=== PATIENT | female | born 1945 | race Caucasian/White ===

== ENCOUNTER 2017-11-13 08:23 | Outpatient (RCR) | payer OTHER, SELFPAY ==
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
--- NOTE | 2017-11-25 11:21 | NT_ITS ---
NON TREATMENT NOTE: 11/25/17 Today's appointment was made in an effort for patient to be followed up from her initial evaluation. There have been two attempts to contact this patient for follow up with a message left on both attempts.
== END 2017-12-06 23:59 | disposition home or self-care (01) ==
LOC: PT 08:23
PROVIDERS: PCP Nurse Practitioner Family; Referring Provider Otolaryngology Otolaryngology/Facial Plastic Surgery; Visit Provider Otolaryngology Otolaryngology/Facial Plastic Surgery
DX: R42 Dizziness and giddiness (principal)
CPT/HCPCS: 97112; 97161

== ENCOUNTER 2018-08-27 08:36 | Outpatient (REF) | payer OTHER, SELFPAY ==
[2018-08-27 12:11] LABS: Abs Immature Grans 0.01 k/cumm (0.0-0.09); Absolute Basophil Count 0.02 k/cumm (0.0-0.2); Absolute Eosinophil Count 0.31 k/cumm (0.0-0.7); Absolute Lymphocyte Count 1.57 k/cumm (1.2-3.4); Absolute Monocyte Count 0.74 k/cumm (0.11-0.7); Basophils % 0.3; HCT 45.3 % (36.0-46.0); HGB 14.9 g/dL (12.0-15.5); Immature Grans % 0.2; Lymphocytes % 25.5; Mean Corp. HGB Concentration 32.9 g/dL (32.0-36.0); Mean Corpuscular Hemoglobin 29.1 pg (27.0-33.0); Mean Corpuscular Volume 88.5 fL (80-95); Mean Platelet Volume 10.2 fL (8.0-11.0); Platelet Count 338 x1000/uL (130-400); RBC 5.12 m/cumm (4.00-5.20); RBC Distribution Width 12.8 % (11.7-14.6); White Blood Cell Count 6.15 k/cumm (4.4-10.8)
[2018-08-27 12:39] LABS: Bilirubin Negative (Negative); Blood Negative (Negative); Clarity Clear; Glucose Negative (Negative); Ketones Negative (Negative); Leukocyte Esterase Small (Negative); Nitrite Negative (Negative); Specific Gravity 1.015 (1.005-1.025); Urobilinogen 0.2 EU/dL (Up TO 0.2); pH 7.5 (5-8)
[2018-08-27 12:52] LABS: ALT 34 U/L (12-78); AST 16 U/L (15-37); Albumin 3.8 g/dL (3.4-5.0); Alkaline Phosphatase 89 U/L (46-116); Anion Gap 11.7 mmol/L (3-11); BUN 15 mg/dL (7-18); Bilirubin, Total 0.4 mg/dL (0.2-1.0); CO2 26.3 mmol/L (21.0-32.0); CREATININE 0.69 mg/dL (0.55-1.02); Calcium 10.2 mg/dL (8.5-10.1); Chloride 103 mmol/L (98-107); Cholesterol 162 mg/dL (50-200); Glucose 139 mg/dL (70-100); HDL Cholesterol 56 mg/dL (40-60); LDL CHOLESTEROL 89 mg/dL (<100); Potassium 4.6 mmol/L (3.5-5.1); Sodium 141 mmol/L (136-145); Total Protein 6.7 g/dL (6.4-8.2); Triglyceride 122 mg/dL (30-150)
[2018-08-27 12:53] LABS: COMMENT (LAB VIEW ONLY) 49.77 mg/dL; Microalb ug/mg Crea 12.5 ug/mg Cr
[2018-08-27 13:32] LABS: Epithelial Cells Rare HPF (Negative); RBC 0-2 (0-2); WBC 0-2 HPF (0-5)
[2018-08-27 13:33] LABS: Bacteria Few HPF (Negative); C & S Indicated? Yes; Casts Negative LPF (Negative); Crystals Few Amorphous HPF (Negative); Mucus Negative (Negative)
== END 2018-08-27 08:56 ==
LOC: NCHCN 08:36
PROVIDERS: PCP Nurse Practitioner Family; Visit Provider Nurse Practitioner Family
DX: R06.01 Orthopnea (principal); R53.83 Other fatigue; E11.9 Type 2 diabetes mellitus without complications
CPT/HCPCS: 80053; 80061; 83721; 81003; 81015; 82043; 82570; 85025; 87086

== ENCOUNTER 2018-09-08 00:05 | Outpatient (CLI) | payer OTHER, SELFPAY ==
--- NOTE | 2018-09-08 08:30 | ETT_ITS ---
*[facility]* *[facility]* [address] [place] [address] Stress Electrocardiography Rocky protocol Date of study: 09/08/2018 *PATIENT PRESENTATION* Height: 164.5cm (64.8in) Blood Pressure: Weight: 78.6kg (173lb) BSA: 1.92m^2 Referring physician: Naeem Ayoub Ordering physician: Naeem Ayoub Impressions: Normal study after maximal exercise. Summary: 1. Stress ECG conclusions: The stress ECG is negative. Juarez treadmill score: 8. This score predicts a low risk of cardiac events. 2. Stress: The target heart rate was achieved. The heart rate response to stress is normal. There is a normal resting blood pressure with an appropriate response to stress. The patient experienced no chest pain during stress. Exercise capacity is normal for age. Indication: R06.02. History: REASON FOR TESTING: FOR THE PAST 6 MONTHS PATIENT REPORTS A FEELING OF NECK FULLNESS, LIKE MY NECK IS FILLING UP WHEN LYING FLAT WITHOUT A PILLOW OR HAVING HER HEAD ON ONE PILLOW; SHE NEEDS TO EITHER SIT UP OR ADD MORE PILLOWS BEHIND HER HEAD TO FEEL COMFORTABLE AND NOT HAVE THE FILLING UP FEELING. SHE ALSO REPORTS BEING MORE FATIGUED THAN SHE FEELS SHE SHOULD BE. SHE REPORTS OCCASIONAL DIZZYNESS WHICH HAS BEEN A CHRONIC ISSUE FOR HER OVER THE LAST THREE YEARS FOR WHICH SHE HAS BEEN TO PHYSICAL THERAPY. SHE REPORTS FEELING DIZZY THIS MORNING UPON ARRIVAL FOR TESTING TODAY.SHE DENIES CHEST PAIN/PRESSURE TODAY. NO SIGNIFICANT CARDIAC RELATED PAST MEDICAL HISTORY. SMOKING STATUS: NEVER. EXERCISE ROUTINE: DAILY ADL'S. IN THE SUMMER SHE WALKS 1 MILE A FEW TIMES A WEEK. Risk factors: Family history of coronary artery disease. Hypertension. Diabetes mellitus. Cholesterol: 162mg/dl. HDL: 56mg/dl. LDL: 89mg/dl. Triglycerides: 122mg/dl. ALLERGIES: NO KNOWN MEDICATION ALLERGIES. MEDICATIONS: VITAMIN A 60135 UNITS DAILY, OMEPRAZOLE 40 MG PRN, METFORMIN 750 MG BID, LISINOPRIL 10 MG DAILY, VITAMIN B-12 5000 MCG DAILY, VITAMIN D 1000 DAILY, ASPIRIN 81 MG DAILY, ASCORBATE CALCIUM 500 MG DAILY, LORATADINE 10 MG DAILY. Protocol: Rocky protocol. Baseline ECG: SINUS RHYTHM. HR 68 BPM. Stress protocol: + +---+ + !Stage !HR !BP (mmHg) ! + +---+ + !Baseline supine !68 !134/82 (99) ! + +---+ + !Baseline standing !74 !140/82 (101)! + +---+ + !Stage I; 1.7mph, 10degrees; 3 min !108!142/80 (101)! + +---+ + !Stage II; 2.5mph, 12degrees; 3 min!133!150/78 (102)! + +---+ + !Peak stress !152! ! + +---+ + !Recovery; 1 min !140!190/60 (103)! + +---+ + !Recovery; 3 min !97 !188/62 (104)! + +---+ + !Recovery; 6 min !90 !150/80 (103)! + +---+ + !Recovery; 9 min !89 !140/80 (100)! + +---+ + !Recovery; 12 min !86 !134/80 (98) ! + +---+ + * Stress results: STRESS TEST ENDED IN 7 MINUTES 26 SECONDS DUE TO FATIQUE AND SOB. NORMAL HEART RATE AND BLOOD PRESSURE. MAX HEART RATE: 152. 102 % OF TARGET HEART RATE ACHIEVED. MET'S: 9.27. NO ECTOPY. NO ANGINA. NO SIGNIFICANT ST SEGMENT CHANGES. ABOVE AVERAGE FUNCTIONAL CAPACITY. Maximal heart rate during stress was 152bpm (102% of maximal predicted heart rate). The maximal predicted heart rate was 149bpm. The target heart rate was achieved. The heart rate response to stress is normal. There is a normal resting blood pressure with an appropriate response to stress. The rate-pressure product for the peak heart rate and blood pressure was 39527ft Hg/min. The patient experienced no chest pain during stress. Exercise capacity is normal for age. Stress ECG: The stress ECG is negative. Juarez treadmill score: 8. This score predicts a low risk of cardiac events. Study data: Ahmet Wayne MD supervised and was readily available during the procedure. This study was interpreted by [facility]. Study status: Routine. Consent: The risks, benefits, and alternatives to the procedure were explained to the patient and informed consent was obtained. Procedure: Initial setup. A baseline ECG was recorded. Surface ECG leads and manual cuff blood pressure measurements were monitored. Heart sounds: Normal. Lung sounds: Normal. Treadmill exercise testing was performed using the Rocky protocol. Study completion: The patient tolerated the procedure well and was discharged from the lab. Discharge: The patient left the laboratory in stable condition. Birthdate: Patient birthdate: 1945. Sex: Gender: female. Study date: Study date: 09/08/2018. Study time: 00:01 AM. Electronically signed by Ahmet Wayne MD 09/08/2018 11:07
== END 2018-09-08 00:25 ==
PROVIDERS: PCP Nurse Practitioner Family; Visit Provider Nurse Practitioner Family
DX: R06.02 Shortness of breath (principal); R42 Dizziness and giddiness; I10 Essential (primary) hypertension; E11.9 Type 2 diabetes mellitus without complications; Z82.49 Family history of ischemic heart disease and other diseases of the circulatory system; R53.83 Other fatigue
CPT/HCPCS: 93017

== ENCOUNTER 2018-10-01 00:43 | Outpatient (CLI) | payer OTHER, SELFPAY ==
--- NOTE | 2018-10-01 12:45 | MERGE_ITS ---
*[facility]* *[facility]* [address] [place] [address] Date of study: 10/01/2018 Transthoracic Echocardiography M-mode, complete 2D, complete spectral Doppler, and color Doppler *STUDY CONCLUSIONS* Summary: 1. Left ventricle: The cavity size was normal. Wall thickness was increased in a pattern of mild LVH. Systolic function was normal. The estimated ejection fraction was 60-65%. Wall motion was normal; there were no regional wall motion abnormalities. Diastolic parameters were normal for age. 2. Right ventricle: The cavity size was normal. Wall thickness was normal. Systolic function was normal. *PATIENT PRESENTATION* Height: 165.1cm ((65in) ) S/D Pressure: 129 / 68 Weight: 78.5kg ((172.6lb) ) BSA: 1.92m^2 Test start time: 12:50 PM. Test stop time: 01:50 PM. PERFORMING Unknown PERFORMING [facility] LEGAL RESEARCHER RT Colton (R)(CT), [facility] CONSULTING Glo Roberts Logan D REFERRING Naeem Ayoub *PROCEDURE DATA* Procedure information: The patient was identified by two identifiers. This study was interpreted by [facility]. Pertinent images and digital data are archived for permanent storage and are available for subsequent review. No prior study was available for comparison. Study status: Routine. Transthoracic echocardiography. M-mode, complete 2D, complete spectral Doppler, and color Doppler. A Transthoracic Echocardiogram was performed. Scanning was performed from the parasternal, apical, subcostal, and suprasternal notch acoustic windows. Images were obtained using an [id number] cardiac ultrasound machine. Image quality was adequate. Study completion: The patient tolerated the procedure well. There were no complications. History: PMH: Easy fatigability, orthopnea r06.01, r53.83. *CARDIAC ANATOMY* Left ventricle: The cavity size was normal. Wall thickness was increased in a pattern of mild LVH. Systolic function was normal. The estimated ejection fraction was 60-65%. Wall motion was normal; there were no regional wall motion abnormalities. Diastolic parameters were normal for age. Aortic valve: Trileaflet; normal thickness leaflets. Mobility was not restricted. Doppler: Transvalvular velocity was within the normal range. There was no stenosis. There was no significant regurgitation. VTI ratio of LVOT to aortic valve: 0.66. Valve area (VTI): 1.9cm^2. Indexed valve area (VTI): 1cm^2/m^2. Peak velocity ratio of LVOT to aortic valve: 0.63. Valve area (Vmax): 1.8cm^2. Indexed valve area (Vmax): 0.9cm^2/m^2. Mean velocity ratio of LVOT to aortic valve: 0.64. Valve area (Vmean): 1.9cm^2. Indexed valve area (Vmean): 1cm^2/m^2. Mean gradient (S): 4.6mm Hg. Peak gradient (S): 7.8mm Hg. Aorta: Aortic root: The aortic root was normal in size. Ascending aorta: The ascending aorta was normal in size. Mitral valve: Structurally normal valve. Mobility was not restricted. Doppler: Transvalvular velocity was within the normal range. There was no evidence for stenosis. There was no significant regurgitation. Valve area by pressure half-time: 3.1cm^2. Indexed valve area by pressure half-time: 1.6cm^2/m^2. Left atrium: The atrium was normal in size. Right ventricle: The cavity size was normal. Wall thickness was normal. Systolic function was normal. Pulmonic valve: Structurally normal valve. Doppler: Transvalvular velocity was within the normal range. There was no evidence for stenosis. There was no significant regurgitation. Peak gradient (S): 3.2mm Hg. Tricuspid valve: Structurally normal valve. Doppler: Transvalvular velocity was within the normal range. There was no evidence for stenosis. There was trivial regurgitation. Pulmonary artery: Pulmonary systolic pressure was within the normal range, in the range of 25mm Hg to 30mm Hg. Right atrium: The atrium was normal in size. Pericardium: There was no pericardial effusion. Systemic veins: Inferior vena cava: The vessel was normal in size. Superior vena cava: Well visualized. The vessel was patent and normal in size. The respirophasic diameter changes were in the normal range (greater than or equal to 50%). Baseline ECG: Normal sinus rhythm. Measurements Left ventricle Value Reference LV ID, ED, PLAX 4.3 cm 3.5 - 6.0 LV ID, ES, PLAX 2.6 cm 2.1 - 4.0 LV PW thickness, ED, PLAX 1.1 cm LV end-diastolic volume, 1-p A2C 55 ml LV ejection fraction, 1-p A2C 68 % LV end-diastolic volume, 1-p A4C 70 ml LV ejection fraction, 1-p A4C 67 % LV e', lateral 0.076 m/sec LV E/e', lateral 9 LV e', medial 0.058 m/sec LV E/e', medial 11 LV e', average 0.067 m/sec LV E/e', average 10 Ventricular septum Value Reference IVS thickness, ED, PLAX 1.1 cm LVOT Value Reference LVOT ID, A-P 1.9 cm LVOT area 2.9 cm^2 LVOT peak velocity, S 0.88 m/sec LVOT mean velocity, S 0.66 m/sec LVOT VTI, S 18.5 cm LVOT peak gradient, S 3.1 mm Hg LVOT mean gradient, S 1.9 mm Hg Stroke volume (SV), LVOT DP 53 ml Stroke index (SV/bsa), LVOT DP 28 ml/m^2 Aortic valve Value Reference Aortic valve peak velocity, S 1.4 m/sec Aortic valve mean velocity, S 1.02 m/sec Aortic valve VTI, S 28.0 cm Aortic mean gradient, S 4.6 mm Hg Aortic peak gradient, S 7.8 mm Hg VTI ratio, LVOT/AV 0.66 Aortic valve area, VTI 1.9 cm^2 Velocity ratio, peak, LVOT/AV 0.63 Aortic valve area, peak velocity 1.8 cm^2 Velocity ratio, mean, LVOT/AV 0.64 Aortic valve area, mean velocity 1.9 cm^2 Aortic valve area/bsa, mean velocity 1 cm^2/m^2 Aorta Value Reference Aortic root ID, ED 2.8 cm Ascending aorta ID, A-P, S 3.4 cm Left atrium Value Reference LA ID, A-P, ES 3.1 cm LA ID/bsa, A-P 1.6 cm/m^2 <=2.2 LA area, ES, A4C 11.7 cm^2 8.8 - 23.4 LA area, ES, A2C 17 cm^2 LA volume/bsa, ES, 1-p A4C 16 ml/m^2 LA volume, ES, 2-p 38 ml LA volume/bsa, ES, 2-p 20 ml/m^2 LA/aortic root ratio 1.1 Mitral valve Value Reference Mitral E-wave peak velocity 0.67 m/sec Mitral A-wave peak velocity 0.94 m/sec Mitral deceleration time (H) 245 ms 150 - 230 Mitral pressure half-time 71 ms Mitral E/A ratio, peak 0.71 Mitral valve area, PHT, DP 3.1 cm^2 Tricuspid valve Value Reference Tricuspid regurg peak velocity 2.5 m/sec Tricuspid peak RV-RA gradient 24.9 mm Hg Right atrium Value Reference RA area, ES, A4C 11.3 cm^2 8.3 - 19.5 Pulmonic valve Value Reference Pulmonic peak gradient, S 3.2 mm Hg Legend: (L) and (H) anderson values outside specified reference range. I have personally reviewed the images and have reviewed and edited the reported findings. Electronically signed by Romain Infante 10/01/2018 14:11
--- NOTE | 2018-10-01 15:30 | DI.MAMMO_ITS ---
SYMPTOMS/DIAGNOSIS: SCREENING, Z12.39 MAMMOGRAM: Mammograms were interpreted according to the usual protocol including computer analysis with CAD system, tomosynthesis and C view imaging. The breasts are of moderate density with fairly symmetrical distribution of fibroglandular tissue. No dominant mass or clumped microcalcification is identified in either breast. Current examination is compared with previous examinations including June 2017 and there has been no gross interval change in appearance in comparison with the previous studies. CONCLUSION: No specific evidence of malignancy at this time. Routine screening examinations are suggested at yearly intervals in this age group according to the ACS/ACR guidelines. Category 1, breast density category B. MQSA ASSESSMENT OF FINDINGS: Negative. Category 1. Patient will receive a letter notifying them of these results. BI-RADS category B. There are scattered areas of fibroglandular density.
== END 2018-10-01 01:03 ==
PROVIDERS: PCP Nurse Practitioner Family; Referring Provider Nurse Practitioner Family; Visit Provider Nurse Practitioner Family
DX: R53.83 Other fatigue (principal); R06.02 Shortness of breath; R06.01 Orthopnea; I10 Essential (primary) hypertension; Z12.31 Encounter for screening mammogram for malignant neoplasm of breast
CPT/HCPCS: 77063; 77067; 93306

== ENCOUNTER 2018-10-31 01:11 | Outpatient (CLI) | payer OTHER, SELFPAY ==
--- NOTE | 2018-10-31 12:20 | DI.US_ITS ---
SYMPTOMS/DIAGNOSIS: CHECK BLADDER EMPTYING, ? HYDRO, MIXED INCONTINENCE, HX DISEASE OF URINARY SYSTEM, N39.46, Z87.448, R10.2 PELVIC PAIN RENAL ULTRASOUND: Comparison is made with [id number]. The right kidney measures 11.8 cm in length. The left kidney measures 9.1 cm in length. This has not changed from the previous exam. There is no evidence of hydronephrosis, renal mass or calculi. The bladder was not well distended on the prevoid images, with a bladder of 23 cc's. There is a postvoid residual of 1.4 cc's. Both ureteral jets were visualized. IMPRESSION: No evidence of hydronephrosis. There is no significant postvoid residual.
== END 2018-10-31 01:31 ==
PROVIDERS: PCP Nurse Practitioner Family; Visit Provider Urology
DX: N39.46 Mixed incontinence (principal); R10.2 Pelvic and perineal pain; Z87.448 Personal history of other diseases of urinary system; R39.198 Other difficulties with micturition
CPT/HCPCS: 76770

== ENCOUNTER 2018-11-18 14:48 | Outpatient (REF) | payer OTHER, SELFPAY | END 2018-11-18 15:08 | LOC: NCHCN 14:48 | PROVIDERS: PCP Nurse Practitioner Family; Visit Provider Nurse Practitioner Family | DX: R30.0 Dysuria (principal); R31.9 Hematuria, unspecified | CPT/HCPCS: 87077; 87086; 87186 ==

== ENCOUNTER 2020-01-22 15:02 | Outpatient (REF) | payer OTHER, SELFPAY ==
[2020-01-22 19:21] LABS: HCT 47.1 % (36.0-46.0); HGB 14.8 g/dL (11.2-15.7); MCHC 31.4 % (32.0-36.0); MCV 92.4 fL (80-95); MPV 10.3 fL (8.0-11.0); Platelet Count 366 10^3/uL (130-400); RDW 12.2 % (11.7-14.6); WBC 6.81 10^3/uL (4.4-10.8)
[2020-01-22 19:52] LABS: Albumin 4.2 g/dL (3.4-5.0); Alkaline Phosphatase 95 U/L (46-116); BUN 18 mg/dL (7-18); Bilirubin, Total 0.3 mg/dL (0.2-1.0); CREATININE 0.88 mg/dL (0.55-1.02)
[2020-01-22 19:58] LABS: Hemoglobin A1C 7.3 % (<5.7)
[2020-01-22 20:14] LABS: ALT 46 U/L (14-59); AST 20 U/L (15-37); Anion Gap 8.8 mmol/L (3-11); CO2 27.2 mmol/L (21.0-32.0); Calculated LDL 93 mg/dL (<100); Chloride 105 mmol/L (98-107); Cholesterol 183 mg/dL (<200); Glucose 141 mg/dL (74-106); HDL Cholesterol 47 mg/dL (40-60); Sodium 141 mmol/L (136-145); Total Protein 7.3 g/dL (6.4-8.2); Triglyceride 219 mg/dL (<150)
[2020-01-22 20:32] LABS: Calcium 11.7 mg/dL (8.5-10.1)
[2020-01-22 20:33] LABS: Potassium 6.6 mmol/L (3.5-5.1)
== END 2020-01-22 15:22 ==
LOC: NCHCN 15:02
PROVIDERS: PCP Nurse Practitioner Family; Visit Provider Nurse Practitioner Family
DX: I10 Essential (primary) hypertension (principal); E11.9 Type 2 diabetes mellitus without complications
CPT/HCPCS: 80053; 80061; 85027; 83036

== ENCOUNTER 2020-02-02 19:44 | Outpatient (REF) | payer OTHER, SELFPAY ==
[2020-02-02 19:16] LABS: Anion Gap 7.5 mmol/L (3-11); BUN 17 mg/dL (7-18); CO2 26.5 mmol/L (21.0-32.0); CREATININE 0.75 mg/dL (0.55-1.02); Calcium 10.9 mg/dL (8.5-10.1); Chloride 103 mmol/L (98-107); Glucose 195 mg/dL (74-106); Potassium 4.6 mmol/L (3.5-5.1); Sodium 137 mmol/L (136-145)
== END 2020-02-02 20:04 ==
LOC: NCHCN 19:44
PROVIDERS: PCP Nurse Practitioner Family; Visit Provider Nurse Practitioner Family
DX: I10 Essential (primary) hypertension (principal)
CPT/HCPCS: 80048

== ENCOUNTER 2020-03-04 15:46 | Outpatient (REF) | payer OTHER, SELFPAY ==
[2020-03-06 13:25] LABS: Patient Race White; SARS-CoV-2 RNA Undetected (Undetected); SARS-CoV-2 Specimen Source Nasal
== END 2020-03-04 16:06 ==
LOC: NCHCN 15:46
PROVIDERS: PCP Nurse Practitioner Family; Visit Provider Nurse Practitioner Family
DX: Z11.59 Encounter for screening for other viral diseases (principal)
CPT/HCPCS: U0003

== ENCOUNTER 2020-04-21 14:22 | Outpatient (REF) | payer OTHER, SELFPAY ==
[2020-04-21 19:00] LABS: BUN 18 mg/dL (7-18); CREATININE 0.83 mg/dL (0.55-1.02); Calcium 10.5 mg/dL (8.5-10.1); Chloride 105 mmol/L (98-107); Glucose 120 mg/dL (74-106); Potassium 4.7 mmol/L (3.5-5.1); Sodium 140 mmol/L (136-145)
[2020-04-25 10:56] LABS: Parathyroid Hormone,Intact 57 pg/mL (19-88)
== END 2020-04-21 14:42 ==
LOC: NCHCN 14:22
PROVIDERS: PCP Nurse Practitioner Family; Visit Provider Nurse Practitioner Family
DX: E87.5 Hyperkalemia (principal); R53.83 Other fatigue; E11.9 Type 2 diabetes mellitus without complications; I10 Essential (primary) hypertension
CPT/HCPCS: 80048; 83970

== ENCOUNTER 2020-10-05 14:30 | Emergency (ER) | payer OTHER, SELFPAY ==
[2020-10-05] VITALS (17 sets, daily range): BP systolic 121–166; BP diastolic 70–86; PULSE 82–94; RESP 13–23; TEMP 36.8; O2SAT 91–97
--- NOTE | 2020-10-05 14:30 | RT.EKG_ITS ---
APPROVED REPORT Exam: Resting ECG Reason for Exam: chest pain Patient Location: E HR:92 bpm ECG Measurements Heart Rate 92 AXIS AL 175 P 38 QRSd 73 QRS -47 QT 357 T 37 QTc 442 Conclusion Sinus rhythm...normal P axis, V-rate 60- 99 Inferior infarct, old...Q >35mS, II III aVF PHysician: No STEMI
--- NOTE | 2020-10-05 14:30 | DI.RAD_ITS ---
Exam(s) XR CHEST 2V PA LATERAL EXAM: XR CHEST 2V PA LATERAL CLINICAL HISTORY: Chest pain. TECHNIQUE: 2D digital imaging was performed. COMPARISON: CR CHEST 2 VIEWS PA,LAT from 02/12/2014 FINDINGS: Heart size is normal. The mediastinum is not widened. Lungs are clear. No infiltrates nor pleural effusions. IMPRESSION: No acute pulmonary findings. No significant change from 02/12/2014 DATA REPOSITORY: RADIATION DOSE DELIVERED:
[2020-10-05 14:55] LABS: Abs Immature Grans 0.04 10^3/uL (0.0-0.06); Absolute Basophil Count 0.03 10^3/uL (0.0-0.2); Absolute Eosinophil Count 0.32 10^3/uL (0.0-0.7); Absolute Lymphocyte Count 1.82 10^3/uL (1.2-3.4); Absolute Monocyte Count 0.79 10^3/uL (0.1-0.8); Absolute Neutrophil Count 4.25 10^3/uL (1.2-6.7); Basophils % 0.4; Eosinophils % 4.4; HCT 47.8 % (36.0-46.0); HGB 15.5 g/dL (11.2-15.7); Immature Grans % 0.6; Lymphocytes % 25.1; MCH 29.6 pg (27.0-33.0); MCHC 32.4 % (32.0-36.0); MCV 91.2 fL (80-95); MPV 9.4 fL (8.0-11.0); Monocytes % 10.9; Neutrophils % 58.6; Nucleated RBC 0 %; Platelet Count 302 10^3/uL (130-400); RBC 5.24 10^6/uL (3.93-5.22); RDW 12.5 % (11.7-14.6); RDW-SD 41.7 fL; WBC 7.25 10^3/uL (4.4-10.8)
--- NOTE | 2020-10-05 15:02 | ED.GENADUL_ITS ---
Discharge Plan Disposition Patient Disposition: HOME Condition: Stable Discharge Details Clinical Impression: Chest pain Primary Care Provider: Naeem Ayoub ED Provider: Donna Whitman Home Meds and New Rx's Prescriptions: Continued niacin 500 mg tablet 500 mg PO TID RF: 0 aspirin 81 MG tablet,chewable 81 mg PO DAILY RF: 0 Loratadine 10 MG TAB.RAPDIS 10 mg PO DAILY PRNRF: 0 metformin 500 MG tablet 750 mg PO BID RF: 0 lisinopril 10 MG tablet 10 mg PO DAILY RF: 0 vitamin A 10,000 UNIT capsule 10,000 unit PO DAILY RF: 0 ascorbate calcium (vitamin C) 500 MG tablet 500 mg PO DAILY RF: 0 cholecalciferol (vitamin D3) 1,000 UNITS tablet 1,000 unit PO DAILY RF: 0 cyanocobalamin (vitamin B-12) 5,000 MCG tablet,disintegrating 5,000 mcg PO DAILY RF: 0 Discharge Instructions Instructions: Chest Pain (ED) Additional Instructions: Please continue to take your previously prescribed medications as directed. Follow up with primary care provider in 3-5 days. Return to ED sooner if any worsening or concerns. Increase oral fluids. An outpatient stress test was ordered. They will call you to set that up. Please return to the ED for any worsening symptoms, worsening chest pain, worsening dizziness or any concerns. At this time you have opted to not stay for the second troponin. Please be advised that I cannot rule out a cardiac event without trending this lab. Referrals: Naeem Ayoub, GAUGE AND INSTRUMENT INSPECTOR [Primary Care Provider] - Discharge Data Discharge Date/Time-TO BE ENTERED AT DEPARTURE: 10/05/20 16:15 Medical Decision Making 75-year-old female with a past medical history of hypertension, kaq-thkcscu-aunbkcjeh diabetes, Lyme disease, asthma presents to the ER with chief complaint of chest pressure which began underneath her bilateral arms rating up into the bilateral neck and in between her shoulder blades. Associated with dizziness and increased fatigue. Patient reports increased activity over the last week and overdoing it she reports increasing her lisinopril dosages by half a tablet since Saturday due to blood pressure reading of 158/73. Upon initial exam she is complaining of 1 or 2 out of 10 chest pressure. Denies any nausea vomiting diarrhea however she does state that her bowels have been off. EKG was reviewed by Dr. Benjie Nguyen DO ER attending, please see his official report no old EKG available for review. Heart score is 4 Initial labs include CBC, CMP, serial troponin, chest x-ray. CBC is largely within normal limits, no leukocytosis CMP shows anion gap of 12.7, BUN 21 creatinine 0.9 GFR greater than 60 glucose is 169. Initial troponin within normal limits less than 0.05 Patient is willing to wait the second troponin in 3 hours. Current 324 mg aspirin ordered. Chest x-ray is pending at this time. Exam(s) XR CHEST 2V PA LATERAL EXAM: XR CHEST 2V PA LATERAL CLINICAL HISTORY: Chest pain. TECHNIQUE: 2D digital imaging was performed. COMPARISON: CR CHEST 2 VIEWS PA,LAT from 02/12/2014 FINDINGS: Heart size is normal. The mediastinum is not widened. Lungs are clear. No infiltrates nor pleural effusions. IMPRESSION: No acute pulmonary findings. No significant change from 02/12/2014 Informed by staff development coordinator that patient is declining to wait for the second troponin at this time. I did discuss the risks and benefits of this. She verbalizes understanding has a capacity to make her own decisions. She would not like to wait for the second troponin. I will order an outpatient stress test for the patient with strict return instructions and instructions to follow up with PCP in the next 3 to 5 days. HPI General Mode of arrival: wheelchair . Date/Time Provider Initiated Documentation: 10/05/20 14:35 . Limitations to Documentation: no limitations . Information obtained by: patient and RN notes reviewed . HPI Narrative: 75-year-old female with a past medical history of hypertension, ecd-atzaedn-kvjjkaawn diabetes, Lyme disease, asthma presents to the ER with chief complaint of chest pressure which began underneath her bilateral arms rating up into the bilateral neck and in between her shoulder blades. Associated with dizziness and increased fatigue. Patient reports increased activity over the last week and overdoing it she reports increasing her lisinopril dosages by half a tablet since Saturday due to blood pressure reading of 158/73. Upon initial exam she is complaining of 1 or 2 out of 10 chest pressure. Denies any nausea vomiting diarrhea however she does state that her bowels have been off. Related Data Home Medications Medication Instructions Recorded Confirmed lisinopril 10 mg PO DAILY 07/27/12 10/05/20 metformin 750 mg PO BID 07/27/12 10/05/20 Loratadine 10 mg PO DAILY PRN tab-cap 06/11/17 10/05/20 aspirin 81 mg PO DAILY tab-cap 06/11/17 10/05/20 ascorbate calcium (vitamin C) 500 mg PO DAILY 07/25/17 10/05/20 cholecalciferol (vitamin D3) 1,000 unit PO DAILY 07/25/17 10/05/20 cyanocobalamin (vitamin B-12) 5,000 mcg PO DAILY 07/25/17 10/05/20 vitamin A 10,000 unit PO DAILY 07/25/17 10/05/20 niacin 500 mg tablet 500 mg PO TID tab 10/31/18 10/05/20 Allergies Allergy/AdvReac Type Severity Reaction Status Date / Time No Known Allergies Allergy Unverified 10/05/20 14:41 General Stated Complaint: Chest Pain DEMETRICE: 2 Review of Systems Narrative: Constitutional: Negative for weight loss, alert and oriented, well groomed, normal body habitus, appears comfortable. Increased fatigue HEENT: Denies trauma, headaches, blurry vision, nasal discharge, sore throat, trouble swallowing. Chest: Denies palpitations, irregular rhythm, reports midsternal chest pressure which radiates around to bilateral arms and bilateral neck. Respiratory: Denies Shortness of breath, cough, hemoptysis. GI: Denies abdominal pain, nausea, vomiting, diarrhea, constipation. : Denies dysuria, hematuria, flank pain, rectal bleeding. Neuro: Denies , blurry vision, weakness, syncope, headache or facial numbness. Positive dizziness. Hematologic: Denies easy bruising, intolerance to heat or cold, hair loss. [facility] Medical History Acute Lyme disease Anxiety Asthma Cataract Chronic back pain Depression Dysuria Fibrocystic breast H/O menorrhagia Hematuria History of pyelonephritis HTN (hypertension) Hyperlipidemia Incomplete bladder emptying Irritable colon Low pressure urethral dysfunction Mild scoliosis Neck pain Onychomycosis Osteopenia Pelvic pain in female Schatzki's ring Type 2 diabetes mellitus Urinary incontinence in female Vaginal pain Surgical History [place] [facility] [place] Social History Smoking/Tobacco Use Status: Never Smoking risk assessment performed?: Yes Alcohol Intake: never Drug use: Never Do you feel safe at home: Yes Do you feel safe in your relationship?: Yes Exam Narrative Exam Narrative: Constitutional: Alert and oriented x3. Appears stated age. Normal body habitus. Head: Normocephalic, no trauma. Eyes: Pupils PERRLA, Red reflex noted, EOM's intact. Eyelids symmetrical without lesions, discharge, or swelling. ENT: Bilateral TM's WNL, External ear normal to inspection, no mastoid TTP, swelling, or erythema, Nasal turbinates WNL, no nasal discharge. Normal dentition, Posterior pharynx WNL, no exudate. Chest: RRR, Normal S1, S2, distal pulses intact. Resp: Lungs clear to auscultation bilaterally, no wheezes, rales, or rhonchi. Abdomen: Soft, nontender all 4 quadrants. Nondistended. Musculoskeletal: Normal gait, 5/5 strength to all four extremities. Skin: No suspicious rashes or lesions. Capillary refill less than 2 sec. Neurologic: Cranial nerves II-XII intact. Alert and oriented x 3. DTR's intact. Hematologic/Lymphatic: No ecchymosis, no lymphadenopathy. Course Vital Signs Vital signs: Vital Signs Temperature 36.8 C 10/05/20 14:37 Pulse 94 H 10/05/20 14:37 Respiratory Rate 19 10/05/20 14:37 Blood Pressure 166/86 H 10/05/20 14:37 Pulse Oximetry 95 10/05/20 14:37 Temperature 36.8 C 10/05/20 14:37 Temperature Source Temporal Artery Scan 10/05/20 14:37 Pulse 94 H 10/05/20 14:37 Pulse 89 10/05/20 15:00 Respiratory Rate 14 10/05/20 15:00 Respiratory Effort Non-Labored 10/05/20 14:40 Blood Pressure 166/86 H 10/05/20 14:37 Blood Pressure Position Supine 10/05/20 14:37 Pulse Oximetry 97 10/05/20 14:50 Oxygen Delivery Method Room Air 10/05/20 14:37 Oxygen Flow Rate 0 10/05/20 14:37 Pain Level 5 10/05/20 14:37 Lab/Test Results Lab/Test Results: Laboratory Tests Range/Units 10/05/20 14:50 WBC (4.4-10.8) 10^3/uL 7.25 RBC (3.93-5.22) 10^6/uL 5.24 H Hgb (11.2-15.7) g/dL 15.5 Hct (36.0-46.0) % 47.8 H MCV (80-95) fL 91.2 MCH (27.0-33.0) pg 29.6 MCHC (32.0-36.0) % 32.4 RDW (11.7-14.6) % 12.5 Plt Count (130-400) 10^3/uL 302 MPV (8.0-11.0) fL 9.4 Immature Gran % 0.6 Neutrophils % 58.6 Lymphocytes % 25.1 Monocytes % 10.9 Eosinophils % 4.4 Basophils % 0.4 Nucleated RBC % % 0 Absolute Neutrophils (1.2-6.7) 10^3/uL 4.25 Absolute Lymphocytes (1.2-3.4) 10^3/uL 1.82 Absolute Monocytes (0.1-0.8) 10^3/uL 0.79 Absolute Eosinophils (0.0-0.7) 10^3/uL 0.32 Absolute Basophils (0.0-0.2) 10^3/uL 0.03
[2020-10-05 15:10] LABS: ALT 35 U/L (14-59); AST 26 U/L (15-37); Alkaline Phosphatase 109 U/L (46-116); Anion Gap 12.7 mmol/L (3-11); BUN 22 mg/dL (7-18); Bilirubin, Total 0.3 mg/dL (0.2-1.0); CO2 22.3 mmol/L (21.0-32.0); CREATININE 0.9 mg/dL (0.55-1.02); Calcium 10.4 mg/dL (8.5-10.1); Chloride 102 mmol/L (98-107); Glucose 169 mg/dL (74-106); Potassium 4.5 mmol/L (3.5-5.1); Sodium 137 mmol/L (136-145); Total Protein 7.7 g/dL (6.4-8.2); Troponin I < 0.05 ng/mL (<0.06)
--- NOTE | 2020-10-05 16:03 | NUR.NOTE ---
Nursing Note: Order for regular exercise stress test for chest pain faxed to [facility]. Instructions for the test given to patient. Bruna Medeiros
[2020-10-05] MEDS: Aspirin 81 MG CHEW 324 MG CH (16:16)
== END 2020-10-05 16:15 | disposition home or self-care (01) ==
PROVIDERS: Emergency Provider Registered Nurse Emergency; PCP Nurse Practitioner Family
DX: R07.9 Chest pain, unspecified (principal)
CPT/HCPCS: 80053; 93005; 99284; 71046; 83735; 84484; 85025; 93010; 99283

== ENCOUNTER 2020-10-11 02:35 | Outpatient (CLI) | payer OTHER, SELFPAY ==
--- NOTE | 2020-10-11 15:00 | ETT_ITS ---
APPROVED REPORT Exam: Exercise Treadmill Patient Location: Out-Patient Room/Bed: Stress Nurse: Gauri Barone RN Ordering Provider:KRISTA CUNNINGHAM, Contact Number: [phone] BMI: 30.55 Baseline Rhythm: Sinus Rhythm Indications: Chest pain Medical History Medical History: Hypertension, diabetes, hyperlipidemia, asthma, lyme disease, anxiety Cardiac Medications: Aspirin, lisinopril, metformin Allergies: NKA Cardiac Risk Factors: Hypertension, diabetes, hyperlipidemia, asthma Previous Cardiac Procedures: None Pretest Chest Pain Characteristics: Midsternal chest pressure 3/10 Exercise History: Sedentary Physical Disabilities: None Lung Sounds: Clear to auscultation Heart Sounds: Regular Stress Test Details Test: Exercise stress testing was performed using a Rocky protocol. Rest Stress HR Resting HR Supine: 76 bpm Max Heart Rate (APMHR): 147 bpm Resting HR Standin bpm Target HR (85% APMHR): 124 bpm Max HR Achieved: 140 bpm % of APMHR: 95 Recovery HR: 87 bpm HR response to stress: Normal HR response to stress BP Resting BP Supine: 128/74 mmHg Resting BP Standin/80 mmHg Max BP: 162/68 mmHg Recovery BP: 128/70 mmHg BP response to stress: Normal blood pressure response to stress. ECG Resting ECG: Sinus Rhythm Ectopy: None Stress ECG: Sinus Tachycardia ST Change: No significant ST segment changes noted Arrhythmia: None Recovery ECG: Sinus Rhythm Recovery ST Change: No significant ST segment changes noted Recovery Arrhythmia: Rare PACs, rare PVC Clinical Reason for Termination: Fatigue Stress Symptoms: Dyspnea, Chest pressure, Dizziness Exercise duration: 5 min31 sec Highest Stage Reached: Stage 2: 2.5 mph at 12% grade. Exercise capacity: 7.05 METs Juarez Treadmill Score: 1 Rate Pressure Product: [id number] Stress ECG Conclusion 1. The patient exercised for 5 minutes and 30 seconds (7 METS). Exercise was stopped due to fatigue. 2. The patient no symptoms suggestive of ischemia. 3. The patient's blood pressure and heart rate augmented appropriately. 4. There were no ECG changes suggestive of ischemia. Juarez Treadmill Score is 1 which is Moderate risk. Stress Test Summary STAGE Time (mins) Speed (mph) Grade (%) HR BP SYMPTOMS METS Supine 76 128/74 Standing 82 138/80 SpO2 96% 1 3 1.7 10 111 138/72 SpO2 95%, mild SOB 4.6 2 6 2.5 12 138 SpO2 96%, moderate SOB, chest pressure 4/10, dizziness, 7 1 min recovery 122 162/68 SpO2 98% 3 min recovery 89 144/72 chest pressure 3,10 6 min recovery 87 128/70 mild SOB, mild dizziness Pt felt dizziness upon cessation of exercise. Chest pressure returned to baseline 3/10 by minute 4 of recovery. SOB and dizziness improved during recovery. Pt attributed dizziness to lack of food and pl anned to eat immediately after stress test.
== END 2020-10-11 02:55 ==
PROVIDERS: PCP Nurse Practitioner Family; Visit Provider Registered Nurse Emergency
DX: R07.9 Chest pain, unspecified (principal); I10 Essential (primary) hypertension; E11.9 Type 2 diabetes mellitus without complications; E78.5 Hyperlipidemia, unspecified; J45.909 Unspecified asthma, uncomplicated
CPT/HCPCS: 93016; 93018; 93017

== ENCOUNTER 2020-12-07 01:57 | Outpatient (CLI) | payer OTHER, SELFPAY ==
--- NOTE | 2020-12-07 | DI.MAMMO_ITS ---
Exam(s) MAMMO SCREENING EXAM: MAMMO SCREENING CLINICAL HISTORY: SCREENING, [facility].00 TECHNIQUE: Bilateral full field digital CC and MLO mammographic images were obtained with 3D tomosyn thesis and utilizing computer aided detection (CAD). COMPARISON: Available for comparison. FINDINGS: Masses/Architectural Distortion: No suspicious masses or areas of architectural distortion. Microcalcifications: No suspicious pleomorphic-type are seen. Skin Thickening/Nipple Retraction: None. IMPRESSION: 1. No significant interval change with no specific features of malignancy noted. 2. Unless there is more urgent need, screening mammography is recommended, as per [employer] guidelines. BI-RADS Category 1 - Negative Breast Density - Category B - Scattered areas of fibroglandular density Breast density category C or D implies that the patient has dense breast tissue. Dense breast tissue is very common and is not abnormal but dense breast tissue can make it harder to find cancer on a ma mmogram. Also, dense breast tissue may increase their breast cancer risk. This information about the result of the mammogram report was provided to the patient to raise their awareness. Use this report when you speak with the patient about their risks for breast cancer, which includes their family hist ory. At that time, you may recommend for more screening tests (Ultrasound or MRI) as they might be us eful based on their risk. A negative radiographic report should not delay biopsy if a dominant or clinically suspicious mass is present. Up to ten percent of cancers are not identified on mammography. A negative report may reinforce clinical impression. Adenosis and dense breasts may obscure an underlying neoplasm. False positive reports average 6 to 10%. Patient will receive a letter notifying them of these results.
== END 2020-12-07 02:17 ==
PROVIDERS: PCP Family Medicine; Visit Provider Family Medicine
DX: Z00.00 Encounter for general adult medical examination without abnormal findings (principal); Z12.31 Encounter for screening mammogram for malignant neoplasm of breast
CPT/HCPCS: 77063; 77067

== ENCOUNTER → 2020-12-29 14:23 | Outpatient (BNVA) | payer MEDICARE, SELFPAY | PROVIDERS: PCP Family Medicine; Referring Provider Nurse Practitioner Family; Visit Provider Physical Therapy Assistant | DX: R13.10 Dysphagia, unspecified (principal); Z12.11 Encounter for screening for malignant neoplasm of colon; E11.9 Type 2 diabetes mellitus without complications; I10 Essential (primary) hypertension; Z86.010 Personal history of colon polyps | CPT/HCPCS: 99214 ==

== ENCOUNTER 2021-01-31 03:28 | Outpatient (CLI) | payer MEDICARE, SELFPAY ==
[2021-01-31 11:13] LABS: Source Nasal/Nares
[2021-01-31 13:46] LABS: COVID-19 PCR Negative (Negative)
== END 2021-01-31 03:29 | disposition home or self-care (01) ==
LOC: LBO 03:29
PROVIDERS: PCP Family Medicine; Visit Provider Surgery
DX: Z20.822 Contact with and (suspected) exposure to COVID-19 (principal)
CPT/HCPCS: 87635

== ENCOUNTER 2021-02-01 08:12 | Day surgery (SDC) | payer MEDICARE, SELFPAY ==
--- NOTE | 2021-02-01 06:19 | W.ANESPRE ---
General Info Date of Service Date Performed: 02/01/21 Height: 5 ft 4 in Weight: 78.585 kg Body Mass Index (BMI): 29.7 Surgical Procedure: Operation Date: 02/01/21 09:20 Proposed Procedures Side Surgeon p Colonoscopy/Gastroscopy Diamond Bourgeois MD Meds Allergies and Home Medications Allergies Allergy/AdvReac Type Severity Reaction Status Date / Time No Known Allergies Allergy Unverified 02/01/21 08:27 Home Medication Medication Instructions Recorded lisinopril 10 mg PO DAILY 07/27/12 metformin 750 mg PO BID 07/27/12 Loratadine 10 mg PO DAILY PRN tab-cap 06/11/17 aspirin 81 mg PO DAILY tab-cap 06/11/17 cholecalciferol (vitamin D3) 1,000 unit PO DAILY 07/25/17 cyanocobalamin (vitamin B-12) 5,000 mcg PO DAILY 07/25/17 niacin 500 mg tablet 500 mg PO TID tab 10/31/18 famotidine 40 mg tablet 40 mg PO BID 11/23/20 5-hydroxytryptophan (5-HTP) 100 mg 100 mg PO BID 12/29/20 capsule Current Visit Medications: Current Medications Generic Name Dose Route Start Last Admin Trade Name Freq PRN Reason Stop Dose Admin Ringer's Solution 1,000 mls @ 80 mls/hr 02/01/21 06:00 IV 03/02/21 23:59 INFUSION DOUG IV Miscellaneous Supplies 1 each 02/01/21 06:00 Iv Access IV 03/02/21 23:59 DIRECTED DOUG Sodium Chloride 0 ml 02/01/21 06:00 Normal Saline Flush 10 Ml Syr IV 03/02/21 23:59 PRN PRN Sodium Chloride 0 ml 02/01/21 06:00 Normal Saline 10 Ml Vial IJ 03/02/21 23:59 DIRECTED PRN Sterile Water 0 ml 02/01/21 06:00 Water,Injection,Sterile 10 Ml Vial IJ 03/02/21 23:59 DIRECTED PRN PFSH Active Problems Active Problems: Problem Status Onset Code Chest pain R07.9 Dysphagia R13.10 Screening for colon cancer Z12.11 Sessile colonic polyp K63.5 Pelvic pain in female R10.2 Urinary incontinence in female R32 Medical History Medical History Acute Lyme disease Anxiety Asthma Cataract Chest discomfort per pt. full work up and negative Chronic back pain Depression Dysuria Easy fatigability Fibrocystic breast H/O menorrhagia Hearing loss, bilateral Hematuria History of pyelonephritis HTN (hypertension) Hypercalcemia Hyperlipidemia Incomplete bladder emptying Irritable colon Low pressure urethral dysfunction Mild scoliosis Neck pain Onychomycosis Osteopenia Pelvic floor instability Pelvic pain in female Polycythemia Schatzki's ring Sessile colonic polyp Type 2 diabetes mellitus Urinary incontinence in female Vaginal pain Surgical History Surgical History (Updated 02/01/21 @ 08:41 by Sonal Burgos RN) Appendectomy Cholecystectomy Colonoscopy - [facility] (07/29/17) History of esophagogastroduodenoscopy (EGD) History of hysterectomy History of tonsillectomy Tobacco Smoking/Tobacco Use Status: Never Alcohol Alcohol Intake: never Substance Use Substance use: Never Substance use type: does not use Vital Signs and Lab Results Vital Signs Most Recent Vital Signs in EMR: Temp Pulse Resp BP Pulse Ox 36.0 C L 78 16 135/90 97 02/01/21 08:39 02/01/21 08:39 02/01/21 08:39 02/01/21 08:39 02/01/21 08:39 Lab Results Blood Type / Crossmatch: No Data to Display Complete Blood Count: No Data to Display Complete Metabolic Panel: No Data to Display Liver Function Panel: No Data to Display Coagulation Panel: No Data to Display Cardiac Panel: No Data to Display Arterial Blood Gas: No Data to Display Venous Blood Gas: No Data to Display Pancreas Panel: No Data to Display Thyroid Panel: No Data to Display Infectious Disease: Coronavirus (COVID-19)(PCR) Negative (Negative) 01/31/21 08:26 01/31/21 Coronavirus 2019 Source Nasal/Nares 01/31/21 08:26 01/31/21 Blood Cultures: No Data to Display Toxicology Panel: No Data to Display Imaging and Studies Imaging and Studies EKG Summary: 2019: SR, Qs II, III, aVF. Stress Test Summary: 10/2020: 7 Mets, no symptoms suggestive of ischemia, no EKG changes suggestive of ischemia. Echocardiogram Summary: 09/2018: LVEF 60-65%, mild LVH, no WMA, normal RV Fxn. Anesthesia Assessment and Plan Anesthesia History Personal History: PONV Family History: No Family History of Anesthesia Complications Exercise Tolerance Exercise Tolerance: Metabolic Equivalents>4 Cardiac & Pulmonary Exam Cardiac Exam: Normal S1/S2 Heart Sounds Pulmonary Exam: Clear Bilateral Breath Sounds Airway Exam Known Difficult Airway: No Mallampati Class: 2 Mouth Opening: Normal (> 3cm) Thyromental Distance: Greater than 3 cm Neck Range of Motion: Full ROM Neck Circumference: Normal Teeth Condition: Normal Dentition ASA Classification ASA Score: ASA 2 Emergency Case?: No NPO Status NPO Status: NPO Clears >2 hours, Solids >8 hours Anesthesia Plan Resuscitation Status: Full Code Anesthesia Technique: General Anesthesia Airway Planned: Natural Airway Monitors Used: Standard Monitors Preoperative Comments:: 75 yo female with dysphagia, and history of polyps, here for EGD/colo. 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
--- NOTE | 2021-02-01 06:42 | ENDO_ITS ---
Date of service: 02/01/21 Time of Service: 09:49 Endoscopy Report DATE OF PROCEDURE: 02/01/21 PRE-OP DIAGNOSIS: Dysphagia and hx of colon polyps POST-OP DIAGNOSIS: other (gastritis with ulcer, normal colon) PROCEDURE: 1. EGD with biopsies 2. Colonoscopy SURGEON: Diamond Bourgeois ANESTHESIA TYPE: General:No Airway (Sabas Low, VINCENT) ESTIMATED BLOOD LOSS: 3 PATHOLOGY: other (Antrum ulcer bx, antrum bx, GE junction bx) COMPLICATIONS: None DISPOSITION: same day INDICATIONS: The patient is here for Colonoscopy pre-op. Her last screening was in 2018 and was remarkable for sessile serrated polyps. She has no family histo ry of colon cancer. She has not had any bowel habit changes. -Discussed colonoscopy bowel prep as well as the procedure. Discussed possible complications of the procedure to include bleeding, pain, perforation, missed small lesion/polyp, sore throat, aspiration and adverse reaction to the medications. Questions were answered to patient?s satisfaction. No guarantees were implied or given. Patient also with dysphagia. Has had dilatations in the past. Risks, benefits and complications reviewed. PREP: Miralax/Dulcolax PROCEDURE START TIME: 09:08 PROCEDURE END TIME: 09:40 COLONOSCOPY RETRACTION TIME: 13 minutes FINDINGS: EGD- inflammation of the antrum with a healing Ulcer GE junction looked normal and was open Colon- normal PROCEDURE DESCRIPTION: After informed consent was obtained the patient was take to the procedure room and placed in a supine position. Monitors were applied and a time out was done. The patients name, date of , procedure type, allergies to medications and metal in their body was reviewed. A bite block was placed and the patient was sedated. Once sedated and comfortable the gastroscope was advanced through the oropharynx which was grossly normal into the esophagus. The proximal and mid- esophagus were normal. In the distal esophagus there was mild inflammation noted. The scope was advanced into the stomach and through the pylorus into the 3rd portion of the duodenum. The duodenum was noted to be normal. The scope was retracted back into the stomach. There was moderate inflammation noted in the antrum and body. Biopsies were done to rule out H. pylori. There was one ulcer which was biopsied. The scope was retro-flexed. The cardia and fundus were noted to be normal. There was no hiatal hernia noted. The scope was retracted back into the esophagus and biopsies were done of the GE junction to rule out Meyers's. The Z line was regular. The GE junction was at 35 cm. While the patient was still sedated they were placed in a left decubitous position. A rectal exam was done. External exam was normal. Internal exam revealed a decreased sphincter tone and no palpable masses. The scope was then introduced and retro-flexed. Grade 1 internal hemorrhoids were identified. No masses or polyps were identified on retroflexion. The scope was then advanced to the cecum without difficulty. The ileocecal valve and appendiceal orifice were identified. The prep was adequate. The scope was then slowly retracted over 13 minutes back into the rectum. There were no Polyps. There was no diverticulosis noted. The scope was removed and the patient was woken up and taken back to Same day surgery in stable condition. The patient tolerated the procedure well and there were no immediate complications. Follow up: 5 years for next colonoscopy. Will add Carafate for 2 weeks to help with inflammation.
--- NOTE | 2021-02-01 06:42 | HPE_ITS ---
Date of service: 02/01/21 Time of Service: 08:32 Assessment and Plan Assessment and plan (1) Dysphagia: Status: Acute Assessment and plan: -Discussed Upper endoscopy procedure and the need to be NPO after midnight the night prior. Discussed possible complications of the procedure to include bleeding, pain, perforation, missed small lesion/polyp/ulcers, sore throat, aspiration and adverse reaction to the medications or sedation. Questions were answered to patient?s satisfaction. No guarantees were implied or given. (2) Screening for colon cancer: Status: Acute Assessment and plan: The patient is here for Colonoscopy pre-op. Her last screening was in 2018 and was remarkable for sessile serrated polyps. She has no family history of colon cancer. She has not had any bowel habit changes. -Discussed colonoscopy bowel prep as well as the procedure. Discussed possible complications of the procedure to include bleeding, pain, perforation, missed small lesion/polyp, sore throat, aspiration and adverse reaction to the medications. Questions were answered to patient?s satisfaction. No guarantees were implied or given. History of Present Illness Narrative: 75 y/o female with history of Type 2 DM, HTN and GERD presents for colonoscopy screening pre-op. Her last screening was in 2018, which was remarkable for sessile serrated polyps. She denies a family history of colon cancer. She reports bowel movements have been more loose, when she was previously constipated. She states she has also had episodes or fecal incontinence of liquid stool, when passing flatus. Denies bloody or black tarry stools, abdominal pain, diarrhea or constipation. She denies constitutional symptoms. Denies use of marijuana or any other recreational or illegal drugs. Also of note she reports 20+ years ago, she under went esophageal dilation for shatzi ring. She states she has had progressive dysphagia, when every few weeks- months food gets stuck at the base of her throat. She denies any nausea or vomiting. She denies noting any specific foods or difficulty with solids vs. liquids. Occurs intermittently. No changes in her health since she was seen in the office Review of Systems Cardiovascular Cardiovascular: Denies chest pain, Denies chest pain at rest, Denies irregular heart rhythm, Denies dyspnea and Denies dyspnea on exertion Respiratory Respiratory: Denies cough, Denies dyspnea and Denies dyspnea on exertion Gastrointestinal Gastrointestinal: Reports as per HPI Genitourinary Genitourinary: Denies dysuria, Denies urinary incontinence and Denies urinary urgency Endocrine Endocrine: Reports system reviewed and no additional complaints, except as documented Hematologic/Lymphatic Hematologic/Lymphatic: Denies easy bruising and Denies lymphadenopathy [facility] Medical History Acute Lyme disease Anxiety Asthma Cataract Chest discomfort per pt. full work up and negative Chronic back pain Depression Dysuria Easy fatigability Fibrocystic breast H/O menorrhagia Hearing loss, bilateral Hematuria History of pyelonephritis HTN (hypertension) Hypercalcemia Hyperlipidemia Incomplete bladder emptying Irritable colon Low pressure urethral dysfunction Mild scoliosis Neck pain Onychomycosis Osteopenia Pelvic floor instability Pelvic pain in female Polycythemia Schatzki's ring Sessile colonic polyp Type 2 diabetes mellitus Urinary incontinence in female Vaginal pain Surgical History Appendectomy Cholecystectomy Colonoscopy - [facility] (07/29/17) Social History Smoking/Tobacco Use Status: Never Smoking risk assessment performed?: Yes Alcohol Intake: never Drug use: Never Substance use type: does not use Do you feel safe at home: Yes Do you feel safe in your relationship?: Yes Meds Allergies and Home Medications Allergies Allergy/AdvReac Type Severity Reaction Status Date / Time No Known Allergies Allergy Unverified 02/01/21 08:27 Home Medications Medication Instructions Recorded Confirmed Type lisinopril 10 mg PO DAILY 07/27/12 01/31/21 History metformin 750 mg PO BID 07/27/12 01/31/21 History Loratadine 10 mg PO DAILY PRN tab-cap 06/11/17 01/31/21 History aspirin 81 mg PO DAILY tab-cap 06/11/17 01/31/21 History cholecalciferol (vitamin D3) 1,000 unit PO DAILY 07/25/17 01/31/21 History cyanocobalamin (vitamin B-12) 5,000 mcg PO DAILY 07/25/17 01/31/21 History niacin 500 mg tablet 500 mg PO TID tab 10/31/18 01/31/21 History famotidine 40 mg tablet 40 mg PO BID 11/23/20 01/31/21 History 5-hydroxytryptophan (5-HTP) 100 mg 100 mg PO BID 12/29/20 01/31/21 History capsule Exam Const General: healthy appearing and comfortable Resp Effort & Inspection: normal respiratory effort Auscultation: clear to auscultation bilaterally Cardio Rate: regular rate Rhythm: regular rhythm Heart Sounds: no click, no gallops and no murmurs
[2021-02-01 08:39] VITALS: BP 135/90; PULSE 78; RESP 16; TEMP 36; O2SAT 97
[2021-02-01] MEDS: Lactated Ringers 1,000 ML 80 ML IV (08:43)
[2021-02-01 08:44] VITALS: BMI 29.7
--- NOTE | 2021-02-01 09:07 | STOM_PTH ---
PATIENT: Britney Mcdonald LOC: [facility] U#:[id number] AGE/SX: 75/F ROOM: RE02/01/[address]: Diamond Bourgeois MD : 1945 BED: DIS: 02/01/2021 SPEC #: [id number] RECD: 02/01/21 12:15 STATUS: JIMBO RE #: [id number] SHEILA: 02/01/21 09:[address]: Diamond Bourgeois DEPT: Surgical Specimen RECD BY: Grace Santos ENTERED: 02/01/21 12:17 SP TYPE: STOMACH OTHR DR: Steve Vann Tissues: 1 - STOMACH BIOPSY 2 - STOMACH BIOPSY 3 - ESOPHAGUS BIOPSY Procedures: GROSS AND MICRO LEVEL 4 Comments: [id number]
--- NOTE | 2021-02-01 09:54 | W.PM.DSUDISC ---
Discharge Plan Disposition Patient Disposition: HOME Condition: Good Discharge Details Reason For Visit: EGD and [place] Attending Provider: Diamond Bourgeois Primary Care Provider: Steve Vann Home Meds and New Rx's Prescriptions: New omeprazole 40 mg capsule,delayed release(DR/EC) 40 mg PO BID Qty: 60 RF: 0 sucralfate [Carafate] 1 gram tablet 1 g PO TID Qty: 42 RF: 0 Continued niacin 500 mg tablet 500 mg PO TID RF: 0 5-hydroxytryptophan (5-HTP) [5-HTP] 100 mg capsule 100 mg PO BID RF: 0 aspirin 81 MG tablet,chewable 81 mg PO DAILY RF: 0 Loratadine 10 MG TAB.RAPDIS 10 mg PO DAILY PRNRF: 0 metformin 500 MG tablet 750 mg PO BID RF: 0 lisinopril 10 MG tablet 10 mg PO DAILY RF: 0 cholecalciferol (vitamin D3) 1,000 UNITS tablet 1,000 unit PO DAILY RF: 0 cyanocobalamin (vitamin B-12) 5,000 MCG tablet,disintegrating 5,000 mcg PO DAILY RF: 0 Discontinued famotidine [Pepcid] 40 mg tablet 40 mg PO BID RF: 0 Discharge Instructions Instructions: Diet for Stomach Ulcers and Gastritis (ED), Gastritis (DC) Additional Instructions: Findings: inflammation of the stomach small ulcer Normal colon You will receive a letter in the mail in 7 to 10 days Please call if you develop: fevers >101.5 Nausea or Vomiting Abdominal pain that is not transient Rectal bleeding that is more then a tbsp A hard abdomen and inability to pass gas DAY SURGERY UNIT POST ENDOSCOPY INSTRUCTIONS Instructions for everyone who is given Anesthesia: For your safety, please do the following for the next 24 Hours: a. Do not drive or operate dangerous equipment b. Do not drink alcohol beverages or use any recreational drugs for the first 24 hours or while taking pain medications. The medications in your body may have a reaction that can be dangerous. c. Do not make any important decisions or sign any important papers 1. Generally there are no restrictions on your activity after a day or so has gone by, but you may feel a bit fatigued for a few days. 2. After you arrive home you may have a light meal and return to a normal diet as you can tolerate it without feeling sick to your stomach. 3. After surgery, you may feel pain or discomfort. This should be only transient, but if it persists please contact your doctor. 4. If there are any questions regarding the findings of your procedure, please feel free to contact your doctor. 6. If you are unable to contact your doctor with a problem, contact the hospital at [phone]. 7. Continue all your regular medications unless directed otherwise. I understand the above instructions and have no questions. Signature of Patient or Responsible Adult Escort Date/Time Name of Responsible Adult Escort Signature of Nurse Date/Time Activity:: Activity as Tolerated Diet:: low acid diet Discharge Orders Discharge Orders: Discharge Order (Routine); Ordered 02/01/21 Ordered By: Diamond Bourgeois DS: Diagnosis Discharge Diagnosis (1) Dysphagia: Status: Acute (2) Screening for colon cancer: Status: Acute
[2021-02-01 09:57] VITALS: BP 117/76; PULSE 66; RESP 16; TEMP 36; O2SAT 98
--- NOTE | 2021-02-01 10:21 | W.ANESPOSTOP ---
Postoperative Evaluation Date, Time and Location Date Performed: 02/01/21 Time Performed: 10:20 Patient Location: Day Surgery Unit Vital Signs Most Recent Imported Vital Signs: Most Recent Vital Signs Temp Pulse Resp BP Pulse Ox 36 C L 66 16 117/76 98 02/01/21 09:57 02/01/21 09:57 02/01/21 09:57 02/01/21 09:57 02/01/21 09:57 Pain Score Most Recent Pain Score: Most Recent Pain Score Pain Level 0 02/01/21 09:57 Assessment Mental Status: Awake (Alert & Oriented to Patient Baseline) Airway and Respiratory Function: Patent airway with normal (patient baseline) respiratory exam Cardiovascular Function: Hemodynamically Stable Hydration Status: Adequately Hydrated Nausea & Vomiting: No Nausea or Vomiting Pain: Pt. Denies Any Pain Peripheral Nerve Block: Patient did not receive a nerve block
[2021-02-01 10:29] VITALS: BP 128/77; PULSE 63; RESP 16; TEMP 35.4; O2SAT 100
[2021-02-01 11:32] VITALS: BP 143/81; PULSE 66; RESP 16; TEMP 35.6; O2SAT 98
== END 2021-02-01 11:35 | disposition home or self-care (01) ==
PROVIDERS: PCP Family Medicine; Visit Provider Surgery
PROC: (CPT 43239; principal; 2021-02-01 09:15)
DX: K25.9 Gastric ulcer, unspecified as acute or chronic, without hemorrhage or perforation (principal); Z12.11 Encounter for screening for malignant neoplasm of colon; Z86.010 Personal history of colon polyps; K22.2 Esophageal obstruction; K29.60 Other gastritis without bleeding; R13.10 Dysphagia, unspecified; K31.89 Other diseases of stomach and duodenum
CPT/HCPCS: 43239; G0105; 88305; J2001

== ENCOUNTER 2021-06-23 00:33 | Outpatient (CLI) | payer MEDICARE, SELFPAY ==
--- NOTE | 2021-06-23 | DI.RAD_ITS ---
Exam(s) XR CHEST 2V PA LATERAL EXAM: XR CHEST 2V PA LATERAL CLINICAL HISTORY: RT SIDED RIB PAIN,F/U RIB FRACTURES,H/O FALL,COMPARE TO [facility] [place] TECHNIQUE: 2D digital imaging was performed. COMPARISON: CR XR CHEST 2V PA LATERAL from 10/05/2020 FINDINGS: The heart is not enlarged. The lungs are clear and well expanded. No pleural effusion seen. Mediastin al contours appear intact. IMPRESSION: Normal chest. RADIATION DOSE DELIVERED: Total DLP
== END 2021-06-23 00:53 ==
PROVIDERS: PCP Family Medicine; Visit Provider Family Medicine
DX: R07.81 Pleurodynia (principal)
CPT/HCPCS: 71046

== ENCOUNTER 2021-12-05 17:11 | Outpatient (REF) | payer MEDICARE, SELFPAY ==
[2021-12-05 19:09] LABS: HCT 43.2 % (36.0-46.0); HGB 14.1 g/dL (11.2-15.7); MCH 29.4 pg (27.0-33.0); MCHC 32.6 % (32.0-36.0); MCV 90 fL (80-95); MPV 10.3 fL (8.0-11.0); Platelet Count 318 10^3/uL (130-400); RBC 4.79 10^6/uL (3.93-5.22); RDW 12.3 % (11.7-14.6); RDW-SD 40.6 fL; WBC 7.82 10^3/uL (4.4-10.8)
[2021-12-05 20:00] LABS: Albumin 4.4 g/dL (3.4-5.0); Anion Gap 9.3 mmol/L (3-11); BUN 16 mg/dL (7-18); CO2 27.7 mmol/L (21.0-32.0); CREATININE 0.7 mg/dL (0.55-1.02); Calcium 10.4 mg/dL (8.5-10.1); Chloride 103 mmol/L (98-107); Glucose 154 mg/dL (74-106); Magnesium 1.9 mg/dL (1.8-2.4); Potassium 4.7 mmol/L (3.5-5.1); Sodium 140 mmol/L (136-145); TSH (W/Ref FT4) 0.93 uIU/mL (0.36-3.74); Vitamin B12 1678 pg/mL (193-986)
[2021-12-07 09:41] LABS: Hepatitis C Ab w Rflx HCV PCR Negative (Negative)
[2021-12-07 09:46] LABS: Parathyroid Hormone,Intact 57 pg/mL (19-88)
== END 2021-12-05 17:12 | disposition home or self-care (01) ==
LOC: NCHCN 17:11
PROVIDERS: PCP Family Medicine; Visit Provider Family Medicine
DX: E83.52 Hypercalcemia (principal); R41.3 Other amnesia; D75.1 Secondary polycythemia; Z11.59 Encounter for screening for other viral diseases
CPT/HCPCS: 80048; 82306; 85027; 86803; 82040; 82607; 83735; 83970; 84443

== ENCOUNTER 2022-10-02 19:33 | Outpatient (REF) | payer MEDICARE, SELFPAY ==
[2022-10-02 20:32] LABS: Albumin 4.1 g/dL (3.4-5.0); Anion Gap 10.7 mmol/L (3-11); BUN 18 mg/dL (7-18); CO2 26.3 mmol/L (21.0-32.0); CREATININE 0.8 mg/dL (0.55-1.02); Calcium 10.9 mg/dL (8.5-10.1); Chloride 102 mmol/L (98-107); Estimated GFR 76.79 (mL/min/1.73m2); Glucose 147 mg/dL (74-106); Potassium 4.3 mmol/L (3.5-5.1); Sodium 139 mmol/L (136-145)
[2022-10-03 18:49] LABS: Parathyroid Hormone,Intact 48 pg/mL (19-88)
== END 2022-10-02 19:34 | disposition home or self-care (01) ==
LOC: NCHCN 19:33
PROVIDERS: PCP Family Medicine; Visit Provider Family Medicine
DX: E83.52 Hypercalcemia (principal); I10 Essential (primary) hypertension; E11.9 Type 2 diabetes mellitus without complications
CPT/HCPCS: 80048; 82040; 83970

== ENCOUNTER → 2023-01-21 04:10 | Outpatient (CLI) | payer MEDICARE, SELFPAY ==
--- NOTE | 2023-01-21 | DI.MAMMO_ITS ---
Exam(s) MAMMO SCREENING EXAM: MAMMO SCREENING CLINICAL HISTORY: SCREENING, Z12.39 TECHNIQUE: Bilateral full field digital CC and MLO mammographic images were obtained with 3D tomosyn thesis and utilizing computer aided detection (CAD). COMPARISON: Available for comparison. FINDINGS: Masses/Architectural Distortion: There is a new 6 mm nodule in the posterior left breast. Microcalcifications: No suspicious pleomorphic-type are seen. Skin Thickening/Nipple Retraction: None. IMPRESSION: 1. New 6 mm posterior left breast nodule. 2. This should be further evaluated with spot compression views. Left breast ultrasound is also jori mmended. BI-RADS Category 0 - Assessment Incomplete: Need additional imaging evaluation Breast Density - Category A - Almost entirely fatty Breast density category C or D implies that the patient has dense breast tissue. Dense breast tissue is very common and is not abnormal but dense breast tissue can make it harder to find cancer on a ma mmogram. Also, dense breast tissue may increase their breast cancer risk. This information about the result of the mammogram report was provided to the patient to raise their awareness. Use this report when you speak with the patient about their risks for breast cancer, which includes their family hist ory. At that time, you may recommend for more screening tests (Ultrasound or MRI) as they might be us eful based on their risk. A negative radiographic report should not delay biopsy if a dominant or clinically suspicious mass is present. Up to ten percent of cancers are not identified on mammography. A negative report may reinforce clinical impression. Adenosis and dense breasts may obscure an underlying neoplasm. False positive reports average 6 to 10%. Patient will receive a letter notifying them of these results.
== END ==
PROVIDERS: PCP Family Medicine; Visit Provider Family Medicine
DX: Z12.31 Encounter for screening mammogram for malignant neoplasm of breast (principal)
CPT/HCPCS: 77063; 77067

== ENCOUNTER 2023-01-24 13:24 | Outpatient (CLI) | payer MEDICARE, SELFPAY ==
--- NOTE | 2023-01-24 | DI.US_ITS ---
Exam(s) MG MAMMO SCREEN CALL BACK UNI US BREAST LT COMPLETE EXAM: MG MAMMO SCREEN CALL BACK UNI and U/S breast LT complete CLINICAL HISTORY: F/U MAMMO, R92.8,NEW LT BREAST NODULE. TECHNIQUE: Craniocaudal and mediolateral oblique Full Field Digital Mammography views of the left br east with Computer Aided Diagnosis followed by Tomosynthesis and left breast ultrasound. COMPARISON: Comparison is made with prior examinations. FINDINGS: Mammography/Tomosynthesis: Masses/Architectural Distortion: There is a persistent lobulated 6 mm nodule in the posterior upper l eft breast. No associated microcalcifications or areas of architectural distortion are seen. Microcalcifictions: No suspicious pleomorphic-type are seen. Skin Thickening/Nipple Retraction: None. Complete left breast US: Echotexture: Normal appearance of the glandular tissue. Shadowing: No suspicious foci. Cyst: None. Solid lesions: None seen. Ductal dilation: None. IMPRESSION: 1. Persistent new 6 mm nodule in the upper left breast. No corresponding lesion is seen on the ultra sound. 2. Further evaluation is warranted. A breast MRI is recommended for further evaluation. 3. The findings were discussed with the patient on the date of the examination. BI-RADS Category 0 - Assessment Incomplete: Need additional imaging evaluation Breast Density - Category A - Almost entirely fatty Breast density Category C or D implies that the patient has dense breast tissue. Dense breast tissue can make it harder to find cancer on a mammogram. Dense breast tissue is also associated with an incr eased risk of breast cancer. This information about the result of the mammogram report was provided to the patient to raise their awareness. Use this report when you speak with the patient about their risks for breast cancer, which includes their family history. At that time, you may recommend additional screening tests (Ultrasoun d or MRI) as these tests may add significant information. A negative radiographic report should not delay biopsy if a dominant or clinically suspicious mass is present. Up to ten percent of cancers are not identified on mammography. A negative report may reinforce clinical impression. Adenosis and dense breasts may obscure an underlying neoplasm. False positive reports average 6 to 10%. Patient will receive a letter notifying them of these results.
== END 2023-01-24 13:44 ==
LOC: DI 13:25
PROVIDERS: PCP Family Medicine; Visit Provider Family Medicine
DX: Z12.31 Encounter for screening mammogram for malignant neoplasm of breast (principal); N63.21 Unspecified lump in the left breast, upper outer quadrant
CPT/HCPCS: 76642; 77063; 77067

== ENCOUNTER 2023-05-02 16:21 | Outpatient (REF) | payer MEDICARE, SELFPAY ==
--- OUTSIDE RECORDS SUMMARY | 2023-05-02 16:23 | XMS_ITS | Continuity of Care Document ---
Author Name Unknown Organization [facility] Address [address] [place] [address] Care Team Providers Care Silverer Name Role Phone Physician, Non-Staff [facility] Primary Care Physic silvia Unavailable Encounter [facility] Date(s): 05/27/21 - 05/27/21 [facility] [address] [place] [id number] Encounter Diagnosis Cervical sprain(Discharge Diagnosis) - 05/27/21 Contusion of thoracic spine(Discharge Diagnosis) - 05/27/21 Subdural hematoma(Discharge Diagnosis) - 05/27/21 Hyperglycemia(Discharge Diagnosis) - 05/27/21 Discharge Disposition: Another Hospital Attending Physician: Erlin Espino PA-C Admitting Physician: Erlin Espino PA-C Allergies, Adverse Reactions, Alerts No Known Allergies Assessment and Plan Extracted from: Title:Fall- Sub-Dural hemorrhage *ED Author:Erlin Miller PA-C Date:05/27/21 History of Present Illness Mrs. Fitzgerald arrives by ambulance after falling off a porch just prior to arrival. The porch is approximately 3 feet high, she slipped and fell backwards striking her head and back on the ground. She apparently was unconscious for a few minutes and then confused afterwards. She is complaining of pain to the back of the head, she complains upper back pain. When asked about neck pain she states she is not sure, she notes that she is in the cervical collar. She denies any numbness or tingling in the extremities. She denies chest pain or difficulty breathing, she denies abdominal pain or vomiting. She denies hip pain. She arrives by ambulance with cervical collar in place. She is on aspirin but no other blood thinners. Review of Systems Constitutional symptoms: No recent illness. She is vaccinated for COVID., no fever, no chills. Skin symptoms: No stevenson, no petechiae. Eye symptoms: Vision unchanged, No pain, ENMT symptoms: No ear pain, no sore throat. Respiratory symptoms: No shortness of breath, no cough. Cardiovascular symptoms: No chest pain, no syncope. Gastrointestinal symptoms: No abdominal pain, no vomiting, no diarrhea. Genitourinary symptoms: No hematuria, Musculoskeletal symptoms: Back pain. Neurologic symptoms: Headache, altered level of consciousness, No tingling, Psychiatric symptoms: No depression, Endocrine symptoms: Hyperglycemia (History of type 2 diabetes), No polydipsia, Hematologic/Lymphatic symptoms: No petechiae, no swollen nodes. Health Status Allergies: Allergic Reactions (Selected) No Known Allergies. Medications: (Selected) Documented Medications Documented lisinopril: 10 mg, Oral, Daily, 0 Refill(s) metFORMIN: Oral, 0 Refill(s). Past Medical/ Family/ Social History Medical history: No active or resolved past medical history items have been selected or recorded., Type 2 diabetes for which she takes oral medication. She is on aspirin but does not know why.. Surgical history: No active procedure history items have been selected or recorded., She has had a tonsillectomy, cholecystectomy, appendectomy, and partial hysterectomy.. Family history: No family history items have been selected or recorded., Mom lived to 96, father lived to 93 neither were diabetic.. Social history: Social & Psychosocial History Social History Tobacco Never (less than 100 in lifetime) Tobacco Use:. Electronic Cigarette/Vaping Electronic Cigarette Use: Never. Psychosocial History No active psychosocial history has been recorded, She is a non-smoker, she drinks alcohol rarely. She is and lives at home with her .. Problem list: Active Problems (2) Diabetes HTN (hypertension) . Physical Examination Vital Signs Vital Signs 05/27/2021 18:15 EST Temperature Temporal 35.9 DegC LOW Peripheral Pulse Rate 100 bpm Respiratory Rate 18 br/min Systolic Blood Pressure 164 mmHg HI Diastolic Blood Pressure 72 mmHg SpO2 96 % . Measurements 05/27/2021 18:38 EST Weight Dosing 81.200 kg 05/27/2021 18:38 EST Height/Length Dosing 163.000 cm 05/27/2021 18:15 EST Height 163.000 cm Weight 81.200 kg . Basic Oxygen Information 05/27/2021 18:15 EST Oxygen Therapy Room air . General: Alert, no acute distress, She is pleasant and appropriate, she has memory lapse of the incident but is oriented to person and place. She responds quickly and her speech is clear.. Skin: Warm, dry, Her color is good she is not pale or sweating.. Head: She has some tenderness and a little bit of swelling to the occiput of her scalp. No open wound, no apparent depression. No facial or nasal pain with palpation, jaw moves freely. No dental pain.. Neck: After the CAT scan was cleared, I did remove the collar, she does have some pain with palpation along both sides of the posterior neck. She has pain with rotation but has good range of motion with rotation, she has decreased range of motion with flexion. There is no shooting pain or tingling with these maneuvers.. Eye: Extraocular movements are intact. Ears, nose, mouth and throat: Tympanic membranes clear. Cardiovascular: Regular rate and rhythm, No murmur. Respiratory: Lungs are clear to auscultation, respirations are non-labored. Chest wall: No tenderness (No anterior wall tenderness or crepitus). Back: She has pain with palpation of the mid and lower thoracic spine. No scapular tenderness. No lumbosacral tenderness with palpation.. Musculoskeletal: Extremities are atraumatic, I do not find any pain or tendon deficit. She has strong peripheral pulses. No hip tenderness and her pelvis is stable. She has normal sensation in each of the limbs.. Gastrointestinal: Soft, Nontender, Nontender abdomen with deep palpation. No pain or guarding.. Neurological: Alert and oriented to person, place, time, and situation (She is alert and oriented, she does not remember the fall but is appropriate otherwise.), CN II-XII intact, normal sensory observed, normal motor observed, normal speech observed, Deep tendon reflexes are +3 both knees. No clonus.. Lymphatics: No lymphadenopathy. Medical Decision Making Results review: White blood cell count is 13.09, hemoglobin 14.6, hematocrit of 45.2, platelets 332. Glucose 197, BUN of 15, creatinine of 0.5, sodium 134, potassium 4.0, CO2 of 25, calcium 10.8, LFTs and bilirubin are normal. PT is 10.4, INR is 1.0.. Radiology results: CT (ST) Computed Tomography: ?? CT Head or Brain w/o Contrast ?? 05/27/21 19:15:00 PROCEDURE INFORMATION: Exam: CT Head Without Contrast Exam date and time: 05/27/2021 6:40 PM Age: 75 years old Clinical indication: Other: Fall with head and neck trauma, back pain, memory loss TECHNIQUE: Imaging protocol: Computed tomography of the head without contrast. Radiation optimization: All CT scans at this facility use at least one of these dose optimization techniques: automated exposure control; mA and/or kV adjustment per patient size (includes targeted exams where dose is matched to clinical indication); or iterative reconstruction. COMPARISON: No relevant prior studies available. FINDINGS: Brain: Acute subdural hemorrhage along the interhemispheric fissure measuring up to 9 mm in thickness. No midline shift. No evidence mass or acute infarct. Cerebral ventricles: No ventriculomegaly. Paranasal sinuses: Visualized sinuses are unremarkable. No fluid levels. Mastoid air cells: Visualized mastoid air cells are well aerated. Bones/joints: Unremarkable. No acute fracture. Soft tissues: Unremarkable. IMPRESSION: Acute subdural hemorrhage along the interhemispheric fissure measuring up to 9 mm in thickness. ?? Signed By: Rahel Quiroz MD ?? 05/27/21 19:23:00 Addendum created by Rahel Quiroz MD on 05/27/2021 7:23:31 PM EST: Findings discussed with Erlin Espino 05/27/2021 7:23 PM EST. Initial report created on 05/27/2021 7:15:07 PM EST: PROCEDURE INFORMATION: Exam: CT Head Without Contrast Exam date and time: 05/27/2021 6:40 PM Age: 75 years old Clinical indication: Other: Fall with head and neck trauma, back pain, memory loss TECHNIQUE: Imaging protocol: Computed tomography of the head without contrast. Radiation optimization: All CT scans at this facility use at least one of these dose optimization techniques: automated exposure control; mA and/or kV adjustment per patient size (includes targeted exams where dose is matched to clinical indication); or iterative reconstruction. COMPARISON: No relevant prior studies available. FINDINGS: Brain: Acute subdural hemorrhage along the interhemispheric fissure measuring up to 9 mm in thickness. No midline shift. No evidence mass or acute infarct. Cerebral ventricles: No ventriculomegaly. Paranasal sinuses: Visualized sinuses are unremarkable. No fluid levels. Mastoid air cells: Visualized mastoid air cells are well aerated. Bones/joints: Unremarkable. No acute fracture. Soft tissues: Unremarkable. IMPRESSION: Acute subdural hemorrhage along the interhemispheric fissure measuring up to 9 mm in thickness. ?? Signed By: Rahel Quiroz MD ?? CT Spine Cervical w/o Contrast ?? 05/27/21 19:16:00 PROCEDURE INFORMATION: Exam: CT Cervical Spine Without Contrast Exam date and time: 05/27/2021 6:41 PM Age: 75 years old Clinical indication: Other: Fall, pain trauma TECHNIQUE: Imaging protocol: Computed tomography images of the cervical spine without contrast. Radiation optimization: All CT scans at this facility use at least one of these dose optimization techniques: automated exposure control; mA and/or kV adjustment per patient size (includes targeted exams where dose is matched to clinical indication); or iterative reconstruction. COMPARISON: No relevant prior studies available. FINDINGS: Bones/joints: No acute fracture. Normal alignment. Discs/Spinal canal/Neural foramina: There is moderate to severe multilevel central spinal stenosis, secondary to disc buldge/osteophytic spurring. Lungs: Lung apices are normal. Soft tissues: Unremarkable. IMPRESSION: No acute abnormality. Additional findings as described. ?? Signed By: Rahel Quiroz MD ?? CT Spine Thoracic w/o Contrast ?? 05/27/21 19:44:00 PROCEDURE INFORMATION: Exam: CT Thoracic Spine Without Contrast Exam date and time: 05/27/2021 6:41 PM Age: 75 years old Clinical indication: Other: Fall pain, trauma TECHNIQUE: Imaging protocol: Computed tomography images of the thoracic spine without contrast. Radiation optimization: All CT scans at this facility use at least one of these dose optimization techniques: automated exposure control; mA and/or kV adjustment per patient size (includes targeted exams where dose is matched to clinical indication); or iterative reconstruction. COMPARISON: CT Spine Cervical w/o Contrast 05/27/2021 6:53 PM FINDINGS: Vertebrae: Idiopathic S-shaped scoliosis. Discs/Spinal canal/Neural foramina: No significant disc protrusion. No severe spinal canal stenosis. No significant neural foraminal narrowing. Soft tissues: Unremarkable. Vasculature: Calcification of the abdominal aorta and/or iliac arteries consistent with atherosclerotic vessel disease. Gallbladder and bile ducts: Surgical clips in the gallbladder fossa consistent with cholecystectomy. Kidneys and ureters: Significant partial atrophy of the left kidney. Stomach and bowel: Duodenal diverticulum. IMPRESSION: No acute spine findings. ?? Signed By: Ahmet Duarte MD . Reexamination/ Reevaluation Time: 05/27/2021 21:01:00 . Vital signs Basic Oxygen Information 05/27/2021 18:15 EST Oxygen Therapy Room air Course: I have been back into recheck Mrs. Chinchilla several times, she is becoming more and more clear mentally. There is no acute focal deficits on neuro exam. She does have a headache, she has not had vomiting. She converses normally. At 1925 I received a phone call from [employer] informing me about the subdural hematoma. At 1938 I put in a call for [facility] to speak to the trauma surgeon for transfer. They call me back about 45 minutes later, I spoke with Dr. Mandujano who will accept in transfer. She was in agreement with the treatment thus far. They will accept her to the emergency department. It is 21:03 at this time we are awaiting EMS transport.. Time: 05/27/2021 21:18:00 . Course: Britney is doing well, she complains of a headache and would like something for pain for the ride up to [facility]. We discussed the options and settled on a very small dose of morphine. She is not nauseated at this time and she denies any other new pain, no problems breathing and no abdominal pain.. Impression and Plan Diagnosis Hyperglycemia ([id number] R73.9, Discharge, Medical) Plan Orders: Launch Orders Admit/Transfer/Discharge: Transfer Patient to Other Facility (Order): 05/27/2021 21:04 EST Charges: ED Professional Fees Care Set [facility] (Order) [id number] Level 5: Comprehensive Hx/exam: High Charge (Order): 05/27/2021 21:04 EST, 1. Functional Status 05/27/21 History of Fall in Last 3 Months Glenny gonsalves COVID-19 Screening None Medications lisinopril 10 mg, Oral, Daily, 0 Refill(s) Start Date: 05/27/21 Status: Ordered metFORMIN Oral, 0 Refill(s) Start Date: 05/27/21 Status: Ordered Mental Status 05/27/21 Level of Consciousness Alert Problem List Condition Effective Dates Status Health Status Inform ant Diabetes(Confirmed) Active HTN (hypertension)(Confirmed) Active Results Radiology Reports * Exam Date Time Procedure Performing Provider Status 05/27/21 7:[address] Spine Thoracic w/o Contrast Saurav Toth; Arun (Verified) Notes: (CT Spine Thoracic w/o Contrast) Reason For Exam: fall / pain / trauma / memory loss Image Report PROCEDURE INFORMATION: Exam: CT Thoracic Spine Without Contrast Exam date and time: 05/27/2021 6:41 PM Age: 75 years old Clinical indication: Other: Fall pain, trauma TECHNIQUE: Imaging protocol: Computed tomography images of the thoracic spine without contrast. Radiation optimization: All CT scans at this facility use at least one of these dose optimization techniques: automated exposure control; mA and/or kV adjustment per patient size (includes targeted exams where dose is matched to clinical indication); or iterative reconstruction. COMPARISON: CT Spine Cervical w/o Contrast 05/27/2021 6:53 PM FINDINGS: Vertebrae: Idiopathic S-shaped scoliosis. Discs/Spinal canal/Neural foramina: No significant disc protrusion. No severe spinal canal stenosis. No significant neural foraminal narrowing. Soft tissues: Unremarkable. Vasculature: Calcification of the abdominal aorta and/or iliac arteries consistent with atherosclerotic vessel disease. Gallbladder and bile ducts: Surgical clips in the gallbladder fossa consistent with cholecystectomy. Kidneys and ureters: Significant partial atrophy of the left kidney. Stomach and bowel: Duodenal diverticulum. IMPRESSION: No acute spine findings. Final Dictated: 05/27/2021 7:44 pm Ahmet Duarte MD Signed (Electronic Signature): 05/27/2021 7:44 pm Signed by: Amhet Duarte MD * Exam Date Time Procedure Performing Provider Status 05/27/21 7:[address] Head or Brain w/o Contrast Erika Toth; Modified Notes: (CT Head or Brain w/o Contrast) Reason For Exam: fall / pain / trauma / memory loss Report PROCEDURE INFORMATION: Exam: CT Head Without Contrast Exam date and time: 05/27/2021 6:40 PM Age: 75 years old Clinical indication: Other: Fall with head and neck trauma, back pain, memory loss TECHNIQUE: Imaging protocol: Computed tomography of the head without contrast. Radiation optimization: All CT scans at this facility use at least one of these dose optimization techniques: automated exposure control; mA and/or kV adjustment per patient size (includes targeted exams where dose is matched to clinical indication); or iterative reconstruction. COMPARISON: No relevant prior studies available. FINDINGS: Brain: Acute subdural hemorrhage along the interhemispheric fissure measuring up to 9 mm in thickness. No midline shift. No evidence mass or acute infarct. Cerebral ventricles: No ventriculomegaly. Paranasal sinuses: Visualized sinuses are unremarkable. No fluid levels. Mastoid air cells: Visualized mastoid air cells are well aerated. Bones/joints: Unremarkable. No acute fracture. Soft tissues: Unremarkable. IMPRESSION: Acute subdural hemorrhage along the interhemispheric fissure measuring up to 9 mm in thickness. Final Dictated: 05/27/2021 7:15 pm Rahel Quiroz MD Signed (Electronic Signature): 05/27/2021 7:15 pm Signed by: Rahel Quiroz MD Image Addendum Addendum created by Rahel Quiroz MD on 05/27/2021 7:23:31 PM EST: Findings discussed with Erlin Espino 05/27/2021 7:23 PM EST. Initial report created on 05/27/2021 7:15:07 PM EST: PROCEDURE INFORMATION: Exam: CT Head Without Contrast Exam date and time: 05/27/2021 6:40 PM Age: 75 years old Clinical indication: Other: Fall with head and neck trauma, back pain, memory loss TECHNIQUE: Imaging protocol: Computed tomography of the head without contrast. Radiation optimization: All CT scans at this facility use at least one of these dose optimization techniques: automated exposure control; mA and/or kV adjustment per patient size (includes targeted exams where dose is matched to clinical indication); or iterative reconstruction. COMPARISON: No relevant prior studies available. FINDINGS: Brain: Acute subdural hemorrhage along the interhemispheric fissure measuring up to 9 mm in thickness. No midline shift. No evidence mass or acute infarct. Cerebral ventricles: No ventriculomegaly. Paranasal sinuses: Visualized sinuses are unremarkable. No fluid levels. Mastoid air cells: Visualized mastoid air cells are well aerated. Bones/joints: Unremarkable. No acute fracture. Soft tissues: Unremarkable. IMPRESSION: Acute subdural hemorrhage along the interhemispheric fissure measuring up to 9 mm in thickness. * Exam Date Time Procedure Performing Provider Status 05/27/21 7:[address] Spine Cervical w/o Contrast Saurav Toth; Arun (Verified) Notes: (CT Spine Cervical w/o Contrast) Reason For Exam: fall / pain / trauma / memory loss Image Report PROCEDURE INFORMATION: Exam: CT Cervical Spine Without Contrast Exam date and time: 05/27/2021 6:41 PM Age: 75 years old Clinical indication: Other: Fall, pain trauma TECHNIQUE: Imaging protocol: Computed tomography images of the cervical spine without contrast. Radiation optimization: All CT scans at this facility use at least one of these dose optimization techniques: automated exposure control; mA and/or kV adjustment per patient size (includes targeted exams where dose is matched to clinical indication); or iterative reconstruction. COMPARISON: No relevant prior studies available. FINDINGS: Bones/joints: No acute fracture. Normal alignment. Discs/Spinal canal/Neural foramina: There is moderate to severe multilevel central spinal stenosis, secondary to disc buldge/osteophytic spurring. Lungs: Lung apices are normal. Soft tissues: Unremarkable. IMPRESSION: No acute abnormality. Additional findings as described. Final Dictated: 05/27/2021 7:16 pm Rahel Quiroz MD Signed (Electronic Signature): 05/27/2021 7:16 pm Signed by: Rahel Quiroz MD Vital Signs Most recent to oldest [Reference Range]: 1 2 3 Temperature Temporal [36.3-37.8 DegC] 36.3 DegC (05/27/21 8:53 PM) 35.9 DegC *LOW* (05/27/21 6:15 PM) Temperature Temporal (DegF) 97.34 DegF (05/27/21 8:53 PM) Peripheral Pulse Rate [60-100 bpm] 99 bpm (05/27/21 8:53 PM) 98 bpm (05/27/21 8:30 PM) 102 bpm *HI* (05/27/21 8:00 PM) Heart Rate Monitored [60-100 bpm] 95 bpm (05/27/21 9:20 PM) Respiratory Rate [14-20 br/min] 18 br/min (05/27/21 9:20 PM) 18 br/min (05/27/21 8:53 PM) 16 br/min (05/27/21 8:30 PM) Blood Pressure [90-140/60-90 mmHg] 128/81mmHg (05/27/21 9:20 PM) 149/72mmHg *HI* (05/27/21 8:53 PM) 162/88mmHg *HI* (05/27/21 8:30 PM) BP Site Left arm (05/27/21 8:53 PM) Left arm (05/27/21 8:30 PM) Left arm (05/27/21 8:00 PM) Patient Position BP Supine (05/27/21 8:53 PM) Supine (05/27/21 8:30 PM) Supine (05/27/21 8:00 PM) SpO2 [92-100 %] 96 % (05/27/21 9:20 PM) 96 % (05/27/21 8:53 PM) 95 % (05/27/21 8:30 PM) Height 163.000 cm (05/27/21 6:15 PM) Height/Length Dosing 163.000 cm (05/27/21 6:38 PM) Weight 81.200 kg (05/27/21 6:15 PM) Weight Dosing 81.200 kg (05/27/21 6:38 PM) Social History Social History Type Response Smoking Status Never (less than 100 in lifetime) entered on: 05/27/21 Sex
[2023-05-02 20:09] LABS: Hemoglobin A1C 7.9 % (<5.7)
[2023-05-02 20:13] LABS: ALT 56 U/L (14-59); AST 22 U/L (15-37); Albumin 4.1 g/dL (3.4-5.0); Alkaline Phosphatase 117 U/L (46-116); Anion Gap 8.7 mmol/L (3-11); BUN 22 mg/dL (7-18); Bilirubin, Total 0.2 mg/dL (0.2-1.0); CO2 29.3 mmol/L (21.0-32.0); CREATININE 0.9 mg/dL (0.55-1.02); Calcium 10.7 mg/dL (8.5-10.1); Calculated LDL 107 mg/dL (<100); Chloride 101 mmol/L (98-107); Cholesterol 188 mg/dL (<200); Estimated GFR 66.67 (mL/min/1.73m2); Glucose 213 mg/dL (74-106); HDL Cholesterol 49 mg/dL (40-60); Potassium 4.6 mmol/L (3.5-5.1); Sodium 139 mmol/L (136-145); Total Protein 7.6 g/dL (6.4-8.2); Triglyceride 164 mg/dL (<150)
[2023-05-02 21:00] LABS: Vitamin D 25 Total 47.6 ng/mL (30-100)
== END 2023-05-02 16:22 | disposition home or self-care (01) ==
LOC: NCHCN 16:21
PROVIDERS: PCP Family Medicine; Visit Provider Family Medicine
DX: E11.9 Type 2 diabetes mellitus without complications (principal); E83.52 Hypercalcemia
CPT/HCPCS: 80053; 80061; 82306; 83036

== ENCOUNTER 2023-11-29 17:57 | Outpatient (REF) | payer MEDICARE, SELFPAY ==
--- OUTSIDE RECORDS SUMMARY | 2023-11-29 17:59 | XMS_ITS | Encounter Summary ---
Author Organization [facility] [place] [address] Care Team Providers Care Geophysical Prospecting Surveyor Name Role Phone Naeem Ayoub DNP Primary Care Provider [phone] Reason for Visit * Auth/Cert Specialty Diagnoses / Procedures Referred By Alec fowler Referred To Contact Diagnoses Age-related nuclear cataract, bilateral Cataract Procedures PRO EXTRACAPSULAR CATARACT RMVL INSERTION IO LENS PROSTH W/O ECP CATARACT EXTRACTION, EXTRACAPSULAR, W/ LENS INSERTION (WRVU 8.52) Referral ID Status Reason Start Date Expiration Date Visits Re quested Visits Authorized [id number] 1 1 Encounter Details Date Type Department Care Team (Latest Contact Info) Description 05/23/2020 11:30 AM EST - 05/23/2020 1:22 PM EST Hospital Encounter [place] [address] Fantasma Preston MD [facility] [place] [address] Age-related nuclear cataract of both eyes; Age-related nuclear cataract of both eyes Discharge Disposition: Home Social History Tobacco Use Types Packs/Day Years Used Date Smoking Tobacco: Never Smokeless Tobacco: Never Alcohol Use Standard Drinks/Week Comments Not Currently 0 (1 standard drink = 0.6 oz pur e alcohol) Sex and Gender Information Value Date Recorded Sex Assigned at Not on file Gender Identity Not on file Sexual Orientation Not on file documented as of this encounter Last Filed Vital Signs Vital Sign Reading Time Taken Comments Blood Pressure 124/68 05/23/2020 1:09 PM EST Pulse 69 05/23/2020 1:09 PM EST Temperature 36 ??C (96.8 ??F) 05/23/2020 1:09 PM EST Respiratory Rate 12 05/23/2020 1:09 PM EST Oxygen Saturation 98% 05/23/2020 1:09 PM EST Inhaled Oxygen Concentration - - Weight 77.1 kg (170 lb) 05/23/2020 11:44 AM EST Height 162.6 cm (5' 4) 05/23/2020 11:44 AM EST Body Mass Index 29.18 05/23/2020 11:44 AM EST documented in this encounter Discharge Instructions * Discharge Instructions* Rosario Leon, RN - 05/23/2020 11:43 AM EST Instructions for the first day following CATARACT surgery Fantasma Preston M.D. Section of ophthalmology [facility] [phone] - Wear either the eye shield or glasses of any kind for the first 24 hours after surgery. -Do not rub your eye. -No swimming or hot tubs for 1 month after surgery. - The surgery center nurses should confirm time of your follow up appointment for tomorrow with . This appointment will be at the [facility] in the main building at [facility]. - Mild discomfort is normal, but if you have any severe eye pain or bleeding call [phone] and ask to speak to the eye doctor radiation control technician. - Call you Primary Care Doctor or the Emergency Room for any non eye related medical issues. - Your eye will be red tomorrow - this is normal. - Your glasses prescription has changed and you old glasses may not work anymore. You will get a new glasses prescription in about 4-6 weeks - Start your post-op drops in 2 hours. Your post-op drops to take while awake are prednisolone acetate 1% (pink), Moxifloxacin (rebollar) and Ketorolac (ibrahim) each four times daily. Use at breakfast, lunch, dinner and bedtime. - Be sure to wait 5 minutes between each drop so that they don't dilute each other. - The prednisolone acetate drops (pink) need to be shaken. - Some of the drops, especially the Ketorolac (ibrahim), may sting. It can be helpful to refrigerate them to make them more comfortable. - If you are on glaucoma drops, it is very important that you keep taking these as usual. -Use all of the drops until the bottles run out, then stop. You do not need to refill any of the drops from surgery - Bring your Eye Kit and drops to all postoperative visits. Moderate Sedation You may have received medication before and/or during your procedure, which affects your judgement and reaction time. Do not drive, operate machinery, drink alcoholic beverages, or make any legal decisions for 24 hours. Be careful on stairs, as you may be unsteady on your feet. You may eat a regular diet as tolerated. Do not smoke if you are alone. IV site -- slight redness, or tenderness is normal, you can use a warm compress. If tenderness and redness increases or foul drainage occurs, please contact your M. D. Questions or problems after 5pm or on a weekend: Call the [facility] capsule filling machine operator and ask for the physician radiation control technician covering for your doctor. documented in this encounter Medications at Time of Discharge Medication Sig Dispensed Refills Start Date End Date Ascorbate Calcium 500 mg Tablet Take by mouth. 07/25/2017 aspirin 81 mg Tablet, Chewable Take by mouth. 06/11/2017 cholecalciferol, Vitamin D3, (Vitamin D3) 1,000 unit Tablet Take 1,000 Units by mouth. 07/25/2017 cyanocobalamin, vitamin B-12, 5,000 mcg Tablet, Rapid Dissolve Take by mouth. 07/25/2017 niacin 500 mg Tablet Take by mouth. 10/31/2018 vitamin A (Aquasol) 10,000 unit Capsule Take 10,000 Units by mouth. 07/25/2017 RX ADULT COMPOUNDED MEDICATION compounded medication 1. CoQnol 1 cap 2xday lisinopril (PRINIVIL;ZESTRIL) 5 mg tablet Take 5 mg by mouth daily. documented as of this encounter Progress Notes * Rosario Leon RN - 05/23/2020 12:15 PM EST Date/Procedure: Meds Given Comments 05/23/2020 Right Cataract Fentanyl 25 mcg IV; Versed 0.5 mg IV Pt tolerated procedure very well. Pt instructed to squeeze RN's hand if having pain, need to cough, etc. Pt instructed not to talk during procedure. Pain assessment unable to verbalize (non-verbal) but will indicate pain with hand squeeze, ask surgeon to pause and verbally assess pt. Discharge instructions and medications reviewed with patient and , Diego. All questions answered and written copy sent home with patient. PIV removed. Eye to go kit sent home with patient as well as eye drops x3. Patient ambulated to car for discharge accompanied by [facility] staff member. * Omayra Duong RN - 05/16/2020 11:07 AM EST .[facility] documented in this encounter H&P Notes * Fantasma Preston MD - 05/23/2020 12:41 PM EST Images from the original note were not included. Patient Name: Britney Mcdonald Patient Age: 74 y.o. Birthdate: 1945 Admit date: 05/23/2020 Attending Physician: Fantasma Preston MD Britney Mcdonald was examined in the preoperative area. She reports no new symptoms or other change in her health since her preoperative history and physical exam was performed less than 30 days ago. Her exam reveals no significant changes. She is breathing comfortably, without cyanosis or use of a ccessory muscles. Vital signs are within acceptable parameters. The eyes are quiet without discharge or other signs of active infection. Malampatti: 2 ASA: 2 The sedation plan was reviewed with Britney Mcdonald and she expressed understanding and agreement. REFERENCES: ASA Score: I. Patient is a completely healthy fit patient. II. Patient has mild systemic disease. III. Patient has severe systemic disease that is not incapacitating. IV. Patient has incapacitating disease that is a constant threat to life. V. A moribund patient who is not expected to live 24 hour with or without surgery. documented in this encounter Miscellaneous Notes * Op Note - Fantasma Preston MD - 05/23/2020 12:57 PM EST [facility] [place] Patient Name: Britney Mcdonald : [id number] MR#: [id number] Case Date: 05/23/2020 Surgeon: Surgeon(s) and Role: * Fantasma Preston MD - Primary Preoperative diagnosis: Cataract Postoperative diagnosis: Cataract Procedure(s) (LRB): CATARACT EXTRACTION, EXTRACAPSULAR, W/ LENS INSERTION (WRVU 8.52) (Right) Anesthesia: Anesthesia type not filed in the log. Estimated Blood Loss: * No values recorded between 05/23/2020 12:57 PM and 05/23/2020 1:08 PM * Specimens removed during surgery: None Drains: * No LDAs found * Surgical Closure: Primary Closure - skin incision is completely closed without any wires, rissa, drains or other devices Disposition: regional anesthesia administered without incident Condition: doing well without problems (Please see the Surgical Encounter Summary for any Implant and Specimen details pertinent to this patient.) HPI/Surgical Indications: Ms Mcdonald presents to clinic with decreased visual acuity in the right eye. This is secondary to nuclear sclerotic cataract and is causing significant glare. After discussing the risks and benefits of surgery, she requested we proceed with cataract extraction to improve her vision. Procedure Description: After informed consent was obtained the patient was taken back to the OR where she was placed under mild IV sedation. ??she was prepped and drapped in a sterile fashion and an eyelid speculum was placed in the right eye. ??1% preservative free lidocaine was instilled on to the eye and a paracenitsis port was made in the peripheral clear cornea and 1% preservative free lidocaine was injected into the anterior chamber. ??The anterior chamber was filled with viscoelastic homar keratome was used to create a beveled, temporal clear cornea stab incision, ??A bent needle cystotome and Utrata forceps were used to creat a continuous curvilinear capsulorhexis. Hydrodisection and hydrodemarcation was carried out using BSS. The neculeus was the emulsified using a stop and chop technique. ??The remaining epineculus and cortex was removed using irrigation and aspiration. ??The posterior capsule was inspected and found to be intact. ??The capsular bag and anterior chamber were filled with viscoelastic and an [employer] SN60WF 20.0 diopter lens was inserted in to the bag without difficulty. ??The remaining viscoelastic was removed with irrigation and aspiration, the corneal wound was hydrated and the wound was found to be water tight. ??The eyelid speculum and drapes were removed and routine postoperative drops were instilled and a patch and shield were placed. ??The patient was taken from the operating room to the recovery room in stable condition. Infection Bundle used? N/A Attestation: Case Date: 05/23/2020 I performed this procedure without the involvement of a resident. Fantasma Preston MD 05/23/2020 documented in this encounter Plan of Treatment Not on file documented as of this encounter Procedures Procedure Name Priority Date/Time Associated Diagnosis Comments Extracapsular Cataract Rmvl Insertion Io Lens Prosth W/O Ecp (30604) 05/23/2020 12:50 PM EST Age-related nuclear cataract of both eyes CATARACT EXTRACTION, EXTRACAPSULAR, W/ LENS INSERTION Routine 05/23/2020 11:37 AM EST Age-related nuclear cataract of both eyes documented in this encounter Visit Diagnoses Diagnosis Age-related nuclear cataract of both eyes- Primary Senile nuclear sclerosis Age-related nuclear cataract of both eyes Senile nuclear sclerosis documented in this encounter Admitting Diagnoses Diagnosis Age-related nuclear cataract of both eyes Senile nuclear sclerosis documented in this encounter Administered Medications Inactive Administered Medications - up to 3 most recent administrations Medication Order MAR Action Action Date Dose Rate Site ketorolac tromethamine (ACULAR) 0.5 % ophthalmic solution 1 drop 1 drop, Right Eye, ONCE, 1 dose, On Sat05/23/20 at 1200, 1 drop to the operative eye once, start on day of surgery, Day of Surgery (Day of Procedure), Routine Given 05/23/2020 11:55 AM EST 1 drop lactated ringers infusion 1,000 mL, at 100 mL/hr, Intravenous, CONTINUOUS, Starting on Sat05/23/20 at 1200, Until Sat05/23/20 at 1317, Day of Surgery (Day of Procedure) New Bag 05/23/2020 12:26 PM EST 1,000 mLs 100 mL/hr moxifloxacin (VIGAMOX) 0.5 % ophthalmic solution 1 drop 1 drop, Right Eye, EVERY 5 MIN, 3 doses, First dose on Sat05/23/20 at 1200, Last dose on Sat05/23/20 at 1210, 1 drop to the operative eye every 5 minutes times 3. Start on the day of surgery. , Day of Surgery (Day of Procedure), Routine Given 05/23/2020 12:18 PM EST 1 drop Given 05/23/2020 12:06 PM EST 1 drop Given 05/23/2020 11:55 AM EST 1 drop PHENYLephrine (MYDFRIN) 2.5 % ophthalmic solution 1 drop 1 drop, Right Eye, EVERY 5 MIN, 3 doses, First dose on Sat05/23/20 at 1200, Last dose on Sat05/23/20 at 1210, 1 drop to the operative eye every 5 minutes times 3. Start on the day of surgery. Do NOT place dilating drops in post-op kit!, Day of Surgery (Day of Procedure), Routine Given 05/23/2020 12:18 PM EST 1 drop Given 05/23/2020 12:07 PM EST 1 drop Given 05/23/2020 11:56 AM EST 1 drop PHENYLephrine (MYDFRIN) 2.5 % ophthalmic solution 1 dose, Starting on Sat05/23/20 at 1140, Until Sat05/23/20 at 1156, ROSARIO AMEZQUITA.: cabinet override prednisoLONE acetate (PRED FORTE) 1 % ophthalmic suspension 1 drop 1 drop, Right Eye, ONCE, 1 dose, On Sat05/23/20 at 1200, 1 drop to the operative eye once, start on day of surgery, Day of Surgery (Day of Procedure), Routine Given 05/23/2020 11:55 AM EST 1 drop tropicamide (MYDRIACYL) 1 % ophthalmic solution 1 dose, Starting on Sat05/23/20 at 1140, Until Sat05/23/20 at 1155, ROSARIO AMEZQUITA.: cabinet override Given 05/23/2020 11:55 AM EST 1 drop documented in this encounter Active and Recently Administered Medications Times are shown in EST. Scheduled Medication Order 05/21/2020 05/22/2020 05/23/2020 cyclopentolate (CYCLODRYL) ophthalmic solution 1 drop 1 drop, Right Eye, EVERY 5 MIN, 3 doses, First dose on Sat05/23/20 at 1200, Last dose on Sat05/23/20 at 1210, 1 drop to the operative eye every 5 minutes times 3. Start day of surgery. Do NOT place dilating drops in post-op kit!, Day of Surgery (Day of Procedure), Routine 1200 (Not Given - Pr ovider: Rosario Leon RN - Reason: Medication not available)1205 (Not Given - Provider: Rosario Leon RN - Reason: Medication not available)1210 (Not Given - Provider: Rosario Leon RN - Reason: Medication not available) ketorolac tromethamine (ACULAR) 0.5 % ophthalmic solution 1 drop (COMPLETED) 1 drop, Right Eye, ONCE, 1 dose, On Sat05/23/20 at 1200, 1 drop to the operative eye once, start on day of surgery, Day of Surgery (Day of Procedure), Routine 1155 (Given - Provid er: Rosario Leon RN) moxifloxacin (VIGAMOX) 0.5 % ophthalmic solution 1 drop (COMPLETED) 1 drop, Right Eye, EVERY 5 MIN, 3 doses, First dose on Sat05/23/20 at 1200, Last dose on Sat05/23/20 at 1210, 1 drop to the operative eye every 5 minutes times 3. Start on the day of surgery. , Day of Surgery (Day of Procedure), Routine 1155 (Given - Provid er: Rosario Leon RN)1206 (Given - Provider: Rosario Leon RN)1218 (Given - Provider: Rosario Leon RN) PHENYLephrine (MYDFRIN) 2.5 % ophthalmic solution 1 drop (COMPLETED) 1 drop, Right Eye, EVERY 5 MIN, 3 doses, First dose on Sat05/23/20 at 1200, Last dose on Sat05/23/20 at 1210, 1 drop to the operative eye every 5 minutes times 3. Start on the day of surgery. Do NOT place dilating drops in post-op kit!, Day of Surgery (Day of Procedure), Routine 1156 (Given - Provid er: Rosario Leon RN)1207 (Given - Provider: Rosario Leon RN)1218 (Given - Provider: Rosario Leon RN) prednisoLONE acetate (PRED FORTE) 1 % ophthalmic suspension 1 drop (COMPLETED) 1 drop, Right Eye, ONCE, 1 dose, On Sat05/23/20 at 1200, 1 drop to the operative eye once, start on day of surgery, Day of Surgery (Day of Procedure), Routine 1155 (Given - Provid er: Rosario Leon RN) Continuous Medication Order 05/21/2020 05/22/2020 05/23/2020 lactated ringers infusion (CANCELED) 1,000 mL, at 100 mL/hr, Intravenous, CONTINUOUS, Starting on Sat05/23/20 at 1200, Until Sat05/23/20 at 1317, Day of Surgery (Day of Procedure) 1226 (New Bag - Prov ider: Rosario Leon RN) PRN Medication Order 05/21/2020 05/22/2020 05/23/2020 acetaminophen (Tylenol) tablet 650 mg 650 mg, Oral, ONCE PRN, 1 dose, Starting on Sat05/23/20 at 1311, Until Sat05/23/20 at 1523, Pain, Maximum dose of acetaminophen is 4000 mg from all sources in 24 hours. When ordered for pain, acetaminophen should be given even when other ordered pain medications are indicated. , Recovery (Recovery-Hospital Unit), Routine fentaNYL (pf) (50 mcg/mL) multi-dose injection 25 mcg (CANCELED) 25 mcg, Intravenous, EVERY 5 MIN PRN, Starting on Sat05/23/20 at 1137, Until Sat05/23/20 at 1317, Pain, For use in the Operating Room (OR), [facility] ([facility]C, or Special Procedure Room only under direct provider supervision and verbal order. Hold for respiratory rate less than 8 breaths per minute. (maximum dose 100 mcg), Intra-Operative (Intra-Procedure), Routine 1250 (Given - Provid er: Rosario Leon RN) midazolam (pf) (Versed) (1 mg/mL) multi-dose injection 0.25-1 mg (CANCELED) 0.25-1 mg, Intravenous, EVERY 5 MIN PRN, Starting on Sat05/23/20 at 1137, Until Sat05/23/20 at 1317, Anxiety, For use in the Operating Room (OR), [facility] ([facility]) or Special Procedure room only with direct provider supervision and verbal order. Hold for delirium/agitation. (Maximum dose 4 mg), Intra-Operative (Intra-Procedure), Routine 1250 (Given - Provid er: Rosario Leon, ALLAN) No Frequency Medication Order 05/21/2020 05/22/2020 05/23/2020 tropicamide (MYDRIACYL) 1 % ophthalmic solution (COMPLETED) 1 dose, Starting on Sat05/23/20 at 1140, Until Sat05/23/20 at 1155, ROSARIO AMEZQUITA: cabinet override 1155 (Given - Provid er: Rosario Leon RN - Comment: x3 in Right eye) documented in this encounter Care Teams Geophysical Prospecting Surveyor Relationship Specialty Start Date End Date Naeem Ayoub DNP PCP - General Family Medicine 04/28/20 05/29/20 documented as of this encounter
--- OUTSIDE RECORDS SUMMARY | 2023-11-29 17:59 | XMS_ITS | Encounter Summary ---
Author Organization [facility] Address [address] [place] [address] Care Team Providers Care Playground Worker Name Role Phone Steve Vann MD Primary Care Provider Reason for Visit * Reason Onset Date Comments Results 04/05/2023 Encounter Details Date Type Department Care Team (Late st Contact Info) Description 04/05/2023 [facility] Breast Imaging Mammography - [address] [phone] Iram Leslie Results Social History Tobacco Use Types Packs/Day Years Used Date Smoking Tobacco: Never Assessed Interpersonal Safety Answer Date Record ed Physically Hurt Never 11/08/2019 Verbally Threaten Not on file 11/08/2019 Sex and Gender Information Value Date Recorded Sex Assigned at Not on file Gender Identity Not on file Sexual Orientation Not on file documented as of this encounter Miscellaneous Notes * Telephone Encounter - Iram Leslie - 04/05/2023 1610 EST Left patient a message to call back breast imaging at [phone] to review results of her breast imaging second read. documented in this encounter Plan of Treatment Not on file documented as of this encounter Visit Diagnoses Not on filedocumented in this encounter Care Teams Playground Worker Relationship Specialty Start Date End Date Steve Vann MD [address] [facility] [address] PCP - General 01/06/21 documented as of this encounter
--- OUTSIDE RECORDS SUMMARY | 2023-11-29 17:59 | XMS_ITS | Encounter Summary ---
Author Organization [facility] Address [address] [place] [address] Care Team Providers Care Warp Tension Tester Name Role Phone Steve Vann MD Primary Care Provider [phone] Reason for Visit * Reason Onset Date Comments Pre-visit Orders 03/15/2023 Encounter Details Date Type Department Care Team (Late st Contact Info) Description 03/15/2023 [facility] Breast Imaging Mammography - Main [address] [phone] Monica Denney Pre-visit Orders Social History Tobacco Use Types Packs/Day Years Used Date Smoking Tobacco: Never Assessed Interpersonal Safety Answer Date Record ed Physically Hurt Never 11/08/2019 Verbally Threaten Not on file 11/08/2019 Sex and Gender Information Value Date Recorded Sex Assigned at Not on file Gender Identity Not on file Sexual Orientation Not on file documented as of this encounter Miscellaneous Notes * Telephone Encounter - Monica Denney - 03/15/2023 0811 EST Left a message with [facility]'s referral line to let them know that ourradiologists do not think the cat 0 MRI is indicated and that we could do a consult on outside images to give our own recommendations. I left [phone] to call to be walked through ordering a secondary read or to let us know they won't be pursing it so we can cancel the order documented in this encounter Plan of Treatment Not on file documented as of this encounter Visit Diagnoses Not on filedocumented in this encounter Care Teams Warp Tension Tester Relationship Specialty Start Date End Date Steve Vann [place] [address] [place] [address] PCP - General 01/06/21 documented as of this encounter
--- OUTSIDE RECORDS SUMMARY | 2023-11-29 17:59 | XMS_ITS | Encounter Summary ---
Author Organization On License Of [facility] [place] [address] Care Team Providers Care Editorial Director Name Role Phone Steve Vann MD Primary Care Provider [phone] Encounter Details Date Type Department Care Team (Late st Contact Info) Description 2021 12:35 AM EST Ancillary Procedure Radiology Library at [facility] [place] [address] Social History Tobacco Use Types Packs/Day Years Used Date Smoking Tobacco: Never Smokeless Tobacco: Never Alcohol Use Standard Drinks/Week Comments Not Currently 0 (1 standard drink = 0.6 oz pur e alcohol) Sex and Gender Information Value Date Recorded Sex Assigned at Not on file Gender Identity Not on file Sexual Orientation Not on file documented as of this encounter Plan of Treatment Not on file documented as of this encounter Procedures Procedure Name Priority Date/Time Associated Diagnosis Comments REQUEST FOR 2ND READ CT HEAD AND SPINE STAT 2021 12:33 AM EST documented in this encounter Results * Request For 2nd Read CT Head And Spine (2021 12:33 AM EST) Anatomical Region Laterality Modality Head, C-spine, T-spine, L-spine SO Impressions 2021 3:04 AM EST 1. ??Acute subdural hemorrhage along the falx, measuring up to 7 mm in width. Minimal local mass effect without midline shift or herniation. 2. ??Trace subarachnoid hemorrhage. 3. ??No acute fracture or traumatic malalignment of the cervical spine. Thank you for letting us participate in the care of this patient. ??If you are a health care provider and have any questions regarding this report, please contact the number below. ??For patients who have questions please contact the health home care manager rn that requested your imaging first. ? Electronically signed by: Sue Parsons MD, [facility] ([phone]), at 2021 3:04 AM Narrative 2021 3:04 AM EST EXAMINATION: REQUEST FOR 2ND READ CT HEAD AND SPINE CLINICAL HISTORY: 76F fall off a porch, SDH at OSH; Sending Institution [facility]; Date of exam [id number]; I believe a reinterpretation of this exam may alter care of Patient. Yes TECHNIQUE: Reinterpretation of CT of the head and cervical spine performed without intravenous contrast. Study performed at [facility] at 1856 hours, May 27, 2021 COMPARISON: None. FINDINGS: Head: Acute subdural hemorrhage along the anterior to mid falx measuring up to 7 mm in width. Trace subarachnoid hemorrhage within the left posterior frontal sulci. Minimal effacement of the adjacent cerebral sulci, without significant mass effect. Lynch-white differentiation is preserved. Cerebral sulci and ventricles are normal. Basal cisterns are patent. No calvarial fracture or significant extracalvarial contusion or hematoma. The paranasal sinuses and mastoid air cells are clear. C-spine: The craniocervical junction is intact. Normal cervical lordosis. Vertebral body heights are preserved. No acute fracture, subluxation or dislocation. Mild degenerative disc changes with small partially calcified disc osteophytes are noted at the mid to lower cervical spine. Paravertebral soft tissues are normal. No apical pneumothorax. Procedure Note Sue Parsons MD - 2021 EXAMINATION: REQUEST FOR 2ND READ CT HEAD AND SPINE CLINICAL HISTORY: 76F fall off a porch, [facility] Date of exam [id number]; I believe a reinterpretation of this exammay alter care of Patient. Yes TECHNIQUE: Reinterpretation of CT of the head and cervical spine performed without intravenous contrast. Study performed at [facility] at 1856hours, May 27, 2021 COMPARISON: None. FINDINGS: Head: Acute subdural hemorrhage along the anterior to mid falx measuringup to 7 mm in width. Trace subarachnoid hemorrhage within the left posteriorfrontal sulci. Minimal effacement of the adjacent cerebral sulci, withoutsignificant mass effect. Lynch-white differentiation is preserved. Cerebral sulci and ventricles are normal. Basal cisterns are patent. No calvarial fracture or significant extracalvarial contusion or hematoma.The paranasal sinuses and mastoid air cells are clear. C-spine: The craniocervical junction is intact. Normal cervicallordosis. Vertebral body heights are preserved. No acute fracture, subluxation or dislocation. Mild degenerative disc changes with small partially calcifieddisc osteophytes are noted at the mid to lower cervical spine. Paravertebralsoft tissues are normal. No apical pneumothorax. IMPRESSION 1. Acute subdural hemorrhage along the falx, measuring up to 7 mm inwidth. Minimal local mass effect without midline shift or herniation. 2. Trace subarachnoid hemorrhage. 3. No acute fracture or traumatic malalignment of the cervical spine. Thank you for letting us participate in the care of this patient. If youare a health care provider and have any questions regarding this report,please contact the number below. For patients who have questions please contactthe health home care manager rn that requested your imaging first. Manuel Singh DO IMG OUTSIDE INTERPRE TATION ORDERABLES documented in this encounter Visit Diagnoses Not on filedocumented in this encounter Care Teams Editorial Director Relationship Specialty Start Date End Date Steve Vann MD [facility] [place] [address] PCP - General Family Medicine 05/10/21 documented as of this encounter
--- OUTSIDE RECORDS SUMMARY | 2023-11-29 17:59 | XMS_ITS | Encounter Summary ---
Author Organization [facility] [place] [address] Care Team Providers Care General Merchandise Manager Name Role Phone Naeem Ayoub DNP Primary Care Provider [phone] Reason for Visit * Auth/Cert Specialty Diagnoses / Procedures Referred By Alec fowler Referred To Contact Diagnoses Age-related nuclear cataract, bilateral Cataract Procedures PRO EXTRACAPSULAR CATARACT RMVL INSERTION IO LENS PROSTH W/O ECP CATARACT EXTRACTION, EXTRACAPSULAR, W/ LENS INSERTION (WRVU 8.52) Referral ID Status Reason Start Date Expiration Date Visits Re quested Visits Authorized [id number] 1 1 Encounter Details Date Type Department Care Team (Late st Contact Info) Description 05/23/2020 12:52 PM EST - 05/23/2020 1:27 PM EST Surgery [facility] [place] [address] Fantasma Preston MD [facility] [place] [address] CATARACT EXTRACTION, EXTRACAPSULAR, W/ LENS INSERTION (WRVU 7.35) Social History Tobacco Use Types Packs/Day Years [...] encounter Discharge Instructions * Discharge Instructions* Rosario Leon RN - 05/23/2020 11:43 AM EST Instructions for the first day following CATARACT surgery Fantasma Preston M.D. Section of ophthalmology [facility] [phone] - Wear either the eye shield or [...] Eye Clinic in the main building at [facility]. - Mild discomfort is normal, but if you have any severe eye pain or bleeding call [phone] and ask to speak to the eye doctor residential remodeling subcontractor. - Call you Primary Care Doctor or [...] 5pm or on a weekend: Call the [facility] acetaldehyde converter operator and ask for the physician residential remodeling subcontractor covering for your doctor. documented in this [...] Preston MD - 05/23/2020 12:57 PM EST [facility] Operative Note Patient Name: Britney Mcdonald : [id number] MR#: [id number] Case Date: 05/23/2020 Surgeon: Surgeon(s) and Role: [...] Rmvl Insertion Io Lens Prosth W/O Ecp ([id number]) 05/23/2020 12:50 PM EST Age-related nuclear cataract of both eyes CATARACT EXTRACTION, EXTRACAPSULAR, W/ LENS INSERTION Routine 05/23/2020 11:37 AM EST Age-related nuclear cataract of both eyes documented in this encounter Visit Diagnoses Diagnosis Age-related nuclear cataract of both eyes- Primary Senile nuclear sclerosis Age-related nuclear cataract of both eyes Senile nuclear sclerosis Age-related nuclear cataract of both eyes Senile nuclear sclerosis documented in this encounter Admitting Diagnoses Diagnosis Age-related nuclear cataract of both eyes Senile nuclear sclerosis documented in this encounter Administered Medications Inactive Administered Medications - up to 3 most recent administrations Medication Order MAR Action Action Date Dose Rate Site fentaNYL (pf) (50 mcg/mL) multi-dose injection 25 mcg 25 mcg, Intravenous, EVERY 5 MIN PRN, Starting on Sat05/23/20 at 1137, Until Sat05/23/20 at 1317, Pain, For use in the Operating Room (OR), [facility] ([facility])C, or Special Procedure Room only under direct provider supervision and verbal order. Hold for respiratory rate less than 8 breaths per minute. (maximum dose 100 mcg), Intra-Operative (Intra-Procedure), Routine Given 05/23/2020 12:50 PM EST 25 mcg ketorolac tromethamine (ACULAR) 0.5 % ophthalmic solution [...] 12:26 PM EST 1,000 mLs 100 mL/hr midazolam (pf) (Versed) (1 mg/mL) multi-dose injection 0.25-1 mg 0.25-1 mg, Intravenous, EVERY 5 MIN PRN, Starting on Sat05/23/20 at 1137, Until Sat05/23/20 at 1317, Anxiety, For use in the Operating Room (OR), Outpatient [facility] Center (OSC) or Special Procedure room only with direct provider supervision and verbal order. Hold for delirium/agitation. (Maximum dose 4 mg), Intra-Operative (Intra-Procedure), Routine Given 05/23/2020 12:50 PM EST 0.5 mg moxifloxacin (VIGAMOX) 0.5 % ophthalmic solution 1 [...] at 1140, Until Sat05/23/20 at 1156, ROSARIO AMEZQUITA: cabinet override prednisoLONE acetate (PRED FORTE) 1 [...] Sat05/23/20 at 1155, ROSARIO AMEZQUITA: cabinet override Given 05/23/2020 11:55 AM EST [...] (Given - Provid er: Rosario Leon RN) No Frequency Medication Order 05/21/2020 05/22/2020 05/23/2020 tropicamide (MYDRIACYL) 1 % ophthalmic solution (COMPLETED) 1 dose, Starting on Sat05/23/20 at 1140, Until Sat05/23/20 at 1155, ROSARIO AMEZQUITA: cabinet override 1155 (Given - Provid er: Rosario Leon RN - Comment: x3 in Right eye) documented in this encounter Care Teams General Merchandise Manager Relationship Specialty Start Date End Date Naeem Ayoub DNP PCP - General Family Medicine 04/28/20 05/29/20 documented as of this encounter
--- OUTSIDE RECORDS SUMMARY | 2023-11-29 17:59 | XMS_ITS | Encounter Summary ---
Author Organization [facility] [place] [address] Care Team Providers Care Compressor Stations Superintendent Name Role Phone Steve Vann MD Primary Care Provider [phone] Encounter Details Date Type Department Care Team (Late st Contact Info) Description 05/27/2021 Ancillary Procedure [place] [address] Social History Tobacco Use Types Packs/Day Years [...] Procedure Name Priority Date/Time Associated Diagnosis Comments FILM LIBRARY STORAGE ONLY CT SPINE STAT 05/27/2021 12:00 AM EST documented in this encounter Results * Film Library- Storage Only CT Spine (05/27/2021 12:00 AM EST) Narrative Dicom, Auditing User - 2021 12:32 AM EST This exam is auto-finalizing. It's purpose is for storage only. Manuel Singh DO IMG FILM LIBRARY ORD ERABLES documented in this encounter Visit Diagnoses Not on filedocumented in this encounter Care Teams Compressor Stations Superintendent Relationship Specialty Start Date End Date Steve Vnan MD [address] [place] [id number] PCP - General Family Medicine 05/10/21 documented as of this encounter
--- OUTSIDE RECORDS SUMMARY | 2023-11-29 17:59 | XMS_ITS | Clinical Summary ---
Author Organization [facility] Address [address] [place] [id number] Care Team Providers Care Relations Specialist Name Role Phone Steve Vann MD Primary Care Provider [phone] Social History Tobacco Use Types Packs/Day Years Used Date Smoking Tobacco: Never Assessed Interpersonal Safety Answer Date Record ed Physically Hurt Never 11/08/2019 Verbally Threaten Not on file 11/08/2019 Sex and Gender Information Value Date Recorded Sex Assigned at Not on file Gender Identity Not on file Sexual Orientation Not on file Plan of Treatment Health Maintenance Due Date Last Done Comments RSV Immunization ( o r 60+ Years) (1 - 1-dose 60+ series) 2007 Fall Risk Screening 2012 COVID-19 Vaccine ( season) 2022 Hepatitis C Screen Completed 12/05/2021 Procedures Procedure Name Priority Date/Time Associated Diagnosis Comments HEPATITIS C AB W REFLEX TO HCV RNA BY PCR Routine 12/05/2021 16:00 EDT from Last 3 Months or Most Recently Relevant to Health Maintenance Results * HEPATITIS C AB W REFLEX TO HCV RNA BY PCR (12/05/2021 16:00 EDT) Hep C Antibody Negative Negative 12/07/2021 9:37 EDT [facility] Blood VENOUS BLOOD / Unknown 12/05/2021 16:00 EDT 12/06/2021 17:23 EDT Provider Outr Resulting Lab CHEMISTRY & BLOOD GAS ORDERABLES [facility] [address] [place] [address] from Last 3 Months or Most Recently Relevant to Health Maintenance Care Teams Relations Specialist Relationship Specialty Start Date End Date Steve Vann MD [facility] [address] [place], [place] [id number] PCP - General 01/06/21
--- OUTSIDE RECORDS SUMMARY | 2023-11-29 17:59 | XMS_ITS | Encounter Summary ---
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 Name Role Phone Steve Vann MD Primary Care Provider [phone] Reason for Referral * Diagnostic Test (Routine) - Closed Specialty Diagnoses / Procedures Referred By Contac t Referred To Contact Radiology Diagnoses Subdural hematoma Procedures CT Head wo Contrast (Generic) Donna Graves MD [facility] [place] [address] [facility] [place] [address] Referral ID Status Reason Start Date Expiration Date V isits Requested Visits Authorized [id number] Closed Specialty Service Requested 2021 11/25/2022 1 1 Reason for Visit * Reason Comments Hospital Transfer Trauma consult Fall * Auth/Cert Specialty Diagnoses / Procedures Referred By Contac t Referred To Contact Diagnoses Subdural hematoma Fall trauma consult / sdh s/p fall Procedures EMERGENCY IPI Referral ID Status Reason Start Date Expiration Date Visits Re quested Visits Authorized [id number] 1 1 Encounter Details Date Type Department Care Team (Latest Contact Info) Description 05/27/2021 11:07 PM EST - 05/30/2021 4:59 PM EST Hospital Encounter [address] [place] [address] Manuel Singh [facility] [address] [place] [address] Ken Barbour MD [facility] [place] [address] Robel Bryant MD [address] [place] [address] [address] Subdural hematoma; Fall, initial encounter; Fall, subsequent encounter; Closed fracture of multiple ribs of both sides, initial encounter Discharge Disposition: Home with VNA Social History Tobacco Use Types Packs/Day Years [...] Sign Reading Time Taken Comments Blood Pressure 130/84 05/30/2021 3:54 PM EST Pulse 87 05/29/2021 10:25 AM EST Temperature 36.7 ??C (98.1 ??F) 05/30/2021 11:[address] Respiratory Rate 18 05/30/2021 3:54 PM EST Oxygen Saturation 94% 05/30/2021 3:54 PM EST Inhaled Oxygen Concentration - - Weight 80.7 kg (178 lb) 05/27/2021 11:16 PM EST Height 162.6 cm (5' 4) 05/27/2021 11:16 PM EST Body Mass Index 30.55 05/27/2021 11:16 PM EST documented in this encounter Discharge Summaries * Dontae Gauthier MD - 2021 2:54 PM EST Trauma Discharge Summary Patient Name: Britney Fitzgerald Patient Age: 76 y.o. : 1945 Attending Physician: Robel Bryant MD Date of Admission: 05/27/2021 Date of Discharge: 05/30/2021 ID: 76 y.o.yo pt admitted on 05/27/2021 with the following injuries: ?? Traumatic Injuries:?? Injury Intervention Follow-up BRAIN: ?? 7mm falcine aSDH w/o mass effect ?? L punctate tSAH NSGY:? - No neurosurgical intervention indicated ?? -??Ok for q4h neuro checks ?? - Spine precautions: per??Trauma/Ortho ?? - BP control, keep SBP 90-160 ?? -??Keppra 500mg BID for 7 days ?? - Goal eunatremia ?? - Patient ok for DVT chemoppx in 48h from this stable scan, but beyond that her ASA81 should be held until follow-up with NSGY in 4-6 weeks NSGY:?follow-up with NSGY in 4-6 weeks PULM: Nondisplaced fractures of the anterolateral sixth through eighth ribs and the posterior eighth and eleventh on the right ? Pulmonary Toilet IS 10x/hr Aerobika Pain control? TRAUMA Follow up in 10-14 days with repeat CXR (PA and Lateral views)? SKIN (lacerations, abrastions): ? TRAUMA Standard wound care ?? TRAUMA Follow up coordinated with other appointments ?? Scheduled Appointments: The following appointments have been scheduled on your behalf: Future Appointments Date Time Provider Department Center 06/13/2021 12:45 PM [facility] DB XRAY ROOM 2 MH Xray [facility] Rad 06/13/2021 2:00 PM Klaudia Forte APRN [facility] 07/04/2021 2:[address] [facility] [address] [facility] [address] [facility] 07/04/2021 3:00 PM Jayleen Burton PA [facility] [id number] [facility] Other In-hospital Issues: - Acute Pain - Chronic Pain - GERD - Fall - Subdural hematoma - Traumatic subarachnoid hemorrhage - Right posterior rib fracture Secondary Diagnosis: Past Medical History: Diagnosis Date ??? Cataract ??? Diabetes mellitus ??? GERD (gastroesophageal reflux disease) ??? Hypertension Allergies: Allergies Allergen Reactions ??? Pollen Extracts Other (See Comments) Other reaction(s): Eye Redness Operations/Procedures: None HISTORY OF PRESENT ILLNESS: Britney Fitzgerald??is a 76 y.o.??female??presents to [facility] s/p fall from 3 ft. ??Description of events leading up to injury includes: Patient with a hx of hypertension, GERD, chronic back pain,??fell over a??deck on 05/27 day time at her daughter's house and landed on ice, hitting the back of her head and her neck. +LOC. She presented to [facility] where she was found to have R posterior rib fx, 7 m falcine SHD, and L punctate tSAH. She was transferred to [facility] for further work up.? Primary survey revealed: intact??airway, equal??breath sounds/respirations, present 2+??peripheral pulses with stable??vital signs and no signs??of bleeding ?? GCS: GCS 15??(6 - Follows simple motor commands,??5 - Alert and oriented,??4 - Opens eyes on own) ?? Secondary survey revealed: 1.??Acute subdural hemorrhage along the falx, measuring up to 7 mm in width 2.??Trace subarachnoid hemorrhage 3.??Nondisplaced right 8th to 11th posterior rib fractures. Hospital Course: Britney Fitzgerald is a 76 y.o. female involved in a Ground level mechanical fall on 05/27/2021. Britney was admitted to the floor level of care under the trauma service. She was evaluated by ourNeurosurgery colleagues who determined surgical intervention was not warranted and repeat CT head show stability of her brain bleed. She was started on keppra 500mg BID for 7 days for the prevention of seizures. She was experiencing some urinary retention which was resolved with intermittent straigh t catheters until she began voiding independently 05/28. She was ordered for a syncopal work up though she refused TTE. All other portions of the workup were negative. Her diet was advanced and she tolerated it without issue. She worked with PT/OT which recommended home with supervision. Britney Fitzgerald's pain was adequately controlled, She was maintaining adequate oxygen saturation on room air, and was hemodynamically stable. She was tolerating a diet without abdominal complaints and voiding adequately. WBC and Hgb were stable. She was Ambulatory. Britney Fitzgerald was evaluatedby the Surgery Team and deemed medically stable for discharge on 05/30/21. PLAN: Acute pain -3 lidoderm patches - tylenol 650mg q6hr SCHED - Oxycodone 5mg PO PRN Q4H ?? 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 Possible Syncope - Upon further discussion with patient and daughter at bedside. Appears to be a mechanical fall after losing balance while walking backwards and losing her footing on a rug. Pt and daughter do endorse some loss of balance at baseline. - Plan for Echo and Carotids for evaluation - PT/OT pending ?? Tetanus status: Last dose 2010, Ordered 05/28/21 ?? Admission UA: Negative for blood ?? Tox Screen: + opiates ?? Resolved in hospital issues: TBD ?? Chronic health conditions: Hypertension- Hold Lisinopril 10mg QHS, Need to clarify with PCP dosing DM- Holding Metformin 500mg BID, CLEM while inpatient. GERD: PRN Pepcid Diet: Regular Diet Activity status: Activity As Tolerated Spine status: No spinal injuries noted Pulmonary toilet: Encourage frequent mobilization, IS use DVT PPX: SCDs, Held due to:brain injury and discharge within 48hr window. GI PPX: H2 Kyle Consults (Please see image consultant notes): PT/OT Dispo: Home Incidental Findings: None Pending Lab Data at Discharge: none Pertinent Lab Data: Recent Labs 05/29/21 0604 05/28/21 0510 WBC 6.0 9.0 HGB 13.8 12.8 HCT 41.4 37.7 PLATELET 256 269 PT -- 12.1 INR -- 1.1 PTT -- 29 Recent Labs 05/29/21 0604 05/28/21 0510 NA 136 137 K 4.0 4.1 CL 101 103 CO2 24 25 BUN 9 11 CREATININE 0.70 0.59* GLUCOSE 137 145 CALCIUM 9.9 9.8 Microbiology Data: Microbiology Results (Last 30 days) Procedure Component Value Units Date/Time COVID-19 PCR [[id number]] Collected: 05/28/21 0735 Lab Status: Final result Specimen: Nasopharyngeal Swab Updated: 05/28/21 09 SARS-CoV-2 RNA PCR Not Detected Comment: This result should be interpreted in combination with the clinical observations, patient history and epidemiological information. For testing of asymptomatic individuals, assay performance characteristics and clinical utility have not been evaluated. Testing for SARS-CoV-2 (Severe acute respiratory syndrome coronavirus 2, formerly known as 2019 novel coronavirus or 2019-nCoV) to aid in the diagnosis of COVID-19 is performed using the Simplexa COVID-19 Direct Assay by [employer] as authorized by the FDA issued Emergency Use Authorization (EUA). This assay is intended for In-vitro Diagnostic (IVD) use with nasopharyngeal swabs collected from individuals meeting the CDC criteria for testing. The assay is performed based on the instructions for use and additional guidance provided by the FDA. Testing is performed in the Microbiology Laboratory within the Department of Pathology and Laboratory Medicine at [facility], certified under the Clinical Laboratory Improvement Amendments of 1988 (CLIA), 42 U.S.C. section 263a, to perform high complexity tests. Assay performance has been verified according to clinical laboratory regulatory requirements. Test results are provided above. A result of Not Detected indicates that the viral RNA target is not present but does not preclude SARS-CoV-2 infection. False negative results may occur if a specimen is improperly collected, transported or handled; if amplification inhibitors are present; or if inadequate numbers of viral particles are present in the specimen. A result of Detected suggests a current or recent infection and the patient is presumed to be infected. Positive and negative predictive values for this test are highly dependent on disease prevalence. A result of Invalid indicates the inability to conclusively determine the presence or absence of SARS-CoV-2 RNA in the sample which can be due to a variety of factors. Recollection is recommended in the case of an invalid result. CDC COVID-19 criteria for testing on human specimens and clinical management guidance information are available at the CDC Coronavirus Disease 2019 (COVID-19) webpage under Information for Healthcare Professionals (https://www.cdc.gov/coronavirus/2019-ncov/hcp/index.html). Additional information about this and other EUA tests can be found in provider and patient fact sheets at the following FDA website: https://www.fda.gov/medical-devices/yvdyvnvxvnm-ogfvxqy-1777-sdhos-82-iiovjbkgk- eyr-tmjhmexevcoans-ofdwjbx-devices/xznnp-jcuvtwkljmk-mnul SARS-CoV-2 Source [employer] Swab Discharge Physical Examination: Vital Signs: Last value Range last 24hrs Temperature Temp: 36.7 ??C (98.1 ??F) Temp: [36.6 ??C (97.9 ??F)-36.7 ??C (98.1 ??F)] Heart Rate Heart Rate: 87 Heart Rate: -- Blood Pressure BP: 130/84 BP: (119-138)/(60-89) Respiratory Rate Resp: 18 Resp: [18] SpO2 SpO2: 94 % SpO2: [89 %-94 %] Physical Exam: General: Alert, no acute distress Head: Atraumatic, non cyanotic Spine:??Tenderness over low thoracic spine. No deformity, no stepoffs, no tenderness to palpation and no abrasions??over cervical spine, and/or??lumbar spine Cardiac: Regular rate Pulmonary: Normal respiratory effort Abdominal: Soft, non distended, no guarding, not peritoneal, not tympanitic, non tender to palpation Neuro: Grossly intact, follows commands Extremities: Warm and well-perfused Current Medications: The following medications have been prescribed for you. If you notice any adverse reactions to yourmedications, please contact your primary care physician immediately or go to the nearest Emergency Department. Your Medications New Medications Dose Details acetaminophen 325 mg Tab Commonly known as: Tylenol Take 2 tablets by mouth every 6 hours as needed for Pain. 650 mg Quantity: 30 tablet Refills: 1 levETIRAcetam 500 mg Tab Commonly known as: Keppra Take 1 tablet by mouth 2 times daily for 3 days. 500 mg Quantity: 6 tablet Refills: 0 Continued medications, unchanged Dose Details Ascorbate Calcium 500 mg Tab Take by mouth. Refills: 0 aspirin 81 mg Chew Take by mouth. Refills: 0 cholecalciferol (Vitamin D3) 1,000 unit Tab Commonly known as: Vitamin D3 Take 1,000 Units by mouth. 1,000 Units Refills: 0 cyanocobalamin (vitamin B-12) 5,000 mcg Tbdl Take by mouth. Refills: 0 lisinopriL 5 mg Tab Commonly known as: Zestril Take 5 mg by mouth daily. 5 mg Refills: 0 metFORMIN 500 mg Tab Commonly known as: Glucophage Take 500 mg by mouth 2 times daily (with meals). 500 mg Refills: 0 niacin 500 mg Tab Take by mouth. Refills: 0 RX ADULT COMPOUNDED MEDICATION compounded medication 1. CoQnol 1 cap 2xday Refills: 0 vitamin A 10,000 unit Cap Commonly known as: Aquasol Take 10,000 Units by mouth. 10,000 Units Refills: 0 Disposition: home Scheduled Appointments: The following appointments have been scheduled on your behalf: Future Appointments Date Time Provider Department Center 06/13/2021 12:45 PM [facility] DB XRAY ROOM 2 MH Xray [facility] Rad 06/13/2021 2:00 PM Klaudia Forte APRN [facility] 07/04/2021 2:[address] [facility] [address] [facility] [address] [facility] Rad 07/04/2021 3:00 PM Jayleen Burton PA [facility] [id number] [facility] Outpatient Services/Studies: CT Head wo Contrast (Generic) Standing Status: Future Standing Exp. Date: 12/25/21 Question Response Notes Where will study be performed? [facility] Radiology [120] XR Chest PA & Lateral (Generic) Standing Status: Future Standing Exp. Date: 12/13/21 Question Response Notes Where will study be performed? [facility] [126] Reason for exam and clinical history: s/p fall, rib fx follow up, interval change, ? pleural effusion Referral to Home Health - at DISCHARGE Order Comments: DOCUMENTATION FOR VNA SERVICES (INCLUDING THOSE PATIENTS WITH MEDICARE COVERAGE REQUIRING HOME VNA SERVICES AND/OR HOSPICE SERVICES) PATIENT'S LOCATION: Britney Fitzgerald [address] [place] [phone] (home) Cell: No relevant phone numbers on file. In discussion with the attending physician, it is certified that this patient is under their care and that they, or a Nurse Practitioner,Clinical Nurse specialist or Physician Triple Drum Operator who is working directly with them, had a face to face encounter that meets the physician face to face encounter requirements with this patient on 05/30/2021 (MD please enter DC date here) The encounter with the patient was in whole, or in part, for the following medical condition, whichis the primary reason for home health care services: SDH and trace SAH, Rib fractures 6-8, 11 right. In discussion with the provider, it is certified that, based on their findings, the following services are medically necessary for home health services. To provide the following care/treatments with the clinical findings supporting the need for services as follows: HOME CARE ORDERS: RN ORDERS:Assess wound or incision, vital signs, cardiopulmonary status, nutrition, hydration, elimination, meds effectiveness and management; reinforce education re health issues PT ORDERS: Continue rehab for endurance, gait stability and strength with mobility and transfers. Home safety evaluation. Home exercise program if appropriate. OT: assess and continue rehab for managing ADL's. HOME HEALTH CARE AGENCY: [facility] PHONE: [phone] FAX: [phone] Start of care: 24-48 hours after discharge FOR MEDICARE ONLY: (please delete this section if not Medicare) In discussion with the attending physician, it is certified that the clinical findings support thatthis patient is homebound because absences from home require considerable and taxing effort due to:Debility, requires assistance of 1 or more persons to leave the home Please note that any additional orders needs or changes will need to be obtained from this patient's PCP: Steve Vann MD [address] / [place] [address] All A agencies which cover the area of patient's residence have been reviewed, either verbally josé writing, and patient/family have chosen the home health care agency noted Question Response Notes Agency name and contact information [facility] Patient location post discharge Home What services are requested Registered Nurse What services are requested Physical Therapy What services are requested Occupational Therapy Responsible MD post discharge contact info PCP Special Instructions Given to Patient at Discharge:. An After Visit Summary was printed and given to the patient. Your care was managed by the Trauma and Acute Care Surgery Team at [facility]. If you have any questions or concerns, please feel free to contact us. Provider Contact Information: General Surgery Clinic: Nurses line for questions: [facility] (after business hours): CC: Steve Vann MD [facility] Klaudia Forte APRN Signed: Dontae Gauthier MD Department of Surgery 05/30/2021 Trauma pager [phone] documented in this encounter Discharge Instructions * Discharge Instructions* Donna Graves MD - 2021 9:09 AM EST NON-OPERATIVE HEAD INJURY/BLEED DISCHARGE INSTRUCTIONS PRESCRIPTION INSTRUCTIONS: Please see the medication reconciliation list on this discharge summary for a current list of your medications. WHEN TO SEEK MEDICAL CARE: New neurologic symptoms - Worsening headaches not controlled with your pain medication - Drowsiness, confusion, and lethargy - Visual changes - Difficulty speaking or slurred speech - Facial droop - New weakness or sensory changes - New unsteadiness when walking - Seizures Constipation not relieved by diet and over the counter stool softeners and laxatives Nausea/vomiting (upset stomach) not controlled with anti-nausea medication Symptoms of a deep venous thrombosis (DVT) or pulmonary embolism (PE): - Swelling/warmth/redness of the leg - Pain in the leg, which can be worse with standing or walking - Chest pain or shortness of breath To help prevent a DVT: - Exercise regularly. Walking, at least several times daily, is helpful. - Ankle pump exercises (like pressing and releasing the gas pedal) should be done regularly. - Keep hydrated with water or other clear liquids (coffee/tea/cola can dehydrate you). - Avoid alcohol and crossing your legs. - Remember not to sit or lay in bed, while awake, for prolonged amounts of time. FOLLOW UP PLAN: Appointment: Please follow-up in the Neurosurgery Clinic in [x] 4-6 weeks with a Neurosurgery Associate Provider. Please call the Neurosurgery Office at [phone] if you do not receive a scheduled appointment within two weeks Imaging: [] No Imaging required at follow-up. [x] Head CT HOW TO REACH NEUROSURGERY Office Hours (Saturday through Saturday 8am-5pm): Call On weekends or after office hours (after 5pm or before 8am): Call [phone] and ask the dump operator to page the Neurosurgery Resident/Advanced Practice Provider circulation supervisor. *Your surgeon may not be yardage caller (especially after office hours or on the weekend) so be ready totell about yourself and your surgery when you call. Neurosurgery Providers Adult Neurosurgery Dr. Raymundo Delcid Pediatric Neurosurgery Dr. Madelaine Peguero Advanced Practice Providers Briana aDy, Nurse Practitioner (outpatient) Thea Rivera, Physician Triple Drum Operator (inpatient) Beverly Morgan, Nurse Practitioner (inpatient) Mariela Diaz, Physician Triple Drum Operator (inpatient) Renato Bird, Nurse Practitioner (outpatient: pediatric) Mariela Oreilly, Physician Triple Drum Operator (inpatient) Melita Varela, Nurse Practitioner (outpatient: vascular) Falguni Thomas Physician Triple Drum Operator (outpatient: spine) Minh Olmstead, Nurse Practitioner (inpatient/outpatient) Jayleen Burton, Physician Triple Drum Operator (outpatient) Yuridia Pierce, Nurse Practitioner (outpatient: neuro-oncology) Outpatient Nurses Gauri Martin * Patient Instructions* Dontae Gauthier MD - 05/30/2021 2:31 PM EST Discharge Instructions You were found to have the following injuries and will require follow care as outlined below: Traumatic Injuries: Injury Intervention Follow-up BRAIN: 7mm falcine aSDH w/o mass effect L punctate tSAH NSGY: - No neurosurgical intervention indicated - Ok for q4h neuro checks - Spine precautions: per Trauma/Ortho - BP control, keep SBP 90-160 - Keppra 500mg BID for 7 days - Goal eunatremia - Patient ok for DVT chemoppx in 48h from this stable scan, but beyond that her ASA81 should be held until follow-up with NSGY in 4-6 weeks NSGY: follow-up with NSGY in 4-6 weeks PULM: Nondisplaced fractures of the anterolateral sixth through eighth ribs and the posterior eighth and eleventh on the right Pulmonary Toilet IS 10x/hr Aerobika Pain control TRAUMA Follow up in 10-14 days with repeat CXR (PA and Lateral views) SKIN (lacerations, abrastions): TRAUMA Standard wound care TRAUMA Follow up coordinated with other appointments As a result of your CT scans, you were found to have the following incidental findings, please discuss with your primary care provider at you next visit: Prominent L2 superior endplate Schmorl's node CALL YOUR PHYSICIAN IF: You have a fever greater than 101F You have diarrhea or vomiting for >24 hours, or stop having bowel movements and passing flatus You have worsening pain, not controlled with your pain medication. You develop redness, swelling, or new drainage from your wounds Follow up: Future Appointments Date Time Provider Department Center 05/30/2021 3:00 PM Raymundo Delgado, FA[facility] 07/04/2021 2:[address] [facility] [address] [facility] [address] [facility] Rad 07/04/2021 3:00 PM Jayleen Burton PA [facility] [id number] [facility] Narcotics: You may be given a prescription for a narcotic medication immediately following your surgery. Narcotics are prescribed for short-term (1-3 days) use to help treat your pain. Narcotics do not reduce inflammation and it is inflammation that is usually a major cause of pain after surgery. Narcotics have many side effects such as constipation, lightheadedness, dizziness, sedation, confusion, nausea and vomiting. Driving and the use of alcohol are not recommended while you are using narcotic pain medications. Non-steroidal anti-inflammatories (NSAIDS) such as aspirin, Aleve and ibuprofen (Advil, Motrin) aremedications that reduce pain and inflammation. To reduce your chance of side effects, it is recommended that you use Tylenol as needed for pain and then NSAIDs and use narcotics as the last resort. Alternative means of pain relief such as rest and relaxation, positioning, as well as decreasing stimulants such as coffee, tea, soft drinks, and nicotine may also help to alleviate pain. If you continue to experience significant pain 4-5 days after your discharge, it may be necessary to be re-evaluated by your physician. Driving Restrictions: - No driving if you are too sore to enter or exit your vehicle comfortably, or if you are too sore to easily check your blind spot. No driving while using prescription pain medications Activities: - Discuss return to work or school with your provide at your follow up appointment in the trauma clinic. - Increase your activity slowly. If it hurts don't do it, but try again the following day. - You may tire easily, so frequent naps may be necessary.. - Talk with your doctor about when you can return to work or school. - You may take a shower but have someone nearby in case you need help. Diet: Eat a well-balanced diet. Fresh fruits, vegetables and fiber-containing foods are recommended. Thiswill assist in wound healing. Recommendations: - Take it easy for two weeks. Remember, If it hurts, don't do it. - Take several slow, short walks each day for the first two weeks, and gradually increase your distance. We recommend at least 4 times a day. Wound Care: - You can shower per usual routine - Do not submerge wounds under water (avoid spas, pools and bathtubs) until fully healed. - Do not use creams, oils, or ointments on the wound. - See follow-up appointments for removal of sutures/song. Comfort: - Some soreness can be expected. - Take your pain medication as needed and prescribed. - Taper use of pain medication as pain lessens. Follow up appointments: 1. You will have follow-up appointments at [facility] as indicated in the ???Future Appointments and Orders?? section of your discharge summary. If X-rays or CT scans have been ordered for you prior to this appointment you will need to report to the Radiology department, desk 3T, 1 hour prior to your clinic appointment time. 2. If you do not have a scheduled follow-up appointment listed at the time of discharge, you will be notified of your scheduled appointment on the next business day. Please call [phone] if you do not hear from us by that time, as your timely follow-up is very important to us. Your care was managed by the Trauma and Acute Care Surgery Team at [facility]. If you have any questions or concerns, please feel free to contact us. Provider Contact Information: General Surgery: [facility] (after business hours): Primary Care Physician: Steve Vann Head Injury Discharge Instructions CALL YOUR DOCTOR IF: You develop a headache that is unrelieved with your prescribed pain medication. Nausea/vomiting that does not stop. Increased drowsiness. Double vision that is new. Unsteadiness or falling. Weakness of your arms or legs. Convulsions/seizures. Persistent clear fluid dripping from your nose/ear. Confusion. Slurred speech or word-finding difficulty that is new or recurs. Call 911 or your local EMS if you have sudden weakness or numbness in your face or one of your limbs, slurred speech, loss of vision, or difficulty speaking. It is important to seek medical attentionas soon as possible, as these symptoms could be related to a worsening head injury. ACTIVITY: Increase your activity slowly. You may tire easily, so frequent naps may be necessary. Avoid activities that could lead to a second brain injury, such as contact or recreational sports, until your doctor says you are well enough to do so. Do not drive a car, ride a bike, or operate heavy equipment until your follow up appointment in thetrauma and/or neurosurgery clinic because your ability to react may be slowed after a head injury. Talk with your doctor about when you can return to work or school. You may take a shower/bath. Have someone nearby in case you need help. RECOMMENDATIONS: Your short-term memory may be affected. If it's harder than usual to remember things, write them down. Avoid alcohol and non-prescribed medications other than acetaminophen (Tylenol) when possible. Theycan increase drowsiness and sedation. If prescribed opoid medication for pain, do not drive while taking these medications Headache, nausea/vomiting, imbalance, and/or fatigue are common symptoms after suffering a head injury. They will slowly subside over the next several weeks to months. *So take your pain medication as ordered/needed *Taper use of pain medications as pain lessens *Use anti-nausea medication as needed *Slowly increase your activity level as tolerated and take frequent rest periods in-between activities. If the above symptoms persist after 3 months, please call the trauma clinic for further recommendations. DIET: Resume your usual diet. Fresh fruit, vegetables, and fiber containing foods are recommended to avoid constipation. Narcotic pain medication and a change in activity can cause constipation. Stool softeners, mild laxatives, or prunes or prune juice daily, may be used as needed. Anti-coagulation follow up: No aspirin, heparin, NSAIDs or anticoagulants because these medicationsmay increase your risk of worsening your head injury. Your care was managed by the Trauma and Acute Care Surgery Team at [facility]. If you have any questions or concerns, please feel free to contact us. Provider Contact Information: General Surgery Clinic: General Surgery Nurses line: [phone] [facility] (after business hours): documented in this encounter Medications at Time of Discharge Medication Sig Dispensed Refills Start Date End Date acetaminophen (Tylenol) 325 mg Tablet Take 2 tablets by mouth every 6 hours as needed for Pain. 30 tablet 1 05/30/2021 Ascorbate Calcium 500 mg Tablet Take by [...] tablet Take 5 mg by mouth daily. levETIRAcetam (Keppra) 500 mg Tablet Take 1 tablet by mouth 2 times daily for 3 days. 6 tablet 05/30/2021 06/02/2021 documented as of this encounter Progress Notes * Bee Gonzalez RN - 05/30/2021 4:27 PM EST Pt d/c'ed home w/ [facility] via private ride. VSS on RA. A&Ox4. Education completed w/ both pt and , questions answered. AVS printed and sent home w/ pt. PIV d/c'ed. Belongings gathered and sentw/ pt. D/c summary faxed to [facility]. * Minna Hutton PA - 05/30/2021 2:49 PM EST TACS DISCHARGE FOLLOW-UP REQUEST IID/MECHANISM OF INJURY: Britney Fitzgerald is a 76 y.o. female s/p mechanical fall with the following injuries: Injury Intervention Follow-up BRAIN: ?? 7mm falcine aSDH w/o mass effect ?? L punctate tSAH NSGY:? - No neurosurgical intervention indicated ?? -??Ok for q4h neuro checks ?? - Spine precautions: per??Trauma/Ortho ?? - BP control, keep SBP 90-160 ?? -??Keppra 500mg BID for 7 days ?? - Goal eunatremia ?? - Patient ok for DVT chemoppx in 48h from this stable scan, but beyond that her ASA81 should be held until follow-up with NSGY in 4-6 weeks NSGY:?follow-up with NSGY in 4-6 weeks PULM: Nondisplaced fractures of the anterolateral sixth through eighth ribs and the posterior eighth and eleventh on the right ? Pulmonary Toilet IS 10x/hr Aerobika Pain control? TRAUMA Follow up in 10-14 days with repeat CXR (PA and Lateral views)? SKIN (lacerations, abrastions): ? TRAUMA Standard wound care ?? TRAUMA Follow up coordinated with other appointments ? OR CASE INFORMATION: FOLLOW-UP NEEDED: Specify Trauma [employer] or Attending and time frame (please indicate reason if attending provider): Klaudia How soon should TACS f/u be? 10-14d Imaging and Referral orders entered: Yes Radiology Safety questions done for MRI/CT? N/A Patient over age 65? Make sure to drop Stacey dot if answer yes ON DISCHARGE SUMMARY/AVS. Yes New or current ostomy? Ostomy nurse shared visit No Mobility concerns: Ambulatory w. assistive device Wound vac (requires 60min clinic visit) NO On vent? If Yes - Needs to have someone from facility and supplies. NO On Dialysis: NO INCIDENTAL FINDINGS Incidental Findings (yes/no): No OPIOID CONSENT/NARCOTIC AGREEMENTS Current Month Narcotic Consent? No D/c to: Home If Rehab - Rehab Name: PCP Name: MD Minna Wood PA 05/30/2021 * Harvey Blue, PT - 05/30/2021 12:25 PM EST Physical Therapy Note Treatment Number PT: 2 Patient profile: Britney Fitzgerald??is a 76 y.o.??female??with a hx of hypertension, GERD, chronic back pain adm 05/27/21 presenting to [facility] s/p fall from 3 ft.: Patient ,??fell over a??deck on 05/27 day time at her daughter's house and landed on ice, hitting the back of her head and her neck. +LOC. She presented to [facility] with the following injuries:? 1.??Acute subdural hemorrhage along the falx, measuring up to 7 mm in width 2.??Trace subarachnoid hemorrhage 3.??Nondisplaced right 8th to 11th posterior rib fractures Interval History: feeling better, ambulated a lap with staff, plan for DVT study Social History: Patient lives??with her in a ranch home with partial finished basement witha flight of stairs with railing to enter the main level. ?? 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 Pt did not identify anyone else who could provide support Home Setup:??Bathroom has a tub shower with one grab bar inside tub. DME:??FWW Baseline ADL/Mobility:??Pt reported she was independent with ADLs and did not use a device for mobility. ?? Precautions/Special Considerations: fall risk, Lines: Juliana BACA Activity Orders: AAT Diet: carb controlled Mobility and Positioning Recommendations: ?? Pt. Ambulates with FWW and supervision/cga. ?? Please encourage up to chair for meal times as able. Subjective: My legs feel fine. They actually feel strong My daughter is coming for a few days so my can go back to work Objective: Patient seen for physical therapy and demonstrated the following: Pain: her head feels full at times Mental Status: A and 0 x 4, following all commands, reports improvement in memory issues since admission, Vital Signs: stable on RA ?? Exercises: IS, seated warm ups, ?? Supine to sit with supervision and increased time ?? Sat EOB for a few minutes without lightheadedness ?? Supervision sit to stand to FWW ?? Ambulated ~ 150 ft with FWW and supervision, steady gait, cueing for directions in the hallway ?? Navigated 8 stairs with L railing side stepping with RLE, descending with LLE. ?? Pt left in bedside recliner chair, set up for lunch, call holman in place. Pt agrees to call RN Education: safety, gait with FWW, recommendations for continued outpt PT after recovering from thisinjury. Reviewed concussion symptoms, recommendations for home PT, equipment use. Assessment: Britney Fitzgerald was seen today for physical therapy treatment session for continuation of POC. Pt mobilizing with less assist, demonstrating increased activity tolerance. Continues withmild memory impairment, h/x of balance issues, now using FWW for safe ambulation. Daughter will stay with pt initially, pt agreeable to home PT to wean off the FWW and improve safety and independencewith mobility. Anticipated Discharge Disposition (PT): home with home health Consult Recommendations: Occupational therapy consulted Physical Therapy Goals:To be achieved by 05/31/21 MET 05/30 ?? 1. Pt. to demonstrate knowledge of safety limitations and precautions and will appropriately request assistance for functional activities and to mobilize. 2. Pt. to demonstrate understanding and performance of IS and deep breathing exs and progressive walking program. MET 3. Pt. to perform bed mobility with min A using HOB ^ (pt will sleep in recliner at home) MET 4. Pt. to perform sit><stand transfers with supervision using a front wheeled walker. MET 5. Pt. to ambulate 150 feet with supervision using a a front wheeled walker. MET 6. Pt. to ambulate up/down 2-3 step/stairs with assist of 1 MET 7. Family or caregiver to demonstrate understanding of therapeutic interventions to support the care of the patient. Did not meet with the family. 8. Pt will perform appropriate exs, ADL tasks, mobilize and ambulate with tolerable level of pain and stable vital signs Plan: Therapy Frequency (PT): Monitor as outlined in initial evaluation. Patient agrees with plan as stated. Time IN / OUT: 12-12:25 Total Minutes, Physical Therapy: 25 Billing Code: TEF x 2 HARVEY BLUE, PT Pager: [phone] Physical Therapy Inpatient Rehabilitation Department * Yahaira Lopez, OT - 05/30/2021 10:30 AM EST Occupational Therapy Treatment Note Treatment Number OT: 2 Patient Dx: Britney Fitzgerald is a 76 y.o. Female with PMH of hypertension, GERD, chronic back pain, diabetes mellitus, admitted to the trauma service for the management of the below injuries. Traumatic Injuries: Injury Intervention Follow-up BRAIN: ?? 7mm falcine aSDH w/o mass effect ?? L punctate tSAH NSGY:? - No neurosurgical intervention indicated ?? -??Ok for q4h neuro checks ?? - Spine precautions: per??Trauma/Ortho ?? - BP control, keep SBP 90-160 ?? -??Keppra 500mg BID for 7 days ?? - Goal eunatremia ?? - Patient ok for DVT chemoppx in 48h from this stable scan, but beyond that her ASA81 should be held until follow-up with NSGY in 4-6 weeks NSGY:?follow-up with NSGY in 4-6 weeks PULM: Nondisplaced fractures of the anterolateral sixth through eighth ribs and the posterior eighth and eleventh on the right ? Pulmonary Toilet IS 10x/hr Aerobika Pain control? TRAUMA Follow up in 10-14 days with repeat CXR (PA and Lateral views)? SKIN (lacerations, abrastions): ? TRAUMA Standard wound care ?? TRAUMA Follow up coordinated with other appointments Precautions/Special Considerations: fall risk, activity as tolerated, SBP 90-160 Interval History: NAEON Social History: Patient lives with her in a ranch home with partial finished basement with a flight of stairs to enter the main level. 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 Home Setup: Bathroom has a tub shower with one grab bar inside tub. DME: FWW Baseline ADL/Mobility: Pt reported she was independent with ADLs and did not use a device for mobility. S: It feels good to be standing. O: Patient seen for skilled OT treatment, and demonstrated the following: ?? Self-care: Pt completed UB sponge bathing, dressing, and grooming with supervision assist. ?? Functional Mobility: Pt completed functional transfers and mobility of approximately 175 feet with supervision assist and FWW. She reported increased dizziness with head turns but she stated it passed with time and lessened as she spent more time in standing. ?? Cognition: ?? Behavior / Mood: alert and cooperative ?? Alert and oriented to: person, place and time ?? Follows commands: 1 step and 100% of the time ?? Attention: WFL ?? Safety awareness: decreased insight into deficits ?? Vision: WFL ?? Endurance: good ?? Vitals: Stable on RA. ?? Strength/ROM: WFL Pain: No complaints of pain. Education: Pt/family/caregiver education ongoing regarding: Role of occupational therapy/rehabilitation, Transfers, Assistive device/technique, ADL, Safety, Precautions/Protocol, Functional Mobility,Activity pacing/Energy conservation, Home Management, Balance, Recommendations and Discharge planning. Staff Communication: Patient status, treatment, and mobility recommendations discussed with nursing/other staff. ASSESSMENT: Pt was seen for skilled OT treatment to progress plan of care. Pt presented as eager toparticipate. She completed seated self care activities after set up including sponge bathing, dressing, and grooming tasks. She walked approximately 175 feet with supervision assist and FWW at a slowbut steady pace. She was provided education regarding concussion/TBI symptoms and management. Pt stated her daughter would be staying with her and her for a few days to assist as needed following discharge. Pt will benefit from ongoing therapeutic interventions to achieve Pt's and therapy goals. Anticipated Discharge Disposition (OT): home with supervision, home with home health Equipment Recommendations: FWW, shower chair Daily schedule / Staff Recommendations: ?? Transfer to recliner chair or commode as appropriate and ambulate as tolerated with supervision assist and FWW ?? Encourage participation in ADL's by providing set up A on tray table and physical assist only asneeded Occupational Therapy Goals: To be achieved by June 12, 2021. Pt will complete 2 grooming tasks standing at the sink with supervision assist. Pt will complete toileting routine including transfer to the bathroom, clothing management, and hygiene with supervision assist. Pt will complete sponge bathing/showering routine in sitting/standing with supervision assist. Pt will complete LB dressing with supervision assist using AE as needed. Pt will complete functional transfers and mobility of a household distance with supervision assist for participation in (I)ADLs using self pacing as needed. Therapy Frequency (OT): 2-4 times/wk Total Minutes, Occupational Therapy: 35 Pager: [phone] Yahaira Lopez, OT Occupational Therapy Rehabilitation Department * Reggie Steven, PT - 05/29/2021 2:40 PM EST Physical Therapy Evaluation Patient profile: Britney Fitzgerald??is a 76 y.o.??female??with a hx of hypertension, GERD, chronic back pain adm 05/27/21 presenting to [facility] s/p fall from 3 ft.: Patient ,??fell over a??deck on 05/27 day time at her daughter's house and landed on ice, hitting the back of her head and her neck. +LOC. She presented to [facility] with the following injuries:?? 1.??Acute subdural hemorrhage along the falx, measuring up to 7 mm in width 2.??Trace subarachnoid hemorrhage 3.??Nondisplaced right 8th to 11th posterior rib fractures. Patient with the following active problems: Past Medical History: Diagnosis Date ??? Cataract ??? Diabetes mellitus ??? GERD (gastroesophageal reflux disease) ??? Hypertension Past Surgical History: Procedure Laterality Date ??? CATARACT EXTRACTION, EXTRACAPSULAR, W/ LENS INSERTION Right 05/23/2020 Dr. CLAYTON Social History: Patient lives with her in a ranch home with partial finished basement with a flight of stairs with railing to enter the main level. 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 Pt did not identify anyone else who could provide support Home Setup: Bathroom has a tub shower with one grab bar inside tub. DME: FWW Baseline ADL/Mobility: Pt reported she was independent with ADLs and did not use a device for mobility. ?? Precautions/Special Considerations: fall risk, w/ lightheadedness with upright activity Lines: Juliana BACA Activity Orders: AAT Diet: carb controlled Mobility and Positioning Recommendations: ?? 1 assist for bed mobility, HOB up fully ?? Pt. to utilize FWW and CGA for ambulation and transfers with nursing. ?? Please encourage up to chair for meal times as able. ?? Pt encouraged to ambulate frequently with staff, getting into the bathroom for toileting and walking out in the parra >/= 3 times daily as able, progressing distances as tolerated Subjective: ???I'll have to ask him, I haven't planned yet.Pt stated when PT/OT asked/recommended that pt's Objective: Pt seen for evaluation today. Pain: Tolerable during transfer and ambulation, did not assess during bed mobility Vital Signs: At Rest With Activity SpO2 (RA) 94% NE BP (MAP) 140/91mmHg NA, pt reported lightheadedness initially improved after amb 30 ft HR 87 bpm NEbpm Mental Status: alert, oriented to person, place, situation, but needed reminders for day date. Endorses no memory of fall, first memory was when she was being loaded into ambulance Remembered 2/3 words after 10 mins Vision: intact Skin: see nsg Musculoskeletal: ROM: dec in trunk/postural Strength: decreased trunk r/t rib fxs, impacting flat bed mobility. Pt understands need for recliner and family plans to get her one Sensation: NE, no reported issues Bed Mobility: see OT, pt OOB in recliner upon PT arrival Supine to Sit: NE Sit to Supine: NE, pt remained OOB sitting fully upright in recliner Transfers: Sit to Stand: to FWW from recliner w/ cga Stand to Sit: from FWW to recliner w/ cues for technique, good eccentric control Gait: Distance: x 30 ft Device used: FWW Level of assist: Close CGA of 1 w/ OT following w/ chair r/t reported lightheadedness Gait mechanics: very slow pace, short steps, cautious Stairs: NE Balance: Sitting Static: functional Sitting Dynamic: NE Standing Static: benefiting from support of FWW Standing Dynamic / Gait: Steady with FWW, not assessed w/o Education: patient educated on Bed mobility, Transfers, Assistive device/technique, Breathing exercises, Positioning, Safety , Precautions/protocol, Gait , Role of therapy, Balance, Discharge planning and home management and needs reinforcement. Patient status, treatment, and mobility recommendations discussed with nursing. Assessment: Britney Fitzgerald is now HD # 3 after falling at [facility]'s home in which she sustained a SDH, trace SAH and fxs of posterior ribs 8-11 presenting with present but tolerable rib pain with deficits in trunk strength and upright activity tolerance all of which impacts functional balance, mobility (particularly bed mobility) , gait and ADL. Pt reported lightheadedness during 30 ft walk but stated that by the time she finished walk she felt better so much so that she asked to sit fully upright. Pt Pt states that her works 4 hours/day with PT/OT recommending that he provide 24/7 until sheis safe to be alone. Pt did not identify any other support Discharge Recommendations: Based on the current findings, Anticipated Discharge Disposition (PT):, home with home health, homewith supervision (pt to ask to provide 24/7) when medically ready for hospital discharge. Consult Recommendations: No other consults recommended at this time. Equipment needs: Rolling walker . Goals: To be achieved by 05/31/21 1. Pt. to demonstrate knowledge of safety limitations and precautions and will appropriately request assistance for functional activities and to mobilize. 2. Pt. to demonstrate understanding and performance of IS and deep breathing exs and progressive walking program. 3. Pt. to perform bed mobility with min A using HOB ^ (pt will sleep in recliner at home) 4. Pt. to perform sit><stand transfers with supervisionusing a front wheeled walker. 5. Pt. to ambulate 150 feet with supervision using a a front wheeled walker. 6. Pt. to ambulate up/down 2-3 step/stairs with assist of 1 7. Family or caregiver to demonstrate understanding of therapeutic interventions to support the care of the patient. 8. Pt will perform appropriate exs, ADL tasks, mobilize and ambulate with tolerable level of pain and stable vital signs Plan: see 1-3 more visits for Bed mobility, Transfers, Assistive device/technique, Breathing exercises, Positioning, Safety , Precautions/protocol, Gait , Role of therapy, Balance, Discharge planningand home management 2017 PT Evaluation Code Rationale: ?? Diagnosis & Pertinent Co-Morbidities, personal factors, and present illness affecting Plan of Care: (see above); Additional personal factors or co- morbidities that impact plan: ?? Total # of Factors: 0 1-2 3+ x ?? Examination of body system impairments, functional limitations and behaviors, and/or participation restrictions. Addressing 1-2 elements Addressing 3 + elements x Addressing 4 + elements ?? Clinical presentation: See assessment above. Stable/Uncomplicated Evolving/Fluctuating Symptoms Unstable/Unpredictable X rib pain, lightheadedness with upright initially, impaired mobility, balance. Impaired ST memory ?? Clinical decision making of moderate complexity based on pt's functional performance as outlinedin this evaluation. Time IN / OUT: 1412/1440 Total Minutes, Physical Therapy: 28 mins, mod krystynaal REGGIE STEVEN, PT Pager: [phone] Physical Therapy Inpatient Rehabilitation Department * Yahaira Lopez, OT - 05/29/2021 1:57 PM EST Occupational Therapy Evaluation Patient profile: Britney Fitzgerald is a 76 y.o. female admitted on 05/27/2021 following fall for themanagement of Neurologic, Pulmonary and Soft Tissue injuries (Please see below box for a complete summary of injuries). Traumatic Injuries: Injury Intervention Follow-up BRAIN: ?? 7mm falcine aSDH w/o mass effect ?? L punctate tSAH NSGY:? - No neurosurgical intervention indicated ?? -??Ok for q4h neuro checks ?? - Spine precautions: per??Trauma/Ortho ?? - BP control, keep SBP 90-160 ?? -??Keppra 500mg BID for 7 days ?? - Goal eunatremia ?? - Patient ok for DVT chemoppx in 48h from this stable scan, but beyond that her ASA81 should be held until follow-up with NSGY in 4-6 weeks NSGY:?follow-up with NSGY in 4-6 weeks PULM: Nondisplaced fractures of the anterolateral sixth through eighth ribs and the posterior eighth and eleventh on the right ? Pulmonary Toilet IS 10x/hr Aerobika Pain control? TRAUMA Follow up in 10-14 days with repeat CXR (PA and Lateral views)? SKIN (lacerations, abrastions): ? TRAUMA Standard wound care ?? TRAUMA Follow up coordinated with other appointments Past Medical History: Diagnosis Date ??? Cataract ??? Diabetes mellitus ??? GERD (gastroesophageal reflux disease) ??? Hypertension Past Surgical History: Procedure Laterality Date ??? CATARACT EXTRACTION, EXTRACAPSULAR, W/ LENS INSERTION Right 05/23/2020 Dr. CLAYTON Social History: Patient lives with her in a ranch home with partial finished basement with a flight of stairs to enter the main level. 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 Home Setup: Bathroom has a tub shower with one grab bar inside tub. DME: FWW Baseline ADL/Mobility: Pt reported she was independent with ADLs and did not use a device for mobility. Precautions/Special Considerations: fall risk, activity as tolerated, SBP 90-160 Subjective: My head wouldn't let me go any farther. It was like my head was screwed on wrong. Pt stated about attempts to walk earlier in the day. Objective: Seen today for OT evaluation. Cognitive Status/Behavior: ?? Behavior / Mood: alert and cooperative ?? Alert and oriented to: person, place and time using visual cue of white board for month and day ?? Follows commands: 1 step and 100% of the time ?? Attention: WFL ?? Safety awareness: decreased insight into deficits Vision & Perception: ?? WFL Communication: WFL Range of motion, strength, coordination: Bilateral UEs are within functional limitations LE limitations: impaired dynamic standing balance Sensation: not formally assessed Activities of Daily Living: Self-feeding: Set up Grooming: Min assist for set up and clean up in sitting Dressing: Pt looped pants in sitting and was provided min assist for hiking pants in standing; Pt changed gown with min assist for lines only. Bathing: Not assessed Toileting: Transfer: Pt using bedside commode with CGA for transfer. Hygiene: Not assessed Functional Mobility: Supine to sit: Not assessed - seated in recliner chair. Sit to stand: CGA Ambulation: CGA with FWW at slowed pace, ~30 feet Stand to sit: CGA Sit to supine: Not assessed Balance: Sitting balance: Good Standing balance: Fair+ with use of FWW Vitals: RA At Rest SpO2 94% Heart Rate 88 Blood Pressure 144/86 Pain: Tolerable during activity. Education: patient have been educated on Role of occupational therapy/rehabilitation, Transfers, Assistive device/technique, ADL, Safety, Precautions/Protocol, Functional Mobility, Home Management, Balance, Recommendations and Discharge planning and verbalizes understanding. Patient status, treatment, and mobility recommendations discussed with nursing. Assessment: Pt has been seen for occupational therapy evaluation. Britney Fitzgerald presents with the following performance skill deficits and client factors: increased pain, decreased activity tolerance, decreased flexibility/ROM, decreased strength and decreased sitting/standing balance. These performance deficits have led to activity limitations and participation restrictions in the following areas of occupation: dressing, bathing, grooming, toileting, transfers/mobility, home management andcommunity mobility. Pt presented as pleasant, cooperative, oriented x3, and followed direction without issue. Pt moved extremely slow and reported it was due to feeling imbalanced, but did not demonstrate with any overt loss of balance during basic ADLs. Pt will requiring 24 hour supervision at current level of functioning and reported she was unsure her could provide this at discharge due to his supervisor wall mirror department work schedule. Pt would benefit from further inpatient OT interventions to address performance deficits and maximize participation and independence with occupations of daily living. Equipment needs at discharge: shower chair Anticipated Discharge Disposition (OT): home with supervision, home with home health, other (see comments) (24 hour supervision/assist) Other Recommendations: ?? Transfer to recliner chair or commode as appropriate and ambulate as tolerated with CGA and FWW ?? Encourage participation in ADL's by providing set up A on tray table and physical assist only asneeded Other Recommendations: No other consults recommended at this time Goals: To be achieved by June 12, 2021. Pt will complete 2 grooming tasks standing at the sink with supervision assist. Pt will complete toileting routine including transfer to the bathroom, clothing management, and hygiene with supervision assist. Pt will complete sponge bathing/showering routine in sitting/standing with supervision assist. Pt will complete LB dressing with supervision assist using AE as needed. Pt will complete functional transfers and mobility of a household distance with supervision assist for participation in (I)ADLs using self pacing as needed. Plan: OT: Therapy Frequency (OT): 2-4 times/wk Planned OT interventions: Role of occupational therapy/rehabilitation, Transfers, Assistive device/technique, Adaptive equipment training, ADL, Exercise, Breathing exercises, Positioning, Safety, Precautions/Protocol, Functional Mobility, Activity pacing/Energy conservation, Home Management, Balance, Recommendations, Family training and Discharge planning. Total Minutes, Occupational Therapy: 35 2016 OT Evaluation Code Rationale: ?? Diagnosis & Pertinent Co-Morbidities affecting Plan of Care: see PMHx ?? Occupational Profile & Client History: Brief Expanded Extensive X ?? Assessment of Occupational Performance: 1-3 performance deficits 3-5 performance deficits X 5 + performance deficits ?? Clinical Decision Making: Low Moderate High X Clinical decision making of moderate complexity using standardized patient assessment instrument and measurable assessment of functional outcome. Pager: [phone] Yahaira Lopez OT 05/29/2021 Occupational Therapy Rehabilitation Department * Dontae Gauthier MD - 05/29/2021 8:11 AM EST Trauma Daily Progress Note ID/Mechanism of injury:76 y.o. Female admitted on 05/27/2021 following fall, on 05/27/2021 for the management of Neurologic, Pulmonary and Soft Tissue injuries (Please see below box for a complete summary of injuries) 24 Hour Events: ?? Voiding spontaneously ?? No BM/flatus ?? EKG NSR ?? Carotid duplex ordered ?? Orthostatic pressures ordered ?? Remote tele ?? Ordered ?? Tolerating carb control diet Subjective: Patient states that she is feeling much better this moring Current Medications: ??? sodium chloride 0.9 % (flush) 5 mL Intravenous BID ??? famotidine 20 mg Oral BID ??? levETIRAcetam 500 mg Oral BID ??? lidocaine 3 patch Transdermal Q24H And ??? lidocaine 3 patch Transdermal Q24H ??? senna-docusate 2 tablet Oral BID ??? acetaminophen 650 mg Oral Q6H DOUG ??? polyethylene glycoL (MIRALAX) oral powder 17 g Oral Daily ??? insulin lispro 1-4 Units Subcutaneous TID AC Vital Signs: VITALS (24hr Range): Temp Temp: [36.7 ??C (98.1 ??F)-37.2 ??C (99 ??F)] , HR Heart Rate: [87] , BP BP: (124-140)/(69-91), RR Resp: [18] , SpO2 SpO2: [91 %-94 %] Body mass index is 30.55 kg/m??. I/O: Intake/Output Summary (Last 24 hours) at 05/29/2021 1512 Last data filed at 05/29/2021 1300 Gross per 24 hour Intake 780 ml Output 2050 ml Net -1270 ml Physical Exam: General: Alert, no acute distress Head: Atraumatic, non cyanotic Spine:??Tenderness over low thoracic spine. No deformity, no stepoffs, no tenderness to palpation and no abrasions??over cervical spine Cardiac: Regular rate Pulmonary: Normal respiratory effort Abdominal: Soft, non distended, no guarding, not peritoneal, not tympanitic, non tender to palpation Neuro: Grossly intact, follows commands Extremities: Warm and well-perfused Labs: Recent Labs 05/29/21 0604 05/28/21 0510 WBC 6.0 9.0 HGB 13.8 12.8 HCT 41.4 37.7 PLATELET 256 269 PT -- 12.1 INR -- 1.1 PTT -- 29 Recent Labs 05/29/21 0604 05/28/21 0510 NA 136 137 K 4.0 4.1 CL 101 103 CO2 24 25 BUN 9 11 CREATININE 0.70 0.59* GLUCOSE 137 145 CALCIUM 9.9 9.8 Microbiology: ( none) New Imaging: CT head and spine 05/27 IMPRESSION 1. Acute subdural hemorrhage along the falx, measuring up to 7 mm in width. Minimal local mass effect without midline shift or herniation. 2. Trace subarachnoid hemorrhage. 3. No acute fracture or traumatic malalignment of the cervical spine. CT spine 05/27 IMPRESSION 1. No acute fracture or traumatic malalignment of the thoracic spine. 2. Nondisplaced right 8th to 11th posterior rib fractures. CT head wo contrast 05/27 IMPRESSION Stable examination with no significant interval change in size of the subdural hemorrhage along the falx and trace subarachnoid hemorrhage. XR Chest PA& Lateral IMPRESSION Clear lungs, no pneumothorax. Chest abdomen pelvis w/ contrast IMPRESSION 1. Multiple nondisplaced fractures of the ribs on the right, detailed above. 2. Trace pleural effusion on the right. 3. Trace amount of free fluid interposed between the left ovary and bladder dome of improbable clinical significance. Correlate with left lower quadrant Pain. Thoracic Spine w contrast 05/27 IMPRESSION No acute thoracic spinal fractures. Right 8 rib fracture, nondisplaced without pneumothorax. CT lumbar spine w contrast IMPRESSION Old Schmorl's node superior endplate of L2. Procedures: none Problem List: - Acute Pain - Chronic Pain - GERD - Fall - Subdural hematoma - Traumatic subarachnoid hemorrhage - Right posterior rib fracture Assessment: Britney Fitzgerald is a 76 y.o. Female with PMH of hypertension, GERD, chronic back pain, diabetes mellitus, admitted to the trauma service for the management of the below injuries. Plan: Traumatic Injuries: Injury Intervention Follow-up BRAIN: ?? 7mm falcine aSDH w/o mass effect ?? L punctate tSAH NSGY: ?? - No neurosurgical intervention indicated ?? -??Ok for q4h neuro checks ?? - Spine precautions: per??Trauma/Ortho ?? - BP control, keep SBP 90-160 ?? - Keppra 500mg BID for 7 days ?? - Goal eunatremia ?? - Patient ok for DVT chemoppx in 48h from this stable scan, but beyond that her ASA81 should be held until follow-up with NSGY in 4-6 weeks NSGY: ?? follow-up with NSGY in 4-6 weeks PULM: Nondisplaced fractures of the anterolateral sixth through eighth ribs and the posterior eighth and eleventh on the right ? Pulmonary Toilet IS 10x/hr [employer] Pain control ? TRAUMA Follow up in 10-14 days with repeat CXR (PA and Lateral views) ?? SKIN (lacerations, abrastions): ?? TRAUMA Standard wound care ?? TRAUMA Follow up coordinated with other appointments ?? Acute in hospital issues: Acute pain -3 lidoderm patches - tylenol 650 q6hr SCHED Bowel Regimen -Miralax 17g daily - Pericolace 2 tablet 2 times daily. LBM: 05/28 Resolved in hospital issues: TBD Chronic health conditions: Hypertension- Hold Lisinopril 10mg QHS, Need to clarify with PCP dosing DM- Holding Metformin 500mg BID, CLEM while inpatient. GERD: PRN Pepcid Fluids/Electrolytes: Tolerating PO Diet: Carb Control diet 60/60/75 CHO counting level 2 Activity status: Activity As Tolerated Spine status: No spinal injuries noted Pulmonary toilet: Encourage frequent mobilization, IS use, titrate O2 >90 DVT PPX: SCDs, Held due to:SDH/SAH GI PPX: H2 Kyle Lines/Tubes/Drains: PIV Consults (Please see image consultant notes): PT/OT Dispo: TBD,PT/OT assessment needed Status: Floor Incidental Findings: - [] Incidental Findings Form Completed Dontae Gauthier MD 05/29/2021 Trauma pager [phone] Addendum: secure chat with OT-> Patient will likely need someone at home to monitor as her balance continues to be off, works during the day. Will postpone discharge until home with supervison can be secured * Jania Bedolla MD - 2021 12:33 PM EST TRAUMA & ACUTE SURGICAL CARE SERVICE TERTIARY SURVEY ID/MECHANISM OF INJURY: Britney Fitzgerald is a 76 y.o. Female admitted on 05/27/2021 following fall, on 05/27/21 for the management of Neurologic, Pulmonary and Soft Tissue injuries (Please see below box for a complete summary of injuries) HISTORY OF PRESENT ILLNESS: Britney Fitzgerald is a 76 y.o. female presents to [facility] [place]p [place] from 3 ft. Description of events leading up to injury includes: Patient with a hx of hypertension, GERD, chronic back pain, fell over [employer] on 05/27 day time at her daughter's house and landed on ice, hitting the back of her head and her neck. +LOC. She presented to [facility] where she was found to have R posterior rib fx, 7 m falcine SHD, and L punctate tSAH. She was transferred to [facility] [place]. Primary survey revealed: intact airway, equal breath sounds/respirations, present 2+ peripheral pulses with stable vital signs and no signs of bleeding GCS: GCS 15 (6 - Follows simple motor commands, 5 - Alert and oriented, 4 - Opens eyes on own) Secondary survey revealed: 1. Acute subdural hemorrhage along the falx, measuring up to 7 mm in width 2. Trace subarachnoid hemorrhage 3. Nondisplaced right 8th to 11th posterior rib fractures. PMHx: Past Medical History: Diagnosis Date ??? Cataract ??? Diabetes mellitus ??? GERD (gastroesophageal reflux disease) ??? Hypertension PSHx: Past Surgical History: Procedure Laterality Date ??? CATARACT EXTRACTION, EXTRACAPSULAR, W/ LENS INSERTION Right 05/23/2020 Dr. CLAYTON HOME MEDICATIONS: Medications Prior to Admission Medication Sig Dispense Refill Last Dose ??? Ascorbate Calcium 500 mg Tablet Take by mouth. ??? aspirin 81 mg Tablet, Chewable Take by mouth. ??? cholecalciferol, Vitamin D3, (Vitamin D3) 1,000 unit Tablet Take 1,000 Units by mouth. ??? cyanocobalamin, vitamin B-12, 5,000 mcg Tablet, Rapid Dissolve Take by mouth. ??? niacin 500 mg Tablet Take by mouth. ??? vitamin A (Aquasol) 10,000 unit Capsule Take 10,000 Units by mouth. ??? RX ADULT COMPOUNDED MEDICATION compounded medication 1. CoQnol 1 cap 2xday ??? metFORMIN (GLUCOPHAGE) 500 mg tablet Take 500 mg by mouth 2 times daily (with meals). ??? lisinopril (PRINIVIL;ZESTRIL) 5 mg tablet Take 5 mg by mouth daily. CURRENT MEDICATIONS: ??? sodium chloride 0.9 % (flush) (BD PosiFlush Normal Saline 0.9) flush 5 mL ??? sodium chloride 0.9 % (flush) (BD PosiFlush Normal Saline 0.9) flush 5-20 mL ??? lidocaine (Xylocaine) 1% (10 mg/mL) injection 3 mg ??? famotidine (Pepcid) tablet 20 mg OR [DISCONTINUED] famotidine (Pepcid) (10 mg/mL) [id number] mg ??? naloxone (Narcan) (0.4 mg/mL) injection 0.2 mg ??? oxyCODONE (Roxicodone) tablet 5 mg ??? levETIRAcetam (Keppra) tablet 500 mg ??? lidocaine (Lidoderm) 5% patch 3 patch AND [START ON 05/29/2021] lidocaine (Lidoderm) topicalpatch REMOVAL ??? senna-docusate (Pericolace) 8.6-50 mg per tablet 2 tablet ??? bisacodyL (Dulcolax) suppository 10 mg ??? diphth, pertus(acell), tetanus (Boostrix) injection 0.5 mL ??? acetaminophen (Tylenol) tablet 650 mg ??? polyethylene glycoL (Miralax) packet 17 g ??? glucose (GLUTOSE) 40% oral geL OR dextrose 10% infusion OR glucagon (Glucagen) (1 mg/mL) injection solution 1 mg ??? POCT Fingerstick Glucose AND insulin lispro (HumaLOG;Admelog) (100 unit/mL) subcutaneous injection vial 1-4 Units sodium chloride 0.9 % (flush), lidocaine, naloxone, oxyCODONE, bisacodyL, glucose 40% oral geL OR dextrose 10% OR glucagon ALLERGIES: Allergies Allergen Reactions ??? 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 Pertinent items are noted in HPI. PHYSICAL EXAM: VITALS: Last value Range last 24 hrs Temperature Temp: 37.2 ??C (99 ??F) (notified RN) Temp: [37.2 ??C (99 ??F)-37.3 ??C (99.1 ??F)] Heart Rate Heart Rate: 73 Heart Rate: [73-105] Blood Pressure BP: 125/70 BP: (102-139)/(58-90) Respiratory Rate Resp: 17 Resp: [16-18] SpO2 SpO2: 90 % SpO2: [88 %-96 %] I/O last 3 completed shifts: In: - Out: 300 [Urine:300] Body mass index is 30.55 kg/m??. obese GENERAL: Alert, awake and in no apparent distress HEAD: Normocephalic, atraumatic FACE: Pupils/eyes: Equal round and reactive to light, no orbital or periorbital ecchymosis or edema. No scleral icterus, subconjunctival hemorrhage, no injection. EOMs intact Ears: Clear to visualization, no otorrhea, symmetrical Midface: No tenderness, no edema no contusions, no lacerations or abrasions over the midface. No rhinorrhea Oropharynx: Nonbloody, moist mucous membranes noted, no lacerations, no malocclusions, no chipped or missing teeth. NECK: Supple, trachea midline, No bruits or thrills over carotid arteries., bilaterally. LUNGS: Equal, clear breath sounds bilaterally without crepitus, no obvious deformities of the chest, no paroxysmal movements, no use of accessory muscles for breathing. IS up to 1,250 today. CARDIAC: Regular rate and rhythm without murmur or extra heart sounds, S1-S2 ABDOMEN/GI: Soft, nontender, rounded, no abrasions or contusions. + Bowel sounds no distention, hernias or scars. Without obvious ascites PELVIS: Stable to iliac and anterior/posterior manipulation. RECTAL: Deferred EXT: Normal and symmetric movement, normal range of motion, no edema, distal CMS intact ??4. Capillary refill less than 3 seconds and pedal/radial pulses intact. SKIN: No lacerations, abrasions or contusions on complete anterior and posterior skin exam. Scattered lawton hemangioma centrally and on all ext. NEURO: Mental Status: Awake and alert to person place and time Cranial Nerves: CN II-XII intact Motor: No obvious tics or tremors. Normal 5/5 strength in all tested muscle groups. Sensory: Intact to touch SPINE: No step-off, tenderness midline or paraspinal, edema or eccymosis over cervical,thoracic or lumbar spines GCS: 15 (6 - Follows simple motor commands, 5 - Alert and oriented, 4 - Opens eyes on own) LABORATORY: Recent Labs 05/28/21 0510 WBC 9.0 HGB 12.8 HCT 37.7 PLATELET 269 PT 12.1 INR 1.1 PTT 29 Recent Labs 05/28/21 0510 NA 137 K 4.1 CL 103 CO2 25 BUN 11 CREATININE 0.59* GLUCOSE 145 CALCIUM 9.8 RADIOLOGY: CT Head wo Contrast (Generic) Result Date: 2021 FINDINGS: There is been no significant interval change in the acute subdural hemorrhage along the falx measuring up to 7 mm, accounting femoral minor redistribution. Trace subarachnoid hemorrhage along the left posterior frontal lobe is also unchanged. No associated mass effect. Lynch-white differentiation is preserved. Ventricles are stable in size. Basal cisterns are patent. No calvarial fracture or significant extracalvarial contusion or hematoma. Stable examination with no significant interval change in size of the subdural hemorrhage along thefalx and trace subarachnoid hemorrhage. CT Thoracic Spine w Contrast Result Date: 2021 FINDINGS: Coronal images demonstrate a dextro scoliotic curvature of the thoracic spine. Otherwise alignment appears normal. Sagittal images show no subluxation. No fractures are identified within the thoracic spine. No paraspinal hemorrhage is seen. Rib fractures identified on the previous study ar e not included on the study except for minimal fracture identified at the T8 rib on the right. Pleural thickening is identified bilaterally. No pneumothorax No acute thoracic spinal fractures. Right 8 rib fracture, nondisplaced without pneumothorax. CT Lumbar Spine w Contrast Result Date: 2021 FINDINGS: Alignment of the lumbosacral spine is normal. Radiographic density of the bones is withinnormal limits. A Schmorl's node is noted in the superior endplate of L2 which appears to be chronic. No retroperitoneal hemorrhage is identified. The aorta is normal in course and caliber. The vertebral body heights and disc heights appear normal. The included sacrum shows no fractures. SI joints appear normal. There are no pars defects. Moderate degenerative changes are noted. Old Schmorl's node superior endplate of L2. Mild degenerative changes. No acute fracture XR Chest PA & Lateral (Generic) Result Date: 2021 FINDINGS: No focal airspace opacity. No pneumothorax or pleural effusion. Cardiomediastinal silhouette, pippa, and pulmonary vasculature are within normal limits. The nondisplaced right lower posterior rib fractures are not visualized radiographically. Clear lungs, no pneumothorax. Request For 2nd Read CT Head And Spine FINDINGS: Head: Acute subdural hemorrhage along the [...] or dislocation. Mild degenerative disc changes with smallpartially calcified disc osteophytes are noted at the mid to lower cervical spine. Paravertebral soft tissues are normal. No apical pneumothorax. 1. Acute subdural hemorrhage along the falx, measuring up to 7 mm in width. Minimal local mass effect without midline shift or herniation. 2. Trace subarachnoid hemorrhage. 3. No acute fracture or traumatic malalignment of the cervical spine. Request For 2nd Read CT Spine Result Date: 2021 FINDINGS: Diffuse osseous demineralization. There is mild rightward curvature of the thoracic spineand normal thoracic kyphosis. Vertebral body heights are preserved. There is no acute fracture, subluxation or dislocation. No acute fracture of the included upper lumbar spine. Incidental note of a prominent L2 superior endplate Schmorl's node. Mild multilevel degenerative disc changes are noted. Paravertebral soft tissues are normal. Nondisplaced right 8th to 11th posterior rib fractures, with equivocal nondisplaced right 12th rib fracture. Adjacent dependent atelectasis, likely a combinationof contusion and atelectasis. No pneumothorax or hemothorax. Paravertebral soft tissues are normal. 1. No acute fracture or traumatic malalignment of the thoracic spine. 2. Nondisplaced right 8th to 11th posterior rib fractures. CT Chest Abdomen Pelvis w Contrast (Generic) Result Date: 2021 FINDINGS: Chest: Lungs and large airways: No airspace consolidation. Mild dependent atelectasis in the lower lobes. Patent central airways. Pleura: Trace right effusion. No left effusion. No pneumothorax. Heart/vasculature: Normal heart size. No pericardial effusion. Normal caliber of the great vessels. Lymph nodes: No enlarged lymph nodes. Mediastinum and pippa: Normal. Abdomen/pelvis: Liver: Normal size and attenuation. Bile ducts: Normal caliber. Gallbladder: Status post cholecystectomy. Pancreas: Normal attenuation without ductal dilatation. Spleen: Normal. Adrenals: Normal. Kidneys: Symmetric and uniform nephrograms. Scarring and atrophy of the left kidney. Small simple cysts in the anterior cortex of the upper pole and lower pole right kidney. No suspicious renal lesions. Normal caliber of the collecting system. Urinary Bladder: Normal. Vasculature: No aneurysm. Lymph Nodes: No enlarged lymph nodes. Bowel: Nondilated, no wall thickening. Peritoneum and mesentery: Trace amount of free fluid interposed between the left ovary and bladder dome. No free air or loculated collection. No mesenteric edema. Abdominal wall: Normal. Reproductive organs: Status post hysterectomy. Osseous structures: Nondisplaced fractures of the anterolateral sixth through eighth ribs and the posterior eighth and eleventh on the right. The previously identified right ninth and 10th posterior rib fractures are not well visualized on the current examination. 1. Multiple nondisplaced fractures of the ribs on the right, detailed above. 2. Trace pleural effusion on the right. 3. Trace amount of free fluid interposed between the left ovary and bladder dome of improbable clinical significance. Correlate with left lower quadrant pain. ASSESSMENT/SUMMARY OF INJURIES: 76 y.o. female with PMH of HTN, GERD, Chronic back pain, here s/p fall with head strike and + LOC. Traumatic injuries included in chart below. Injuries identified on Tertiary Survey: 1. None Hospital Issues: - Acute Pain - Chronic Pain - GERD - Fall - Subdural hematoma - Traumatic subarachnoid hemorrhage - Right posterior rib fracture Traumatic Injuries: Injury Intervention Follow-up BRAIN: 7mm falcine aSDH w/o mass effect L punctate tSAH NSGY: - No neurosurgical intervention indicated - Ok for q4h neuro checks - Spine precautions: per??Trauma/Ortho - BP control, keep SBP 90-160 - Keppra 500mg BID for 7 days - Goal eunatremia - Patient ok for DVT chemoppx in 48h from this stable scan, but beyond that her ASA81 should be held until follow-up with NSGY in 4-6 weeks NSGY: follow-up with NSGY in 4-6 weeks PULM: Nondisplaced fractures of the anterolateral sixth through eighth ribs and the posterior eighth and eleventh on the right Pulmonary Toilet IS 10x/hr Aerobika Pain control TRAUMA Follow up in 10-14 days with repeat CXR (PA and Lateral views) SKIN (lacerations, abrastions): TRAUMA Standard wound care TRAUMA Follow up coordinated with other appointments Acute in hospital issues: Acute pain -3 lidoderm patches - tylenol 650mg q6hr SCHED - Oxycodone 5mg PO PRN Q4H Bowel Regimen - Marianne-colace BID - Miralax Daily - Bisacodyl suppository PRN 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 Appears to be a mechanical fall after losing balance while walking backwards and losing her footing on a rug. Pt and daughter do endorse some loss of balance at baseline. - Plan for Echo and Carotids for evaluation - PT/OT pending Tetanus status: Last dose 2010, Ordered 05/28/21 Admission UA: Negative for blood Tox Screen: + opiates Resolved in hospital issues: TBD Chronic health conditions: Hypertension- Hold Lisinopril 10mg QHS, Need to clarify with PCP dosing DM- Holding Metformin 500mg BID, CLEM while inpatient. GERD: PRN Pepcid Fluids/Electrolytes: IV Fluids Diet: Carb Control diet 60/60/75 CHO counting level 2 Activity status: Activity As Tolerated Spine status: No spinal injuries noted Pulmonary toilet: Encourage frequent mobilization, IS use, titrate O2 >90 DVT PPX: SCDs, Held due to SDH/SAH GI PPX: H2 Kyle Lines/Tubes/Drains: PIV Consults (Please see image consultant notes): PT/OT, NSGY Dispo: TBD,CRC working on dispo plan Status: Floor Incidental Findings - None [] Incidental Findings Form Completed Macy Smith, CEMENT TESTER ASSISTANT 2021 Trauma pager [phone] Attending Addendum I have seen and examined the patient, I have reviewed the vitals, labs and pertinent imaging. I have discussed the documentation above and agree, with the following comments: Pain improved at the time of my exam. Given that she is not entirely comfortable saying that this is a mechanical fall, will pursue syncopal workup. Continue IS / pulmonary toilet. Jania Bedolla MD [phone] documented in this encounter H&P Notes * Ken Barbour MD - 2021 8:31 PM EST Consult Note by Chuyita Pak MD (Resident) Service: General Surgery Powdered Sugar Pulverizer Operator: Chuyita Pak MD (Resident) Status: Cosign Needed Addendum Trauma Surgery Admission History & Physical ? Patient Name: Britney Fitzgerald Level of Activation: Trauma Consult MR#: [id number] [ ] Scene Call or [x] Hospital Transfer : [id number] ?? CC/MECHANISM OF INJURY: 76 y.o. Female s/p fall from height ?? HISTORY OF PRESENT ILLNESS: Britney Fitzgerald is a 76 y.o. female presents to [facility] s/p fall from 3 ft. Description of events leading up to injury includes: Patient with a hx of hypertension, GERD, chronic back pain, fell over [employer] on 05/27 day time at her daughter's house and landed on ice, hitting the back of her head and her neck. +LOC. She presented to [facility] where she was found to have R posterio rib fx, 7 m falcine SHD, and L punctate tSAH. She was transferred to [facility] for further work up. ?? Primary survey revealed: intact airway, equal breath sounds/respirations, present 2+ peripheral pulses with stable vital signs and no signs of bleeding, GCS 15 (6 - Follows simple motor commands, 5 -Alert and oriented, 4 - Opens eyes on own), and partial exposure. ?? Secondary survey is as follows. ?? PAST MEDICAL AND SURGICAL HISTORY: Past Medical History: Diagnosis Date ??? Cataract ? Diabetes mellitus ? GERD (gastroesophageal reflux disease) ? Hypertension ? Past Surgical History: Procedure Laterality Date ??? CATARACT EXTRACTION, EXTRACAPSULAR, W/ LENS INSERTION Right 05/23/2020 ?? Dr. CLAYTON ? ALLERGIES: Allergies Allergen Reactions ??? Pollen Extracts Other (See Comments) ? Other reaction(s): Eye Redness ? MEDICATIONS: Current Outpatient Medications Medication Instructions ??? Ascorbate Calcium 500 mg Tablet Oral ??? aspirin 81 mg Tablet, Chewable Oral ??? cholecalciferol (Vitamin D3) (VITAMIN D3) 1,000 Units, Oral ??? cyanocobalamin, vitamin B-12, 5,000 mcg Tablet, Rapid Dissolve Oral ??? lisinopriL (ZESTRIL) 5 mg, DAILY ??? metFORMIN (GLUCOPHAGE) 500 mg, 2 TIMES DAILY WITH MEALS ??? niacin 500 mg Tablet Oral ??? RX ADULT COMPOUNDED MEDICATION compounded medication 1. CoQnol 1 cap 2xday ??? vitamin A (AQUASOL) 10,000 Units, Oral ?? FAMILY HISTORY: Non-contributory ?? 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 REVIEW OF SYSTEMS: complete 10 system ROS performed with pertinent findings below. Pertinent items are noted in HPI. ?? PHYSICAL EXAM: VITALS: Patient Vitals for the past 24 hrs: ?? Temp Pulse Resp BP SpO2 O2 Device 02/19/22 2316 37.2 ??C (99 ??F) (!) 105 18 152/80 96 % RA ?? GENERAL: alert, awake and no apparent distress HEAD: Normocephalic, without obvious abnormality, atraumatic FACE: Pupils: equal, round, reactive to light, no periorbital ecchymoses; Tympanic Membranes: clear to visualization; Midface: no tenderness, no swelling, no contusions, no lacerations and no abrasions over entire face Oropharynx: nonbloody, moist mucous membranes, no lacerations, no malocclusion and no chipped or missing teeth NECK: no tenderness to palpation, trachea midline, no masses, no swelling, no contusions and no abrasions LUNG: equal, clear breath sounds bilaterally and no crepitus CARDIAC: Regular rate and rhythm or without murmur or extra heart sounds ABDOMEN/GI: soft, non-tender, non-distended, no abrasions and no contusions PELVIS: stable to AP and/or lateral compression RECTAL: Sphincter tone normal with no gross blood; Voluntary anal contraction normal EXTREMITIES: normal and symmetric movement, normal range of motion, no joint swelling SPINE: Tenderness over low thoracic spine. No deformity, no stepoffs, no tenderness to palpation and no abrasions over cervical spine, and/or lumbar spine SKIN: no lacerations, abrasions or contusions on complete skin exam NEURO: Mental Status: awake and alert, oriented to time, date, person, place Cranial Nerves: CN II - XII intact Motor: normal 5/5 strength in all tested muscle groups Sensory: no sensory deficits noted ?? FAST: [ ] Attending staff present [x] Attending staff NOT present ?? Findings: Right Upper Quadrant [x] No fluid [ ] Fluid Left Upper Quadrant [x] No fluid [ ] Fluid Pericardium [x] No fluid [ ] Fluid Pelvis [x] No fluid [ ] Fluid Right Lung [x] No pneumothorax [ ] Pneumothorax Left Lung [x] No pneumothorax [ ] Pneumothorax LABORATORY: No results found for this or any previous visit (from the past 24 hour(s)). ?? RADIOLOGY: XR Chest - Pending ?? CT Head/C-spine- IMPRESSION 1. ??Acute subdural hemorrhage along the falx, measuring up to 7 mm in width. Minimal local mass effect without midline shift or herniation. 2. ??Trace subarachnoid hemorrhage. 3. ??No acute fracture or traumatic malalignment of the cervical spine. ?? CT T/ spine- IMPRESSION 1. ??No acute fracture or traumatic malalignment of the thoracic spine. 2. ??Nondisplaced right 8th to 11th posterior rib fractures. ?? Extremity Imaging-No other injuries ?? Incidental Radiographic Findings: None ?? Procedures Performed: Intubation: No Robles Cath: No Central Line: No Chest Tube: No Sutures: No ? Assessment/Summary of Injuries: 76 y.o. female s/p fall from 3 ft. Pt brought in as Trauma Consult, primary intact, GCS 15. Injuries identified include: 1. Acute subdural hemorrhage along the falx, measuring up to 7 mm in width 2. Trace subarachnoid hemorrhage 3. Nondisplaced right 8th to 11th posterior rib fractures. PA/Lateral CXR pending ?? Plan: ?? Admit to Trauma Surgery Service in good condition, Dr. Barbour, attending ?? Clear liquid diet. Ok to advance diet when cleared from NSGY ?? Consulting Services and plans: 1. Neurosurgery: Repeat CT head completed, stable. Q4h neurochecks. SBP 90-160. Hold DVT ppx. ?? Spine status: Cleared C collar. No T spine injury. Per Trauma. ?? Pain control: Tylenol. Oxycodone PRN. ?? DVT prophylaxis: Holding for SDH ?? GI prophylaxis: Not indicated ?? Tertiary survey in AM ?? DISPO: Floor ?? Chuyita Pak MD Trauma Surgery [id number] 2021 1:01 AM ?? I saw and evaluated the patient with Dr. Pak (resident). I have independently reviewed the relevant laboratory and radiographic studies. I have edited the above note and agree with the details as written. My physical examination confirms the resident's findings. The assessment and plan were formulated in discussion with me at the time of the visit and I agree with them as documented. Ken Barbour MD documented in this encounter ED Notes * Lexie Thomas RN - 2021 8:52 AM EST Nursing report to ALLAN Thompson * Allyson Thompson RN - 2021 4:08 AM EST Pt straight cath for urine per MD. Pt linens soaked priot to quik cath. Linens changed and dry blankets and sheets placed. Hob adjusted to pt comfort with good effect. * Coco Arzate MD - 2021 3:50 AM EST ED Resident Note HPI: Britney Fitzgerald is a 76 y.o. female who presents to the Emergency Department as a transfer from [facility] for trauma consult. She fell off a 3 foot high porch today at 4 PM. She landed on her back and head. She is unsure if she lost consciousness but she does not remember the event. She was told that she stood up and walked to the ambulance. She is now complaining of a dull frontal headache. And also spasmy muscle pain down her back worse in the cervical and thoracic area. Denies pain elsewhere in the body. She is on 81 mg aspirin. Pt was seen under the supervision of an attending physician. Review of Systems Pertinent positives and negatives are included in the HPI, otherwise at least ten systems were reviewed and negative. Past Medical and Surgical Histories, Social History, Medications, Allergies were reviewed in the chart. Vitals: ED Triage Vitals [05/27/21 2316] BP: 152/80 Heart Rate: (!) 105 Resp: 18 Temp: 37.2 ??C (99 ??F) Temp src: Oral SpO2: 96 % O2 Device: RA O2 Flow Rate (L/min): n/a Physical Exam Physical Exam: General: Well-appearing woman resting in the stretcher HEENT: Normocephalic. Soft tissue swelling in the posterior parietal area of the skull. Extraocularmovements intact. No ecchymoses at the base of the skull around the eyes. No hemotympanum Cardiovascular: Regular rate and rhythm. Radial pulses 3+ and symmetric. Pulmonary: CTAB Abdominal: Flat. No tenderness. Musculoskeletal: No gross deformities. Tenderness to palpation of the paraspinal muscles in the cervical region. No midline tenderness in the cervical region. Skin: Capillary refill <2 seconds Neurologic: No focal deficits Psychiatry: Mood appropriate ED Course: I have reviewed labs and imaging, images and available reports, and they are significant for: Last 3 wbc, hgb, hct plt No results for input(s): WBC, HGB, HCT, PLATELET in the last 7068 hours. Request For 2nd Read CT Head And Spine Final Result 1. Acute subdural hemorrhage along the falx, measuring up to 7 mm in width. Minimal local mass effect without midline shift or herniation. 2. Trace subarachnoid hemorrhage. 3. No acute fracture or traumatic malalignment of the cervical spine. Thank you for letting us participate in the care of this patient. If you are a health care provider and have any questions regarding this report, please contact the number below. For patients who have questions please contact the health customer care assistant that requested your imaging first. Electronically signed by: Sue Parsons MD, [facility] ([phone]), at 2021 3:04 AM Film Library- Storage Only CT Spine Final Result Request For 2nd Read CT Spine (Results Pending) Procedures Assessment and Plan: 76 y.o. female with subdural hemorrhage and trace subarachnoid hemorrhage presenting as a trauma transfer. Vital signs are significant for tachycardia. No other injuries noted on my assessment. We consulted the trauma surgery service as well as neurosurgery upon her arrival. The patient states thatshe saw an abnormal rhythm on her EKG in the ambulance, we are ordering a repeat EKG to reassure her. No chest wall tenderness. Plan: Pain control, EKG, appropriate consults (trauma and neurosurgery) EKG: Normal sinus rhythm at a rate of 94 bpm. Normal intervals. No ST segment changes consistent with ischemia. This patient was signed out to the oncoming team in stable condition. Disposition pending neurosurgery and trauma surgery recommendations. Coco Arzate MD Resident 05/28/21 0356 Associated attestation - Manuel Singh DO - 2021 3:48 PM EST ED ATTENDING ATTESTATION The patient was seen in conjunction with the resident physician. I have independently performed thekey portions of the history and physical exam. I have personally reviewed nursing notes, vital signs, and diagnostic studies including labs, imaging studies and EKGs. I have discussed the details of the case with the resident and agree with the assessment and plan as described in the resident's note, unless stated otherwise in my separate note. Did this case involve critical care? No documented in this encounter Miscellaneous Notes * Initial Assessments - Jay Thomas RN - 05/30/2021 10:01 AM EST Office of Care Management Initial Assessment Jay Thomas RN reviewed record and discussed patient with Care Team. Source of Information: Team, bedside nurse, medical record, and Patient Introduced self/reviewed role; services accepted. Reason for Hospitalization: Fall Last COVID test: Lab Results Component Value Date [id number] Not Detected 2021 Past medical History: Past Medical History: Diagnosis Date ??? Cataract ??? Diabetes mellitus ??? GERD (gastroesophageal reflux disease) ??? Hypertension Hospitalizations Within the Past 30 Days: no previous admission in last 30 days Current Decision-Making Capacity: Self Advance Care Planning: Attempt Cardiopulmonary Resuscitation - Inpatient <no information> -Advanced Directive: No, declines If AD's have not been completed Diego Fitzgerald would be surrogate decision maker per [place] surrogate decision making law. (Only good for 180 days) Any patient receiving care at [facility] must abide by [place] law. The hierarchy for surrogate decision making is: (a) Patient???s spouse, or civil union partner or common law spouse unless there is a divorce proceeding, separation agreement, or restraining order limiting that person???s relationship with the patient. (b) Any adult son or daughter of the patient. (c) Either parent of the patient. (d) Any adult brother or sister of the patient. (e) Any adult grandchild of the patient. (f) Any grandparent of the patient. (g) Any adult aunt, uncle, niece, or nephew of the patient. (h) A close friend of the patient. (i) The agent with financial power of dust collector treater or a conservator appointed in accordance with RSA 464-A. (j) The guardian of the patient???s estate. Current Coping/Education/Information Needs: States coping well w/ hospitalization Current Functional Ability: Assistive Equipment Functional Status Prior to Admission: Independent Prior iADLS: Independent with all iADLs Home Environment: Others in the home: spouse. Current Living Arrangements: home/apartment/condo. Accessibility Concerns:2 SIMIN. Current DME: walker - standard Home Address [address] [place] [phone] Social & Family Supports: Extended Emergency Contact Information Primary Emergency Contact: Diego Fitzgerald Relation: Spouse Current Care Provided by: self Provides Primary Care For: no one Caregiver if needed: spouse Quality of Family relationships: helpful, involved, supportive Community Resources being provided currently: none Behavioral Health History: None Substance Use/Abuse: Social History Tobacco Use Smoking Status Never Smoker Smokeless Tobacco Never Used In the past year have you used an illegal drug or used a prescription medication for non-medical reaons?: No 0 No problems reported 1-2 Low level 3-5 Moderate level 6-8 Substantial level 9- 10 Severe level In the past year have you had 4 or more drinks a day containing alcohol?: No Other Pertinent/Service Specific Information: n/a Health/Prescription Coverage: Primary Insurance: AAR MANAGED MEDICARE Payor: AAR MANAGED MEDICARE / Plan: [facility] MANAGED MEDICARE COMPLETE / Product Type: *No Product type* / Secondary Insurance: N/A Prescription Coverage: Yes Preferred Pharmacy: [id number] AT SEC OF [facility] & [address] [address] Status: Patient is a : No Primary Care Provider: Steve Vann MD Patient/Caregiver Goals of Treatment: Return home Potential Needs for Transition of Care: home health care Agency Referrals: The Patient has been provided a list of Home Health Agencies/DME vendors which serve their preferred geographic area. A letter describing our affiliations was reviewed with them andthey were educated about their right to choose where referrals are placed. Patient requests referral to: Art[facility]: [facility]. PHONE: [phone] FAX: [phone] DME: [facility] Expected date of discharge: 05/30 Referral routed to the It Intern for matching with agency/vendor and to provide any required information. Transportation: no concerns Transportation Anticipated: family or friend will provide Concerns to be Addressed: discharge planning Assessment: Britney Fitzgerald is a 76yo female here for SDH, SAH, and right 8-11 rib fractures. Livesat home w/ spouse. Insured w/ [employer] Managed Medicare. Gets medications filled via mail order and locally at [facility] in [place], [place]. Spouse to transport at discharge. Plan: Anticipate patient to discharge home w/ VNA services when medically ready. FWW to be delivered to bedside on day of discharge. A member of the Care Management team will continue to monitor progress, follow for continuity of care and assist with transition of care planning. Jay Thomas RN Case Manager Pgr: [phone] * Plan of Care - Tristan Green RN - 05/29/2021 5:03 PM EST OUTCOME EVALUATION NOTE: OUTCOME SUMMARY: A&Ox4, neuro checks unremarkable, VSS on RA, NSR on tele. Pt ambulated with staff and PT/OT to nurses station, pt continues to have some dizziness with standing/ambulation. Carotid duplex study and x-ray performed today. Visit from daughter in the afternoon. Possible discharge 05/30. PLAN MOVING FORWARD: Ambulation, monitor HR & rhythm on tele, Q4 neuro checks INDIVIDUALIZED FALL PREVENTION INTERVENTIONS: Patient-specific fall risk factors per assessment: [current deficits]: Dizziness on standing, generalized weakness Assistance [level of assistance required for transfers and ambulation]: 1A w/FWW Supervision [direct monitoring required during toileting and ADLs]: Eyes on Surveillance [continuous indirect monitoring]: Purposeful rounding, Masimo Patient-specific fall prevention interventions for sensory deficits provided, if applicable: [X] N/A CPG GOAL OUTCOME EVALUATION: * Consult Note - Donna Graves MD - 2021 3:40 AM EST [facility] Neurosurgery Consultation Note Date & Time of Consult: 2021 0321 Referring Service: Trauma Surgery Referring Attending: Manuel Singh DO Neurosurgery Attending: Dr. Ramirez Place of Consult: [facility] ED23 ID: Name: Britney Fitzgerald, 76 y.o. female Admission Date: 05/27/2021 Reason for consult/CC: 7mm falcine aSDH w/o mass effect & L punctate tSAH HPI: This is a 76 y.o. female with a PMH of GERD, gastric ulcer, HTN, DM, cataract s/p extraction who presented to [facility] transfer from [facility] s/p fall while exchanging items with daughter +head/neck/back strike as well as +LOC found to have polytrauma including R 8th-11th posterior rib fx as well as 7mm falcine aSDH w/o mass effect & L punctate tSAH-- the latter for which Neuros urgery is consulted. Upon initial evaluation, Swetha is lying in bed in NAD, pleasant, wide awake and alert, following commands. She confirms the narrative above and reports that she only remembers waking up in an ambulance. Was told that she ambulated but does not remember doing so. Did not have anyone tell her she seized. Currently endorsing posterior headache as well as back pain when she dorsiflexes her ankles while her knees are flexed. Otherwise denies numbness/weakness/paresthesias x4, visual or auditory symptoms. On ASA81 for ppx. PMH: Past Medical History: Diagnosis Date ??? Cataract ??? Diabetes mellitus ??? GERD (gastroesophageal reflux disease) ??? Hypertension Past Surgical History: Procedure Laterality Date ??? CATARACT EXTRACTION, EXTRACAPSULAR, W/ LENS INSERTION Right 05/23/2020 Dr. CLAYTON Medications: No current facility-administered medications on file prior to encounter. Current Outpatient Medications on File Prior to Encounter Medication Sig Dispense Refill ??? Ascorbate Calcium 500 mg Tablet Take by mouth. ??? aspirin 81 mg Tablet, Chewable Take by mouth. ??? cholecalciferol, Vitamin D3, (Vitamin D3) 1,000 unit Tablet Take 1,000 Units by mouth. ??? cyanocobalamin, vitamin B-12, 5,000 mcg Tablet, Rapid Dissolve Take by mouth. ??? niacin 500 mg Tablet Take by mouth. ??? vitamin A (Aquasol) 10,000 unit Capsule Take 10,000 Units by mouth. ??? RX ADULT COMPOUNDED MEDICATION compounded medication 1. CoQnol 1 cap 2xday ??? metFORMIN (GLUCOPHAGE) 500 mg tablet Take 500 mg by mouth 2 times daily (with meals). ??? lisinopril (PRINIVIL;ZESTRIL) 5 mg tablet Take 5 mg by mouth daily. Scheduled Meds: Continuous Infusions: ??? lactated Ringers PRN Meds:.HYDROmorphone Allergies: Allergies Allergen Reactions ??? Pollen Extracts Other (See Comments) Other reaction(s): Eye Redness Family Hx: Family History Problem Relation Age of Onset ??? Amblyopia Daughter ??? Glaucoma Neg Hx ??? Macular Degeneration Neg Hx ??? Retinal Detachment Neg Hx ??? Strabismus Neg Hx Social Hx: Social History Socioeconomic History ??? Marital status: Spouse name: Not on file ??? Number of children: Not on file ??? Years of education: Not on file ??? Highest education level: Not on file Occupational History ??? Not on file Tobacco Use ??? Smoking status: Never Smoker ??? Smokeless tobacco: Never Used Substance and Sexual Activity ??? Alcohol use: Not Currently ??? Drug use: Never ??? Sexual activity: Not on file Other Topics Concern ??? Not on file Social History Narrative ??? Not on file Social Determinants of Health Financial Resource Strain: Not on file Food Insecurity: Not on file Transportation Needs: Not on file Physical Activity: Not on file Housing Stability: Not on file Vitals: Vitals: 05/27/21 2316 BP: 152/80 Pulse: (!) 105 Resp: 18 Temp: 37.2 ??C (99 ??F) TempSrc: Oral SpO2: 96% Weight: 80.7 kg (178 lb) Height: 162.6 cm (5' 4) Physical Exam: -Gen: Older woman lying in bed, pleasant, in NAD -HEENT: No perimastoid or periorbital bruising. No rhinorrhea or otorrhea. -CV: HDS per monitor -Resp: Breathing non-labored on RA. -Neuro: Mental Status/Cognitive: Awake, alert, oriented x3 GCS: 15 Speech: Fluent, appropriate. Naming and repetition intact. Cranial Nerves: PERRL CN II - Visual acuity grossly intact CN III, IV, - EOMI CN V - Sensation intact in V1,2 and 3 distributions CN VII - No facial asymmetry/droop CN VIII - Intact hearing bilaterally to finger rub CN IX, X - Palate and uvula midline CN XI - Trapezius 5/5 bilat CN XII - Tongue midline Tone: Normal Power: No pronator drift Segment Muscle Action Right Left C5 Deltoid Shoulder Abduction 5 5 C6 Biceps Elbow flexion 5 5 C6 Extensor carpi radialis Wrist extension 5 5 C7 Triceps Elbow extension 5 5 C8 Finger flexors Grasp 5 5 T1 Interossei Finger abduction 5 5 L2 Iliopsoas Hip flexion 5 5 L3 Quadriceps Knee extension 5 5 L4 Tibialis anterior Dorsiflexion 5 5 L5 Extensor hallucis Great toe extension 5 5 S1 Gastrocnemius Plantar flexion 5 5 Sensation in the extremities: Light touch: Except for baseline diminished sensation on dorsal aspect of L foot, patient is SILT in other areas Labs: No results for input(s): WBC, HGB, PLATELET in the last 72 hours. No results for input(s): NA, K, CL, CO2, BUN, CREATININE in the last 72 hours. No results for input(s): PT, INR in the last 72 hours. Imaging: Results for orders placed or performed during the hospital encounter of 05/27/21 Request For 2nd Read CT Head And Spine (Exam End: 2021 12:33 AM) Impression 1. Acute subdural hemorrhage along the falx, measuring up to 7 mm in width. Minimal local mass effect without midline shift or herniation. 2. Trace subarachnoid hemorrhage. 3. No acute fracture or traumatic malalignment of the cervical spine. Thank you for letting us participate in the care of this patient. If you are a health care provider and have any questions regarding this report, please contact the number below. For patients who have questions please contact the health customer care assistant that requested your imaging first. Electronically signed by: Sue Parsons MD, [facility] ([phone]), at 2021 3:04 AM Assessment: This is a 76 y.o. female on ASA81 with a PMH of GERD, gastric ulcer, HTN, DM, cataract s/p extraction who presented [place] [facility] [place] [facility] s/p fall while exchanging items with daughter +head/neck/back strike as well as +LOC found to have polytrauma including R 8th-11th posterior rib fx as well as 7mm falcine aSDH w/o mass effect & L punctate tSAH-- the latter for i ch Neurosurgery is consulted. Non-focal exam, baseline diminished sensation of L dorsal foot. Obtain rCTH for stability. Hold ASA81. Plan: - No neurosurgical intervention indicated - Ok for q4h neuro checks - Repeat CTH now as it has been >6h since prior scan - Spine precautions: per Trauma/Ortho - BP control, keep SBP 90-160 - Goal eunatremia - DVT ppx with SCDs, hold antiplatelets/anticoagulants; ok for chemoppx in 48h from stable CTH - Admit per trauma Today's plan of care will be discussed with Dr. Ramirez. Dnona Graves MD 2021 at 3:40 AM ADDENDUM @ 9:03 AM on 2021 Plan of care discussed with Dr. Ramirez. Also, rCTH obtained and impression as follows: IMPRESSION. Stable examination with no significant interval change in size of the subdural hemorrhage along the falx and trace subarachnoid hemorrhage. Thus, recommendations remain as above. Patient ok for DVT chemoppx in 48h from this stable scan, but beyond that her ASA81 should be held until follow-up with NSGY in 4-6 weeks; this appt has been requested & D/C instructions + CTH for that appt are in D/CNavigator. Additionally, Keppra 500mg BID for 7 days should be administered for early seizure prophylaxis. Associated attestation - Kelli Ramirez MD - 2021 12:41 PM EST I have seen and examined the patient, providing snider components as outlined below. I have reviewed the resident???s note; my evaluation of the patient is below: 76 y.o. woman presenting with falcine SDH and t SAH (left) s/p fall off of a deck. She is awake, alert, oriented and moving all extremities to command with full strength. No surgical indications. We recommend neurologic monitoring overnight and repeat head CT in the AM. Keppra prophylaxis for seizure prevention is reasonable. * Consult Note - Ken Barbour MD - 2021 1:00 AM EST Trauma Surgery Admission History & Physical Patient Name: Britney Fitzgerald Level of Activation: Trauma Consult MR#: [id number] [ ] Scene Call or [x] Hospital Transfer : [id number] CC/MECHANISM OF INJURY: 76 y.o. Female s/p fall from height HISTORY OF PRESENT ILLNESS: Britney Fitzgerald is a 76 y.o. female presents to [facility] s/p fall from 3 ft. Description of events leading up to injury includes: Patient with a hx of hypertension, GERD, chronic back pain, fell over adeck on 05/27 day time at her daughter's house and landed on ice, hitting the back of her head and her neck. +LOC. She presented to [facility] where she was found to have R posterio rib fx, 7 m falcine SHD, and L punctate tSAH. She was transferred to [facility] [place] further work up. Primary survey revealed: intact airway, equal breath sounds/respirations, present 2+ peripheral pulses with stable vital signs and no signs of bleeding, GCS 15 (6 - Follows simple motor commands, 5 -Alert and oriented, 4 - Opens eyes on own), and partial exposure. Secondary survey is as follows. PAST MEDICAL AND SURGICAL HISTORY: Past Medical History: Diagnosis Date ??? Cataract ??? Diabetes mellitus ??? GERD (gastroesophageal reflux disease) ??? Hypertension Past Surgical History: Procedure Laterality Date ??? CATARACT EXTRACTION, EXTRACAPSULAR, W/ LENS INSERTION Right 05/23/2020 Dr. CLAYTON ALLERGIES: Allergies Allergen Reactions ??? Pollen Extracts Other (See Comments) Other reaction(s): Eye Redness MEDICATIONS: Current Outpatient Medications Medication Instructions ??? Ascorbate Calcium 500 mg Tablet Oral ??? aspirin 81 mg Tablet, Chewable Oral ??? cholecalciferol (Vitamin D3) (VITAMIN D3) 1,000 Units, Oral ??? cyanocobalamin, vitamin B-12, 5,000 mcg Tablet, Rapid Dissolve Oral ??? lisinopriL (ZESTRIL) 5 mg, DAILY ??? metFORMIN (GLUCOPHAGE) 500 mg, 2 TIMES DAILY WITH MEALS ??? niacin 500 mg Tablet Oral ??? RX ADULT COMPOUNDED MEDICATION compounded medication 1. CoQnol 1 cap 2xday ??? 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 Pertinent items are noted in HPI. PHYSICAL EXAM: VITALS: Patient Vitals for the past 24 hrs: Temp Pulse Resp BP SpO2 O2 Device 05/27/21 2316 37.2 ??C (99 ??F) (!) 105 18 152/80 96 % RA GENERAL: alert, awake and no apparent distress HEAD: Normocephalic, without obvious abnormality, atraumatic FACE: Pupils: equal, round, reactive to light, no periorbital ecchymoses; Tympanic Membranes: clear to visualization; Midface: no tenderness, no swelling, no contusions, no lacerations and no abrasions over entire face Oropharynx: nonbloody, moist mucous membranes, no lacerations, no malocclusion and no chipped or missing teeth NECK: no tenderness to palpation, trachea midline, no masses, no swelling, no contusions and no abrasions LUNG: equal, clear breath sounds bilaterally and no crepitus CARDIAC: Regular rate and rhythm or without murmur or extra heart sounds ABDOMEN/GI: soft, non-tender, non-distended, no abrasions and no contusions PELVIS: stable to AP and/or lateral compression RECTAL: Sphincter tone normal with no gross blood; Voluntary anal contraction normal EXTREMITIES: normal and symmetric movement, normal range of motion, no joint swelling SPINE: Tenderness over low thoracic spine. No deformity, no stepoffs, no tenderness to palpation and no abrasions over cervical spine, and/or lumbar spine SKIN: no lacerations, abrasions or contusions on complete skin exam NEURO: Mental Status: awake and alert, oriented to time, date, person, place Cranial Nerves: CN II - XII intact Motor: normal 5/5 strength in all tested muscle groups Sensory: no sensory deficits noted FAST: [ ] Attending staff present [x] Attending staff NOT present Findings: Right Upper Quadrant [x] No fluid [ ] Fluid Left Upper Quadrant [x] No fluid [ ] Fluid Pericardium [x] No fluid [ ] Fluid Pelvis [x] No fluid [ ] Fluid Right Lung [x] No pneumothorax [ ] Pneumothorax Left Lung [x] No pneumothorax [ ] Pneumothorax LABORATORY: No results found for this or any previous visit (from the past 24 hour(s)). RADIOLOGY: XR Chest - Pending CT Head/C-spine- IMPRESSION 1. Acute subdural hemorrhage along the falx, measuring up to 7 mm in width. Minimal local mass effect without midline shift or herniation. 2. Trace subarachnoid hemorrhage. 3. No acute fracture or traumatic malalignment of the cervical spine. CT T/ spine- IMPRESSION 1. No acute fracture or traumatic malalignment of the thoracic spine. 2. Nondisplaced right 8th to 11th posterior rib fractures. Extremity Imaging-No other injuries Incidental Radiographic Findings: None Procedures Performed: Intubation: No Robles Cath: No Central Line: No Chest Tube: No Sutures: No Assessment/Summary of Injuries: 76 y.o. female s/p fall from 3 ft. Pt brought in as Trauma Consult, primary intact, GCS 15. Injuries identified include: 1. Acute subdural hemorrhage along the falx, measuring up to 7 mm in width 2. Trace subarachnoid hemorrhage 3. Nondisplaced right 8th to 11th posterior rib fractures. PA/Lateral CXR pending Plan: ?? Admit to Trauma Surgery Service in good condition, Dr. Barbour, attending ?? Clear liquid diet. Ok to advance diet when cleared from NSGY ?? Consulting Services and plans: 1. Neurosurgery: Repeat CT head completed, stable. Q4h neurochecks. SBP 90-160. Hold DVT ppx. ?? Spine status: Cleared C collar. No T spine injury. Per Trauma. ?? Pain control: Tylenol. Oxycodone PRN. ?? DVT prophylaxis: Holding for SDH ?? GI prophylaxis: Not indicated ?? Tertiary survey in AM ?? DISPO: Floor Chuyita Pak MD Trauma Surgery [id number] 2021 1:01 AM I saw and evaluated the patient with Dr. Pak (resident). I have independently reviewed the relevant laboratory and radiographic studies. I have edited the above note and agree with the details as written. My physical examination confirms the resident's findings. The assessment and plan were formulated in discussion with me at the time of the visit and I agree with them as documented. Ken Barbour MD * ED Triage - Allyson Thompson RN - 05/27/2021 11:20 PM EST Pt fell backwards off daughter's deck, landing on head and back. Pt reports LOC. Pt able to amb afterwards to ambulance. Pt taken to OSH and scanned revealed sdh. Pt a&ox4, pwd, neuro intact. HPI (Adult) Stated Reason for Visit: I fell on the ice on my head and my back. History Obtained From: patient Precipitating Event(s): fall Onset of Symptoms: sudden Duration (Hours): 7 Associated Signs/Symptoms: headache, other (see comments) (LOC, back pain, rib pain) documented in this encounter Plan of Treatment Not on file documented as of this encounter Procedures Procedure Name Priority Date/Time Associated Diagnosis Comments POCT GLUCOSE Routine 05/30/2021 11:26 AM EST DUPLEX FOR DVT BILAT LEGS Routine 05/30/2021 10:19 AM EST Fall, subsequent encounter POCT GLUCOSE Routine 05/30/2021 7:57 AM EST POCT GLUCOSE Routine 05/30/2021 3:44 AM EST POCT GLUCOSE Routine 05/29/2021 11:55 PM EST POCT GLUCOSE Routine 05/29/2021 8:24 PM EST XR CHEST PA AND LATERAL Routine 05/29/19 3:40 PM EST POCT GLUCOSE Routine 05/29/2021 3:26 PM EST CAROTID DUPLEX, BILATERAL Routine 05/29/2021 12:34 PM EST Fall, initial encounter POCT GLUCOSE Routine 05/29/2021 10:28 AM EST HEMOGRAM STAT 05/29/2021 6:04 AM EST DIFFERENTIAL, AUTOMATED STAT 05/29/19 6:04 AM EST HC VENIPUNCTURE STAT 05/29/2021 6:04 AM EST BASIC METABOLIC PANEL STAT 05/29/2021 6:04 AM EST POCT GLUCOSE Routine 2021 8:04 PM EST POCT GLUCOSE Routine 2021 4:[address] CHEST ABDOMEN PELVIS W CONTRAST (GENERIC) STAT 2021 8:[address] LUMBAR SPINE WITH CONTRAST STAT 2021 8:[address] THORACIC SPINE W CONTRAST STAT 2021 8:33 AM EST RAPID COVID-19 PCR ([facility]) STAT 2021 7:35 AM EST XR CHEST PA AND LATERAL STAT 05/28/19 7:[address] HEAD WO CONTRAST (GENERIC) Routine 2021 5:28 AM EST HEMOGRAM STAT 2021 5:10 AM EST DIFFERENTIAL, AUTOMATED STAT 05/28/19 5:10 AM EST GOLD TUBE HOLD STAT 2021 5:10 AM EST HC PARTIAL THROMBOPLASTIN TIME STAT 2021 5:10 AM EST HC PROTHROMBIN TIME STAT 2021 5 :10 AM EST HC CBC,PLT & AUTO DIFF STAT 5:10 AM EST COMPREHENSIVE METABOLIC PANEL STAT 2021 5:10 AM EST RAPID DRUG SCREEN, URINE STAT 2021 4:00 AM EST RAPID DRUG SCREEN W/O CONFIRMATION, URINE STAT 2021 4:00 AM EST URINALYSIS WITH REFLEX CULTURE STAT 2021 4:00 AM EST REQUEST FOR 2ND READ CT SPINE STAT 2021 3:37 AM EST REQUEST FOR 2ND READ CT HEAD AND SPINE STAT 2021 12:33 AM EST EKG 12-LEAD STAT 05/27/2021 11:29 PM EST FILM LIBRARY STORAGE ONLY CT SPINE STAT 05/27/2021 12:00 AM EST documented in this encounter Results * CT Head wo Contrast (Generic) (07/04/2021 2:40 PM EDT) Anatomical Region Laterality Modality Head Computed Tomogra phy 07/04/2021 2:35 PM EDT Impressions 07/04/2021 5:01 PM EDT Interval resolution of subdural hematoma along the falx. No new hemorrhage or acute intracranial pathology. I have personally reviewed the image(s) and the resident's interpretation and agree with the findings, Natalie Griffin MD at 07/04/2021 5:01 PM Thank you for letting us participate in the care of this patient. ??If you are a health care provider and have any questions regarding this report, please contact the number below. ??For patients who have questions please contact the health customer care assistant that requested your imaging first. ? Electronically signed by: Natalie Griffin MD, [facility] ([phone]), at 07/04/2021 5:01 PM Narrative 07/04/2021 5:01 PM EDT EXAMINATION: CT HEAD WO CONTRAST (GENERIC) CLINICAL HISTORY: Subdural hematoma TECHNIQUE: CT head performed without intravenous contrast administration. COMPARISON: CT 2021 FINDINGS: Interval resolution of subdural hematoma along the falx. No new hemorrhage, mass, or mass effect. Lynch-white matter differentiation is preserved. Mild patchy white matter hypoattenuation consistent with chronic microvascular ischemic changes, stable. Normal ventricular system caliber. Basal cisterns are patent. Unchanged mild hyperostosis along the frontal bone. Imaged paranasal sinuses and mastoid air cells are clear. Procedure Note Natalie Griffin MD - 07/04/2021 EXAMINATION: CT HEAD WO CONTRAST (GENERIC) CLINICAL HISTORY: Subdural hematoma TECHNIQUE: CT head performed without intravenous contrast administration. COMPARISON: CT 2021 FINDINGS: Interval resolution of subdural hematoma along the falx. No newhemorrhage, mass, or mass effect. Lynch-white matter differentiation is preserved.Mild patchy white matter hypoattenuation consistent with chronicmicrovascular ischemic changes, stable. Normal ventricular system caliber. Basalcisterns are patent. Unchanged mild hyperostosis along the frontal bone. Imaged paranasalsinuses and mastoid air cells are clear. IMPRESSION Interval resolution of subdural hematoma along the falx. No new hemorrhageor acute intracranial pathology. I have personally reviewed the image(s) and the resident's interpretationand agree with the findings, Natalie Griffin MD at 07/04/2021 5:01 PM Thank you for letting us participate in the care of this patient. If youare a health care provider and have any questions regarding this report,please contact the number below. For patients who have questions please contactthe health customer care assistant that requested your imaging first. Electronically signed by: Natalie Griffin MD, [facility]([phone]), at 07/04/2021 5:01 PM Ken Barbour MD IMG CT ORDERABLES * POCT Glucose (05/30/2021 11:26 AM EST) Glucose, POC 154 65 - 199 mg/dL [facility] Comment: Supplemental ranges: <140 mg/dL before meals <180 mg/dL all other times of the day Blood 05/30/2021 11:2 6 AM EST 05/30/2021 11:26 AM EST Robel Bryant MD POINT OF CARE TEST O RDERABLES Performing Organization Address City/State/[facility] Co de Phone Number [facility] [place] [address] * Duplex Study for DVT, Bilat legs (05/30/2021 10:19 AM EST) VB Text Report Department: Vascular Surgery Lab Patient: [id number] (BRITNEY FITZGERALD) CPT: 32786 Referring Physician: ROBEL BRYANT ?? Indications: Patient s/p fall, ? DVT Findings: RIGHT: Patent common femoral vein and popliteal vein with spontaneous, respirophasic Doppler waveforms that respond normally to augmentation maneuvers. The common femoral vein, saphenofemoral junction, femoral vein through the thigh and popliteal vein are fully compressible. Patent posterior tibial and peroneal veins with no evidence of thrombus. LEFT: Patent common femoral vein and popliteal vein with spontaneous, respirophasic Doppler waveforms that respond normally to augmentation maneuvers. The common femoral vein, saphenofemoral junction, femoral vein through the thigh and popliteal vein are fully compressible. Patent posterior tibial and peroneal veins with no evidence of thrombus. Interpretation: RIGHT: ??No evidence of lower extremity deep venous thrombosis. LEFT: ??No evidence of lower extremity deep venous thrombosis. Comparison: ?? No previous study in our vascular lab database for comparison. Electronically Signed by: KELLI ESTEVES on 2021-06-01 07:57:27 AM VASCUBASE VB Text Report End of Report VASCUBASE 05/30/2021 10:1 9 AM EST Robel Bryant MD VASCULAR ORDERABLES Performing Organization Address [facility] Co de Phone Number [email or web address] * POCT Glucose (05/30/2021 7:57 AM EST) Glucose, POC 141 65 - 199 mg/dL [facility] Comment: Supplemental ranges: <140 mg/dL before meals <180 mg/dL all other times of the day Blood 05/30/2021 7:57 AM EST 05/30/2021 7:57 AM EST Robel Bryant MD POINT OF CARE TEST O RDERABLES Performing Organization Address [facility] de Phone Number [facility] [place] [address] * POCT Glucose (05/30/2021 3:44 AM EST) Glucose, POC 136 65 - 199 mg/dL [facility] Comment: Supplemental ranges: <140 mg/dL before meals <180 mg/dL all other times of the day Blood 05/30/2021 3:44 AM EST 05/30/2021 3:44 AM EST Robel Bryant MD POINT OF CARE TEST O RDERABLES Performing Organization Address [facility] de Phone Number [facility] [place] [address] * POCT Glucose (05/29/2021 11:55 PM EST) Glucose, POC 150 65 - 199 mg/dL [facility] Comment: Supplemental ranges: <140 mg/dL before meals <180 mg/dL all other times of the day Blood 05/29/2021 11:5 5 PM EST 05/29/2021 11:55 PM EST Robel Bryant MD POINT OF CARE TEST O ABDOUL Performing Organization Address [facility] de Phone Number [facility] [place] [address] * POCT Glucose (05/29/2021 8:24 PM EST) Glucose, POC 170 65 - 199 mg/dL [facility] Comment: Supplemental ranges: <140 mg/dL before meals <180 mg/dL all other times of the day Blood 05/29/2021 8:24 PM EST 05/29/2021 8:24 PM EST Robel Bryant MD POINT OF CARE TEST O ABDOUL Performing Organization Address [facility] de Phone Number [facility] [place] [address] * XR Chest PA & Lateral (Generic) (05/29/2021 3:40 PM EST) Anatomical Region Laterality Modality Chest N/A Digital Radiogra phy Impressions 05/29/2021 4:04 PM EST Trace posterior pleural effusions. Thank you for letting us participate in the care of this patient. ??If you are a health care provider and have any questions regarding this report, please contact the number below. ??For patients who have questions please contact the health customer care assistant that requested your imaging first. ? Electronically signed by: Ann Rincon MD, [facility] ([phone]), at 05/29/2021 4:04 PM Narrative 05/29/2021 4:04 PM EST EXAMINATION: XR CHEST PA AND LATERAL (GENERIC) CLINICAL HISTORY: 76F s/p fall. SDH and multiple rib fx, follow up TECHNIQUE: PA and lateral views of the chest. COMPARISON: 2021. FINDINGS: The lungs appear clear. The cardiomediastinal silhouette, pippa, pulmonary vessel markings are within normal limits. On thinning of the posterior costophrenic angles suggest trace pleural effusions. No interval osseous findings are seen. Procedure Note Ann Rincon MD - 05/29/2021 EXAMINATION: XR CHEST PA AND LATERAL (GENERIC) CLINICAL HISTORY: 76F s/p fall. SDH and multiple rib fx, follow up TECHNIQUE: PA and lateral views of the chest. COMPARISON: 2021. FINDINGS: The lungs appear clear. The cardiomediastinal silhouette,pippa, pulmonary vessel markings are within normal limits. On thinning of theposterior costophrenic angles suggest trace pleural effusions. No interval osseous findings are seen. IMPRESSION Trace posterior pleural effusions. Thank you for letting us participate in the care of this patient. If youare a health care provider and have any questions regarding this report,please contact the number below. For patients who have questions please contactthe health customer care assistant that requested your imaging first. Ken Barbour MD IMG DX ORDERABLES * POCT Glucose (05/29/2021 3:26 PM EST) Glucose, POC 155 65 - 199 mg/dL [facility] Comment: Supplemental ranges: <140 mg/dL before meals <180 mg/dL all other times of the day Blood 05/29/2021 3:26 PM EST 05/29/2021 3:26 PM EST Ken Barbour MD POINT OF CARE TEST ORDERABLES [facility] [place] [address] * Carotid Duplex, Bilateral (05/29/2021 12:34 PM EST) VB Text Report Department: Vascular Surgery Lab Patient: [id number] (BRITNEY FITZGERALD) CPT: 18591 Referring Physician: MACY SMITH ?? Phone: Indications: 76 year old female s/p 3 foot fall from deck hitting head and neck, syncope work-up, ? cerebrovascular disease Findings: ICA Proximal, Right ? PSV (cm/s): 97 ? EDV (cm/s): 26 ? ICA/CCA: 1.3 ? Plaque Structure: Echogenic ? Plaque Surface: Irregular ? %Stenosis: <15% ICA Distal, Right ? PSV (cm/s): 101 ? EDV (cm/s): 38 ? ICA/CCA: 1.3 CCA Distal, Right ? PSV (cm/s): 75 ? EDV (cm/s): 16 ? %Stenosis: Minimal CCA Middle, Right ? PSV (cm/s): 72 ? EDV (cm/s): 13 CCA Proximal, Right ? PSV (cm/s): 93 ? EDV (cm/s): 15 External Carotid Artery, Right ? PSV (cm/s): 100 ? EDV (cm/s): 10 Vertebral, Right ? PSV (cm/s): 74 ? EDV (cm/s): 16 ? Direction of Flow: Antegrade ICA Proximal, Left ? PSV (cm/s): 98 ? EDV (cm/s): 26 ? ICA/CCA: 1.2 ? Plaque Structure: Echogenic ? Plaque Surface: Irregular ? %Stenosis: <15% ICA Distal, Left ? PSV (cm/s): 83 ? EDV (cm/s): 24 ? ICA/CCA: 1.0 CCA Distal, Left ? PSV (cm/s): 85 ? EDV (cm/s): 18 ? %Stenosis: Minimal CCA Middle, Left ? PSV (cm/s): 106 ? EDV (cm/s): 19 CCA Proximal, Left ? PSV (cm/s): 138 ? EDV (cm/s): 26 External Carotid Artery, Left ? PSV (cm/s): 113 ? EDV (cm/s): 12 ? %Stenosis: Minimal Vertebral, Left ? PSV (cm/s): 97 ? EDV (cm/s): 16 ? Direction of Flow: Antegrade Interpretation: RIGHT: A thin layer of circumferential plaque is present in the common carotid artery causing no stenosis. There is minimal plaque in the proximal internal carotid artery causing <15% stenosis when compared to the more distal internal carotid artery. The bifurcation level is in the mid neck. LEFT: A thin layer of circumferential plaque is present in the common carotid artery causing no stenosis. There is minimal plaque in the proximal internal carotid artery causing <15% stenosis when compared to the more distal internal carotid artery. The bifurcation level is in the mid neck. Vertebral Artery Data: Patent vertebral arteries with normal antegrade Doppler waveforms and velocities bilaterally. Comparison: ??No previous study in our vascular lab database for comparison. Electronically Signed by: JAYLEEN BARRAZA on 2021-05-29 09:55:04 AM VASCUBASE VB Text Report End of Report [email or web address] 05/29/2021 12:3 4 PM EST Macy Smith APRN VASCULAR ORDERABLES [facility] * POCT Glucose (05/29/2021 10:28 AM EST) Glucose, POC 151 65 - 199 mg/dL [facility] Comment: Supplemental ranges: <140 mg/dL before meals <180 mg/dL all other times of the day Blood 05/29/2021 10:2 8 AM EST 05/29/2021 10:28 AM EST Ken Barbour MD POINT OF CARE TEST ORDERABLES Performing Organization Address City/State/[facility] Co de Phone Number [facility] [place] [address] * Differential, Automated (05/29/2021 6:04 AM EST) Neutrophil % 58.9 % [facility] Neutrophil Absolute 3.51 1.70 - 6.10 x10(3)/[facility] LABORATORY Lymph % 20.7 % [facility] Lymphocytes Abs 1.2 0.9 - 3.2 x10(3)/[facility] LABORATORY Monocyte % 13.8 % [facility] Monocyte Abs 0.8 0.3 - 0.9 x10(3)/[facility] LABORATORY Eos % 5.9 % [facility] Eosinophils Abs 0.4 0.0 - 0.4 x10(3)/[facility] LABORATORY Basophil % 0.5 % [facility] Baso Absolute 0.0 0.0 - 0.1 x10(3)/[facility] LABORATORY Immature Gran % 0.20 % [facility] Comment: Immature granulocytes(IG's)percentage and absolute count will include metamyelocytes, myelocytes, and promyelocytes. Blood smears from CBCs yielding IG's will be scanned manually for concordance. If this scan disagrees with the automated IG or if promyelocytes are noted, a manual differential will be performed. Immature Gran Absolute 0.01 0.00 - 0.04 x10(3)/[facility] LABORATORY Blood 05/29/2021 6:04 AM EST 05/29/2021 6:34 AM EST Narrative Resulting Agency Comment Spec In Lab Chuyita Pak MD HEMATOLOGY ORDERABLE S [facility] [place] [address] * Hemogram (05/29/2021 6:04 AM EST) [facility] White Blood Cell 6.0 4.0 - 9.5 x10(3)/[facility] LABORATORY Red Blood Cell 4.62 4.00 - 5.21 x10(6)/[facility] LABORATORY Hemoglobin 13.8 11.7 - 15.5 g/dL [facility] Hematocrit 41.4 35.7 - 45.8 % [facility] Mean Cell Volume 89.6 82.6 - 94.4 fL [facility] Mean Cell Hemoglobin 29.9 27.1 - 32.0 pg [facility] Mean Cell Hemoglobin Concentration 33.3 31.7 - 35.0 g/dL [facility] Platelet 256 145 - 357 x10(3)/[facility] LABORATORY RDW Standard Deviation 41.0 37.0 - 46.0 [facility] LABORATORY RDW coefficient of variation 12.4 11.5 - 14.1 % [facility] Mean Platelet Volume 9.4 7.6 - 12.9 [facility] LABORATORY NRBC% auto 0.0 % [facility] NRBC Absolute 0.000 0.000 - 0.000 x10(3)/[facility] LABORATORY Blood 05/29/2021 6:04 AM EST 05/29/2021 6:34 AM EST Narrative Resulting Agency Comment Spec In Lab Chuyita Pak MD HEMATOLOGY ORDERABLE S [facility] [place] [address] * Basic Metabolic Panel (non-fasting) (05/29/2021 6:04 AM EST) [facility] Glucose 137 65 - 199 mg/dL [facility] Comment:Diabetes: >=200 mg/d L plus symptoms Blood Urea Nitrogen 9 8 - 18 mg/dL [facility] Creatinine 0.70 0.70 - 1.20 mg/dL [facility] Sodium 136 135 - 145 mmol/L [facility] Potassium 4.0 3.5 - 5.0 mmol/L [facility] Comment: Please note: ??Patients with WBC >100,000 may have falsely elevated Potassium levels. ??For accurate Potassium quantification in these patients send serum separator tube (gold top) for subsequent determinations. ??Contact the Clinical Chemistry Laboratory if there are any questions. Chloride 101 98 - 107 mmol/L [facility] Carbon Dioxide 24 22 - 31 mmol/L [facility] Anion Gap 11 5 - 15 mmol/L [facility] Calcium 9.9 8.5 - 10.5 mg/dL [facility] Est Glomerular Filtration Rate 85 >=60 mL/min/1. 73 m?? [facility] Comment: This patient? s estimated glomerular filtration rate (eGFR) is between 85 mL/min/1.73 m2 (patients with less muscle mass) and 99 mL/min/1.73 m2 (patients with more muscle mass) as determined by the CKD-EPI equation. Assessment of eGFR is not appropriate when creatinine concentrations are rapidly changing. For clinical decisions where creatinine clearance will affect therapy, a 24-hour urine creatinine clearance may be advised. Assignment of CKD stage 1 - 5 for patients with an eGFR near the transition point between stages may be based on clinical assessment of muscle mass and symptoms in addition to eGFR. Blood 05/29/2021 6:04 AM EST 05/29/2021 6:34 AM EST Narrative Resulting Agency Comment Spec In Lab Ken Barbour MD CHEMISTRY ORDERABLE S [facility] [place] [address] * POCT Glucose (2021 8:04 PM EST) Glucose, POC 159 65 - 199 mg/dL [facility] Comment: Supplemental ranges: <140 mg/dL before meals <180 mg/dL all other times of the day Blood 2021 8:04 PM EST 2021 8:04 PM EST Ken Barbour MD POINT OF CARE TEST ORDERABLES Performing Organization Address [facility] de Phone Number [facility] [place] [address] * POCT Glucose (2021 4:25 PM EST) Glucose, POC 126 65 - 199 mg/dL [facility] Comment: Supplemental ranges: <140 mg/dL before meals <180 mg/dL all other times of the day Blood 2021 4:25 PM EST 2021 4:25 PM EST Ken Barbour MD POINT OF CARE TEST ORDERABLES Performing Organization Address [facility] de Phone Number [facility] [place] [address] * CT Lumbar Spine w Contrast (2021 8:33 AM EST) Anatomical Region Laterality Modality L-spine Computed Tomogra phy 2021 9:04 AM EST Impressions 2021 9:39 AM EST Old Schmorl's node superior endplate of L2. Mild degenerative changes. No acute fracture Thank you for letting us participate in the care of this patient. ??If you are a health care provider and have any questions regarding this report, please contact the number below. ??For patients who have questions please contact the health customer care assistant that requested your imaging first. ? Electronically signed by: [facility] ([phone]), at 2021 9:39 AM Narrative 2021 9:39 AM EST EXAMINATION: CT LUMBAR SPINE W CONTRAST CLINICAL HISTORY: TECHNIQUE: CT lumbar spine performed after the intravenous administration of contrast. . COMPARISON: None FINDINGS: Alignment of the lumbosacral spine is normal. Radiographic density of the bones is within normal limits. A Schmorl's node is noted in the superior endplate of L2 which appears to be chronic. No retroperitoneal hemorrhage is identified. The aorta is normal in course and caliber. The vertebral body heights and disc heights appear normal. The included sacrum shows no fractures. SI joints appear normal. There are no pars defects. Moderate degenerative changes are noted. Procedure Note Morales Gomez MD - 2021 EXAMINATION: CT LUMBAR SPINE W CONTRAST CLINICAL HISTORY: TECHNIQUE: CT lumbar spine performed after the intravenous administration ofcontrast. . COMPARISON: None FINDINGS: Alignment of the lumbosacral spine is normal. Radiographic density of thebones is within normal limits. A Schmorl's node is noted in the superiorendplate of L2 which appears to be chronic. No retroperitoneal hemorrhage isidentified. The aorta is normal in course and caliber. The vertebral body heights and disc heights appear normal. The includedsacrum shows no fractures. SI joints appear normal. There are no pars defects.Moderate degenerative changes are noted. IMPRESSION Old Schmorl's node superior endplate of L2. Mild degenerative changes. No acute fracture Thank you for letting us participate in the care of this patient. If youare a health care provider and have any questions regarding this report,please contact the number below. For patients who have questions please contactthe health customer care assistant that requested your imaging first. Ken Barbour MD IM CT ORDERABLES * CT Thoracic Spine w Contrast (2021 8:33 AM EST) Anatomical Region Laterality Modality T-spine Computed Tomogra phy Impressions 2021 8:57 AM EST No acute thoracic spinal fractures. Right 8 rib fracture, nondisplaced without pneumothorax. Thank you for letting us participate in the care of this patient. ??If you are a health care provider and have any questions regarding this report, please contact the number below. ??For patients who have questions please contact the health customer care assistant that requested your imaging first. ? Electronically signed by: Morales Gomez MD, [facility] ([phone]), at 2021 8:57 AM Narrative 2021 8:57 AM EST EXAMINATION: CT THORACIC SPINE W CONTRAST CLINICAL HISTORY: Trauma TECHNIQUE: CT thoracic spine performed after the intravenous administration of contrast. . COMPARISON: Thoracic spine CT performed on 05/27/2021 FINDINGS: Coronal images demonstrate a dextro scoliotic curvature of the thoracic spine. Otherwise alignment appears normal. Sagittal images show no subluxation. No fractures are identified within the thoracic spine. No paraspinal hemorrhage is seen. Rib fractures identified on the previous study are not included on the study except for minimal fracture identified at the T8 rib on the right. Pleural thickening is identified bilaterally. No pneumothorax Procedure Note Morales Gomez MD - 2021 EXAMINATION: CT THORACIC SPINE W CONTRAST CLINICAL HISTORY: Trauma TECHNIQUE: CT thoracic spine performed after the intravenous administration ofcontrast. . COMPARISON: Thoracic spine CT performed on 05/27/2021 FINDINGS: Coronal images demonstrate a dextro scoliotic curvature of the thoracicspine. Otherwise alignment appears normal. Sagittal images show no subluxation.No fractures are identified within the thoracic spine. No paraspinalhemorrhage is seen. Rib fractures identified on the previous study are not included onthe study except for minimal fracture identified at the T8 rib on the right. Pleural thickening is identified bilaterally. No pneumothorax IMPRESSION No acute thoracic spinal fractures. Right 8 rib fracture, nondisplaced without pneumothorax. Thank you for letting us participate in the care of this patient. If youare a health care provider and have any questions regarding this report,please contact the number below. For patients who have questions please contactthe health customer care assistant that requested your imaging first. Electronically signed by: Morales Gomez MD, [facility]([phone]), at 2021 8:57 AM Ken Barbour MD IMG CT ORDERABLES * CT Chest Abdomen Pelvis w Contrast (Generic) (2021 8:33 AM EST) Anatomical Region Laterality Modality Abdomen, Pelvis Computed Tomogra phy 2021 9:04 AM EST Impressions 2021 9:30 AM EST 1. ??Multiple nondisplaced fractures of the ribs on the right, detailed above. 2. ??Trace pleural effusion on the right. 3. ??Trace amount of free fluid interposed between the left ovary and bladder dome of improbable clinical significance. Correlate with left lower quadrant pain. Preliminary report signed by: Raymundo Jensen at 2021 9:06 AM I have personally reviewed the image(s) and the resident's interpretation and agree with the findings, Macy Odonnell MD at 2021 9:30 AM Thank you for letting us participate in the care of this patient. ??If you are a health care provider and have any questions regarding this report, please contact the number below. ??For patients who have questions please contact the health customer care assistant that requested your imaging first. ? Electronically signed by: Macy Odonnell MD, [facility] ([phone]), at 2021 9:30 AM Narrative 2021 9:30 AM EST EXAMINATION: CT CHEST ABDOMEN PELVIS W CONTRAST (GENERIC) CLINICAL HISTORY: Polytrauma, blunt TECHNIQUE: Helical CT of the chest, abdomen, and pelvis was performed following the intravenous administration 93.0 ml of OMNIPAQUE 350.00 mg/ml. COMPARISON: CT thoracic spine on 05/27/2021 FINDINGS: Chest: Lungs and large airways: No airspace consolidation. Mild dependent atelectasis in the lower lobes. Patent central airways. Pleura: Trace right effusion. No left effusion. No pneumothorax. Heart/vasculature: Normal heart size. No pericardial effusion. Normal caliber of the great vessels. Lymph nodes: No enlarged lymph nodes. Mediastinum and pippa: Normal. Abdomen/pelvis: Liver: Normal size and attenuation. Bile ducts: Normal caliber. Gallbladder: Status post cholecystectomy. Pancreas: Normal attenuation without ductal dilatation. Spleen: Normal. Adrenals: Normal. Kidneys: Symmetric and uniform nephrograms. Scarring and atrophy of the left kidney. Small simple cysts in the anterior cortex of the upper pole and lower pole right kidney. No suspicious renal lesions. Normal caliber of the collecting system. Urinary Bladder: Normal. Vasculature: No aneurysm. Lymph Nodes: ??No enlarged lymph nodes. Bowel: Nondilated, no wall thickening. Peritoneum and mesentery: Trace amount of free fluid interposed between the left ovary and bladder dome. No free air or loculated collection. No mesenteric edema. Abdominal wall: Normal. Reproductive organs: Status post hysterectomy. Osseous structures: Nondisplaced fractures of the anterolateral sixth through eighth ribs and the posterior eighth and eleventh on the right. The previously identified right ninth and 10th posterior rib fractures are not well visualized on the current examination. Procedure Note Macy Odonnell MD - 2021 EXAMINATION: CT CHEST ABDOMEN PELVIS W CONTRAST (GENERIC) CLINICAL HISTORY: Polytrauma, blunt TECHNIQUE: Helical CT of the chest, abdomen, and pelvis was performedfollowing the intravenous administration 93.0 ml of OMNIPAQUE 350.00 mg/ml. COMPARISON: CT thoracic spine on 05/27/2021 FINDINGS: Chest: Lungs and large airways: No airspace consolidation. Mild dependentatelectasis in the lower lobes. Patent central airways. Pleura: Trace right effusion. No left effusion. No pneumothorax. Heart/vasculature: Normal heart size. No pericardial effusion. Normalcaliber of the great vessels. Lymph nodes: No enlarged lymph nodes. Mediastinum and pippa: Normal. Abdomen/pelvis: Liver: Normal size and attenuation. Bile ducts: Normal caliber. Gallbladder: Status post cholecystectomy. Pancreas: Normal attenuation without ductal dilatation. Spleen: Normal. Adrenals: Normal. Kidneys: Symmetric and uniform nephrograms. Scarring and atrophy of theleft kidney. Small simple cysts in the anterior cortex of the upper pole andlower pole right kidney. No suspicious renal lesions. Normal caliber of thecollecting system. Urinary Bladder: Normal. Vasculature: No aneurysm. Lymph Nodes: No enlarged lymph nodes. Bowel: Nondilated, no wall thickening. Peritoneum and mesentery: Trace amount of free fluid interposed betweenthe left ovary and bladder dome. No free air or loculated collection. Nomesenteric edema. Abdominal wall: Normal. Reproductive organs: Status post hysterectomy. Osseous structures: Nondisplaced fractures of the anterolateral sixththrough eighth ribs and the posterior eighth and eleventh on the right. Thepreviously identified right ninth and 10th posterior rib fractures are not wellvisualized on the current examination. IMPRESSION 1. Multiple nondisplaced fractures of the ribs on the right, detailedabove. 2. Trace pleural effusion on the right. 3. Trace amount of free fluid interposed between the left ovary andbladder dome of improbable clinical significance. Correlate with left lowerquadrant pain. Preliminary report signed by: Raymundo Jensen at 2021 9:06 AM I have personally reviewed the image(s) and the resident's interpretationand agree with the findings, Macy Odonnell MD at 2021 9:30 AM Thank you for letting us participate in the care of this patient. If youare a health care provider and have any questions regarding this report,please contact the number below. For patients who have questions please contactthe health customer care assistant that requested your imaging first. Electronically signed by: Macy Odonnell MD, [facility]([phone]), at 2021 9:30 AM Ken Barbour MD IMG CT ORDERABLES * COVID-19 PCR (2021 7:35 AM EST) SARS-CoV-2 RNA (Rapid) Not Detected Not Detected [facility] Comment: This result should be interpreted in combination with the clinical observations, patient history and epidemiological information. For testing of asymptomatic individuals, assay performance characteristics and clinical utility have not been evaluated. Testing for SARS-CoV-2 (Severe acute respiratory syndrome coronavirus 2, formerly known as 2019 novel coronavirus or 2019-nCoV) to aid in the diagnosis of COVID-19 is performed using the [employer]plex[employer] COVID-19 Direct Assay by [employer] as authorized by the FDA issued Emergency Use Authorization (EUA). This assay is intended for In-vitro Diagnostic (IVD) use with nasopharyngeal swabs collected from individuals meeting the CDC criteria for testing. The assay is performed based on the instructions for use and additional guidance provided by the FDA. Testing is performed in the Microbiology Laboratory within the Department of Pathology and Laboratory Medicine at [facility], certified under the Clinical Laboratory Improvement Amendments of 1988 (CLIA), 42 U.S.C. section 263a, to perform high complexity tests. Assay performance has been verified according to clinical laboratory regulatory requirements. Test results are provided above. A result of Not Detected indicates that the viral RNA target is not present but does not preclude SARS-CoV-2 infection. False negative results may occur if a specimen is improperly collected, transported or handled; if amplification inhibitors are present; or if inadequate numbers of viral particles are present in the specimen. A result of Detected suggests a current or recent infection and the patient is presumed to be infected. Positive and negative predictive values for this test are highly dependent on disease prevalence. A result of Invalid indicates the inability to conclusively determine the presence or absence of SARS-CoV-2 RNA in the sample which can be due to a variety of factors. Recollection is recommended in the case of an invalid result. CDC COVID-19 criteria for testing on human specimens and clinical management guidance information are available at the CDC Coronavirus Disease 2019 (COVID-19) webpage under Information for Healthcare Professionals (https://www.cdc.gov/coronavirus/2019-ncov/hcp/index.html). Additional information about this and other EUA tests can be found in provider and patient fact sheets at the following FDA website: https://www.fda.gov/medical-devices/eoyrmukjlrm-uniydui-2326-kaysw-73-kvwlujpli- use-a mrhtfpfgkesup-yguolyv-pckoqcf/zgnfg-dffzwqgdgxd-ogqw SARS-CoV-2 Source [employer] [facility] Nasopharyngeal Swab 05/28/19 7:35 AM EST 2021 7:57 AM EST Comment:Symptoms->Surveillan ce Narrative Resulting Agency Comment Spec In Lab Manuel Singh DO MICROBIOLOGY - GENER AL ORDERABLES Performing Organization Address City/State/[facility] Co de Phone Number [facility] [place] [phone] * XR Chest PA & Lateral (Generic) (2021 7:33 AM EST) Anatomical Region Laterality Modality Chest N/A Digital Radiogra phy Impressions 2021 8:09 AM EST Clear lungs, no pneumothorax. I have personally reviewed the image(s) and the resident's interpretation and agree with the findings, Sue Parsons MD at 2021 8:09 AM Thank you for letting us participate in the care of this patient. ??If you are a health care provider and have any questions regarding this report, please contact the number below. ??For patients who have questions please contact the health customer care assistant that requested your imaging first. ? Electronically signed by: Sue Parsons MD, [facility] ([phone]), at 2021 8:09 AM Narrative 2021 8:09 AM EST EXAMINATION: XR CHEST PA AND LATERAL (GENERIC) CLINICAL HISTORY: 76F s/p fall. SDH and multiple rib fx TECHNIQUE: PA and lateral views of the chest COMPARISON: CT thoracic spine, 05/27/2021 FINDINGS: No focal airspace opacity. No pneumothorax or pleural effusion. Cardiomediastinal silhouette, pippa, and pulmonary vasculature are within normal limits. The nondisplaced right lower posterior rib fractures are not visualized radiographically. Procedure Note Sue Parsons MD - 2021 EXAMINATION: XR CHEST PA AND LATERAL (GENERIC) CLINICAL HISTORY: 76F s/p fall. SDH and multiple rib fx TECHNIQUE: PA and lateral views of the chest COMPARISON: CT thoracic spine, 05/27/2021 FINDINGS: No focal airspace opacity. No pneumothorax or pleural effusion. Cardiomediastinal silhouette, pippa, and pulmonary vasculature are withinnormal limits. The nondisplaced right lower posterior rib fractures are notvisualized radiographically. IMPRESSION Clear lungs, no pneumothorax. I have personally reviewed the image(s) and the resident's interpretationand agree with the findings, Sue Parsons MD at 2021 8:09 AM Thank you for letting us participate in the care of this patient. If youare a health care provider and have any questions regarding this report,please contact the number below. For patients who have questions please contactthe health customer care assistant that requested your imaging first. Electronically signed by: Sue Parsons MD, [facility]([phone]), at 2021 8:09 AM Ken Barbour MD IMG DX ORDERABLES * CT Head wo Contrast (Generic) (2021 5:28 AM EST) Anatomical Region Laterality Modality Head Computed Tomogra phy 2021 5:50 AM EST Impressions 2021 5:52 AM EST Stable examination with no significant interval change in size of the subdural hemorrhage along the falx and trace subarachnoid hemorrhage. Thank you for letting us participate in the care of this patient. ??If you are a health care provider and have any questions regarding this report, please contact the number below. ??For patients who have questions please contact the health customer care assistant that requested your imaging first. ? Electronically signed by: Sue Parsons MD, [facility] ([phone]), at 2021 5:52 AM Narrative 2021 5:52 AM EST EXAMINATION: CT HEAD WO CONTRAST (GENERIC) CLINICAL HISTORY: Subdural hematoma TECHNIQUE: CT head performed without intravenous contrast administration. COMPARISON: CT head, 1853 hours, May 27, 2021 FINDINGS: There is been no significant interval change in the acute subdural hemorrhage along the falx measuring up to 7 mm, accounting femoral minor redistribution. Trace subarachnoid hemorrhage along the left posterior frontal lobe is also unchanged. No associated mass effect. Lynch-white differentiation is preserved. Ventricles are stable in size. Basal cisterns are patent. No calvarial fracture or significant extracalvarial contusion or hematoma. Procedure Note Sue Parsons MD - 2021 EXAMINATION: CT HEAD WO CONTRAST (GENERIC) CLINICAL HISTORY: Subdural hematoma TECHNIQUE: CT head performed without intravenous contrast administration. COMPARISON: CT head, 1853 hours, May 27, 2021 FINDINGS: There is been no significant interval change in the acute subduralhemorrhage along the falx measuring up to 7 mm, accounting femoral minorredistribution. Trace subarachnoid hemorrhage along the left posterior frontal lobe isalso unchanged. No associated mass effect. Lynch-white differentiation ispreserved. Ventricles are stable in size. Basal cisterns are patent. No calvarialfracture or significant extracalvarial contusion or hematoma. IMPRESSION Stable examination with no significant interval change in size of thesubdural hemorrhage along the falx and trace subarachnoid hemorrhage. Thank you for letting us participate in the care of this patient. If youare a health care provider and have any questions regarding this report,please contact the number below. For patients who have questions please contactthe health customer care assistant that requested your imaging first. Manuel Singh DO IMG CT ORDERABLES * Gold Tube HOLD (2021 5:10 AM EST) [facility] Gold Hold Sample in lab. [facility] Blood Venous Draw / Unknown 2021 5:10 AM EST 2021 5:17 AM EST Donna Graves MD CHEMISTRY ORDERABL ES [facility] [place] [address] * (ABNORMAL) Differential, Automated (2021 5:10 AM EST) [facility] Neutrophil % 70.8 % [facility] Neutrophil Absolute 6.35(H) 1.70 - 6.10 x10(3)/mc L [facility] Lymph % 15.1 % [facility] Lymphocytes Abs 1.4 0.9 - 3.2 x10(3)/mc L [facility] Monocyte % 11.4 % [facility] Monocyte Abs 1.0(H) 0.3 - 0.9 x10(3)/mc L [facility] Eos % 2.3 % [facility] Eosinophils Abs 0.2 0.0 - 0.4 x10(3)/mc L [facility] Basophil % 0.2 % [facility] Baso Absolute 0.0 0.0 - 0.1 x10(3)/mc L [facility] Immature Gran % 0.20 % [facility] Comment: Immature granulocytes(IG's)percentage and absolute count will include metamyelocytes, myelocytes, and promyelocytes. Blood smears from CBCs yielding IG's will be scanned manually for concordance. If this scan disagrees with the automated IG or if promyelocytes are noted, a manual differential will be performed. Immature Gran Absolute 0.02 0.00 - 0.04 x10(3)/mc L [facility] Blood 2021 5:10 AM EST 2021 5:16 AM EST Narrative Resulting Agency Comment Spec In Lab Donna Graves MD HEMATOLOGY ORDERAB LES Performing Organization Address City/State/[facility] Co de Phone Number [facility] [place] [address] * Hemogram (2021 5:10 AM EST) White Blood Cell 9.0 4.0 - 9.5 x10(3)/[facility]AT[facility] Red Blood Cell 4.26 4.00 - 5.21 x10(6)/[facility] LABORATORY Hemoglobin 12.8 11.7 - 15.5 g/dL [facility] Hematocrit 37.7 35.7 - 45.8 % [facility] Mean Cell Volume 88.5 82.6 - 94.4 fL [facility] Mean Cell Hemoglobin 30.0 27.1 - 32.0 pg [facility] Mean Cell Hemoglobin Concentration 34.0 31.7 - 35.0 g/dL [facility] Platelet 269 145 - 357 x10(3)/[facility] LABORATORY RDW Standard Deviation 40.9 37.0 - 46.0 fL [facility] RDW coefficient of variation 12.6 11.5 - 14.1 % [facility] Mean Platelet Volume 9.1 7.6 - 12.9 fL [facility] NRBC% auto 0.0 % [facility] NRBC Absolute 0.000 0.000 - 0.000 x10(3)/mcL [facility] Blood 2021 5:10 AM EST 2021 5:16 AM EST Narrative Resulting Agency Comment Spec In Lab Donna Graves MD HEMATOLOGY ORDERAB LES [facility] [place] [address] * (ABNORMAL) Comprehensive metabolic panel (non-fasting) (2021 5:10 AM EST) Glucose 145 65 - 199 mg/dL [facility] Comment:Diabetes: >=200 mg/d L plus symptoms Blood Urea Nitrogen 11 8 - 18 mg/dL [facility] Creatinine 0.59(L) 0.70 - 1.20 mg/dL [facility] Sodium 137 135 - 145 mmol/L [facility] Potassium 4.1 3.5 - 5.0 mmol/L [facility] Comment: Please note: ??Patients with WBC >100,000 may have falsely elevated Potassium levels. ??For accurate Potassium quantification in these patients send serum separator tube (gold top) for subsequent determinations. ??Contact the Clinical Chemistry Laboratory if there are any questions. Chloride 103 98 - 107 mmol/L [facility] Carbon Dioxide 25 22 - 31 mmol/L [facility] Anion Gap 9 5 - 15 mmol/L [facility] Calcium 9.8 8.5 - 10.5 mg/dL [facility] Protein, Total 5.9(L) 6.1 - 8.0 g/dL [facility] Albumin 3.9 3.2 - 5.2 g/dL [facility] Aspartate Aminotransferase 18 0 - 30 unit/L [facility] Alanine Aminotransferase 21 0 - 30 unit/L [facility] Alkaline Phosphatase 79 35 - 105 unit/L [facility] Bilirubin, Total 0.3 0.2 - 1.3 mg/dL [facility] Est Glomerular Filtration Rate 90 >=60 mL/min/1. 73 m?? [facility] Comment: This patient? s estimated glomerular filtration rate (eGFR) is between 90 mL/min/1.73 m2 (patients with less muscle mass) and 105 mL/min/1.73 m2 (patients with more muscle mass) as determined by the CKD-EPI equation. Assessment of eGFR is not appropriate when creatinine concentrations are rapidly changing. For clinical decisions where creatinine clearance will affect therapy, a 24-hour urine creatinine clearance may be advised. Assignment of CKD stage 1 - 5 for patients with an eGFR near the transition point between stages may be based on clinical assessment of muscle mass and symptoms in addition to eGFR. Blood 2021 5:10 AM EST 2021 5:16 AM EST Narrative Resulting Agency Comment Spec In Lab Manuel Singh DO CHEMISTRY ORDERABLES Performing Organization Address [facility] de Phone Number [facility] [place] [address] * APTT (2021 5:10 AM EST) Partial Thromboplastin Time 29 25 - 37 sec [facility] Comment: The PTT is NOT appropriate for heparin monitoring. Use the Anti-Xa level for heparin monitoring (HEP UFH) or LMWH monitoring (HEP LMW). A PTT less than 37 seconds generally indicates adequate hemostasis. Blood 2021 5:10 AM EST 2021 5:16 AM EST Narrative Resulting Agency Comment Spec In Lab Manuel Singh DO HEMATOLOGY ORDERABLE S Performing Organization Address [facility] Co de Phone Number [facility] [place] [address] * Prothrombin Time (2021 5:10 AM EST) Prothrombin Time 12.1 9.4 - 12.5 sec [facility] International Normalization Ratio 1.1 [facility] Comment: An INR <2.0 indicates adequate procoagulant activity for hemostasis in most patients without underlying bleeding disorders, though the INR may not adequately reflect hemostatic capacity in patients with liver disease and synthetic impairment. The recommended target INR range for therapeutic anticoagulation is 2.0 ? 3.0 for most applications, though lower and higher ranges may be appropriate depending on clinical circumstances. Blood 2021 5:10 AM EST 2021 5:16 AM EST Narrative Resulting Agency Comment Spec In Lab Manuel Singh DO HEMATOLOGY ORDERABLE S [facility] [place] [address] * (ABNORMAL) Rapid Drug Screen w/o Confirmation, Urine (2021 4:00 AM EST) Barbiturates Screen, Urine None Detected None Detected [facility] Comment: The barbiturate screen detects barbiturates at concentrations >200 ng/mL. Note: Not all barbiturates cross-react equally with antibody used in this screen. A ? Presumptive Positive? result indicates that the screening result was positive but has not yet been confirmed by a highly-specific method. As with any screen, occasional false positive results from cross-reacting substances may occur. Not for Medico-Legal Purposes. Benzodiazepines Screen, Urine None Detected None Detected [facility] Comment: The benzodiazepines screen detects benzodiazepines at concentrations >100 ng/mL. Not all benzodiazepines cross-react equally with antibody used in this screen. Due to the low dosage of clonazepam, false negatives may be obtained due to low concentration of clonazepam metabolites. A ? Presumptive Positive? result indicates that the screening result was positive but has not yet been confirmed by a highly-specific method. As with any screen, occasional false positive results from cross-reacting substances may occur. Not for Medico-Legal Purposes. Cocaine Screen, Urine None Detected None Detected [facility] Comment: The cocaine metabolites screen detects benzoylecgonine (Cocaine Metabolite) at concentrations >150 ng/mL. A ? Presumptive Positive? result indicates that the screening result was positive but has not yet been confirmed by a highly-specific method. As with any screen, occasional false positive results from cross-reacting substances may occur. Not for Medico-Legal Purposes. Methadone Metabolites Screen, Urine None Detected None Detected [facility] Comment: The methadone metabolite screen detects EDDP (major methadone metabolite) at concentrations >100 ng/mL. A ? Presumptive Positive? result indicates that the screening result was positive but has not yet been confirmed by a highly-specific method. As with any screen, occasional false positive results from cross-reacting substances may occur. Not for Medico-Legal Purposes. Opiate Screen, Urine Presumptive Pos(A) None Detected [facility] Comment: The opiates screen detects opiates at concentrations >300 ng/mL. Please note that oxycodone, oxymorphone, fentanyl, tramadol, and other synthetic opioids are not detected by the opiate screen. A ? Presumptive Positive? result indicates that the screening result was positive but has not yet been confirmed by a highly-specific method. As with any screen, occasional false positive results from cross-reacting substances may occur. Not for Medico-Legal Purposes. Cannabinoid Screen, Urine None Detected None Detected [facility] Comment: The marijuana metabolites screen detects the THC metabolite (02-hds-4-carboxy-delta 9-THC) at concentrations >20 ng/mL. A ? Presumptive Positive? result indicates that the screening result was positive but has not yet been confirmed by a highly-specific method. As with any screen, occasional false positive results from cross-reacting substances may occur. Not for Medico-Legal Purposes. Oxycodone Screen, Urine None Detected None Detected [facility] Comment: The oxycodone screen detects oxycodone and oxymorphone at concentrations >100 ng/mL. A ? Presumptive Positive? result indicates that the screening result was positive but has not yet been confirmed by a highly-specific method. As with any screen, occasional false positive results from cross-reacting substances may occur. Not for Medico-Legal Purposes. Buprenorphine Screen, Urine None Detected None Detected [facility] Comment: The buprenorphine screen detects buprenorphine at concentrations >5 ng/mL. A ? Presumptive Positive? result indicates that the screening result was positive but has not yet been confirmed by a highly-specific method. As with any screen, occasional false positive results from cross-reacting substances may occur. Not for Medico-Legal Purposes. Fentanyl Screen, Urine None Detected None Detected [facility] Comment: The fentanyl screen detects fentanyl at concentrations >2 ng/mL. A ? Presumptive Positive? result indicates that the screening result was positive but has not yet been confirmed by a highly-specific method. As with any screen, occasional false positive results from cross-reacting substances may occur. Not for Medico-Legal Purposes. Tricyclics Screen, Urine None Detected None Detected [facility] Comment: The tricyclics screen detects tricyclic antidepressants at concentrations >150 ng/mL. Not all tricyclics cross-react equally with the antibody used in this screen. A ? Presumptive Positive? result indicates that the screening result was positive but has not yet been confirmed by a highly-specific method. As with any screen, occasional false positive results from cross-reacting substances may occur. Not for Medico-Legal Purposes. Ethanol Screen, Urine None Detected None Detected [facility] Comment:This urine ethanol a ssay detects ethanol at concentrations >/= 100 mg/L. Amphetamines Screen, Urine None Detected None Detected [facility] Comment: The amphetamine screen detects d-amphetamine and d-methamphetamine at concentrations >300 ng/mL. A ? Presumptive Positive? result indicates that the screening result was positive but has not yet been confirmed by a highly-specific method. As with any screen, occasional false positive results from cross-reacting substances may occur. Not for Medico-Legal Purposes. Adulterants Screen, Urine None Detected None Detected [facility] Comment: No adulteration or dilution of this urine sample was detected. All urine samples submitted for urine drugs of abuse analysis are tested for creatinine concentration, pH, and for the presence of oxidants, nitrites, and chromate. Urine 2021 4:00 AM EST 2021 4:30 AM EST Narrative Resulting Agency Comment Spec In Lab Chuyita Pak MD CHEMISTRY ORDERABLES Performing Organization Address City/[facility]/ZIP Co de Phone Number [facility] [place] [address] * Rapid Drug Screen, Urine (LEVI Request) (2021 4:00 AM EST) LEVI Conf Requested No [facility] Comment: Collection date/time has been modified to: 04:00:00. ??Previous collection date/time: 04:07:00. Corrected from No [NA] on 05/28/21 4:30:45 EST by Donavan Montoya. LEVI Requested See Comment [facility] Comment: Refer to Rapid Drug Screen w/o Confirmation, Urine for results. Collection date/time has been modified to: 04:00:00. ??Previous collection date/time: 04:07:00. Corrected from See Comment [NA] on 05/28/21 4:30:45 EST by Donavan Montoya. Urine 2021 4:00 AM EST 2021 4:30 AM EST Narrative Resulting Agency Comment Spec In Lab Manuel Singh DO URINE ORDERABLES Performing Organization Address [facility] Co de Phone Number [facility] [place] [address] * Urinalysis with reflex Culture (2021 4:00 AM EST) Glucose, Urine Dipstick Negative Negative mg/dL [facility] Protein, Urine Dipstick Negative Negative mg/dL [facility] Bilirubin, Urine Dipstick Negative Negative mg/dL [facility] Comment: Clinical correlation required for positive Urine Bilirubin results as false positive may occur with some drugs and drug related products. If a false positive is suspected a serum total bilirubin should be considered if clinically indicated. Urobilinogen, Urine Dipstick Normal Normal mg/dL [facility] pH, Urn (dipstick) 5.5 5.0 - 8.0 [facility] Blood, Urine Dipstick Negative Negative mg/dL [facility] Ketone, Urine Dipstick Negative Negative mg/dL [facility] Nitrite, Urine Dipstick Negative Negative [facility] Leukocytes, Urine Dipstick Negative Negative [facility] Appearance, Urine Dipstick Clear Clear [facility] Specific Ward Urine Automated 1.015 1.005 - 1.030 [facility] Color, Urine Dipstick Yellow Yellow [facility] Reflex to Culture No [facility] Straight Catheter Urine 2021 4:00 AM EST 2021 4:30 AM EST Narrative Resulting Agency Comment Spec In Lab Manuel Singh DO URINE ORDERABLES Performing Organization Address City/State/[facility] Co de Phone Number [facility] [place] [address] * Request For 2nd Read CT Spine (2021 3:37 AM EST) Anatomical Region Laterality Modality C-spine, T-spine, L-spine SO Impressions 2021 4:08 AM EST 1. ??No acute fracture or traumatic malalignment of the thoracic spine. 2. ??Nondisplaced right 8th to 11th posterior rib fractures. Thank you for letting us participate in the care of this patient. ??If you are a health care provider and have any questions regarding this report, please contact the number below. ??For patients who have questions please contact the health customer care assistant that requested your imaging first. ? Electronically signed by: Sue Parsons MD, [facility] ([phone]), at 2021 4:08 AM Narrative 2021 4:08 AM EST EXAMINATION: REQUEST FOR 2ND READ CT SPINE CLINICAL HISTORY: 76F s/p fall over ledge. Severe tenderness in mid thoracic region.; Sending Institution [facility]; Date of exam [id number]; I believe a reinterpretation of this exam may alter care of Patient. Yes TECHNIQUE: Reinterpretation of CT of the thoracic spine performed without intravenous contrast. Study performed at [facility] at 1856 hours, May 27, 2021 ?? COMPARISON: None. FINDINGS: Diffuse osseous demineralization. There is mild rightward curvature of the thoracic spine and normal thoracic kyphosis. Vertebral body heights are preserved. There is no acute fracture, subluxation or dislocation. No acute fracture of the included upper lumbar spine. Incidental note of a prominent L2 superior endplate Schmorl's node. Mild multilevel degenerative disc changes are noted. Paravertebral soft tissues are normal. Nondisplaced right 8th to 11th posterior rib fractures, with equivocal nondisplaced right 12th rib fracture. Adjacent dependent atelectasis, likely a combination of contusion and atelectasis. No pneumothorax or hemothorax. Paravertebral soft tissues are normal. Procedure Note Sue Parsons MD - 2021 EXAMINATION: REQUEST FOR 2ND READ CT SPINE CLINICAL HISTORY: 76F s/p fall over ledge. Severe tenderness in midthoracic region.; Sending Institution [facility]; Date of exam [id number]; Ibelieve a reinterpretation of this exam may alter care of Patient. Yes TECHNIQUE: Reinterpretation of CT of the thoracic spine performed withoutintravenous contrast. Study performed at [facility] at 1856 hours,May 27, 2021 COMPARISON: None. FINDINGS: Diffuse osseous demineralization. There is mild rightward curvature ofthe thoracic spine and normal thoracic kyphosis. Vertebral body heights are preserved. There is no acute fracture, subluxation or dislocation. Noacute fracture of the included upper lumbar spine. Incidental note of aprominent L2 superior endplate Schmorl's node. Mild multilevel degenerative discchanges are noted. Paravertebral soft tissues are normal. Nondisplaced right 8th to11th posterior rib fractures, with equivocal nondisplaced right 12th ribfracture. Adjacent dependent atelectasis, likely a combination of contusion and atelectasis. No pneumothorax or hemothorax. Paravertebral soft tissuesare normal. IMPRESSION 1. No acute fracture or traumatic malalignment of the thoracic spine. 2. Nondisplaced right 8th to 11th posterior rib fractures. Thank you for letting us participate in the care of this patient. If youare a health care provider and have any questions regarding this report,please contact the number below. For patients who have questions please contactthe health customer care assistant that requested your imaging first. Electronically signed by: Sue Parsons MD, [facility]([phone]), at 2021 4:08 AM Manuel Francisco IMG OUTSIDE INTERPRE TATION ORDERABLES * Request For 2nd Read CT Head [...] who have questions please contact the health customer care assistant that requested your imaging first. ? Narrative 2021 3:04 AM EST EXAMINATION: REQUEST FOR 2ND READ CT HEAD AND SPINE CLINICAL HISTORY: 76F fall off a porch, SDH at OSH; Sending Institution [facility]; Date of exam [id number]; I believe a reinterpretation of this exam may alter care of Patient. Yes TECHNIQUE: Reinterpretation of CT of the head and cervical spine performed without intravenous contrast. Study performed at [facility] at 1856 hours, May 27, 2021 [...] off a porch, [facility]; [facility]; Date of exam [id number]; I believe a reinterpretation of this exammay alter care of Patient. Yes TECHNIQUE: Reinterpretation of CT of the head and cervical spine performed without intravenous contrast. Study performed at [facility] at 1856hours, May 27, 2021 COMPARISON: [...] patients who have questions please contactthe health customer care assistant that requested your imaging first. Electronically signed by: Sue Parsons MD, [facility]([phone]), at 2021 3:04 AM Manuel Singh DO IMG OUTSIDE INTERPRE TATION ORDERABLES * EKG 12 Lead (05/27/2021 11:29 PM EST) Ventricular rate 94 BPM MUSE SYSTEM Atrial Rate 94 BPM MUSE SYSTEM P-R Interval 186 ms MUSE SYSTEM QRS Duration 66 ms MUSE SYSTEM Q-T Interval 354 ms MUSE SYSTEM QTC Calculated (Bezet) 442 ms MUSE SYSTEM Calculated P [place] 48 degrees MUSE SYSTEM Calculated R [place] -22 degrees MUSE SYSTEM Calculated T [place] 17 degrees MUSE SYSTEM INTERPRETATION Normal sinus rhythm Possible Inferior infarct , age undetermined Abnormal ECG No previous ECGs available Confirmed by MD Ladi, Abraham Gandara () on 2021 9:40:11 AM MUSE SYSTEM 05/27/2021 11:2 9 PM EST 2021 9:40 AM EST Anna Barajas MD ECG ORDERABLES MUSE SYSTEM * Film Library- Storage Only CT Spine (05/27/2021 12:00 AM EST) Narrative Dicom, Auditing User - 2021 12:32 AM EST This exam is auto-finalizing. It's purpose is for storage only. Manuel Singh DO [facility] FILM LIBRARY ORD ERABLES documented in this encounter Visit Diagnoses Diagnosis Subdural hematoma Subdural hemorrhage Fall, initial encounter Fall, subsequent encounter Closed fracture of multiple ribs of both sides, initial encounter Fall Unspecified fall Subdural hematoma Subdural hemorrhage documented in this encounter Admitting Diagnoses Diagnosis Fall Unspecified fall documented in this encounter Administered Medications Inactive Administered Medications - up to 3 most recent administrations Medication Order MAR Action Action Date Dose Rate Site acetaminophen (Tylenol) tablet 650 mg 650 mg, Oral, EVERY 6 HOURS SCHEDULED, First dose on Sat05/28/21 at 0648, Until Discontinued, Maximum dose of acetaminophen is 4000 mg from all sources in 24 hours. When ordered for pain, acetaminophen should be given even when other ordered pain medications are indicated., Routine Given 2021 11:34 AM EST 650 mg Given 2021 8:41 AM EST 650 mg acetaminophen (Tylenol) tablet 650 mg 650 mg, Oral, EVERY 6 HOURS SCHEDULED, First dose (after last modification) on Sat05/28/21 at 1800, Until Discontinued, Maximum dose of acetaminophen is 4000 mg from all sources in 24 hours. When ordered for pain, acetaminophen should be given even when other ordered pain medications are indicated., Routine Given 05/30/2021 8:31 AM EST 650 mg Given 05/30/2021 12:08 AM EST 325 mg Given 05/29/2021 6:16 PM EST 325 mg bisacodyL (Dulcolax) suppository 10 mg 10 mg, Rectal, DAILY PRN, Starting on Sat05/28/21 at 1252, Until Sat05/30/21 at 1859, Constipation, Routine dextrose 10% infusion 250 mL, at 1,000 mL/hr, Intravenous, EVERY 30 MIN PRN, Starting on Sat05/28/21 at 1418, Until Sat05/30/21 at 1859, For BG 50-70 mg/dL: Oral treatment preferred: If able to drink, give 120 mL Juice or Regular (not diet) soda OR If NPO, give 15 gram glucose 40% oral gel massaged into buccal mucosa OR if unconscious or uncooperative, give 25 gram (250 mL) Dextrose 10% IV over 15 minutes per protocol OR, if no IV access, 1 mg Glucagon IM. For BG less than 50 mg/dL: Oral treatment preferred: If able to drink, give 240 mL Juice or Regular (not diet) soda OR If NPO, give 30 gram glucose 40% oral gel massaged in buccal mucosa OR if unconscious or uncooperative, give 25 gram (250 mL) Dextrose 10% IV over 15 minutes per protocol OR, if no IV access, 1 mg Glucagon IM. Recheck BG in 30 minutes. May repeat juice/soda, gel, dextrose or glucagon once per episode. For persistent hypoglycemia, consider longer-acting treatment for the duration of the active insulin. famotidine (Pepcid) tablet 20 mg 20 mg, Oral, 2 TIMES DAILY, First dose on Sat05/28/21 at 0900, Until Discontinued, If unable to take PO, may give IV, Routine Given 05/30/2021 8:31 AM EST 20 mg Given 05/29/2021 9:38 PM EST 20 mg Given 05/29/2021 10:06 AM EST 20 mg glucagon (Glucagen) (1 mg/mL) injection solution 1 mg 1 mg, Intramuscular, EVERY 30 MIN PRN, Starting on Sat05/28/21 at 1418, Until Sat05/30/21 at 1859, Low blood sugar, For BG 50-70 mg/dL: Oral treatment preferred: If able to drink, give 120 mL Juice or Regular (not diet) soda OR If NPO, give 15 gram glucose 40% oral gel massaged into buccal mucosa OR if unconscious or uncooperative, give 25 gram (250 mL) Dextrose 10% IV over 15 minutes per protocol OR, if no IV access, 1 mg Glucagon IM. For BG less than 50 mg/dL: Oral treatment preferred: If able to drink, give 240 mL Juice or Regular (not diet) soda OR If NPO, give 30 gram glucose 40% oral gel massaged in buccal mucosa OR if unconscious or uncooperative, give 25 gram (250 mL) Dextrose 10% IV over 15 minutes per protocol OR, if no IV access, 1 mg Glucagon IM. Recheck BG in 30 minutes. May repeat juice/soda, gel, dextrose or glucagon once per episode. For persistent hypoglycemia, consider longer-acting treatment for the duration of the active insulin., Routine glucose (GLUTOSE) 40% oral geL 15-30 g, Buccal, EVERY 30 MIN PRN, Starting on Sat05/28/21 at 1418, Until Sat05/30/21 at 1859, Low blood sugar, For BG 50-70 mg/dL: Oral treatment preferred: If able to drink, give 120 mL Juice or Regular (not diet) soda OR If NPO, give 15 gram glucose 40% oral gel massaged into buccal mucosa OR if unconscious or uncooperative, give 25 gram (250 mL) Dextrose 10% IV over 15 minutes per protocol OR, if no IV access, 1 mg Glucagon IM. For BG less than 50 mg/dL: Oral treatment preferred: If able to drink, give 240 mL Juice or Regular (not diet) soda OR If NPO, give 30 gram glucose 40% oral gel massaged in buccal mucosa OR if unconscious or uncooperative, give 25 gram (250 mL) Dextrose 10% IV over 15 minutes per protocol OR, if no IV access, 1 mg Glucagon IM. Recheck BG in 30 minutes. May repeat juice/soda, gel, dextrose or glucagon once per episode. For persistent hypoglycemia, consider longer-acting treatment for the duration of the active insulin. 1 tube contains 15 grams of glucose (net weight of tube = 37.5 grams., Routine HYDROmorphone (Dilaudid) (0.5 mg/0.5 mL) injection syringe 0.2 mg 0.2 mg, Intravenous, EVERY 4 HOURS PRN, Starting on Sat05/28/21 at 0309, Until Sat05/28/21 at 1258, Pain, Routine Given 2021 3:37 AM EST 0.2 mg insulin lispro (HumaLOG;Admelog) (100 unit/mL) subcutaneous injection vial 1-4 Units 1-4 Units, Subcutaneous, 3 TIMES DAILY BEFORE MEALS, First dose on Sat05/28/21 at 1630, Until Discontinued, CORRECTION BOLUS [1-4 Units] Sensitive Sliding Scale (BG in mg/dL): Correction factor 40 (1 unit of insulin is expected to drop the glucose 40 mg/dL) BG 160 - 200 Give 1 unit BG 201 - 240 Give 2 units BG 241 - 280 Give 3 units BG greater than 280, give 4 units and recheck BG in 2 hours. - If recheck BG is LESS than 280, give no insulin and resume schedule - If recheck BG is GREATER than 280, give 4 units and repeat BG in 2 hours (no more than 3 times) & call for new insulin orders. DO NOT hold if NPO, unless specifically directed to do so by written order. Per Blood Glucose Monitoring Policy, re-check a BG of > 240 mg/dL in 2 hours., Routine iohexoL (Omnipaque) (350 mg/mL) solution 0-200 mL 0-200 mL, Intravenous, ONCE PRN, 1 dose, Starting on 05/28/21 at 0833, Until 05/28/21 at 0833, Per Protocol, Warning Vesicant/Irritant Medication , Radiology Contrast, Routine Given 2021 8:33 AM EST 93 mLs lactated ringers infusion 100 mL/hr, Intravenous, CONTINUOUS, Starting on 05/28/21 at 0306, Until 05/28/21 at 1357 New Bag 2021 3:44 AM EST 100 mL/hr 100 mL/hr lactated ringers infusion 1,000 mL, at 100 mL/hr, Intravenous, CONTINUOUS, Starting on 05/28/21 at 0737, Until 05/28/21 at 1357, Recovery ([facility]-Hospital Unit) Continued Bag 2021 8:41 AM EST 1,000 mLs 100 mL/hr levETIRAcetam (Keppra) tablet 500 mg 500 mg, Oral, 2 TIMES DAILY, 14 doses, First dose on 05/28/21 at 1345, Last dose on 06/03/21 at 2100, Routine Given 05/30/2021 8:31 AM EST 500 mg Given 05/29/2021 10:11 PM EST 500 mg Given 05/29/2021 10:06 AM EST 500 mg lidocaine (Lidoderm) 5% patch 3 patch 3 patch, Transdermal, EVERY 24 HOURS, First dose on 05/28/21 at 1345, Until Discontinued, Apply patch(es) for 12 hours, and then remove for 12 hours., Routine Patch Applied 05/30/2021 1:41 PM EST 3 patches 06- Back Upper (Right) Patch Applied 05/29/2021 2:41 PM EST 3 patches 06- Back Upper (Right) Patch Applied 2021 2:54 PM EST 3 patches 06- Back Upper (Right) lidocaine (Lidoderm) topical patch REMOVAL Transdermal, EVERY 24 HOURS, First dose on 05/29/21 at 0100, Until Discontinued, Remove lidocaine 5% patch lidocaine (Xylocaine) 1% (10 mg/mL) injection 3 mg 3 mg (0.3 mL), Subcutaneous, ONCE PRN, 1 dose, Starting on Sat05/28/21 at 0734, Until Sat05/30/21 at 1859, for discomfort with PIV insertion, Recovery ([facility]ospital Unit), Routine morphine (4 mg/mL) injection 4 mg 4 mg, Intravenous, ONCE, 1 dose, On 05/27/21 at 2332, STAT Given 05/27/2021 11:39 PM EST 4 mg naloxone (Narcan) (0.4 mg/mL) injection 0.2 mg 0.2 mg, Intravenous, EVERY 1 MIN PRN, Starting on Sat05/28/21 at 0734, Until Sat05/30/21 at 1859, Opioid Reversal, If respiratory rate less than 6 OR the patient is unable to arouse OR SpO2 is declining, Give for respiratory rate of less than or equal to 6 and patient is heavily sedated or unarousable. May repeat every 60 seconds to increase respiratory rate. DO NOT exceed 2 mg total dose., Recovery ([facility]ospital Unit), Routine oxyCODONE (Roxicodone) tablet 5 mg 5 mg, Oral, EVERY 4 HOURS PRN, Starting on Sat05/28/21 at 0642, Until Sat05/30/21 at 1859, Pain, Moderate pain (4-6), Routine Given 2021 10:48 PM EST 5 mg Given 2021 8:42 AM EST 5 mg polyethylene glycoL (Miralax) packet 17 g 17 g, Oral, DAILY, First dose (after last modification) on Sat05/28/21 at 1445, Until Discontinued, Routine Given 05/30/2021 8:31 AM EST 17 g Given 05/29/2021 10:05 AM EST 17 g Given 2021 2:53 PM EST 17 g senna-docusate (Pericolace) 8.6-50 mg per tablet 2 tablet 2 tablet, Oral, 2 TIMES DAILY, First dose on Sat05/28/21 at 1345, Until Discontinued, Routine Given 05/30/2021 8:31 AM EST 2 tablets Given 05/29/2021 9:38 PM EST 1 tablet Given 05/29/2021 10:05 AM EST 1 tablet sodium chloride 0.9 % (flush) (BD PosiFlush Normal Saline 0.9) flush 5 mL 5 mL, Intravenous, 2 TIMES DAILY, First dose on Sat05/28/21 at 0900, Until Discontinued, Recovery ([facility]), Routine Given 05/30/2021 8:31 AM EST 5 mLs Given 05/29/2021 10:08 AM EST 5 mLs Given 2021 8:42 AM EST 10 mLs sodium chloride 0.9 % (flush) (BD PosiFlush Normal Saline 0.9) flush 5-20 mL 5-20 mL, Intravenous, EVERY 1 MIN PRN, Starting on Sat05/28/21 at 0734, Until Sat05/30/21 at 1859, flush, Flush pertains to all indwelling lines. Flush per protocol found in the job aid using the link provided on this medication record., Recovery (Recovery[facility]Hospital Unit), Routine documented in this encounter Active and Recently Administered Medications Times are shown in EST. Scheduled Medication Order 2021 05/29/2021 05/30/2021 acetaminophen (Tylenol) tablet 650 mg (CANCELED) 650 mg, Oral, EVERY 6 HOURS SCHEDULED, First dose on Sat05/28/21 at 0648, Until Discontinued, Maximum dose of acetaminophen is 4000 mg from all sources in 24 hours. When ordered for pain, acetaminophen should be given even when other ordered pain medications are indicated., Routine 0841 (Given - Provider: Lexie Thomas RN)1134 (Given - Provider: Donna Prabhakar RN) acetaminophen (Tylenol) tablet 650 mg 650 mg, Oral, EVERY 6 HOURS SCHEDULED, First dose (after last modification) on 05/28/21 at 1800, Until Discontinued, Maximum dose of acetaminophen is 4000 mg from all sources in 24 hours. When ordered for pain, acetaminophen should be given even when other ordered pain medications are indicated., Routine 1721 (Given - Provider: Donna Prabhakar RN) 0000 (Not Given - Provider: Rush Hung RN - Reason: Patient/family refused)0510 (Given - Provider: Rush Hung RN)1242 (Given - Provider: Tristan Green RN)1816 (Given - Provider: Tristan Green RN - Comment: One pill per pt request) 0008 (Given - Provider: Rush Hung RN - Comment: pt refused full dose)0831 (Given - Provider: Bee Gonzalez RN)1500 (Due - Provider: Dylan Villa [facility]) famotidine (Pepcid) tablet 20 mg(Linked Group 1) 20 mg, Oral, 2 TIMES DAILY, First dose on 05/28/21 at 0900, Until Discontinued, If unable to take PO, may give IV, Routine 0842 (Given - Provider: Lexie Thomas RN)2055 (Given - Provider: Rush Hung RN) 1006 (Given - Provider: Tristan Green RN)2138 (Given - Provider: Rush Hung RN) 0831 (Given - Provider: Bee Gonzalez RN) insulin lispro (HumaLOG;Admelog) (100 unit/mL) subcutaneous injection vial 1-4 Units(Linked Group 2) 1-4 Units, Subcutaneous, 3 TIMES DAILY BEFORE MEALS, First dose on 05/28/21 at 1630, Until Discontinued, CORRECTION BOLUS [1-4 Units] Sensitive Sliding Scale (BG in mg/dL): Correction factor 40 (1 unit of insulin is expected to drop the glucose 40 mg/dL) BG 160 - 200 Give 1 unit BG 201 - 240 Give 2 units BG 241 - 280 Give 3 units BG greater than 280, give 4 units and recheck BG in 2 hours. - If recheck BG is LESS than 280, give no insulin and resume schedule - If recheck BG is GREATER than 280, give 4 units and repeat BG in 2 hours (no more than 3 times) & call for new insulin orders. DO NOT hold if NPO, unless specifically directed to do so by written order. Per Blood Glucose Monitoring Policy, re-check a BG of > 240 mg/dL in 2 hours., Routine 1630 (Not Given - Provider: Donna Prabhakar RN - Reason: Order parameters not met - Comment: BG 126) 0729 (Not Given - Provider: Tristan Green RN - Reason: Order parameters not met)1120 (Not Given - Provider: Tristan Green RN - Reason: Order parameters not met)1534 (Not Given - Provider: Tristan Green RN - Reason: Order parameters not met) 0758 (Not Given - Provider: Bee Gonzalez RN - Reason: Order parameters not met)1128 (Not Given - Provider: Bee Gonzalez RN - Reason: Order parameters not met)1630 (Due) levETIRAcetam (Keppra) tablet 500 mg 500 mg, Oral, 2 TIMES DAILY, 14 doses, First dose on 05/28/21 at 1345, Last dose on 06/03/21 at 2100, Routine 1454 (Given - Provider: Donna Prabhakar RN)2055 (Given - Provider: Rush Hung RN) 1006 (Given - Provider: Tristan Green RN)2211 (Given - Provider: Rush Hung RN) 0831 (Given - Provider: Bee Gonzalez RN) lidocaine (Lidoderm) 5% patch 3 patch(Linked Group 3) 3 patch, Transdermal, EVERY 24 HOURS, First dose on 05/28/21 at 1345, Until Discontinued, Apply patch(es) for 12 hours, and then remove for 12 hours., Routine 1454 (Patch Applied - Provider: Donna Prabhakar RN) 1441 (Patch Applied - Provider: Tristan Green RN) 1341 (Patch Applied - Provider: Bee Gonzalez RN) lidocaine (Lidoderm) topical patch REMOVAL(Linked Group 3) Transdermal, EVERY 24 HOURS, First dose on 05/29/21 at 0100, Until Discontinued, Remove lidocaine 5% patch 0100 (Patch Removed - Provider: Rush Hung RN) 0100 (Patch Removed - Provider: Rush Hung RN) polyethylene glycoL (Miralax) packet 17 g 17 g, Oral, DAILY, First dose (after last modification) on 05/28/21 at 1445, Until Discontinued, Routine 1453 (Given - Provider: Donna Prabhakar, RN) 1005 (Given - Provider: Tristan Green RN) 0831 (Given - Provider: Bee Gonzalez, ALLAN) senna-docusate (Pericolace) 8.6-50 mg per tablet 2 tablet 2 tablet, Oral, 2 TIMES DAILY, First dose on 05/28/21 at 1345, Until Discontinued, Routine 1453 (Given - Provider: Donna Prabhakar, ALLAN)205 (Given - Provider: Rush Hung RN) 1005 (Given - Provider: Tristan Green RN - Comment: Pt requested only one)2137 (Given - Provider: Rush Hung RN) 0831 (Given - Provider: Bee Gonzalez RN) sodium chloride 0.9 % (flush) (BD PosiFlush Normal Saline 0.9) flush 5 mL 5 mL, Intravenous, 2 TIMES DAILY, First dose on 05/28/21 at 0900, Until Discontinued, Recovery (Recovery-Hospital Unit), Routine 0842 (Given - Provider: Lexie Thomas RN)2100 (Not Given - Provider: Rush Hung RN - Reason: Contraindicated) 1008 (Given - Provider: Tristan Green RN)2100 (Not Given - Provider: Rush Hung RN - Reason: Contraindicated) 0831 (Given - Provider: Bee Gonzalez, ALLAN) Continuous Medication Order 2021 05/29/2021 05/30/2021 lactated ringers infusion (CANCELED) 100 mL/hr, Intravenous, CONTINUOUS, Starting on 05/28/21 at 0306, Until 05/28/21 at 1357 0344 (New Bag - Provider: Allyson Thompson RN)1357 (Stopped - Provider: Donna Prabhakar RN) lactated ringers infusion (CANCELED) 1,000 mL, at 100 mL/hr, Intravenous, CONTINUOUS, Starting on 05/28/21 at 0737, Until 05/28/21 at 1357, Recovery (Recovery-Hospital Unit) 0841 (Continued Bag - Provider: Lexie Thomas RN)1357 (Stopped - Provider: Donna Prabhakar RN) PRN Medication Order 2021 05/29/2021 05/30/2021 bisacodyL (Dulcolax) suppository 10 mg 10 mg, Rectal, DAILY PRN, Starting on Sat05/28/21 at 1252, Until Sat05/30/21 at 1859, Constipation, Routine dextrose 10% infusion(Linked Group 4) 250 mL, at 1,000 mL/hr, Intravenous, EVERY 30 MIN PRN, Starting on Sat05/28/21 at 1418, Until Sat05/30/21 at 1859, For BG 50-70 mg/dL: Oral treatment preferred: If able to drink, give 120 mL Juice or Regular (not diet) soda OR If NPO, give 15 gram glucose 40% oral gel massaged into buccal mucosa OR if unconscious or uncooperative, give 25 gram (250 mL) Dextrose 10% IV over 15 minutes per protocol OR, if no IV access, 1 mg Glucagon IM. For BG less than 50 mg/dL: Oral treatment preferred: If able to drink, give 240 mL Juice or Regular (not diet) soda OR If NPO, give 30 gram glucose 40% oral gel massaged in buccal mucosa OR if unconscious or uncooperative, give 25 gram (250 mL) Dextrose 10% IV over 15 minutes per protocol OR, if no IV access, 1 mg Glucagon IM. Recheck BG in 30 minutes. May repeat juice/soda, gel, dextrose or glucagon once per episode. For persistent hypoglycemia, consider longer-acting treatment for the duration of the active insulin. glucagon (Glucagen) (1 mg/mL) injection solution 1 mg(Linked Group 4) 1 mg, Intramuscular, EVERY 30 MIN PRN, Starting on Sat05/28/21 at 1418, Until Sat05/30/21 at 1859, Low blood sugar, For BG 50-70 mg/dL: Oral treatment preferred: If able to drink, give 120 mL Juice or Regular (not diet) soda OR If NPO, give 15 gram glucose 40% oral gel massaged into buccal mucosa OR if unconscious or uncooperative, give 25 gram (250 mL) Dextrose 10% IV over 15 minutes per protocol OR, if no IV access, 1 mg Glucagon IM. For BG less than 50 mg/dL: Oral treatment preferred: If able to drink, give 240 mL Juice or Regular (not diet) soda OR If NPO, give 30 gram glucose 40% oral gel massaged in buccal mucosa OR if unconscious or uncooperative, give 25 gram (250 mL) Dextrose 10% IV over 15 minutes per protocol OR, if no IV access, 1 mg Glucagon IM. Recheck BG in 30 minutes. May repeat juice/soda, gel, dextrose or glucagon once per episode. For persistent hypoglycemia, consider longer-acting treatment for the duration of the active insulin., Routine glucose (GLUTOSE) 40% oral geL(Linked Group 4) 15-30 g, Buccal, EVERY 30 MIN PRN, Starting on Sat05/28/21 at 1418, Until Tu05/30/21 at 1859, Low blood sugar, For BG 50-70 mg/dL: Oral treatment preferred: If able to drink, give 120 mL Juice or Regular (not diet) soda OR If NPO, give 15 gram glucose 40% oral gel massaged into buccal mucosa OR if unconscious or uncooperative, give 25 gram (250 mL) Dextrose 10% IV over 15 minutes per protocol OR, if no IV access, 1 mg Glucagon IM. For BG less than 50 mg/dL: Oral treatment preferred: If able to drink, give 240 mL Juice or Regular (not diet) soda OR If NPO, give 30 gram glucose 40% oral gel massaged in buccal mucosa OR if unconscious or uncooperative, give 25 gram (250 mL) Dextrose 10% IV over 15 minutes per protocol OR, if no IV access, 1 mg Glucagon IM. Recheck BG in 30 minutes. May repeat juice/soda, gel, dextrose or glucagon once per episode. For persistent hypoglycemia, consider longer-acting treatment for the duration of the active insulin. 1 tube contains 15 grams of glucose (net weight of tube = 37.5 grams., Routine HYDROmorphone (Dilaudid) (0.5 mg/0.5 mL) injection syringe 0.2 mg (CANCELED) 0.2 mg, Intravenous, EVERY 4 HOURS PRN, Starting on Sat05/28/21 at 0309, Until Sat05/28/21 at 1258, Pain, Routine 0337 (Given - Provider: Allyson Thompson ALLAN) iohexoL (Omnipaque) (350 mg/mL) solution 0-200 mL (COMPLETED) 0-200 mL, Intravenous, ONCE PRN, 1 dose, Starting on Sat05/28/21 at 0833, Until Sat05/28/21 at 0833, Per Protocol, Warning Vesicant/Irritant Medication , Radiology Contrast, Routine 0833 (Given - Provider: Hunter Lemons) lidocaine (Xylocaine) 1% (10 mg/mL) injection 3 mg 3 mg (0.3 mL), Subcutaneous, ONCE PRN, 1 dose, Starting on Sat05/28/21 at 0734, Until Sat05/30/21 at 1859, for discomfort with PIV insertion, Recovery (Recovery-Hospital Unit), Routine naloxone (Narcan) (0.4 mg/mL) injection 0.2 mg 0.2 mg, Intravenous, EVERY 1 MIN PRN, Starting on Sat05/28/21 at 0734, Until Sat05/30/21 at 185, Opioid Reversal, If respiratory rate less than 6 OR the patient is unable to arouse OR SpO2 is declining, Give for respiratory rate of less than or equal to 6 and patient is heavily sedated or unarousable. May repeat every 60 seconds to increase respiratory rate. DO NOT exceed 2 mg total dose., Recovery (Recovery-[facility]ospital Unit), Routine oxyCODONE (Roxicodone) tablet 5 mg 5 mg, Oral, EVERY 4 HOURS PRN, Starting on Sat05/28/21 at 0642, Until Sat05/30/21 at 1859, Pain, Moderate pain (4-6), Routine 0842 (Given - Provider: Lexie Thomas, ALLAN)2248 (Given - Provider: Rush Hung RN) sodium chloride 0.9 % (flush) (BD PosiFlush Normal Saline 0.9) flush 5-20 mL 5-20 mL, Intravenous, EVERY 1 MIN PRN, Starting on Sat05/28/21 at 0734, Until Sat05/30/21 at 1859, flush, Flush pertains to all indwelling lines. Flush per protocol found in the job aid using the link provided on this medication record., Recovery ([facility]ospital [facility]), Routine Linked Groups Order Group 1: famotidine (Pepcid) tablet 20 mgJump to med 20 mg, Oral, 2 TIMES DAILY, First dose on Sat05/28/21 at 0900, Until Discontinued, If unable to take PO, may give IV, Routine Or famotidine (Pepcid) (10 mg/mL) injection 20 mg (CANCELED) 20 mg, Intravenous, 2 TIMES DAILY, First dose on Sat05/28/21 at 0900, Until Discontinued, Routine Group 2: POCT Fingerstick Glucose (CANCELED) Routine, 4 TIMES DAILY BEFORE MEALS & AT BEDTIME, First occurrence on Sat05/28/21 at 1700, Until Specified, Consider choosing FOUR TIMES A DAY BEFORE MEALS AND AT BEDTIME as frequency for: Patients who have good hypoglycemia awareness: -Patients who are eating meals during the day and sleeping at night -Patient who are otherwise stable And insulin lispro (HumaLOG;Admelog) (100 unit/mL) subcutaneous injection vial 1-4 UnitsJump to med 1-4 Units, Subcutaneous, 3 TIMES DAILY BEFORE MEALS, First dose on Sat05/28/21 at 1630, Until Discontinued, CORRECTION BOLUS [1-4 Units] Sensitive Sliding Scale (BG in mg/dL): Correction factor 40 (1 unit of insulin is expected to drop the glucose 40 mg/dL) BG 160 - 200 Give 1 unit BG 201 - 240 Give 2 units BG 241 - 280 Give 3 units BG greater than 280, give 4 units and recheck BG in 2 hours. - If recheck BG is LESS than 280, give no insulin and resume schedule - If recheck BG is GREATER than 280, give 4 units and repeat BG in 2 hours (no more than 3 times) & call for new insulin orders. DO NOT hold if NPO, unless specifically directed to do so by written order. Per Blood Glucose Monitoring Policy, re-check a BG of > 240 mg/dL in 2 hours., Routine Group 3: lidocaine (Lidoderm) 5% patch 3 patchJump to med 3 patch, Transdermal, EVERY 24 HOURS, First dose on Sat05/28/21 at 1345, Until Discontinued, Apply patch(es) for 12 hours, and then remove for 12 hours., Routine And lidocaine (Lidoderm) topical patch REMOVALJump to med Transdermal, EVERY 24 HOURS, First dose on Sat05/29/21 at 0100, Until Discontinued, Remove lidocaine 5% patch Group 4: glucose (GLUTOSE) 40% oral geLJump to med 15-30 g, Buccal, EVERY 30 MIN PRN, Starting on Sat05/28/21 at 1418, Until Sat05/30/21 at 1859, Low blood sugar, For BG 50-70 mg/dL: Oral treatment preferred: If able to drink, give 120 mL Juice or Regular (not diet) soda OR If NPO, give 15 gram glucose 40% oral gel massaged into buccal mucosa OR if unconscious or uncooperative, give 25 gram (250 mL) Dextrose 10% IV over 15 minutes per protocol OR, if no IV access, 1 mg Glucagon IM. For BG less than 50 mg/dL: Oral treatment preferred: If able to drink, give 240 mL Juice or Regular (not diet) soda OR If NPO, give 30 gram glucose 40% oral gel massaged in buccal mucosa OR if unconscious or uncooperative, give 25 gram (250 mL) Dextrose 10% IV over 15 minutes per protocol OR, if no IV access, 1 mg Glucagon IM. Recheck BG in 30 minutes. May repeat juice/soda, gel, dextrose or glucagon once per episode. For persistent hypoglycemia, consider longer- acting treatment for the duration of the active insulin. 1 tube contains 15 grams of glucose (net weight of tube = 37.5 grams., Routine Or dextrose 10% infusionJump to med 250 mL, at 1,000 mL/hr, Intravenous, EVERY 30 MIN PRN, Starting on Sat05/28/21 at 1418, Until Sat05/30/21 at 1859, For BG 50-70 mg/dL: Oral treatment preferred: If able to drink, give 120 mL Juice or Regular (not diet) soda OR If NPO, give 15 gram glucose 40% oral gel massaged into buccal mucosa OR if unconscious or uncooperative, give 25 gram (250 mL) Dextrose 10% IV over 15 minutes per protocol OR, if no IV access, 1 mg Glucagon IM. For BG less than 50 mg/dL: Oral treatment preferred: If able to drink, give 240 mL Juice or Regular (not diet) soda OR If NPO, give 30 gram glucose 40% oral gel massaged in buccal mucosa OR if unconscious or uncooperative, give 25 gram (250 mL) Dextrose 10% IV over 15 minutes per protocol OR, if no IV access, 1 mg Glucagon IM. Recheck BG in 30 minutes. May repeat juice/soda, gel, dextrose or glucagon once per episode. For persistent hypoglycemia, consider longer-acting treatment for the duration of the active insulin. Or glucagon (Glucagen) (1 mg/mL) injection solution 1 mgJump to med 1 mg, Intramuscular, EVERY 30 MIN PRN, Starting on Sat05/28/21 at 1418, Until Sat05/30/21 at 1859, Low blood sugar, For BG 50-70 mg/dL: Oral treatment preferred: If able to drink, give 120 mL Juice or Regular (not diet) soda OR If NPO, give 15 gram glucose 40% oral gel massaged into buccal mucosa OR if unconscious or uncooperative, give 25 gram (250 mL) Dextrose 10% IV over 15 minutes per protocol OR, if no IV access, 1 mg Glucagon IM. For BG less than 50 mg/dL: Oral treatment preferred: If able to drink, give 240 mL Juice or Regular (not diet) soda OR If NPO, give 30 gram glucose 40% oral gel massaged in buccal mucosa OR if unconscious or uncooperative, give 25 gram (250 mL) Dextrose 10% IV over 15 minutes per protocol OR, if no IV access, 1 mg Glucagon IM. Recheck BG in 30 minutes. May repeat juice/soda, gel, dextrose or glucagon once per episode. For persistent hypoglycemia, consider longer-acting treatment for the duration of the active insulin., Routine documented in this encounter Care Teams Aviation Maintenance Instructor Relationship Specialty Start Date End Date Steve Vann MD [facility] [place] [id number] PCP - General Family Medicine 05/10/21 documented as of this encounter
--- OUTSIDE RECORDS SUMMARY | 2023-11-29 17:59 | XMS_ITS | Encounter Summary ---
Author Organization [facility] Address [address] [place] [address] Care Team Providers Care Electric Range Assembler Name Role Phone Steve Vann MD Primary Care Provider [phone] Reason for Visit * Reason Onset Date Comments Appointment Related 03/18/2023 Encounter Details Date Type Department Care Team (Late st Contact Info) Description 03/18/[facility] Breast Imaging Mammography - Main [address] [id number] Esmer Potter Appointment Related Social History Tobacco Use Types Packs/Day Years Used Date Smoking Tobacco: Never Assessed Interpersonal Safety Answer Date Record ed Physically Hurt Never 11/08/2019 Verbally Threaten Not on file 11/08/2019 Sex and Gender Information Value Date Recorded Sex Assigned at Not on file Gender Identity Not on file Sexual Orientation Not on file documented as of this encounter Miscellaneous Notes * Telephone Encounter - Esmer Potter - 03/18/2023 1353 EST Yung called in to discuss our radiologist's rejection of Breast MRI order. I explained that our provider does not agree that MRI is needed, and that if the patient or her PCP would like an official report about what they DO think is needed, we could perform a film review. I left our phone number in triage in case they need to reach us again. documented in this encounter Plan of Treatment Not on file documented as of this encounter Visit Diagnoses Not on filedocumented in this encounter Care Teams Electric Range Assembler Relationship Specialty Start Date End Date [place] [address] [place] [address] PCP - General 01/06/21 documented as of this encounter
--- OUTSIDE RECORDS SUMMARY | 2023-11-29 17:59 | XMS_ITS | Encounter Summary ---
Author Organization [facility] [place] [address] Care Team Providers Care Respiratory Therapy Instructor Name Role Phone Steve Vides MD Primary Care Provider [phone] Reason for Visit * Reason Comments Skin Check Encounter Details Date Type Department Care Team (Late st Contact Info) Description 01/09/2011 1:15 PM EDT Office Visit Dermatology [address] [place] [address] [address] [place], [place] [id number] Teodoro Regan MD [address] [facility] [place] [address] Inflamed seborrheic keratosis (Primary Dx); Acrochordon; Shook hemangioma Social History Tobacco Use Types Packs/Day Years Used Date Smoking Tobacco: Never Sex and Gender Information Value Date Recorded Sex Assigned at Not on file Gender Identity Not on file Sexual Orientation Not on file documented as of this encounter Progress Notes * Teodoro Regan MD - 01/09/2011 1:46 PM EDT Problems: 1. Skin checkup. 2. History of malignant melanoma in daughter. Britney is a 65-year-old woman who comes in today with her Royal. She is concerned about changing moles, and particular changing moles given the family history of melanoma in their daughter. The patient complains of a lesion on the right advent that has bled in the past. She is concerned about a changing mole behind her left ear and irritated tags on her left flank. Physical examination reveals a pleasant 65-year-old woman who has a seborrheic keratosis present in the right advent and immediately behind this is a shook red hemangioma. She has a pedunculated compound versus intradermal nevus on the left post-auricular auricle just behind the helical rim. She has some irritated tags/seborrheic keratoses on the left flank in line where her bra strap would run. Otherwise careful examination of the head, neck, chest, back, hands, arms, forearms, thighs and calves is benign. Assessment & Plan: Irritated seborrheic keratosis/shook red hemangioma, right advent. a. After obtaining patient consent, the site was anesthetized and lightly electrodesiccated. No specimens were submitted from this visit for pathology. b. Triple antibiotic ointment and Band-Aid placed. Irritated tags/seborrheic keratoses, left flank. a. After obtaining patient consent, the sites were anesthetized and treated with light C & D. Family history of malignant melanoma in daughter. a. No evidence of concerning pigmented melanocytic lesion on examination today. b. Patient reassured about this. c. Continue sun avoidance precautions. d. RTC p.r.n. Cc: CRISSY Linn documented in this encounter Plan of Treatment Not on file documented as of this encounter Visit Diagnoses Diagnosis Inflamed seborrheic keratosis- Primary Acrochordon Unspecified hypertrophic and atrophic condition of skin Shook hemangioma Nevus, non-neoplastic documented in this encounter Care Teams Respiratory Therapy Instructor Relationship Specialty Start Date End Date Steve Vides MD PCP - General 02/28/10 07/27/18 documented as of this encounter
--- OUTSIDE RECORDS SUMMARY | 2023-11-29 17:59 | XMS_ITS | Encounter Summary ---
Author Organization [facility] [place] [address] Care Team Providers Care Front End Web Designer Name Role Phone Steve Vann MD Primary Care Provider [phone] Reason for Referral * Diagnostic Test (Routine) - Closed Specialty Diagnoses / Procedures Referred By Contac t Referred To Contact Radiology Diagnoses Subdural hematoma Procedures CT Head wo Contrast (Generic) Donna Graves MD [facility] [place] [place] [address] [facility] [place] [address] Referral ID Status Reason Start Date Expiration Date V isits Requested Visits Authorized [id number] Closed Specialty Service Requested 2021 11/25/2022 1 1 Reason for Visit * Diagnostic Test (Routine) - Closed Specialty Diagnoses / Procedures Referred By Contac t Referred To Contact Radiology Diagnoses Subdural hematoma Procedures CT Head wo Contrast (Generic) Donna Graves MD [facility] [place] [address] [facility] [place] [address] Referral ID Status Reason Start Date Expiration Date V isits Requested Visits Authorized [id number] Closed Specialty Service Requested 2021 11/25/2022 1 1 Encounter Details Date Type Department Care Team (Latest Contact Info) Description 07/04/2021 12:55 PM EDT - 07/04/2021 11:59 PM EDT Hospital [place] [address] eKn Barbour MD [facility] [place] [place] [address] Subdural hematoma Discharge Disposition: Home Social History Tobacco Use Types Packs/Day Years Used Date Smoking Tobacco: Never Smokeless Tobacco: Never Alcohol Use Standard Drinks/Week Comments Not Currently 0 (1 standard drink = 0.6 oz pur e alcohol) Sex and Gender Information Value Date Recorded Sex Assigned at Not on file Gender Identity Not on file Sexual Orientation Not on file documented as of this encounter Medications at Time of Discharge Medication Sig Dispensed Refills Start Date End Date metFORMIN (GLUCOPHAGE-XR) 750 mg Tablet Sustained Release 24 hr 06/12/2021 acetaminophen (Tylenol) 325 mg Tablet Take 2 [...] mouth daily. documented as of this encounter Plan of Treatment Not on file documented as of this encounter Procedures Procedure Name Priority Date/Time Associated Diagnosis Comments CT HEAD WO CONTRAST (GENERIC) Routine 07/04/2021 2:40 PM EDT Subdural hematoma documented in this encounter Results * CT [...] who have questions please contact the health infant caregiver that requested your imaging first. ? Electronically signed by: Natalie Griffin MD, [facility] ([phone]), at 07/04/2021 5:01 PM Narrative 07/04/2021 5:01 [...] patients who have questions please contactthe health infant caregiver that requested your imaging first. Electronically signed by: Natalie Griffin MD, [facility]([phone]), at 07/04/2021 5:01 PM Ken Barbour MD IMG CT ORDERABLES documented in this encounter Visit Diagnoses Diagnosis Subdural hematoma Subdural hemorrhage documented in this encounter Care Teams Front End Web Designer Relationship Specialty Start Date End Date Steve Vann MD [address] [facility] [id number] PCP - General Family Medicine 05/10/21 documented as of this encounter
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
--- OUTSIDE RECORDS SUMMARY | 2023-11-29 17:59 | XMS_ITS | Clinical Summary ---
Author Organization [facility] [place] [address] Care Team Providers Care Contract Implementation Analyst Name Role Phone Steve Vann MD Primary Care Provider [phone] Allergies Active Allergy Reactions Criticality Noted Date Comments Pollen Extracts Other (See Comments) High 04/22/2020 Other reaction(s): Eye Redness Medications Medication Sig Dispensed Refills Start Date End Date Status lisinopril (PRINIVIL;ZESTRIL) 5 mg tablet Take 5 mg by mouth daily. Active RX ADULT COMPOUNDED MEDICATION compounded medication 1. CoQnol 1 cap 2xday Active Ascorbate Calcium 500 mg Tablet Take by mouth. 07/25/2017 Active aspirin 81 mg Tablet, Chewable Take by mouth. 06/11/2017 Acti ve cholecalciferol, Vitamin D3, (Vitamin D3) 1,000 unit Tablet Take 1,000 Units by mouth. 07/25/2017 Active cyanocobalamin, vitamin B-12, 5,000 mcg Tablet, Rapid Dissolve Take by mouth. 07/25/2017 Active niacin 500 mg Tablet Take by mouth. 10/31/2018 Active vitamin A (Aquasol) 10,000 unit Capsule Take 10,000 Units by mouth. 07/25/2017 Active acetaminophen (Tylenol) 325 mg Tablet Take 2 tablets by mouth every 6 hours as needed for Pain. 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 cataract of both eyes 2020 Overview (04/22/2020): Added automatically from request for surgery [id number] Inflamed seborrheic keratosis 01/09/2011 Immunizations Name Administration Dates Next Due Tdap 2021 Family History Medical History Relation Comments Amblyopia Daughter Glaucoma Neg Hx Macular Degeneration Neg Hx Retinal Detachment Neg Hx Strabismus Neg Hx Relation Status Comments Daughter Social History Tobacco Use Types Packs/Day Years Used Date Smoking Tobacco: Never Smokeless Tobacco: Never Alcohol Use Standard Drinks/Week Comments Not Currently 0 (1 standard drink = 0.6 oz pur e alcohol) Sex and Gender Information Value Date Recorded Sex Assigned at Not on file Gender Identity Not on file Sexual Orientation Not on file Last Filed Vital Signs Vital Sign Reading Time Taken Comments Blood Pressure 126/57 07/04/2021 3:03 PM EDT Pulse 81 07/04/2021 3:03 PM EDT Temperature 36.8 ??C (98.3 ??F) 07/04/2021 3:03 PM ED T Respiratory Rate 18 07/04/2021 3:03 PM EDT Oxygen Saturation 96% 07/04/2021 3:03 PM EDT Inhaled Oxygen Concentration - - Weight 76.3 kg (168 lb 3.2 oz) 07/04/2021 3:03 P M EDT Height 162.6 cm (5' 4) 07/04/2021 3:03 PM EDT Body Mass Index 28.87 07/04/2021 3:03 PM EDT Plan of Treatment Health Maintenance Due Date Last Done Comments Hepatitis C Screening 1965 Zoster vaccine (1 of 2) 1997 Advance Directive 2002 Bone Density Scan 2012 Pneumoccocal Vaccine: 65+ (1 of 1 - PCV) 2012 Covid-19 Vaccine (1 - 2022-24 season) 2022 Influenza (Flu) vaccine (1 o f 1 - Influenza standard series) 12/08/2023 Tetanus vaccine 2031 2021 Tdap adult Completed 2021 Medical Devices Implanted Type Area Residential Insurance Inspector Device Identifier Shelf Expiration Date Model / Serial / Lot Lens Iol [id number] +20.0d 6.0x13.0 Monofocal Post Biconvex ([id number]) (Autoreq) - [id number] Implanted:Qty: 1 on 05/23/2020 by Fantasma Preston MD at [facility] IMPLANTS Right: Eye NOVARTIS - NOVARTIS 12/08/2024 [id number] / [id number] / Advance Directives * Attempt Cardiopulmonary Resuscitation - Inpatient (Latest Code Status on File) Date Activated Date Inactivated Comments 2021 6:46 AM 05/30/2021 7:04 PM Question Answer Comments Code Status decision made by: Patient Care Teams Contract Implementation Analyst Relationship Specialty Start Date End Date Steve Vann MD [address] [place] [id number] PCP - General Family Medicine 05/10/21
--- OUTSIDE RECORDS SUMMARY | 2023-11-29 17:59 | XMS_ITS | Encounter Summary ---
[place] [address] Care Team Providers Care Bow Maker Name Role Phone Steve Vides MD Primary Care Provider [phone] Encounter Details Date Type Department Care Team (Late st Contact Info) Description 04/26/2020 [place] [address] Denisha Bailon Social History Tobacco Use Types Packs/Day Years Used Date Smoking Tobacco: Never Alcohol Use Standard Drinks/Week Comments Not Currently 0 (1 standard drink = 0.6 oz pur e alcohol) Sex and Gender Information Value Date Recorded Sex Assigned at Not on file Gender Identity Not on file Sexual Orientation Not on file documented as of this encounter Miscellaneous Notes * Telephone Encounter - Denisha Bailon - 04/26/2020 10:30 AM EST Left message to schedule eye surgery with Dr. Preston documented in this encounter Plan of Treatment Not on file documented as of this encounter Visit Diagnoses Not on filedocumented in this encounter Care Teams Bow Maker Relationship Specialty Start Date End Date Steve Vides MD [address] [place] [address] PCP - General 07/28/18 04/27/20 documented as of this encounter
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
--- OUTSIDE RECORDS SUMMARY | 2023-11-29 17:59 | XMS_ITS | Encounter Summary ---
Author Organization [facility] Address [address] [place] [address] Care Team Providers Care Real Time Analyst Name Role Phone Steve Vann MD Primary Care Provider Reason for Visit * Reason Onset Date Comments Appointment Related 04/11/2023 Encounter Details Date Type Department Care Team (Late st Contact Info) Description [facility] Breast Imaging Mammography - Main [address] [id number] Bruna Flores Appointment Related Social History Tobacco Use Types [...] encounter Miscellaneous Notes * Telephone Encounter - Bruna Flores - 04/11/2023 1018 EST Patient returned call in regards to second read. Communicated with patient that in 04.05.2023 report, It was recommended she continue annual screening. Patient stated she felt it wasn't much to be alarmed about. Patient understood. documented in this encounter Plan of Treatment Not on file documented as of this encounter Visit Diagnoses Not on filedocumented in this encounter Care Teams Real Time Analyst Relationship Specialty Start Date End Date Steve Vann MD [address] [facility] [place] [address] PCP - General 01/06/21 documented as of this encounter
--- OUTSIDE RECORDS SUMMARY | 2023-11-29 17:59 | XMS_ITS | Encounter Summary ---
Author Organization [facility] Address [address] [place] [address] Care Team Providers Care Senior Account Clerk Name Role Phone Steve Vann MD Primary Care Provider [phone] Reason for Referral * Radiology Services (Routine/Next Available) - Authorization Not Required Specialty Diagnoses / Procedures Referred By Alec fowler Referred To Contact Diagnoses Breast nodule Procedures MA BREAST CONSULT OUTSIDE IMAGES Steve Vann MD [address] [place] [address] Referral ID Status Reason Start Date Expiration Date Visits Requested Visits Authorized [id number] Authorization Not Required 3 1 1 Reason for Visit * Radiology Services (Routine/Next Available) - Authorization Not Required Specialty Diagnoses / Procedures Referred By Alec fowler Referred To Contact Diagnoses Breast nodule Procedures MA BREAST CONSULT OUTSIDE IMAGES Steve Vann MD [address] [place] [address] Referral ID Status Reason Start Date Expiration Date Visits Requested Visits Authorized [id number] Authorization Not Required 3 1 1 Encounter Details Date Type Department Care Team (Latest Contact Info) Description 04/05/2023 12:02 EST - 04/05/2023 23:59 EST Hospital Encounter [facility] Breast Imaging Mammography - Main [place] [address] [place], [place] [address] Breast nodule Discharge Disposition: Home or Self Care Social History Tobacco Use Types Packs/Day Years Used Date Smoking Tobacco: Never Assessed Interpersonal Safety Answer Date Record ed Physically Hurt Never 11/08/2019 Verbally Threaten Not on file 11/08/2019 Sex and Gender Information Value Date Recorded Sex Assigned at Not on file Gender Identity Not on file Sexual Orientation Not on file documented as of this encounter Discharge Disposition Disposition Code Departure Means Destination Home or Self Care documented in this encounter Plan of Treatment Not on file documented as of this encounter Procedures Procedure Name Priority Date/Time Associated Diagnosis Comments MA BREAST CONSULT OUTSIDE IMAGES Routine 04/05/2023 12:02 EST Breast nodule documented in this encounter Results * MA BREAST CONSULT OUTSIDE IMAGES (04/05/2023 12:02 EST) Anatomical Region Laterality Modality Breast Mammography 04/05/2023 13:5 0 EST Impressions 04/05/2023 13:50 EST Right breast impression: BI-RADS 1: Negative. Left breast impression: BI-RADS 2: Benign. Recommendation: No suspicious findings. Routine screening mammography is recommended and will be due January,. Overall assessment: BI-RADS 2: Benign. These results will be communicated to your patient via a lay letter from Radiology. [id number] Narrative 04/05/2023 13:50 EST MA BREAST CONSULT OUTSIDE IMAGES ??04/05/2023 12:05 PM Signs and Symptoms/Comments: Left breast nodule seen on 01/21/23 screening mammogram. No ultrasound correlate seen on diagnostic imaging and MRI was recommended. do we agree?;N63.0:Breast nodule Study submitted for review: Full-field synthetic 2D CC and synthetic 2D/3D MLO views of the right breast, full-field synthetic 2D/3D MLO view of the left breast (the left cc view was not available for review at the time of evaluation) performed January 21, 2023 at [facility]. Left breast diagnostic mammographic views including spot compression synthetic 2D/3D CC and MLO views of the left breast were performed with left breast and axillary ultrasound performed January 24, 2023 at [facility]. COMPARISON: Bilateral mammograms performed December 07, 2020, October 01, 2018, June 25, 2017. Right breast mammographic findings: The breasts are almost entirely fatty. There is no suspicious mass, microcalcification, or other abnormality. Limited visualization of the posterior depth of the right breast due to patient positioning. Left breast mammographic findings: The breasts are almost entirely fatty. In the upper left breast 12 o'clock position posterior depth 8 cm from the nipple there is a circumscribed oval mass which has been stable mammographically since 2018, therefore consistent with a benign process. No suspicious masses, microcalcifications, or other abnormalities are seen. Left breast ultrasound findings: Sonographic evaluation of the entire left breast including all 4 quadrants, subareolar region, and left axilla does not demonstrate any suspicious solid or cystic sonographic finding. No suspicious left axillary lymphadenopathy. Steve Vann MD IMG MAMMOGRAPHY [facility] documented in this encounter Visit Diagnoses Diagnosis Breast nodule Other (abnormal) findings on radiological examination of breast documented in this encounter Care Teams Senior Account Clerk Relationship Specialty Start Date End Date Steve Vann MD [address] [place] [address] [place] [address] PCP - General 01/06/21 documented as of this encounter
--- OUTSIDE RECORDS SUMMARY | 2023-11-29 17:59 | XMS_ITS | Encounter Summary ---
Author Organization [facility] Address [address] [place] [address] Care Team Providers Care Clothing And Textiles Teacher Name Role Phone Steve Vann MD Primary Care Provider [phone] Reason for Visit * Reason Onset Date Comments Appointment Related 03/29/2023 Encounter Details Date Type Department Care Team (Late st Contact Info) Description 03/29/2023 [facility] M[facility]ography - [facility] [place] [address], [place] [id number] Esmer Potter Appointment Related Social History Tobacco [...] * Telephone Encounter - Esmer Potter - 03/29/2023 0915 EST Left message for nurse of Dr. Vann requesting corrected order stating in signs and symptoms box, 6 mm nodule upper left breast without ultrasound correlate, asked to have that faxed to us at [phone], and to call me in triage at [phone] if she has any questions. documented in this encounter Plan of Treatment Not on file documented as of this encounter Visit Diagnoses Not on filedocumented in this encounter Care Teams Clothing And Textiles Teacher Relationship Specialty Start Date End Date Steve Vann MD [address] [place], [place] [id number] PCP - General 01/06/21 documented as of this encounter
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
--- OUTSIDE RECORDS SUMMARY | 2023-11-29 17:59 | XMS_ITS | Encounter Summary ---
Author Organization [facility] Address [facility] [place] [address] Care Team Providers Care Administrative Supervisor Name Role Phone Steve Vann MD Primary Care Provider [phone] Encounter Details Date Type Department Care Team (Late st Contact Info) Description 07/04/2021 3:00 PM EDT Office Visit Neurosurgery at [facility] [place] [address] Saurav Burton PA [facility] [place] [address] SDH (subdural hematoma) Social History Tobacco Use Types Packs/Day Years [...] Mass Index 28.87 07/04/2021 3:03 PM EDT documented in this encounter Progress Notes * Saurav Burton PA - 07/04/2021 3:00 PM EDT Name: Britney Mcdonald : 1945 PCP: Steve Vann MD REF: Naeem Ayoub Date of Service: 07/04/2021 CHIEF COMPLAINT: Closed head injury SDH, tSAH HISTORY: Britney Mcdonald presents for 1 month follow up for non operative falcine SDH and left frontal tSAH sustained in a fall of . Ms. Mcdonald reports that she is doing generally well. Complaining of mild headache and baseline vertigo worsened after the fall. Denies seizures and focal neurologic deficits. She had a repeat head CTtoday for our review. PHYSICAL EXAM: BP 126/57 (BP Location (NBP): Right arm, Patient Position: Sitting, BP Cuff Sizes: Adult (25-34 cm)) Pulse 81 Temp 36.8 ??C (98.3 ??F) (Temporal) Resp 18 Ht 162.6 cm (5' 4) Wt 76.3 kg (168lb 3.2 oz) SpO2 96% BMI 28.87 kg/m?? . Britney Mcdonald is a 76 y.o. female in no cardiorespiratory distress. Awake, alert, and oriented.Answers questions, follows commands, and converses appropriately. Speech clear and fluid. Good phonation. VFs full confrontation. PERRL. EOMI. Face symmetric. Hears well to limited bedside testing. Tongue protrudes midline. Shoulder shrug strong bilaterally. No pronator drift. Strength full throughout all muscle groups in all four extremities. Sensation grossly intact to light touch throughout all four extremities. No dysmetria with finger to nose testing. Gait is unremarkable. IMAGING & OTHER RESULTS: CT head wo contrast 07/04/2021 Resolution of previously seen SDH and tSAH. No acute intracranial abnormality. ASSESSMENT: 76 yo F with non operative parafalcine SDH and tSAH presenting for routine 1 month follow up Doing well. Complaining of mild post concussive symptoms. No focal neurologic complaints. Intact and non focal neurologic exam. Resolution of SDH and tSAH. No acute intracranial abnormality. PLAN: Okay to resume ASA Follow up with Neurosurgery prn Saurav Jenkins. KERWIN Burton, [place] [facility] Manager [place] [address] documented in this encounter Plan of Treatment Not on file documented as of this encounter Visit Diagnoses Diagnosis SDH (subdural hematoma) Subdural hemorrhage documented in this encounter Care Teams Administrative Supervisor Relationship Specialty Start Date End Date Steve Vann MD [facility] [address] PCP - General Family Medicine 05/10/21 documented as of this encounter
--- OUTSIDE RECORDS SUMMARY | 2023-11-29 17:59 | XMS_ITS | Encounter Summary ---
Author Organization [facility] Address [facility] [place] [address] Care Team Providers Care Chief Ultrasound Technologist Name Role Phone Unavailable Primary Care Provider Unavailabl e Reason for Visit * Reason Comments Post Op Pseudophakia Encounter Details Date Type Department Care Team (Late st Contact Info) Description 06/23/2020 8:45 AM EDT Office Visit Ophthalmology at [facility] [place] [address] Fantasma Preston MD [facility] [place] [address] Status post cataract extraction and insertion of intraocular lens of right eye; Age-related nuclear cataract of both eyes Social History Tobacco Use Types Packs/Day Years [...] Progress Notes * Fantasma Preston MD - 06/23/2020 8:45 AM EDT POM #1 S/p CE IOL right eye, done 05/23/2020: Normal postoperative appearance IOP doing well Cataract left eye: Watch for now Fuchs corneal dystrophy: Observe, increases the risk of corneal edema after surgery NIDDM Healthy dilated exam Encouraged good BS control Plan: Updated glasses Rx given today RTC: [address] Carter for CEE Back to me as left eye cataract becomes symptomatic documented in this encounter Plan of Treatment Not on file documented as of this encounter Visit Diagnoses Diagnosis Status post cataract extraction and insertion of intraocular lens of right eye Age-related nuclear cataract of both eyes Senile nuclear sclerosis documented in this encounter
--- OUTSIDE RECORDS SUMMARY | 2023-11-29 17:59 | XMS_ITS | Referral Summary ---
Author Organization [facility] Address [address] [place] [address] Care Team Providers Care Sales And Service Engineer Name Role Phone Steve Vann MD Primary Care Provider [phone] Social History Tobacco Use Types Packs/Day Years Used Date Smoking Tobacco: Never Assessed Interpersonal Safety Answer Date Record ed Physically Hurt Never 11/08/2019 Verbally Threaten Not on file 11/08/2019 Sex and Gender Information Value Date Recorded Sex Assigned at Not on file Gender Identity Not on file Sexual Orientation Not on file Plan of Treatment Not on file Procedures Procedure Name Priority Date/Time Associated Diagnosis Comments HEPATITIS C AB W REFLEX TO HCV RNA BY PCR Routine 12/05/2021 16:00 EDT from Last 3 Months or Most Recently Relevant to Health Maintenance Results * HEPATITIS C AB W REFLEX TO HCV RNA BY PCR (12/05/2021 16:00 EDT) Hep C Antibody Negative Negative 12/07/2021 9:37 EDT [facility] Blood VENOUS BLOOD / Unknown 12/05/2021 16:00 EDT 12/06/2021 17:23 EDT Provider Outr Resulting Lab CHEMISTRY & BLOOD GAS ORDERABLES [facility] [address] [place] [address] from Last 3 Months or Most Recently Relevant to Health Maintenance Care Teams Sales And Service Engineer Relationship Specialty Start Date End Date Steve Vann MD [address] [place], [place] [phone] PCP - General 01/06/21
--- OUTSIDE RECORDS SUMMARY | 2023-11-29 17:59 | XMS_ITS | Encounter Summary ---
Author Organization [facility] Address [facility] [place] [address] Care Team Providers Care Test Engineer Name Role Phone Steve Vides MD Primary Care Provider Reason for Visit * Reason Comments Cloudy Vision * Consultation (Routine) - Specialty Diagnoses / Procedures Referred By Alec fowler Referred To Contact Ophthalmology Diagnoses cat Allyson Griffith, OD [address] [place] [address] Fantasma Preston MD [facility] [place] [address] Referral ID Status Reason Start Date Expiration Date V isits Requested Visits Authorized [id number] Consult, Test & Treat PCP Updated and/or Approved 12/09/2018 12/09/2019 1 1 Encounter Details Date Type Department Care Team (Late st Contact Info) Description 04/22/2020 7:30 AM EST Office [place] [address] Fantasma Preston MD [facility] [place] [address] Age-related nuclear cataract of both eyes; Non-insulin dependent type 2 diabetes mellitus Social History Tobacco Use Types Packs/Day Years Used Date Smoking Tobacco: Never Alcohol Use Standard Drinks/Week Comments Not Currently 0 (1 standard drink = 0.6 oz pur e alcohol) Sex and Gender Information Value Date Recorded Sex Assigned at Not on file Gender Identity Not on file Sexual Orientation Not on file documented as of this encounter Patient Instructions * Patient Instructions* Fantasma Preston MD - 04/22/2020 7:30 AM EST Best corrected vision today: With updated glasses refraction: Right eye: 20/30 (20/70 with naked eye) Right eye with glare source: 20/150 Left eye: 20/20 Left eye with glare source: 20/50 documented in this encounter Progress Notes * Fantasma Preston MD - 04/22/2020 7:30 AM EST Cataracts both eyes (OD>OS): Sent from Dr Allyson Carter for cataract evaluation Visually significant Affecting Britney Mcdonald's daily activities Would likely benefit from CE IOL OU R/B/A discussed with Britney Mcdonald and she would like to proceed with cataract extraction righteye only Goal plano Conventional Lens Fuchs corneal dystrophy: Observe, increases the risk of corneal edema after surgery NIDDM Healthy dilated exam Encouraged good BS control Plan: Schedule CE IOL right eye only for now POMs done RTC: following surgery documented in this encounter Plan of Treatment Not on file documented as of this encounter Procedures Procedure Name Priority Date/Time Associated Diagnosis Comments RUKRLOD-VEADU-TBH CALC BY LASER INTERFEROMETRY - OU - BOTH EYES Routine 04/22/2020 10:20 AM EST Age-related nuclear cataract of both eyes PACHYMETRY - OU - BOTH EYES Routine 04/22/2020 10:20 AM EST Age-related nuclear cataract of both eyes documented in this encounter Results * PGCUKEE-EZOPS-EYO Calc By Laser Interferometry - OU - Both Eyes (04/22/2020 10:20 AM EST) Anatomical Region Laterality Modality Other Narrative 04/22/2020 10:20 AM EST Physician PreOp Lens Selection Right Eye Style: SN60WF. Power: 20. Target: plano. 04/22/2020. Left Eye Style: SN60WF. 04/22/2020. General Details Right Eye. Notes Patient Hx Past Medical Hx ??Pt. ??has a past medical history of Cataract, Diabetes mellitus, GERD (gastroesophageal reflux disease), and Hypertension. Past Ophth Surg Hx ??No relevant surgical history has been documented for this patient. Eye Meds ??RX ADULT COMPOUNDED MEDICATION, lisinopriL, and metFORMIN IOL Biometry - Initial (source: LENSTAR) OD OS Date Performed 04/22/2020 ??8:58 AM 04/22/2020 ??8:58 AM ?? Target Refraction 0 0 ?? Axial Length 23.9 (mm) 23.52 (mm) ?? Anterior Chamber Depth 3.29 (mm) 3.21 (mm) ?? Horizontal White to White 12.1 (mm) 12.13 (mm) ?? Formula Used ? K's 43.60@76 / 43.94@166 43.88@162 / 44.02@72 ? 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
--- OUTSIDE RECORDS SUMMARY | 2023-11-29 17:59 | XMS_ITS | Encounter Summary ---
Author Organization [facility] [place] [address] Care Team Providers Care Pipelaying Fitter Name Role Phone Steve Vann MD Primary Care Provider [phone] Encounter Details Date Type Department Care Team (Late st Contact Info) Description 05/27/2021 7:55 PM EST Ancillary [place] [address] Naeem Ayoub DNP [address] [place] [id number] Social History Tobacco Use Types Packs/Day Years [...] Diagnosis Comments FILM LIBRARY STORAGE ONLY CT HEAD Routine 05/27/2021 7:50 PM EST documented in this encounter Results * Film Library- Storage Only CT Head (05/27/2021 7:50 PM EST) Narrative [facility] - 05/27/2021 7:50 PM EST This exam is auto-finalizing. It's purpose is for storage only. Naeem Ayoub DNP IMG FILM LIBRARY OR DERABLES [place], [place] documented in this encounter Visit Diagnoses Not on filedocumented in this encounter Care Teams Pipelaying Fitter Relationship Specialty Start Date End Date Steve Vann MD [address] [place] [address] PCP - General Family Medicine 05/10/21 documented as of this encounter
--- OUTSIDE RECORDS SUMMARY | 2023-11-29 18:00 | XMS_ITS | Encounter Summary ---
Author Organization [facility] Address [address] [place] [address] Care Team Providers Care Qlikview Developer Name Role Phone Carlyn Polo MD Primary Care Provider [phone] Encounter Details Date Type Department Care Team (Late st Contact Info) Description 07/02/2001 Results Only [facility] conversion [address] [place] [address] Dorothea Bledsoe MD [address] [place] [address] Social History Tobacco Use Types Packs/Day Years Used Date Smoking Tobacco: Never Assessed Sex and Gender Information Value Date Recorded Sex Assigned at Not on file Gender Identity Not on file Sexual Orientation Not on file documented as of this encounter Plan of Treatment Not on file documented as of this encounter Procedures Procedure Name Priority Date/Time Associated Diagnosis Comments SURGICAL PATHOLOGY Routine 07/02/2001 0:00 EST documented in this encounter Results * SURGICAL PATHOLOGY (07/02/2001 0:00 EST) Pathology Report: SURGICAL PATHOLOGY REPORT Reports generated via electronic interface contain original data; however they are lacking the format of the original report. Caution should be taken when reading/interpretin g unformatted reports. Name: ? BRITNEY FITZGERALD ? Accession #: ? [id number] ? : ? 1945 (Age: 56) ??F ? Collect Date: ? 07/02/2001 ? Location: ? [facility] ? Receive Date: ? 07/04/2001 ? Provider: ABIGAIL BLEDSOE MD Copy to: DOROTHEA DIAZ MD ? Final Pathologic Diagnosis: ? Esophagus, gastroesophageal junction, biopsy: 1. ?Fundic-type mucosa with chronic inflammation. ??See comment. Comment: ? A Ladi stain is negative for Helicobacter pylori-like organisms. ??Deeper levels have been examined and there is no squamous epithelium present. ??Clinical correlation is suggested. ?(Dr. Esparza)/[facility] Document reviewed and electronically signed by: KELSEA ESPARZA MD Report ??Date: 07/08/2001 19:22 By the signature above, the attending physician certifies that he/she has personally conducted a gross and/or microscopic examination of the described specimens and rendered or confirmed the above diagnosis. Specimen(s) Received: ? GE junction bx Clinical History: ? Dx heartburn, dysphagia, hx of stricture Gross Description: ? Received in Hollande' s fixative labelled Fitzgerald and #1 ??GE junction are two biopsies measuring 0.1 cm in diameter and 0.3 x 0.2 x 0.1 cm. ??The specimen is submitted intact in one cassette. ??(Aurea Hunt)/[facility] End of Report MALU RAMIREZ 07/02/2001 07/04/2001 8:0 7 EST Dorothea Bledsoe MD PATHOLOGY ORDERABLES MALU RAMIREZ [address] [place] [address] documented in this encounter Visit Diagnoses Not on filedocumented in this encounter Care Teams Qlikview Developer Relationship Specialty Start Date End Date Carlyn Polo MD [address] [place] [phone] PCP - General 07/13/09 01/05/21 documented as of this encounter
--- OUTSIDE RECORDS SUMMARY | 2023-11-29 18:00 | XMS_ITS | Encounter Summary ---
Author Organization [facility] Address [address] [place] [address] Care Team Providers Care Central Service Technician Name Role Phone Steve Vann MD Primary Care Provider [phone] Reason for Referral * (Routine/Next Available) - Receiving Office to Obtain Authorization Specialty Diagnoses / Procedures Referred By Contac t Referred To Contact Procedures US OUTSIDE IMAGES BREAST Imaging, External Referral ID Status Reason Start Date Expiration Date Visits Requested Visits Authorized [id number] Receiving Office to Obtain Authorization 3 1 1 Reason for Visit * (Routine/Next Available) - Receiving Office to Obtain Authorization Specialty Diagnoses / Procedures Referred By Contac t Referred To Contact Procedures US OUTSIDE IMAGES BREAST Imaging, External Referral ID Status Reason Start Date Expiration Date Visits Requested Visits Authorized [id number] Receiving Office to Obtain Authorization 3 1 1 Encounter Details Date Type Department Care Team (Latest Contact Info) Description 01/24/2023 Hospital Encounter [facility] [place] Discharge Disposition: Home or Self Care Social [...] Procedure Name Priority Date/Time Associated Diagnosis Comments US OUTSIDE IMAGES BREAST Routine 01/24/2023 13:42 EDT documented in this encounter Results * US OUTSIDE IMAGES BREAST (01/24/2023 13:42 EDT) Narrative 03/07/2023 13:42 EST This is a non-reportable exam. External Imaging IMG OTHER IMAGING OR DERABLES documented in this encounter Visit Diagnoses Not on filedocumented in this encounter Care Teams Central Service Technician Relationship Specialty Start Date End Date Steve Vann MD [address] [place] [address] PCP - General 01/06/21 documented as of this encounter
--- OUTSIDE RECORDS SUMMARY | 2023-11-29 18:00 | XMS_ITS | Encounter Summary ---
Author Organization [facility] Address [address] [place] [address] Care Team Providers Care Mobile Security Architect Name Role Phone Carlyn Polo MD Primary Care Provider [phone] Encounter Details Date Type Department Care Team (Latest Contact Info) Description 07/29/2017 10:09 EDT - 07/29/2017 23:59 EDT Hospital Encounter [address] [address] Unknown, Provider, Discharge Disposition: Home or Self Care Social History Tobacco Use Types Packs/Day Years Used Date Smoking Tobacco: Never Assessed Sex and Gender Information Value Date Recorded Sex Assigned at Not on file Gender Identity Not on file Sexual Orientation Not on file documented as of this encounter Discharge Disposition Disposition Code Departure Means Destination Home or Self [facility] documented in this encounter Plan of Treatment Not on file documented as of this encounter Visit Diagnoses Not on filedocumented in this encounter Care Teams Mobile Security Architect Relationship Specialty Start Date End Date Carlyn Polo MD [address] [place] [address] [address] [place] [address] PCP - General 07/13/09 01/05/21 documented as of this encounter
--- OUTSIDE RECORDS SUMMARY | 2023-11-29 18:00 | XMS_ITS | Encounter Summary ---
Author Organization [facility] Address [address] [place] [address] Care Team Providers Care Category Planner Name Role Phone Carlyn Polo MD Primary Care Provider [phone] Encounter Details Date Type Department Care Team (Latest Contact Info) Description 07/13/2009 8:02 EDT - 07/13/2009 23:59 EDT Hospital Encounter [facility] [address] [place] [address] Carlyn Polo MD [address] [place] [address] Discharge Disposition: Home or Self Care Social History Tobacco Use Types Packs/Day Years Used Date Smoking Tobacco: Never Assessed Sex and Gender Information Value Date Recorded Sex Assigned at Not on file Gender Identity Not on file Sexual Orientation Not on file documented as of this encounter Discharge Disposition Disposition Code Departure Means Destination Home or Self Long-Term documented in this encounter Plan of Treatment Not on file documented as of this encounter Procedures Procedure Name Priority Date/Time Associated Diagnosis Comments URINE [id number] E RATIO (ACR) Routine 07/13/2009 8:17 EDT AST Routine 07/13/2009 8:15 EDT HEMOGLOBIN A1C Routine 07/13/2009 8:15 EDT LIPID PROFILE (INCLUDES CHOLESTEROL, TRIGLYCERIDES, HDL, LDL) Routine 07/13/2009 8:15 EDT BASIC METABOLIC PANEL (BMP) Routine 07/13/2009 8:15 EDT documented in this encounter Results * MICROALBUMIN (07/13/2009 8:17 EDT) Creatinine, Urn [place] 53.6 mg/dl [facility] Ur Albumin mg/dl <0.2 <1.9 mg/dl [facility] Ur Alb ug/mg Crea Unable to calculate ug/mg Crea result. Normal: ??<30 ug/mg Creat Microalbuminu citlali: ??30-300 ug/mg Creat Clinical albuminuria: ??>300 ug/mg Creat ug/mg Crea [facility] 07/13/2009 8:17 EDT 07/13/2009 8:19 EDT Carlyn Polo MD CHEMISTRY & BLOOD GA S ORDERABLES Performing Organization Address [facility] de Phone Number [facility] [address] [place] [address] * (ABNORMAL) LIPID PROFILE (INCLUDES CHOLESTEROL, TRIGLYCERIDES, HDL, LDL) (07/13/2009 8:15 EDT) Cholesterol 202 mg/dl [facility] Comment: Desirable:<200 Borderline High:200-239 High:>ll=285 Triglycerides 164(H) 35 - 160 mg/dl [facility] HDL 51 mg/dl [facility] Comment: Low:<40 High(Desirable):>or=60 LDL, Calculated 118 mg/dl [facility] Comment: Optimal:<100 Above optimal:100-129 Borderline High:130-159 High:160-189 Very High:>nj=067 Chol/HDL Ratio 4.0 Performed at [facility], [place], [place] [facility] Fasting? Yes [facility] 07/13/2009 8:15 EDT 07/13/2009 8:17 EDT Carlyn Polo MD CHEMISTRY & BLOOD GA S ORDERABLES Performing Organization Address [facility] de Phone Number [facility] [address] [place] [address] * HEMOGLOBIN A1C (07/13/2009 8:15 EDT) Hemoglobin A1C 6.5 % [facility] Comment: Reference Range: <5.7% Normal 5.7-6.4% Increased risk for diabetes =>6.5% Diagnostic for diabetes (if confirmed) The A1c goal for non adults in general is <7%. The A1c goal for selected patients may be significantly lower than 7% if this can be achieved without significant hypoglycemia or other adverse effects of treatment. Est Avg Glucose 140 mg/dl [facility] Comment: eAG represents the A1c result expressed as average glucose in mg/dl. 07/13/2009 8:15 EDT 07/13/2009 8:17 EDT Carlyn Polo MD CHEMISTRY & BLOOD GA S ORDERABLES Performing Organization Address [facility] Co de Phone Number [facility] [address] [place] [address] * BASIC METABOLIC PANEL (07/13/2009 8:15 EDT) Pathologist [facility] [place] Sodium 139 136 - 145 mEq/L [facility] Potassium 4.4 3.5 - 5.0 mEq/L [facility] Chloride 103 96 - 110 mEq/L [facility] CO2 29 24 - 32 mEq/L [facility] BUN 17 10 - 26 mg/dl [facility] Creatinine 0.72 0.7 - 1.5 mg/dl [facility] GFR, Calculated >60 ml/min/1.7 3m2 [facility] Calcium 10.0 8.5 - 10.5 mg/dl [facility] Calculated Calcium 10.2 8.5 - 10.5 mg/dl [facility] Glucose, Serum 93 70 - 100 mg/dl [facility] Comment:Performed at [facility], [place], [place] Fasting? Yes [facility] 07/13/2009 8:15 EDT 07/13/2009 8:17 EDT Carlyn Polo MD CHEMISTRY & BLOOD GA S ORDERABLES Performing Organization Address [facility] Co de Phone Number [facility] [address] [place] [address] * AST (07/13/2009 8:15 EDT) AST 28 15 - 46 U/L [facility] Comment:Performed at [facility], [place], [place] 07/13/2009 8:15 EDT 07/13/2009 8:17 EDT Carlyn Polo MD CHEMISTRY & BLOOD GA S ORDERABLES Performing Organization Address City/State/[facility] Co de Phone Number [facility] [address] [place] [address] documented in this encounter Visit Diagnoses Not on filedocumented in this encounter Care Teams Category Planner Relationship Specialty Start Date End Date Carlyn Polo MD [address] [place] [phone] PCP - General 07/13/09 01/05/21 documented as of this encounter
--- OUTSIDE RECORDS SUMMARY | 2023-11-29 18:00 | XMS_ITS | Encounter Summary ---
Author Organization [facility] Address [address] [place] [address] Care Team Providers Care Chainstitch Hemmer Name Role Phone Steve Vann MD Primary Care Provider [phone] Encounter Details Date Type Department Care Team (Late st Contact Info) Description 12/06/2021 Lab Requisition [facility] Pathology & Laboratory Medicine - [facility] [address] [place], [place] [id number] Outr Resulting Lab, Provider Social History Tobacco Use Types Packs/Day Years [...] RNA BY PCR Routine 12/05/2021 16:00 EDT PTH INTACT Routine 12/05/2021 16:00 EDT documented in this encounter Results * PTH INTACT (12/05/2021 16:00 EDT) Intact PTH 57 19 - 88 pg/mL 12/07/2021 9:42 EDT [facility] Blood VENOUS BLOOD / Unknown 12/05/2021 16:00 EDT 12/06/2021 17:23 EDT Provider Outr Resulting Lab CHEMISTRY & BLOOD GAS ORDERABLES Performing Organization Address City/State/[facility] Co de Phone Number [facility] [address] [place] [address] * HEPATITIS C AB W REFLEX TO HCV RNA BY PCR (12/05/2021 16:00 EDT) Hep C Antibody Negative Negative 12/07/2021 9:37 EDT [facility] Blood VENOUS BLOOD / Unknown 12/05/2021 16:00 EDT 12/06/2021 17:23 EDT Provider Outr Resulting Lab CHEMISTRY & BLOOD GAS ORDERABLES Performing Organization Address City/[facility] Co de Phone Number [facility] [address] [place] [address] documented in this encounter Visit Diagnoses Not on filedocumented in this encounter Care Teams Chainstitch Hemmer Relationship Specialty Start Date End Date Steve [place] [address] PCP - General 01/06/21 documented as of this encounter
--- OUTSIDE RECORDS SUMMARY | 2023-11-29 18:00 | XMS_ITS | Encounter Summary ---
Author Organization [facility] Address [address] [place] [address] Care Team Providers Care Trade Facilitator Name Role Phone Carlyn Polo MD Primary Care Provider Reason for Referral * (Routine/Next Available) - Receiving Office to Obtain Authorization Specialty Diagnoses / Procedures Referred By Contac t Referred To Contact Procedures MA OUTSIDE IMAGES MAMMO SCREENING Imaging, External Referral ID Status Reason Start Date Expiration Date Visits Requested Visits Authorized [id number] Receiving Office to Obtain Authorization 3 1 1 Reason for Visit * (Routine/Next Available) - Receiving Office to Obtain Authorization Specialty Diagnoses / Procedures Referred By Contdavid t Referred To Contact Procedures MA OUTSIDE IMAGES MAMMO SCREENING Imaging, External Referral ID Status Reason Start Date Expiration Date Visits Requested Visits Authorized [id number] Receiving Office to Obtain Authorization 3 1 1 Encounter Details Date Type Department Care Team (Latest Contact Info) Description 12/07/2020 - 12/07/2020 23:59 EDT Hospital Encounter [facility] Secondary Reads [place] Discharge Disposition: Home [...] Name Priority Date/Time Associated Diagnosis Comments MA OUTSIDE IMAGES MAMMO SCREENING Routine 12/07/2020 13:43 EDT documented in this encounter Results * MA OUTSIDE IMAGES MAMMO SCREENING (12/07/2020 13:43 EDT) Narrative 03/07/2023 13:43 EST This is a non-reportable exam. External Imaging IMG OTHER IMAGING OR DERABLES documented in this encounter Visit Diagnoses Not on filedocumented in this encounter Care Teams Trade Facilitator Relationship Specialty Start Date End Date Carlyn Polo MD [address] [place] [phone] PCP - General 07/13/09 01/05/21 documented as of this encounter
--- OUTSIDE RECORDS SUMMARY | 2023-11-29 18:00 | XMS_ITS | Encounter Summary ---
Author Organization [facility] Address [address] [place] [address] Care Team Providers Care Head Of History Name Role Phone Carlyn Polo MD Primary Care Provider [phone] Steve Vann MD Primary Care Provider [phone] Encounter Details Date Type Department Care Team (Late st Contact Info) Description 04/22/2020 Lab Requisition [facility] Pathology & Laboratory Medicine - [address] [id number] Outr Resulting Lab, Provider Social History Tobacco [...] Procedure Name Priority Date/Time Associated Diagnosis Comments PTH INTACT Routine 04/21/2020 14:30 EST documented in this encounter Results * PTH INTACT (04/21/2020 14:30 EST) Intact PTH 57 19 - 88 pg/mL 04/25/2020 10:51 EST [facility] Blood VENOUS BLOOD / Unknown 04/21/2020 14:30 EST 04/22/2020 17:29 EST Provider Outr Resulting Lab CHEMISTRY & BLOOD GAS ORDERABLES [facility] [address] [place] [address] documented in this encounter Visit Diagnoses Not on filedocumented in this encounter Care Teams Head Of History Relationship Specialty Start Date End Date Carlyn Polo MD [address] [place] [phone] PCP - General 07/13/09 01/05/21 Steve Vann MD [address] [place] [address] PCP - General 01/06/21 documented as of this encounter
--- OUTSIDE RECORDS SUMMARY | 2023-11-29 18:00 | XMS_ITS | Encounter Summary ---
Author Organization [facility] Address [address] [place] [address] Care Team Providers Care Street Roller Engineer Name Role Phone Carlyn Polo MD Primary Care Provider [phone] Encounter Details Date Type Department Care Team (Late st Contact Info) Description 07/29/2017 Results Only [facility] [phone] Jose Guadalupe Zavala MD [address] [place], [place] [phone] Social History Tobacco Use Types Packs/Day Years Used Date Smoking Tobacco: Never Assessed Sex and Gender Information Value Date Recorded Sex Assigned at Not on file Gender Identity Not on file Sexual Orientation Not on file documented as of this encounter Plan of Treatment Not on file documented as of this encounter Procedures Procedure Name Priority Date/Time Associated Diagnosis Comments SURGICAL PATHOLOGY Routine 07/29/2017 16 :08 EDT documented in this encounter Results * SURGICAL PATHOLOGY (07/29/2017 16:08 EDT) Pathology Report: SURGICAL PATHOLOGY REPORT Reports generated via electronic interface contain original data; however they are lacking the format of the original report. Caution should be taken when reading/interpret ing unformatted reports. Name: ? BRITNEY FITZGERALD ? Accession #: ? [id number] ? : ? 1945 (Age: 72) ??F ? Collect Date: ? 07/29/2017 ? Location: ? [facility] ? Receive Date: ? 07/29/2017 ? Provider: JOSE GUADALUPE ZAAVLA MD Copy to: [facility] EDUCATION AND OUTREACH COORDINATOR ? Final Pathologic Diagnosis: A. ??COLON, CECUM POLYP, POLYPECTOMY: - Fragments of sessile serrated polyp/adenoma. B. ??COLON, DESCENDING NODULE, BIOPSY: - Fragment of unremarkable colonic mucosa. - No nodular lesion noted (multiple levels examined). C. ??RECTUM POLYP, POLYPECTOMY: - Hyperplastic polyp. ?? Document reviewed and electronically signed by: MARCELO URIAS MD Report ??Date: 07/30/2017 15:02 By the signature above, the attending physician certifies that he/she has personally conducted a gross and/or microscopic examination of the described specimens and rendered or confirmed the above diagnosis. Specimen(s) Received: A. ??Cecal polyp B. ??Bx descending colon, ? lipoma C. ??Rectal polyp Clinical History: Colorectal screening Gross Description: A. ?Received in formalin labelled with proper patient identification (initials P, S) and cecal polyp are multiple fragments of rebollar-brown tissue, measuring 0.7 x 0.6 x 0.1 cm in aggregate. Entirely submitted in A1. B. ?Received in formalin labelled with proper patient identification (initials P, S) and bx descending colon, ? lipoma is a rebollar nodular tissue (0.2 x 0.2 x 0.2 cm). Entirely submitted in B1. C. ?Received in formalin labelled with proper patient identification (initials P, S) and rectal polyp is a rebollar nodular tissue (0.2 x 0.1 x 0.1 cm). Entirely submitted in C1. BRITTANI Flores (ASCP) 07/29/2017 4:29 PM End of Report [facility] 07/29/2017 16:0 8 EDT 07/29/2017 16:08 EDT Jose Guadalupe Zavala MD PATHOLOGY ORDERA MIGUELS [facility] [address] [place] [address] documented in this encounter Visit Diagnoses Not on filedocumented in this encounter Care Teams Street Roller Engineer Relationship Specialty Start Date End Date Carlyn Polo MD [address] [place] [phone] PCP - General 07/13/09 01/05/21 documented as of this encounter
--- OUTSIDE RECORDS SUMMARY | 2023-11-29 18:00 | XMS_ITS | Encounter Summary ---
Author Organization [facility] Address [address] [place] [address] Care Team Providers Care Fire Alarm Operator Name Role Phone Steve Vann MD Primary Care Provider Reason for Referral * (Routine/Next Available) - Receiving Office to Obtain Authorization Specialty Diagnoses / Procedures Referred By Contac t Referred To Contact Procedures MA OUTSIDE IMAGES MAMMO SCREENING Imaging, External Referral ID Status Reason Start Date Expiration Date Visits Requested Visits Authorized [id number] Receiving Office to Obtain Authorization 3 1 1 Reason for Visit * (Routine/Next Available) - Receiving Office to Obtain Authorization Specialty Diagnoses / Procedures Referred By Alec t Referred To Contact Procedures MA OUTSIDE IMAGES MAMMO SCREENING Imaging, External Referral ID Status Reason Start Date Expiration Date Visits Requested Visits Authorized [id number] Receiving Office to Obtain Authorization 3 1 1 Encounter Details Date Type Department Care Team (Latest Contact Info) Description 01/24/2023 Hospital Encounter [facility] Secondary Reads [place] Discharge Disposition: Home or [...] Comments MA OUTSIDE IMAGES MAMMO SCREENING Routine 01/24/2023 13:42 EDT documented in this encounter Results * MA OUTSIDE IMAGES MAMMO SCREENING (01/24/2023 13:42 EDT) Narrative 03/07/2023 13:42 EST This is a non-reportable exam. External Imaging IMG OTHER IMAGING OR DERABLES documented in this encounter Visit Diagnoses Not on filedocumented in this encounter Care Teams Fire Alarm Operator Relationship Specialty Start Date End Date Steve Vann MD [address] [place] [address] PCP - General 01/06/21 documented as of this encounter
--- OUTSIDE RECORDS SUMMARY | 2023-11-29 18:00 | XMS_ITS | Encounter Summary ---
Author Organization [facility] Address [address] [place] [address] Care Team Providers Care Cook Supervisor Name Role Phone Steve Vann MD Primary Care Provider [phone] Encounter Details Date Type Department Care Team (Late st Contact Info) Description 10/03/2022 Lab Requisition [facility] Pathology & Laboratory Medicine - [address] [address] Outr Resulting Lab, Provider Social History Tobacco [...] Date/Time Associated Diagnosis Comments PTH INTACT Routine 10/02/2022 15:00 EDT documented in this encounter Results * PTH INTACT (10/02/2022 15:00 EDT) Intact PTH 48 19 - 88 pg/mL 10/03/2022 18:44 EDT [facility] Blood VENOUS BLOOD / Unknown 10/02/2022 15:00 EDT 10/03/2022 17:07 EDT Provider Outr Resulting Lab CHEMISTRY & BLOOD GAS ORDERABLES [facility] [address] [place] [address] documented in this encounter Visit Diagnoses Not on filedocumented in this encounter Care Teams Cook Supervisor Relationship Specialty Start Date End Date Steve Vann MD [address] [place] [address] PCP - General 01/06/21 documented as of this encounter
--- OUTSIDE RECORDS SUMMARY | 2023-11-29 18:00 | XMS_ITS | Encounter Summary ---
Author Organization [facility] Address [address] [place] [address] Care Team Providers Care Sales Representative [facility] Name Role Phone Steve Vann MD Primary Care Provider [phone] Reason for Referral * (Routine/Next Available) - Receiving Office to Obtain Authorization Specialty Diagnoses / Procedures Referred By Contac t Referred To Contact Procedures MA OUTSIDE IMAGES MAMMO SCREENING Imaging, External Referral ID Status Reason Start Date Expiration Date Visits Requested Visits Authorized [id number] Receiving Office to Obtain Authorization 3 1 1 Reason for Visit * (Routine/Next Available) - Receiving Office to Obtain Authorization Specialty Diagnoses / Procedures Referred By Contac t Referred To Contact Procedures MA OUTSIDE IMAGES MAMMO SCREENING Imaging, External Referral ID Status Reason Start Date Expiration Date Visits Requested Visits Authorized [id number] Receiving Office to Obtain Authorization 3 1 1 Encounter Details Date Type Department Care Team (Latest Contact Info) Description 01/21/2023 - 01/21/2023 23:59 EDT Hospital Encounter [facility] Secondary Reads [place] Discharge Disposition: Home [...] Comments MA OUTSIDE IMAGES MAMMO SCREENING Routine 01/21/2023 13:42 EDT documented in this encounter Results * MA OUTSIDE IMAGES MAMMO SCREENING (01/21/2023 13:42 EDT) Narrative 03/07/2023 13:43 EST This is a non-reportable exam. External Imaging IMG OTHER IMAGING OR DERABLES documented in this encounter Visit Diagnoses Not on filedocumented in this encounter Care Teams Sales Representative [facility] Relationship Specialty Start Date End Date Steve Vann MD [address] [place] [address] PCP - General 01/06/21 documented as of this encounter
--- OUTSIDE RECORDS SUMMARY | 2023-11-29 18:00 | XMS_ITS | Encounter Summary ---
Author Organization [facility] Address [address] [place] [address] Care Team Providers Care Notched Blade Loader Name Role Phone Carlyn Polo MD Primary Care Provider [phone] Encounter Details Date Type Department Care Team (Late st Contact Info) Description 02/16/2005 Results Only [facility] [address] [place] [address] Kaylee Torres, PARMINDER [address] [place] [address] Social History Tobacco Use Types Packs/Day Years Used Date Smoking Tobacco: Never Assessed Sex and Gender Information Value Date Recorded Sex Assigned at Not on file Gender Identity Not on file Sexual Orientation Not on file documented as of this encounter Plan of Treatment Not on file documented as of this encounter Procedures Procedure Name Priority Date/Time Associated Diagnosis Comments CYTOPATHOLOGY Routine 02/16/2005 0:00 EST documented in this encounter Results * CYTOPATHOLOGY (02/16/2005 0:00 EST) Pathology Report: CYTOPATHOLOGY REPORT Reports generated via electronic interface contain original data; however they are lacking the format of the original report. Caution should be taken when reading/interpreti ng unformatted reports. Name: ? BRITNEY FITZGERALD ? Accession #: ? [id number] : ? 1945 (Age: 59) ??F ?Collect Date: ? 02/16/2005 Location: ? [facility] ? Receive Date: ? 02/19/2005 Provider: ?KAYLEE TORRES EDUCATIONAL ASSISTANT TEACHER Copy to: ? Specimen/Source: ?ThinPrep Pap Test, Vagina, processed on Cognitive Code ThinPrep Imaging System, with manual evaluation Last Menstrual Period: ? 1998 Hormonal/Contracep tive Status: ? Yes: Black Cohosh 400 mg Treatment History: ? TRAVIS: Other: ? HPVA - HPV testing requested if ASC-US on the current ThinPrep Pap test. ? SPECIMEN ADEQUACY ? Satisfactory for Evaluation - assessment of transformation zone component not applicable ( e.g. atrophy, vaginal sample, hysterectomy) GENERAL CATEGORIZATION ? Negative for Intraepithelial Lesion or Malignancy ? Document reviewed and electronically signed by: ? CAROLA Almonte(ASCP) ? Report Date: ??02/22/2005 09:21 End of Report [facility] 02/16/2005 02/19/2005 Kaylee Torres EDUCATIONAL ASSISTANT TEACHER PATHOLOGY ORDERABLES Performing Organization Address City/State/[facility] Co de Phone Number [facility] [address] [place] [address] documented in this encounter Visit Diagnoses Not on filedocumented in this encounter Care Teams Notched Blade Loader Relationship Specialty Start Date End Date Carlyn Polo MD [address] [place] [phone] PCP - General 07/13/09 01/05/21 documented as of this encounter
--- OUTSIDE RECORDS SUMMARY | 2023-11-29 18:00 | XMS_ITS | Encounter Summary ---
Author Organization [facility] Address [address] [place] [address] Care Team Providers Care Wafer Polishing Worker Name Role Phone Steve Vann MD Primary Care Provider [phone] Encounter Details Date Type Department Care Team (Late st Contact Info) Description 02/01/2021 Lab Requisition [facility] Pathology & Laboratory Medicine - [facility] [address] [place] [address] Yuan Bourgeois MD [address] [place] [address] Encounter for other general examination Social History Tobacco Use Types Packs/Day Years [...] Priority Date/Time Associated Diagnosis Comments SURGICAL PATHOLOGY Today 02/01/2021 9: 07 EDT Encounter for other general examination documented in this encounter Results * SURGICAL PATHOLOGY (02/01/2021 9:07 EDT) Note to Patient The following pathology results have been interpreted by your pathologist and may be available to you before your health provider has had the opportunity to review them. Please allow time for your provider to receive these results and explore management options, if applicable. 02/02/2021 12:[address] [facility] Final Diagnosis A. STOMACH, ANTRUM, ULCER, BIOPSY: - Active erosive gastritis with reactive (chemical) gastropathy. - Negative for Helicobacter pylori on H&E stained sections. B. STOMACH, ANTRUM, BIOPSY: - Antral and fundic mucosa with reactive (chemical) gastropathy. - Negative for Helicobacter pylori on H&E stained sections. C. GASTROESOPHAGEAL JUNCTION, BIOPSY: - Squamocolumnar mucosa with mild reactive changes. - Negative for intestinal metaplasia and dysplasia. 02/02/2021 12:05 [facility] Attestation By the signature below, the attending physician certifies that they have 1) personally conducted a gross and/or microscopic examination of the described specimen(s), and/or personally interpreted the results of laboratory testing of the described specimen(s), and 2) personally rendered or confirmed the above diagnosis. 02/02/2021 12:05 [facility] at 1205 Clinical History Dysphagia, polyps 02/02/2021 12:05 [facility] Gross Description A. Received in formalin labelled with proper patient identification (initials P, S) and antrum ulcer bx is a single rebollar tissue (0.3 x 0.2 x 0.2 cm). Submitted intact in A1. B. Received in formalin labelled with proper patient identification (initials P, S) and antrum bx are 3 rebollar-pink tissues (approximately 0.3 x 0.2 x 0.2 cm each). Submitted entirely in B1. C. Received in formalin labelled with proper patient identification (initials P, S) and GE junction bx are two rebollar tissues (0.4 x 0.3 x 0.1 cm and 0.6 x 0.2 x 0.1 cm). Submitted entirely in C1. BRITTANI MANN(ASCP) 02/01/2021 16:16 02/02/2021 12:05 [facility] Performing Lab [facility] 12:05 [facility] Scanned Images 02/02/2021 12:05 [facility] Tissue ENTIRE ESOPHAGUS / Unknown 02/01/2021 9:07 EDT 02/01/2021 16:07 EDT Tissue specimen (specimen) STOMACH STRUCTURE / Unknown 02/01/2021 9:07 EDT 02/01/2021 16:07 EDT Tissue specimen (specimen) ESOPHAGEAL STRUCTURE / Unknown 02/01/2021 9:07 EDT 02/01/2021 16:07 EDT Yuan Bourgeois MD PATHOLOGY ORDERA [facility] [address] [place] [address] documented in this encounter Visit Diagnoses Diagnosis Encounter for other general examination documented in this encounter Care Teams Wafer Polishing Worker Relationship Specialty Start Date End Date Steve Vann MD [facility] [place] [address] PCP - General 01/06/21 documented as of this encounter
--- OUTSIDE RECORDS SUMMARY | 2023-11-29 18:00 | XMS_ITS | Encounter Summary ---
Author Organization [facility] Address [address] [place] [address] Care Team Providers Care Tour Guide Name Role Phone Carlyn Polo MD Primary Care Provider [phone] Encounter Details Date Type Department Care Team (Late st Contact Info) Description 06/22/1999 Results Only [facility] - Map conversion [address] [place] [address] Steve Bledsoe MD [address] [place] [address] Social History Tobacco Use Types Packs/Day Years Used Date Smoking Tobacco: Never Assessed Sex and Gender Information Value Date Recorded Sex Assigned at Not on file Gender Identity Not on file Sexual Orientation Not on file documented as of this encounter Plan of Treatment Not on file documented as of this encounter Procedures Procedure Name Priority Date/Time Associated Diagnosis Comments SURGICAL PATHOLOGY Routine 06/22/1999 15 :34 EST documented in this encounter Results * SURGICAL PATHOLOGY (06/22/1999 15:34 EST) Pathology Report: SURGICAL PATHOLOGY REPORT Reports generated via electronic interface contain original data; however they are lacking the format of the original report. Caution should be taken when reading/interpreti ng unformatted reports. Name: ? BRITNEY FITZGERALD ? Accession #: ? [id number] ? : ? 1945 (Age: 54) ??F ? Collect Date: ? 06/22/1999 ? Location: ?Receive Date: ? 06/22/1999 ? Provider: ABIGAIL BLEDSOE MD Copy to: ABIGAIL DIAZ MD ? Final Pathologic Diagnosis: MICROSCOPIC DIAGNOSIS: ? Gallbladder, cholecystectomy: ? - Chronic cholecystitis. ? - Cholelithiasis. ? Document reviewed and electronically signed by: Conversion for MICHAEL ARMSTRONG Report ??Date: 06/23/1999 00:00 By the signature above, the attending physician certifies that he/she has personally conducted a gross and/or microscopic examination of the described specimens and rendered or confirmed the above diagnosis. Specimen(s) Received: TISSUE SUBMITTED: ? Gallbladder CLINICAL DATA: ? Cholelithiasis; RUQ pain, gallstones on U/S Gross Description: GROSS: ? Received in formalin labelled Fitzgerald and #1 gallbladder is a ? previously incised product of a cholecystectomy which measures ? 9.7 cm in lenght, 2.5 cm in diameter, and is surfaced by a rebollar- ? ibrahim wrinkled serosa. ??Upon sectioning, the mucosa is partially ? rebollar-brown, smooth to velvety, and the remaining mucosa is rebollar- ? ibrahim and slightly trabeculated. ??The underlying wall ranges from ? 0.1 to 0.2 cm in thickness. ??The lumen contains a minimal amount ? of green slightly mucoid bile. ??Five yellow-brown multifaceted ? partially fragmented choleliths ranging from 0.7 to 2.0 cm in ? greatest dimension. ??The cystic duct measures 0.6 cm in length, ? 0.3 cm in diameter, and is not grossly patent. ??The cystic duct ? node is not grossly identified. ??Carport Erector sections are ? submitted in one cassette. ??(Jhonny Victor)/quentin End of Report [facility] 06/22/1999 15:3 4 EST 06/22/1999 15:35 EST Steve Bledsoe MD PATHOLOGY ORDERABLES Performing Organization Address City/State/[facility] Co de Phone Number [facility] [address] [place] [address] documented in this encounter Visit Diagnoses Not on filedocumented in this encounter Care Teams Tour Guide Relationship Specialty Start Date End Date Carlyn Polo MD [address] [place] [id number] PCP - General 07/13/09 01/05/21 documented as of this encounter
[2023-11-29 20:15] LABS: COMMENT (LAB VIEW ONLY) 60.91 mg/dL; Microalb ug/mg Crea 8.7 ug/mg Cr
== END 2023-11-29 17:58 | disposition home or self-care (01) ==
LOC: NCHCN 17:57
PROVIDERS: PCP Family Medicine; Visit Provider Student in an Organized Health Care Education/Training Program
DX: E11.9 Type 2 diabetes mellitus without complications (principal)
CPT/HCPCS: 82043; 82570

== ENCOUNTER 2024-01-14 03:08 | Outpatient (CLI) | payer MEDICARE, SELFPAY ==
[2024-01-14 14:06] LABS: ALT 35 U/L (14-59); AST 17 U/L (15-37); Albumin 3.9 g/dL (3.4-5.0); Alkaline Phosphatase 129 U/L (46-116); Bilirubin, Direct 0.1 mg/dL (0.0-0.2); Bilirubin, Total 0.38 mg/dL (0.2-1.0); Total Protein 7.3 g/dL (6.4-8.2)
== END 2024-01-14 03:09 | disposition home or self-care (01) ==
LOC: LBO 03:08
PROVIDERS: PCP Family Medicine; Visit Provider Student in an Organized Health Care Education/Training Program
DX: E11.9 Type 2 diabetes mellitus without complications (principal)
CPT/HCPCS: 36415; 80076

== ENCOUNTER 2024-01-28 01:16 | Outpatient (CLI) | payer MEDICARE, SELFPAY ==
--- NOTE | 2024-01-28 | DI.MAMMO_ITS ---
Exam(s) MAMMO SCREENING EXAM: MAMMO SCREENING CLINICAL HISTORY: SCREENING, Z12.31. TECHNIQUE: Bilateral full field digital CC and MLO mammographic images were obtained with 3D tomosyn thesis and utilizing computer aided detection (CAD). COMPARISON: Prior mammograms were reviewed. FINDINGS: There has been no significant change in the appearance and distribution of the fibroglandular tissue. No new right breast findings. The previously described nodular density located posteriorly in left breast not evident on the presen t mammogram. There are no new spiculated masses nor new malignant appearing microcalcification groups. There is no significant architectural distortion nor skin thickening-retraction. IMPRESSION: No radiographic evidence of malignancy. I note that previously described nodular density posteriorly in left breast not seen on today's mammo gram. Measuring in from the nipple on both studies it appears that this posterior left breast area w as included in the field of view on today's mammogram. BI-RADS Category 1 - Negative Breast Density - Category A - Almost entirely fatty Breast density Category C or D implies that the patient has dense breast tissue. Dense breast tissue can make it harder to find cancer on a mammogram. Dense breast tissue is also associated with an incr eased risk of breast cancer. This information about the result of the mammogram report was provided to the patient to raise their awareness. Use this report when you speak with the patient about their risks for breast cancer, which includes their family history. At that time, you may recommend additional screening tests (Ultrasoun d or MRI) as these tests may add significant information. A negative radiographic report should not delay biopsy if a dominant or clinically suspicious mass is present. Up to ten percent of cancers are not identified on mammography. A negative report may reinforce clinical impression. Adenosis and dense breasts may obscure an underlying neoplasm. False positive reports average 6 to 10%. Patient will receive a letter notifying them of these results.
== END 2024-01-28 01:36 ==
LOC: DI 01:16
PROVIDERS: PCP Family Medicine; Visit Provider Student in an Organized Health Care Education/Training Program
DX: Z12.31 Encounter for screening mammogram for malignant neoplasm of breast (principal)
CPT/HCPCS: 77063; 77067

== ENCOUNTER 2024-03-09 15:15 | Outpatient (REF) | payer MEDICARE, SELFPAY ==
--- OUTSIDE RECORDS SUMMARY | 2024-03-09 15:17 | XMS_ITS | Referral Summary ---
Author Organization [facility] Address [address] [place] [address] Care Team Providers Care Clinching Machine Operator Name Role Phone Steve Vann MD Primary Care Provider [phone] Social History Tobacco Use Types Packs/Day Years Used Date Smoking Tobacco: Never Assessed Interpersonal Safety Answer Date Record ed Physically Hurt Never 11/08/2019 Verbally Threaten Not on file 11/08/2019 Comments Unknown Sex and Gender Information Value Date Recorded Sex Assigned at Not on file Legal Sex Female 18:19 EST Gender Identity Not on file Sexual Orientation [...] C Antibody Negative Negative 12/07/2021 9:37 EDT [facility] Blood VENOUS BLOOD / Unknown 12/05/2021 16:00 EDT 12/06/2021 17:23 EDT us Provider Outr Resulting Lab CHEMISTRY & BLOOD GA S ORDERABLES Final Result [facility] [address] [place] [address] from Last 3 Months or Most Recently Relevant to Health Maintenance Insurance [employer] Care Teams Clinching Machine Operator Relationship Specialty Start Date End Date Steve Vann MD [facility] [address] [facility] [place] [address] PCP - General 01/06/21
--- OUTSIDE RECORDS SUMMARY | 2024-03-09 15:17 | XMS_ITS | Encounter Summary ---
Author Organization [facility] Address [facility] [place] [address] Care Team Providers Care Naval Gunfire Spotter Name Role Phone Steve Vann MD Primary Care Provider [phone] Encounter Details Date Type Department Care Team (Late st Contact Info) Description 2021 3:40 AM EST Ancillary Procedure Radiology Library at [facility] [place] [address] Social History Tobacco Use Types Packs/Day Years [...] who have questions please contact the health rental boats caretaker that requested your imaging first. ? Narrative 2021 4:08 AM EST EXAMINATION: REQUEST FOR 2ND READ CT SPINE CLINICAL HISTORY: 76F s/p fall over ledge. Severe tenderness in mid thoracic region.; Sending Institution [facility]; Date of exam [id number]; I believe a reinterpretation of this exam may alter care of Patient. Yes TECHNIQUE: Reinterpretation of CT of the thoracic spine performed without intravenous contrast. Study performed at [facility] at 1856 hours, May 27, 2021 ?? [...] Severe tenderness in midthoracic region.; Sending Institution [facility]; Date of exam [id number]; Ibelieve a reinterpretation of this exam may alter care of Patient. Yes TECHNIQUE: Reinterpretation of CT of the thoracic spine performed withoutintravenous contrast. Study performed at [facility] at 1856 hours,May 27, 2021 COMPARISON: None. [...] patients who have questions please contactthe health rental boats caretaker that requested your imaging first. Manuel Singh DO IMG OUTSIDE INTERPRE TATION ORDERABLES documented in this encounter Visit Diagnoses Not on filedocumented in this encounter Care Teams Naval Gunfire Spotter Relationship Specialty Start Date End Date Steve Vann MD PCP - General Family Medicine 05/10/21 documented as of this encounter
--- OUTSIDE RECORDS SUMMARY | 2024-03-09 15:17 | XMS_ITS | Encounter Summary ---
Author Organization [facility] Address [address] [place] [address] Care Team Providers Care Rn Internship Name Role Phone Steve Vann MD Primary Care Provider [phone] Encounter Details Date Type Department Care Team (Late st Contact Info) Description 10/03/2022 Lab Requisition [facility] Pathology & Laboratory Medicine - [address] [id number] Outr Resulting Lab, Provider Social History Tobacco [...] 19 - 88 pg/mL 10/03/2022 18:44 EDT [facility] Blood VENOUS BLOOD / Unknown 10/02/2022 15:00 EDT 10/03/2022 17:07 EDT us Provider Outr Resulting Lab CHEMISTRY & BLOOD GA S ORDERABLES Final Result [facility] [address] [place] [address] documented in this encounter Visit Diagnoses Not on filedocumented in this encounter Care Teams Rn Internship Relationship Specialty Start Date End Date Steve Vann MD [address] [place] [address] PCP - General 01/06/21 documented as of this encounter
--- OUTSIDE RECORDS SUMMARY | 2024-03-09 15:17 | XMS_ITS | Encounter Summary ---
Author Organization [facility] Address [address] [place] [address] Care Team Providers Care Proofer Prepress Name Role Phone Steve Vann MD Primary Care Provider [phone] Reason for Referral * (Routine/Next Available) - Receiving Office to Obtain Authorization Specialty Diagnoses / Procedures Referred By Contac t Referred To Contact Procedures MA OUTSIDE IMAGES MAMMO SCREENING Imaging, External Referral ID Status Reason Start Date Expiration Date Visits Requested Visits Authorized [id number] Receiving Office to Obtain Authorization 3 1 1 Reason for Visit * (Routine/Next Available) - Receiving Office to Obtain Authorization Specialty Diagnoses / Procedures Referred By Contac t Referred To Contact Procedures MA OUTSIDE IMAGES MAMMO SCREENING Imaging, External Referral ID Status Reason Start Date Expiration Date Visits Requested Visits Authorized [id number] Receiving Office to Obtain Authorization 3 1 1 Encounter Details Date Type Department Care Team (Latest Contact Info) Description 01/21/2023 - 01/21/2023 23:59 EDT Hospital Encounter [facility] Secondary Reads [place] Discharge Disposition: Home [...] 13:43 EST This is a non-reportable exam. us External Imaging IMG OTHER IMAGING ORDERABLES Fi nal Result documented in this encounter Visit Diagnoses Not on filedocumented in this encounter Care Teams Proofer Prepress Relationship Specialty Start Date End Date Steve Vann MD [address] [place] [address] PCP - General 01/06/21 documented as of this encounter
--- OUTSIDE RECORDS SUMMARY | 2024-03-09 15:17 | XMS_ITS | Clinical Summary ---
Author Organization [facility] Address [facility] [place] [address] Care Team Providers Care Brake Press Operator Name Role Phone Steve Vann MD Primary Care Provider Allergies Active Allergy Reactions Criticality Noted Date [...] (04/22/2020): Added automatically from request for surgery [id number] Inflamed seborrheic keratosis 01/09/2011 Immunizations Name Administration Dates Next Due Tdap (Adacel, Boostrix) 2021 Family History Medical History Relation Comments [...] 65+ (1 of 1 - PCV) 2012 RSV Vaccine (1 - 1-dose 75+ series) 2022 Covid-19 Vaccine (1 - season) 2023 Influenza (Flu) vaccine (1 o f 1 - Influenza standard series) 12/08/2023 Tetanus/Diphtheria/Pertussis Vaccines (2 - Td or Tdap) 2031 2021 Medical Devices Implanted Type Area Brush Polisher Device Identifier Shelf Expiration Date Model / Serial / Lot Lens Iol [id number] +20.0d 6.0x13.0 Monofocal Post Biconvex ([id number]) (Autoreq) - [id number] Implanted:Qty: 1 on 05/23/2020 by Fantasma Preston MD at [facility] IMPLANTS Right: Eye NOVARTIS - NOVARTIS 12/08/2024 [id number] / [id number] / Advance Directives * Attempt Cardiopulmonary Resuscitation - Inpatient (Latest Code Status on File) Date Activated Date Inactivated Comments 2021 6:46 AM 05/30/2021 7:04 PM Question Answer Comments Code Status decision made by: Patient Care Teams Brake Press Operator Relationship Specialty Start Date End Date Steve Vann MD PCP - General Family Medicine 05/10/21
--- OUTSIDE RECORDS SUMMARY | 2024-03-09 15:17 | XMS_ITS | Encounter Summary ---
Author Organization [facility] Address [address] [place] [address] Care Team Providers Care Assistant City Attorney Name Role Phone Steve Vann MD Primary Care Provider [phone] Reason for Visit * Reason Onset Date Comments Appointment Related 04/11/2023 Encounter Details Date Type Department Care Team (Late st Contact Info) Description 04/11/2023 Telephone [facility] Breast Imaging Mammography - Main [address] [id number] Bruna Flores Appointment Related Social History Tobacco [...] on filedocumented in this encounter Care Teams Assistant City Attorney Relationship Specialty Start Date End Date Steve Vann MD [address] [place] [address] PCP - General 01/06/21 documented as of this encounter
--- OUTSIDE RECORDS SUMMARY | 2024-03-09 15:17 | XMS_ITS | Encounter Summary ---
Author Organization [facility] Address [address] [place] [address] Care Team Providers Care Company Miner Blasting Name Role Phone Steve Vann MD Primary Care Provider [phone] Reason for Visit * Reason Onset Date Comments Appointment Related 03/29/2023 Encounter Details Date Type Department Care Team (Late st Contact Info) Description 03/29/2023 Telephone [facility] Breast Imaging Mammography - Main [place] [address] [place], [place] [id number] Esmer Potter Appointment Related Social History Tobacco [...] to have that faxed to us at [phone], and to call me in triage at [phone] if she has any questions. documented in this encounter Plan of Treatment Not on file documented as of this encounter Visit Diagnoses Not on filedocumented in this encounter Care Teams Company Miner Blasting Relationship Specialty Start Date End Date Steve Vann MD [address] [facility] [place] [address] PCP - General 01/06/21 documented as of this encounter
--- OUTSIDE RECORDS SUMMARY | 2024-03-09 15:17 | XMS_ITS | Encounter Summary ---
Author Organization [facility] [place] [address] Care Team Providers Care Photolith Operator Name Role Phone Naeem Ayoub DNP Primary Care Provider [phone] Reason for Visit * Auth/Cert Specialty Diagnoses / Procedures Referred By Alec t Referred To Contact Diagnoses Age-related nuclear cataract, bilateral Cataract Procedures PRO EXTRACAPSULAR CATARACT RMVL INSERTION IO LENS PROSTH W/O ECP CATARACT EXTRACTION, EXTRACAPSULAR, W/ LENS INSERTION (WRVU 8.52) Referral ID Status Reason Start Date Expiration Date Visits Re quested Visits Authorized [id number] 1 1 Encounter Details Date Type Department Care Team (Late st Contact Info) Description 05/23/2020 12:52 PM EST - 05/23/2020 1:27 PM EST Surgery [facility] [place] [address] Fantasma Preston MD [facility] [address] CATARACT EXTRACTION, EXTRACAPSULAR, W/ LENS INSERTION (WRVU [...] surgery Fantasma Preston M.D. Section of ophthalmology [facility] [phone] - Wear either the eye shield or [...] Eye Clinic in the main building at [facility]. - Mild discomfort is normal, but if you have any severe eye pain or bleeding call [phone] and ask to speak to the eye doctor occupational therapy technician. - Call you Primary Care Doctor [...] 5pm or on a weekend: Call the [facility] telephone operator receptionist and ask for the physician occupational therapy technician covering for your doctor. documented in [...] Preston MD - 05/23/2020 12:57 PM EST [facility] Operative Note Patient Name: Britney Mcdonald : [id number] MR#: [id number] Case Date: 05/23/2020 Surgeon: Surgeon(s) and Role: [...] Rmvl Insertion Io Lens Prosth W/O Ecp ([id number]) 05/23/2020 12:50 PM EST Age-related nuclear cataract [...] eye) documented in this encounter Care Teams Photolith Operator Relationship Specialty Start Date End Date Naeem Ayoub DNP [address] [place] [address] PCP - General Family Medicine 04/28/20 2 documented as of this encounter
--- OUTSIDE RECORDS SUMMARY | 2024-03-09 15:17 | XMS_ITS | Encounter Summary ---
Author Organization [facility] Address [facility] [place] [address] Care Team Providers Care Fence Repairman Name Role Phone Naeem Ayoub DNP Primary Care Provider Encounter Details Date Type Department Care Team (Latest Contact Info) Description 05/24/2020 8:45 AM EST TH Visit (TeleHealth) [place] [address] Fantasma Preston MD [facility] [place] [address] Status post cataract extraction and insertion of [...] eye documented in this encounter Care Teams Fence Repairman Relationship Specialty Start Date End Date Naeem Ayoub, JANIE [address] [place] [address] PCP - General Family Medicine 04/28/20 2 documented as of this encounter
--- OUTSIDE RECORDS SUMMARY | 2024-03-09 15:17 | XMS_ITS | Encounter Summary ---
Author Organization [facility] Address [address] [place] [address] Care Team Providers Care Waterworks Employee Name Role Phone Steve Vann MD Primary Care Provider [phone] Reason for Referral * Radiology Services (Routine/Next Available) - Authorization Not Required Specialty Diagnoses / Procedures Referred By Contac t Referred To Contact Diagnoses Breast nodule Procedures MA BREAST CONSULT OUTSIDE IMAGES Steve Vann MD [address] [place] [address] Phone: tel: fax: Referral ID Status Reason Start Date Expiration Date Visits Requested Visits Authorized [id number] Authorization Not Required 3 1 1 Reason for Visit * Radiology Services (Routine/Next Available) - Authorization Not Required Specialty Diagnoses / Procedures Referred By Alec fowler Referred To Contact Diagnoses Breast nodule Procedures MA BREAST CONSULT OUTSIDE IMAGES Steve Vann MD [address] [place] [address] Phone: tel: fax: Referral ID Status Reason Start Date Expiration Date Visits Requested Visits Authorized [id number] Authorization Not Required 3 1 1 Encounter Details Date Type Department Care Team (Latest Contact Info) Description 04/05/2023 12:02 EST - 04/05/2023 23:59 EST Hospital Encounter [facility] Breast Imaging Mammography - Main [place] [address], [place] [address] Breast nodule Discharge Disposition: Home or Self [...] patient via a lay letter from Radiology. [id number] Narrative 04/05/2023 13:50 EST MA BREAST CONSULT [...] of evaluation) performed January 21, 2023 at [facility]. Left breast diagnostic mammographic views including spot compression synthetic 2D/3D CC and MLO views of the left breast were performed with left breast and axillary ultrasound performed January 24, 2023 at [facility]. COMPARISON: Bilateral mammograms performed December 07, 2020, [...] axillary lymphadenopathy. Steve Vann MD IMG MAMMOGRAPHY ORDERABLES Final Result documented in this encounter Visit Diagnoses Diagnosis Breast nodule Other (abnormal) findings on radiological examination of breast documented in this encounter Care Teams Waterworks Employee Relationship Specialty Start Date End Date Steve Vann MD [address] [place] [address] PCP - General 01/06/21 documented as of this encounter
--- OUTSIDE RECORDS SUMMARY | 2024-03-09 15:17 | XMS_ITS | Encounter Summary ---
Author Organization [facility] [place] [address] Care Team Providers Care Manager Of Enterprise Name Role Phone Naeem Ayoub DNP Primary Care Provider [phone] Reason for Visit * Auth/Cert Specialty Diagnoses / Procedures Referred By Alec fowler Referred To Contact Diagnoses Age-related nuclear cataract, bilateral Cataract Procedures PRO EXTRACAPSULAR CATARACT RMVL INSERTION IO LENS PROSTH W/O ECP CATARACT EXTRACTION, EXTRACAPSULAR, W/ LENS INSERTION (WRVU 8.52) Referral ID Status Reason Start Date Expiration Date Visits Re quested Visits Authorized [id number] 1 1 Encounter Details Date Type Department Care Team (Latest Contact Info) Description 05/23/2020 11:30 AM EST - 05/23/2020 1:22 PM EST Hospital Encounter [place] [address] Fantasma Preston MD [facility] [place] [address] Age-related nuclear cataract of both eyes; Age-related [...] surgery Fantasma Preston M.D. Section of ophthalmology [facility] [phone] - Wear either the eye shield or [...] Eye Clinic in the main building at [facility]. - Mild discomfort is normal, but if you have any severe eye pain or bleeding call [phone] and ask to speak to the eye doctor asset protection professional. - Call you Primary Care Doctor or [...] 5pm or on a weekend: Call the [facility] yarn mercerizer operator helper and ask for the physician asset protection professional covering for your doctor. documented in this [...] Preston MD - 05/23/2020 12:57 PM EST [facility] Operative Note Patient Name: Britney Mcdonald : [id number] MR#: [id number] Case Date: 05/23/2020 Surgeon: Surgeon(s) and Role: [...] Rmvl Insertion Io Lens Prosth W/O Ecp (00691) 05/23/2020 12:50 PM EST Age-related nuclear cataract [...] eye) documented in this encounter Care Teams Manager Of Enterprise Relationship Specialty Start Date End Date Naeem Ayoub DNP [address] [place] [address] PCP - General Family Medicine 04/28/20 05/29/20 documented as of this encounter
--- OUTSIDE RECORDS SUMMARY | 2024-03-09 15:17 | XMS_ITS | Encounter Summary ---
Author Organization [facility] Address [facility] Erika bacon [place] [id number] Care Team Providers Care Teacher Of The Hearing Impaired Name Role Phone Steve Vides MD Primary Care Provider [phone] Reason for Visit * Reason Comments Cloudy Vision * Consultation (Routine) - Specialty Diagnoses / Procedures Referred By Alec fowler Referred To Contact Ophthalmology Diagnoses cat Allyson Griffith, OD [address] [place] [address] Fantasma Preston MD [facility] [place] [address] Referral ID Status Reason Start Date Expiration Date V isits Requested Visits Authorized [id number] Consult, Test & Treat PCP Updated and/or Approved 12/09/2018 12/09/2019 1 1 Encounter Details Date Type Department Care Team (Late st Contact Info) Description 04/22/2020 7:30 AM EST [place] [address] Fantasma Preston MD [facility] [place] [address] Age-related nuclear cataract of both eyes; Non-insulin [...] Procedure Name Priority Date/Time Associated Diagnosis Comments [id number] CALC BY LASER INTERFEROMETRY - OU - BOTH EYES Routine 04/22/2020 10:20 AM EST Age-related nuclear cataract of both eyes PACHYMETRY - OU - BOTH EYES Routine 04/22/2020 10:20 AM EST Age-related nuclear cataract of both eyes documented in this encounter Results * [id number] Calc By Laser Interferometry - OU - [...] uncontrolled documented in this encounter Care Teams Teacher Of The Hearing Impaired Relationship Specialty Start Date End Date Steve Vides MD [address] [place] [address] PCP - General 07/28/18 04/27/20 documented as of this encounter
--- OUTSIDE RECORDS SUMMARY | 2024-03-09 15:17 | XMS_ITS | Encounter Summary ---
Author Organization [facility] [place] [address] Care Team Providers Care Administrative Program Specialist Name Role Phone Steve Vides MD Primary Care Provider [phone] Reason for Visit * Reason Comments Skin Check Encounter Details Date Type Department Care Team (Late st Contact Info) Description 01/09/2011 1:15 PM EDT Office Visit Dermatology [address] [place] [address] [address] [place], [place] [id number] Teodoro Regan MD [address] [facility] [place] [address] Inflamed seborrheic keratosis (Primary Dx); Acrochordon; Shook [...] complains of a lesion on the right jehovah's witness that has bled in the past. She is concerned about a changing mole behind her left ear and irritated tags on her left flank. Physical examination reveals a pleasant 65-year-old woman who has a seborrheic keratosis present in the right jehovah's witness and immediately behind this is a shook [...] Plan: Irritated seborrheic keratosis/shook red hemangioma, right jehovah's witness. a. After obtaining patient consent, the site [...] non-neoplastic documented in this encounter Care Teams Administrative Program Specialist Relationship Specialty Start Date End Date Steve Vides MD PCP - General 02/28/10 07/27/18 documented as of this encounter
--- OUTSIDE RECORDS SUMMARY | 2024-03-09 15:17 | XMS_ITS | Encounter Summary ---
Author Organization [facility] Address [address] [place] [address] Care Team Providers Care Yarn Spooler Name Role Phone Steve Vann MD Primary Care Provider [phone] Reason for Referral * (Routine/Next Available) - Receiving Office to Obtain Authorization Specialty Diagnoses / Procedures Referred By Contac t Referred To Contact Procedures MA OUTSIDE IMAGES MAMMO SCREENING Imaging, External Referral ID Status Reason Start Date Expiration Date Visits Requested Visits Authorized [id number] Receiving Office to Obtain Authorization 3 1 1 Reason for Visit * (Routine/Next Available) - Receiving Office to Obtain Authorization Specialty Diagnoses / Procedures Referred By Contac t Referred To Contact Procedures MA OUTSIDE IMAGES MAMMO SCREENING Imaging, External Referral ID Status Reason Start Date Expiration Date Visits Requested Visits Authorized [id number] Receiving Office to Obtain Authorization 3 1 1 Encounter Details Date Type Department Care Team (Latest Contact Info) Description 01/24/2023 Hospital Encounter [facility] Secondary Reads [place] Discharge Disposition: [...] 13:42 EST This is a non-reportable exam. us External Imaging IMG OTHER IMAGING ORDERABLES Fi nal Result documented in this encounter Visit Diagnoses Not on filedocumented in this encounter Care Teams Yarn Spooler Relationship Specialty Start Date End Date Steve Vann MD [address] [place] [address] PCP - General 01/06/21 documented as of this encounter
--- OUTSIDE RECORDS SUMMARY | 2024-03-09 15:17 | XMS_ITS | Encounter Summary ---
Author Organization [facility] [place] [address] Care Team Providers Care Fashion Intern Name Role Phone Steve Vann MD Primary Care Provider [phone] Reason for Referral * Diagnostic Test (Routine) - Closed Specialty Diagnoses / Procedures Referred By Contac t Referred To Contact Radiology Diagnoses Subdural hematoma Procedures CT Head wo Contrast (Generic) Donna Graves MD [facility] [place] [address] [facility] [place] [address] Referral ID Status Reason Start Date Expiration Date V isits Requested Visits Authorized [id number] Closed Specialty Service Requested 2021 11/25/2022 1 1 Reason for Visit * Diagnostic Test (Routine) - Closed Specialty Diagnoses / Procedures Referred By Contac t Referred To Contact Radiology Diagnoses Subdural hematoma Procedures CT Head wo Contrast (Generic) Donna Graves MD [facility] [place] [address] [facility] [place] [address] Referral ID Status Reason Start Date Expiration Date V isits Requested Visits Authorized [id number] Closed Specialty Service Requested 2021 11/25/2022 1 1 Encounter Details Date Type Department Care Team (Latest Contact Info) Description 07/04/2021 12:55 PM EDT - 07/04/2021 11:59 PM EDT [place] [address] Ken Barbour MD [facility] [place] [address] Subdural hematoma Discharge Disposition: Home Social History [...] who have questions please contact the health property caretaker that requested your imaging first. ? Electronically signed by: Natalie Griffin MD, [facility] ([phone]), at 07/04/2021 5:01 PM Narrative 07/04/2021 5:01 [...] patients who have questions please contactthe health property caretaker that requested your imaging first. Electronically signed by: Natalie Griffin MD, [facility]([phone]), at 07/04/2021 5:01 PM Ken Barbour MD IMG CT ORDERABLES documented in this encounter Visit Diagnoses Diagnosis Subdural hematoma Subdural hemorrhage documented in this encounter Care Teams Fashion Intern Relationship Specialty Start Date End Date Steve Vann MD PCP - General Family Medicine 05/10/21 documented as of this encounter
--- OUTSIDE RECORDS SUMMARY | 2024-03-09 15:17 | XMS_ITS | Encounter Summary ---
Author Organization [facility] Address [address] [place] [address] Care Team Providers Care Exhibitor Sales Name Role Phone Steve Vann MD Primary Care Provider Encounter Details Date Type Department Care Team (Late st Contact Info) Description 12/06/2021 Lab Requisition [facility] Pathology & Laboratory Medicine - [facility] [address], [place] [id number] Outr Resulting Lab, Provider Social History Tobacco [...] 19 - 88 pg/mL 12/07/2021 9:42 EDT [facility] Blood VENOUS BLOOD / Unknown 12/05/2021 16:00 EDT 12/06/2021 17:23 EDT us Provider Outr Resulting Lab CHEMISTRY & BLOOD GA S ORDERABLES Final Result Performing Organization Address [facility] Co de Phone Number [facility] [address] [place] [address] * HEPATITIS C AB W REFLEX TO HCV RNA BY PCR (12/05/2021 16:00 EDT) Hep C Antibody Negative Negative 12/07/2021 9:37 EDT [facility] Blood VENOUS BLOOD / Unknown 12/05/2021 16:00 EDT 12/06/2021 17:23 EDT us Provider Outr Resulting Lab CHEMISTRY & BLOOD GA S ORDERABLES Final Result Performing Organization Address [facility] de Phone Number [facility] [address] [place] [address] documented in this encounter Visit Diagnoses Not on filedocumented in this encounter Care Teams Exhibitor Sales Relationship Specialty Start Date End Date Steve Vann MD [address] [place] [address] PCP - General 01/06/21 documented as of this encounter
--- OUTSIDE RECORDS SUMMARY | 2024-03-09 15:17 | XMS_ITS | Encounter Summary ---
Author Organization [facility] Address [address] [place] [address] Care Team Providers Care Tufter Operator Name Role Phone Steve Vann MD Primary Care Provider [phone] Reason for Visit * Reason Onset Date Comments Appointment Related 03/18/2023 Encounter Details Date Type Department Care Team (Late st Contact Info) Description 03/18/2023 Telephone [facility] Breast Imaging Mammography - Main [place] [address] [place] [phone] Esmer Potter Appointment Related Social History Tobacco [...] on filedocumented in this encounter Care Teams Tufter Operator Relationship Specialty Start Date End [place] [address] [place] [address] PCP - General 01/06/21 documented as of this encounter
--- OUTSIDE RECORDS SUMMARY | 2024-03-09 15:17 | XMS_ITS | Encounter Summary ---
Author Organization [facility] Address [facility] [place] [address] Care Team Providers Care Border Machine Operator Name Role Phone Steve Vann MD Primary Care Provider [phone] Encounter Details Date Type Department Care Team (Late st Contact Info) Description 05/27/2021 7:55 PM EST Ancillary Procedure Radiology Library at [facility] [place] [address] Naeem Ayoub DNP [facility] [address] [place] [address] Social History Tobacco Use Types Packs/Day Years [...] CT Head (05/27/2021 7:50 PM EST) Narrative RACHELE - 05/27/2021 7:50 PM EST This exam is auto-finalizing. It's purpose is for storage only. Naeem CLIFFORD FILM LIBRARY OR DERABLES [facility] [place] documented in this encounter Visit Diagnoses Not on filedocumented in this encounter Care Teams Border Machine Operator Relationship Specialty Start Date End Date Steve Vann MD PCP - General Family Medicine 05/10/21 documented as of this encounter
--- OUTSIDE RECORDS SUMMARY | 2024-03-09 15:17 | XMS_ITS | Encounter Summary ---
Author Organization [facility] Address [address] [place] [address] Care Team Providers Care Tree Fruit And Nut Crops Farmer Name Role Phone Steve Vann MD Primary Care Provider [phone] Reason for Visit * Reason Onset Date Comments Pre-visit Orders 03/15/2023 Encounter Details Date Type Department Care Team (Late st Contact Info) Description 03/15/2023 Telephone [facility] Breast Imaging Mammography - Main [address] [id number] Monica Denney Pre-visit Orders Social History Tobacco [...] 03/15/2023 0811 EST Left a message with [facility]'s referral line to let them know that ourradiologists do not think the cat 0 MRI is indicated and that we could do a consult on outside images to give our own recommendations. I left [phone] to call to be walked through ordering a secondary read or to let us know they won't be pursing it so we can cancel the order documented in this encounter Plan of Treatment Not on file documented as of this encounter Visit Diagnoses Not on filedocumented in this encounter Care Teams Tree Fruit And Nut Crops Farmer Relationship Specialty Start Date End Date Steve Vann MD [address] [place] [address] PCP - General 01/06/21 documented as of this encounter
--- OUTSIDE RECORDS SUMMARY | 2024-03-09 15:17 | XMS_ITS | Encounter Summary ---
Author Organization [facility] Address [facility] [place] [address] Care Team Providers Care Upholsterer Helper Name Role Phone Steve Vann MD Primary Care Provider [phone] Encounter Details Date Type Department Care Team (Late st Contact Info) Description 06/13/2021 Telephone [place] [phone] VirginiadiandraSofya Social History Tobacco Use Types Packs/Day [...] and Radiology. Patient is uncomfortable traveling from [place], [place] to [facility] while she recovers from her brain [...] CASE INFORMATION: ? FOLLOW-UP NEEDED: Specify Trauma DRYING EQUIPMENT OPERATOR or Attending and time frame (please indicate [...] on filedocumented in this encounter Care Teams Upholsterer Helper Relationship Specialty Start Date End Date Steve Vann MD PCP - General Family Medicine 05/10/21 documented as of this encounter
--- OUTSIDE RECORDS SUMMARY | 2024-03-09 15:17 | XMS_ITS | Encounter Summary ---
Author Organization [facility] Address [facility] [place] [address] Care Team Providers Care Powder Guard Name Role Phone Steve Vann MD Primary Care Provider [phone] Encounter Details Date Type Department Care Team (Late st Contact Info) Description 2021 12:35 AM EST Ancillary Procedure Radiology Library at [facility] [place] [address] Social History Tobacco Use Types Packs/Day Years [...] who have questions please contact the health certified caregiver that requested your imaging first. ? Narrative 2021 3:04 AM EST EXAMINATION: REQUEST FOR 2ND READ CT HEAD AND SPINE CLINICAL HISTORY: 76F fall off a porch, SDH at OSH; Sending Institution [facility]; Date of exam [id number]; I believe a [...] off a porch[facility] Date of exam [id number]; I believe a [...] patients who have questions please contactthe health certified caregiver that requested your imaging first. Manuel Singh DO IMG OUTSIDE INTERPRE TATION ORDERABLES documented in this encounter Visit Diagnoses Not on filedocumented in this encounter Care Teams Powder Guard Relationship Specialty Start Date End Date Steve aVnn MD PCP - General Family Medicine 05/10/21 documented as of this encounter
--- OUTSIDE RECORDS SUMMARY | 2024-03-09 15:17 | XMS_ITS | Encounter Summary ---
Author Organization [facility] Address [facility] [place] [address] Care Team Providers Care Chief Radiologic Technologist Name Role Phone Steve Vann MD Primary Care Provider [phone] Encounter Details Date Type Department Care Team (Late st Contact Info) Description 07/04/2021 3:00 PM EDT Office Visit Neurosurgery at [facility] [place] [address] Saurav Burton PA [facility] [place] [address] SDH (subdural hematoma) Social History Tobacco Use [...] prn Saurav Jenkins. KERWIN Burton, [place] Physician Office Administration Instructor [place] [address] documented in this encounter Plan of Treatment Not on file documented as of this encounter Visit Diagnoses Diagnosis SDH (subdural hematoma) Subdural hemorrhage documented in this encounter Care Teams Chief Radiologic Technologist Relationship Specialty Start Date End Date Steve Vann MD PCP - General Family Medicine 05/10/21 documented as of this encounter
--- OUTSIDE RECORDS SUMMARY | 2024-03-09 15:17 | XMS_ITS | Clinical Summary ---
Author Organization [facility] Address [address] [place] [address] Care Team Providers Care Electrician Manager Name Role Phone Steve Vann MD Primary Care Provider [phone] Social History Tobacco Use Types Packs/Day Years [...] Health Maintenance Due Date Last Done Comments Fall Risk Screening 2012 RSV Immunization ( o r 60+ Years) (1 - 1-dose 75+ series) 2022 COVID-19 Vaccine ( season) 2023 Hepatitis C Screen Completed 12/05/2021 Procedures Procedure Name Priority Date/Time Associated Diagnosis Comments HEPATITIS C AB W REFLEX TO HCV RNA BY PCR Routine 12/05/2021 16:00 EDT from Last 3 Months or Most Recently Relevant to Health Maintenance Results * HEPATITIS C AB W REFLEX TO HCV RNA BY PCR (12/05/2021 16:00 EDT) Hep C Antibody Negative Negative 12/07/2021 9:37 EDT [facility] Blood VENOUS BLOOD / Unknown 12/05/2021 16:00 EDT 12/06/2021 17:23 EDT us Provider Outr Resulting Lab CHEMISTRY & BLOOD GA S ORDERABLES Final Result [facility] [address] [place] [address] from Last 3 Months or Most Recently Relevant to Health Maintenance Insurance [employer] MEDICARE Care Teams Electrician Manager Relationship Specialty Start Date End Date Steve Vann MD [address], [place] [id number] PCP - General 01/06/21
--- OUTSIDE RECORDS SUMMARY | 2024-03-09 15:17 | XMS_ITS | Encounter Summary ---
[place] [address] Care Team Providers Care Breaker Operator Name Role Phone Steve Vides MD Primary Care Provider [phone] Encounter Details Date Type Department Care Team (Late st Contact Info) Description 04/26/2020 [place] [address] Denisha Bailon Social History Tobacco Use Types [...] on filedocumented in this encounter Care Teams Breaker Operator Relationship Specialty Start Date End Date Steve Vides MD [address] [place] [address] PCP - General 07/28/18 04/27/20 documented as of this encounter
--- OUTSIDE RECORDS SUMMARY | 2024-03-09 15:17 | XMS_ITS | Encounter Summary ---
Author Organization [facility] [place] [address] Care Team Providers Care E Commerce Merchandising Coordinator Name Role Phone Steve Vann MD Primary Care Provider [phone] Encounter Details Date Type Department Care Team (Late st Contact Info) Description 05/27/2021 Ancillary Procedure Radiology Library at [facility] [place] [address] Social History Tobacco Use Types Packs/Day Years [...] on filedocumented in this encounter Care Teams E Commerce Merchandising Coordinator Relationship Specialty Start Date End Date Steve Vann MD PCP - General Family Medicine 05/10/21 documented as of this encounter
--- OUTSIDE RECORDS SUMMARY | 2024-03-09 15:17 | XMS_ITS | Encounter Summary ---
Author Organization [facility] [place] [address] Care Team Providers Care Supervisor Offset Plate Preparation Name Role Phone Steve Vann MD Primary Care Provider [phone] Reason for Referral * Diagnostic Test (Routine) - Closed Specialty Diagnoses / Procedures Referred By Contac t Referred To Contact Radiology Diagnoses Subdural hematoma Procedures CT Head wo Contrast (Generic) Donna Graves MD [facility] [place] [address] [facility] [place] [address] Referral ID Status Reason Start Date Expiration Date V isits Requested Visits Authorized [id number] Closed Specialty Service Requested 2021 11/25/2022 1 1 Reason for Visit * Reason Comments Hospital Transfer Trauma consult Fall * Auth/Cert Specialty Diagnoses / Procedures Referred By Contac t Referred To Contact Diagnoses Subdural hematoma Fall trauma consult / sdh s/p fall Procedures EMERGENCY IPI Referral ID Status Reason Start Date Expiration Date Visits Re quested Visits Authorized [id number] 1 1 Encounter Details Date Type Department Care Team (Latest Contact Info) Description 05/27/2021 11:07 PM EST - 05/30/2021 4:59 PM EST Hospital Encounter 4 [place] [address] Manuel Singh [facility] [place] [address] Ken Barbour MD [facility] [place] [address] Robel Bryant MD [address] [place] [address]-[place] [address] Subdural hematoma; Fall, initial encounter; Fall, subsequent [...] Time Provider Department Center 06/13/2021 12:[address] [facility] DB XRAY ROOM [address] [facility] Rad 06/13/2021 2:00 PM Klaudia Forte APRN [facility] SURG [facility] 07/04/2021 2:[address] [facility] [address] [facility] [address] [facility] Rad 07/04/2021 3:00 PM Jayleen Burton PA [facility] [id number] [facility] Other In-hospital Issues: - Acute Pain - [...] ILLNESS: Britney Fitzgerald??is a 76 y.o.??female??presents to [facility] s/p fall from 3 ft. ??Description of events leading up to injury includes: Patient with a hx of hypertension, GERD, chronic back pain,??fell over a??deck on 05/27 day time at her daughter's house and landed on ice, hitting the back of her head and her neck. +LOC. She presented to [facility] where she was found to have R posterior rib fx, 7 m falcine SHD, and L punctate tSAH. She was transferred to [facility] for further work up.? 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 Possible Syncope - Upon further discussion [...] GI PPX: H2 Kyle Consults (Please see aviation consultant notes): PT/OT Dispo: Home Incidental Findings: [...] Procedure Component Value Units Date/Time COVID-19 PCR [[id number]] Collected: 05/28/21 0735 Lab Status: Final result [...] Department of Pathology and Laboratory Medicine at [facility], certified under the Clinical Laboratory Improvement Amendments [...] fact sheets at the following FDA website: https://www.fda.gov/medical-devices/tbzcaxqtjyp-ghjuybb-9037-epbsj-91-ypsxzxfnc- ymz-huxieyalfzsofz-rdbdyhb-devices/mcugt-vujfyezabau-bfdn SARS-CoV-2 Source VARNISH MAKER HELPER Swab Discharge Physical Examination: Vital Signs: Last [...] Time Provider Department Center 06/13/2021 12:[address] [facility] DB XRAY ROOM [address] [facility] Rad 06/13/2021 2:00 PM Klaudia Forte APRN [facility] SURG [facility] 07/04/2021 2:[address] [facility] [address] [facility] [address] [facility] Rad 07/04/2021 3:00 PM Jayleen Burton PA [facility] [id number] [facility] Outpatient Services/Studies: CT Head wo Contrast (Generic) Standing Status: Future Standing Exp. Date: 12/25/21 Question Response Notes Where will study be performed? [facility] Radiology [120] XR Chest PA & Lateral (Generic) Standing Status: Future Standing Exp. Date: 12/13/21 Question Response Notes Where will study be performed? [facility] [126] Reason for exam and clinical history: s/p fall, rib fx follow up, interval change, ? pleural effusion Referral to Home Health - at DISCHARGE Order Comments: DOCUMENTATION FOR VNA SERVICES (INCLUDING THOSE PATIENTS WITH MEDICARE COVERAGE REQUIRING HOME VNA SERVICES AND/OR HOSPICE SERVICES) PATIENT'S LOCATION: Britney Fitzgerald [address] [place] [phone] (home) Cell: No relevant phone numbers on file. In discussion with the attending physician, it is certified that this patient is under their care and that they, or a Nurse Practitioner,Clinical Nurse specialist or Physician Yield Loss Inspector who is working directly with them, had [...] for managing ADL's. HOME HEALTH CARE AGENCY: [facility] PHONE: [phone] FAX: [phone] Start of care: 24-48 hours after discharge [...] [address] / [place] [phone] All A agencies which cover the area of patient's residence have been reviewed, either verbally josé writing, and patient/family have chosen the home health care agency noted Question Response Notes Agency name and contact information [facility] Patient location post discharge Home What services are requested Registered Nurse What services are requested Physical Therapy What services are requested Occupational Therapy Responsible MD post discharge contact info PCP Special Instructions Given to Patient at Discharge:. An After Visit Summary was printed and given to the patient. Your care was managed by the Trauma and Acute Care Surgery Team at [facility]. If you have any questions or concerns, please feel free to contact us. Provider Contact Information: General Surgery Clinic: Nurses line for questions: [facility] (after business hours): CC: Steve Vann MD [facility] Klaudia Forte APRN Signed: Dontae Gauthier MD Department of Surgery 05/30/2021 Trauma pager [phone] documented in this encounter Discharge Instructions * [...] Provider. Please call the Neurosurgery Office at [phone] if you do not receive a scheduled appointment within two weeks Imaging: [] No Imaging required at follow-up. [x] Head CT HOW TO REACH NEUROSURGERY Office Hours (Saturday through Saturday 8am-5pm): Call On weekends or after office hours (after 5pm or before 8am): Call [phone] and ask the mortising machine operator to page the Neurosurgery Resident/Advanced Practice Provider corporate concierge. *Your surgeon may not be call out operator (especially after office hours or on the weekend) so be ready totell about yourself and your surgery when you call. Neurosurgery Providers Adult Neurosurgery Dr. Raymundo Delcid Pediatric Neurosurgery Dr. Madelaine Peguero Advanced Practice Providers Briana Day, Nurse Practitioner (outpatient) Thea Rivera, Physician Yield Loss Inspector (inpatient) Beverly Morgan, Nurse Practitioner (inpatient) Mariela Diaz, Physician Yield Loss Inspector (inpatient) Renato Bird, Nurse Practitioner (outpatient: pediatric) Mariela Oreilly, Physician Yield Loss Inspector (inpatient) Melita Varela, Nurse Practitioner (outpatient: vascular) Falguni Thomas Physician Yield Loss Inspector (outpatient: spine) Minh Olmstead, Nurse Practitioner (inpatient/outpatient) Jayleen Burton, Physician Yield Loss Inspector (outpatient) Yuridia Pierce, Nurse Practitioner (outpatient: neuro-oncology) [...] Center 05/30/2021 3:00 PM Raymundo Delgado, FAHEEM [facility] VAS LAB YARELI SINLCAIR 07/04/2021 2:[address] [facility] [address] [facility] [address] [facility] Rad 07/04/2021 3:00 PM Jayleen Burton PA [facility] [id number] [facility] Narcotics: You may be given a prescription [...] 1. You will have follow-up appointments at [facility] as indicated in the ???Future Appointments and [...] on the next business day. Please call [phone] if you do not hear from us by that time, as your timely follow-up is very important to us. Your care was managed by the Trauma and Acute Care Surgery Team at [facility]. If you have any questions or concerns, please feel free to contact us. Provider Contact Information: General Surgery: [facility] (after business hours): Primary Care Physician: Steve [...] Trauma and Acute Care Surgery Team at [facility]. If you have any questions or concerns, please feel free to contact us. Provider Contact Information: General Surgery Clinic: General Surgery Nurses line: [phone] [facility] (after business hours): documented in this encounter [...] OR CASE INFORMATION: FOLLOW-UP NEEDED: Specify Trauma VARNISH MAKER HELPER or Attending and time frame (please indicate [...] chronic back pain adm 05/27/21 presenting to [facility] s/p fall from 3 ft.: Patient ,??fell over a??deck on 05/27 day time at her daughter's house and landed on ice, hitting the back of her head and her neck. +LOC. She presented to [facility] with the following injuries:? 1.??Acute subdural [...] to enter the main level. ?? 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 Pt did [...] TEF x 2 HARVEY BLUE, PT Pager: [phone] Physical Therapy Inpatient Rehabilitation Department * Yahaira [...] stairs to enter the main level. 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 Home Setup: [...] times/wk Total Minutes, Occupational Therapy: 35 Pager: [phone] Yahaira Lopez, OT Occupational Therapy Rehabilitation Department * Reggie Steven, PT - 05/29/2021 2:40 PM EST Physical Therapy Evaluation Patient profile: Britney Fitzgerald??is a 76 y.o.??female??with a hx of hypertension, GERD, chronic back pain adm 05/27/21 presenting to [facility] s/p fall from 3 ft.: Patient ,??fell over a??deck on 05/27 day time at her daughter's house and landed on ice, hitting the back of her head and her neck. +LOC. She presented to [facility] with the following injuries:?? 1.??Acute subdural [...] railing to enter the main level. 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 Pt did [...] HD # 3 after falling at [facility]'s home in which she sustained a SDH, [...] mins, mod krystynaal REGGIE STEVEN, PT Pager: [phone] Physical Therapy Inpatient Rehabilitation Department * Yahaira [...] stairs to enter the main level. 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 Home Setup: [...] provide this at discharge due to his department sales manager work schedule. Pt would benefit from further [...] and measurable assessment of functional outcome. Pager: [phone] Yahaira Lopez OT 05/29/2021 Occupational Therapy Rehabilitation [...] H2 Kyle Lines/Tubes/Drains: PIV Consults (Please see aviation consultant notes): PT/OT Dispo: TBD,PT/OT assessment needed Status: Floor Incidental Findings: - [] Incidental Findings Form Completed Dontae Gauthier MD 05/29/2021 Trauma pager [phone] Addendum: secure chat with OT-> Patient will [...] is a 76 y.o. female presents to [facility] s/p fall from 3 ft. Description of events leading up to injury includes: Patient with a hx of hypertension, GERD, chronic back pain, fell over adeBitbar on 05/27 day time at her daughter's house and landed on ice, hitting the back of her head and her neck. +LOC. She presented to [facility] where she was found to have R posterior rib fx, 7 m falcine SHD, and L punctate tSAH. She was transferred to [facility] for further work up. Primary survey revealed: [...] mg OR [DISCONTINUED] famotidine (Pepcid) (10 mg/mL) [id number] mg ??? 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 Patient Name: Britney Fitzgerald Level of Activation: Trauma Consult MR#: [id number] [ ] Scene Call or [x] Hospital Transfer : [id number] ?? CC/MECHANISM OF INJURY: 76 y.o. Female s/p fall from height ?? HISTORY OF PRESENT ILLNESS: Britney Fitzgerald is a 76 y.o. female presents to [facility] s/p fall from 3 ft. Description of events leading up to injury includes: Patient with a hx of hypertension, GERD, chronic back pain, fell over [employer] on 05/27 day time at her daughter's house and landed on ice, hitting the back of her head and her neck. +LOC. She presented to [facility] where she was found to have R posterio rib fx, 7 m falcine SHD, and L punctate tSAH. She was transferred to [facility] for further work up. ?? 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 REVIEW OF SYSTEMS: complete [...] to pt comfort with good effect. * oCco Arzate MD - 2021 3:50 AM EST ED Resident Note HPI: Britney Fitzgerald is a 76 y.o. female who presents to the Emergency Department as a transfer from [facility] for trauma consult. She fell off a [...] who have questions please contact the health hearing care practitioner that requested your imaging first. Film Library- Storage Only CT Spine Final [...] COVID test: Lab Results Component Value Date [id number] Not Detected 2021 Past medical History: Past [...] Fitzgerald would be surrogate decision maker per [place] surrogate decision making law. (Only good for 180 days) Any patient receiving care at [facility] must abide by [place] law. The hierarchy for surrogate decision making [...] (i) The agent with financial power of commonwealth attorney or a conservator appointed in accordance with RSA 464-A. (j) The guardian of the patient???s estate. Current Coping/Education/Information Needs: States coping well w/ hospitalization Current Functional Ability: Assistive Equipment Functional Status Prior to Admission: Independent Prior iADLS: Independent with all iADLs Home Environment: Others in the home: spouse. Current Living Arrangements: home/apartment/condo. Accessibility Concerns:2 SIMIN. Current DME: walker - standard Home Address [address] [place] [phone] Social & Family Supports: Extended Emergency Contact [...] MEDICARE Payor: [employer] MANAGED MEDICARE / Plan: [facility] MANAGED MEDICARE COMPLETE / Product Type: *No Product type* / Secondary Insurance: N/A Prescription Coverage: Yes Preferred Pharmacy: [id number] AT SEC OF [facility] & [address] [address] [place] Status: Patient is a : No Primary [...] are placed. Patient requests referral to: Arturo: [facility]. PHONE: [phone] FAX: [phone] DME: [facility] Expected date of discharge: 05/30 Referral routed to the Pulling Unit Operator for matching with agency/vendor and to provide any required information. Transportation: no concerns Transportation Anticipated: family or friend will provide Concerns to be Addressed: discharge planning Assessment: Britney Fitzgerald is a 76yo female here for SDH, SAH, and right 8-11 rib fractures. Livesat home w/ spouse. Insured w/ [employer] Managed Medicare. Gets medications filled via mail order and locally at [facility] in [place], [place]. Spouse to transport at discharge. Plan: [...] Graves MD - 2021 3:40 AM EST [facility] Neurosurgery Consultation Note Date & Time of Consult: 2021 0321 Referring Service: Trauma Surgery Referring Attending: Manuel Singh DO Neurosurgery Attending: Dr. Ramirez Place of Consult: [facility] ED23 ID: Name: Britney Fitzgerald, 76 y.o. female Admission Date: 05/27/2021 Reason for consult/CC: 7mm falcine aSDH w/o mass effect & L punctate tSAH HPI: This is a 76 y.o. female with a PMH of GERD, gastric ulcer, HTN, DM, cataract s/p extraction who presented to [facility] in transfer from [facility] s/p fall [...] who have questions please contact the health hearing care practitioner that requested your imaging first. Assessment: This is a 76 y.o. female on ASA81 with a PMH of GERD, gastric ulcer, HTN, DM, cataract s/p extraction who presented to [facility] in transfer from [facility] s/p fall [...] care will be discussed with Dr. Ramirez. Donna Graves MD 2021 at 3:40 AM ADDENDUM [...] Fitzgerald Level of Activation: Trauma Consult MR#: [id number] [ ] Scene Call or [x] Hospital Transfer : [id number] CC/MECHANISM OF INJURY: 76 y.o. Female s/p fall from height HISTORY OF PRESENT ILLNESS: Britney Fitzgerald is a 76 y.o. female presents to [facility] s/p fall from 3 ft. Description of events leading up to injury includes: Patient with a hx of hypertension, GERD, chronic back pain, fell over adeck on 05/27 day time at her daughter's house and landed on ice, hitting the back of her head and her neck. +LOC. She presented to [facility] where she was found to have R posterio rib fx, 7 m falcine SHD, and L punctate tSAH. She was transferred to [facility] for further work up. 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) STAT 2021 7:35 AM EST XR [...] who have questions please contact the health hearing care practitioner that requested your imaging first. ? Electronically signed by: Natalie Griffin MD, [facility] ([phone]), at 07/04/2021 5:01 PM Narrative 07/04/2021 5:01 [...] patients who have questions please contactthe health hearing care practitioner that requested your imaging first. Electronically signed by: Natalie Griffin MD, [facility]([phone]), at 07/04/2021 5:01 PM Ken Barbour MD IMG CT ORDERABLES * POCT Glucose (05/30/2021 11:26 AM EST) Glucose, POC 154 65 - 199 mg/dL [facility] Comment: Supplemental ranges: <140 mg/dL before meals <180 mg/dL all other times of the day Blood 05/30/2021 11:2 6 AM EST 05/30/2021 11:26 AM EST Robel Bryant MD POINT OF CARE TEST O RDERABLES Performing Organization Address City/State/[facility] Co de Phone Number [facility] [place] [address] * Duplex Study for DVT, Bilat legs (05/30/2021 10:19 AM EST) VB Text Report Department: Vascular Surgery Lab Patient: [id number] (BRITNEY FITZGERALD) CPT: 55743 Referring Physician: ROBEL BRYANT ?? Indications: Patient [...] Bryant MD VASCULAR ORDERABLES Performing Organization Address [facility] Co de Phone Number [facility] * POCT Glucose (05/30/2021 7:57 AM EST) Glucose, POC 141 65 - 199 mg/dL [facility] Comment: Supplemental ranges: <140 mg/dL before meals <180 mg/dL all other times of the day Blood 05/30/2021 7:57 AM EST 05/30/2021 7:57 AM EST Robel Bryant MD POINT OF CARE TEST O RDERABLES Performing Organization Address [facility] de Phone Number [facility] [place] [address] * POCT Glucose (05/30/2021 3:44 AM EST) Glucose, POC 136 65 - 199 mg/dL [facility] Comment: Supplemental ranges: <140 mg/dL before meals <180 mg/dL all other times of the day Blood 05/30/2021 3:44 AM EST 05/30/2021 3:44 AM EST Robel Bryant MD POINT OF CARE TEST O RDERABLES Performing Organization Address [facility] de Phone Number [facility] [place] [address] * POCT Glucose (05/29/2021 11:55 PM EST) Glucose, POC 150 65 - 199 mg/dL [facility] Comment: Supplemental ranges: <140 mg/dL before meals <180 mg/dL all other times of the day Blood 05/29/2021 11:5 5 PM EST 05/29/2021 11:55 PM EST Robel Bryant MD POINT OF CARE TEST O ABDOUL Performing Organization Address [facility] de Phone Number [facility] [place] [address] * POCT Glucose (05/29/2021 8:24 PM EST) Glucose, POC 170 65 - 199 mg/dL [facility] Comment: Supplemental ranges: <140 mg/dL before meals <180 mg/dL all other times of the day Blood 05/29/2021 8:24 PM EST 05/29/2021 8:24 PM EST Robel Bryant MD POINT OF CARE TEST O ABDOUL Performing Organization Address [facility] de Phone Number [facility] [place] [address] * XR Chest PA & Lateral (Generic) [...] who have questions please contact the health hearing care practitioner that requested your imaging first. ? Narrative 05/29/2021 4:04 PM EST EXAMINATION: XR [...] patients who have questions please contactthe health hearing care practitioner that requested your imaging first. Ken Barbour MD IMG DX ORDERABLES * POCT Glucose (05/29/2021 3:26 PM EST) Glucose, POC 155 65 - 199 mg/dL [facility] Comment: Supplemental ranges: <140 mg/dL before meals <180 mg/dL all other times of the day Blood 05/29/2021 3:26 PM EST 05/29/2021 3:26 PM EST Ken Barbour MD POINT OF CARE TEST ORDERABLES [facility] [place] [address] * Carotid Duplex, Bilateral (05/29/2021 12:34 PM EST) VB Text Report Department: Vascular Surgery Lab Patient: [id number] (BRITNEY FITZGERALD) CPT: [id number] Referring Physician: MACY SMITH ?? Phone: Indications: [...] Glucose, POC 151 65 - 199 mg/dL [facility] Comment: Supplemental ranges: <140 mg/dL before meals <180 mg/dL all other times of the day Blood 05/29/2021 10:2 8 AM EST 05/29/2021 10:28 AM EST Ken Barbour MD POINT OF CARE TEST ORDERABLES Performing Organization Address City/State/[facility] Co de Phone Number [facility] [place] [address] * Differential, Automated (05/29/2021 6:04 AM EST) Neutrophil % 58.9 % [facility] Neutrophil Absolute 3.51 1.70 - 6.10 x10(3)/[facility] Lymph % 20.7 % [facility] Lymphocytes Abs 1.2 0.9 - 3.2 x10(3)/[facility] Monocyte % 13.8 % [facility] LABORATORY Monocyte Abs 0.8 0.3 - 0.9 x10(3)/[facility] LABORATORY Eos % 5.9 % [facility] LABORATORY Eosinophils Abs 0.4 0.0 - 0.4 x10(3)/[facility] LABORATORY Basophil % 0.5 % [facility] LABORATORY Baso Absolute 0.0 0.0 - 0.1 x10(3)/[facility] LABORATORY Immature Gran % 0.20 % [facility] Comment: Immature granulocytes(IG's)percentage and absolute count will include metamyelocytes, myelocytes, and promyelocytes. Blood smears from CBCs yielding IG's will be scanned manually for concordance. If this scan disagrees with the automated IG or if promyelocytes are noted, a manual differential will be performed. Immature Gran Absolute 0.01 0.00 - 0.04 x10(3)/[facility] LABORATORY Blood 05/29/2021 6:04 AM EST 05/29/2021 6:34 AM EST Narrative Resulting Agency Comment Spec In Lab Chuyita Pak MD HEMATOLOGY ORDERABLE S [facility] [place] [address] * Hemogram (05/29/2021 6:04 AM EST) [facility] White Blood Cell 6.0 4.0 - 9.5 x10(3)/[facility] LABORATORY Red Blood Cell 4.62 4.00 - 5.21 x10(6)/[facility] LABORATORY Hemoglobin 13.8 11.7 - 15.5 g/dL [facility] Hematocrit 41.4 35.7 - 45.8 % [facility] Mean Cell Volume 89.6 82.6 - 94.4 fL [facility] Mean Cell Hemoglobin 29.9 27.1 - 32.0 pg [facility] Mean Cell Hemoglobin Concentration 33.3 31.7 - 35.0 g/dL [facility] Platelet 256 145 - 357 x10(3)/[facility] LABORATORY RDW Standard Deviation 41.0 37.0 - 46.0 [facility] LABORATORY RDW coefficient of variation 12.4 11.5 - 14.1 % [facility] Mean Platelet Volume 9.4 7.6 - 12.9 [facility] LABORATORY NRBC% auto 0.0 % [facility] LABORATORY NRBC Absolute 0.000 0.000 - 0.000 x10(3)/[facility] LABORATORY Blood 05/29/2021 6:04 AM EST 05/29/2021 6:34 AM EST Narrative Resulting Agency Comment Spec In Lab Chuyita Pak MD HEMATOLOGY ORDERABLE S [facility] [place] [address] * Basic Metabolic Panel (non-fasting) (05/29/2021 6:04 AM EST) [facility] Glucose 137 65 - 199 mg/dL [facility] Comment:Diabetes: >=200 mg/d L plus symptoms Blood Urea Nitrogen 9 8 - 18 mg/dL [facility] Creatinine 0.70 0.70 - 1.20 mg/dL [facility] Sodium 136 135 - 145 mmol/L [facility] Potassium 4.0 3.5 - 5.0 mmol/L [facility] Comment: Please note: ??Patients with WBC >100,000 may have falsely elevated Potassium levels. ??For accurate Potassium quantification in these patients send serum separator tube (gold top) for subsequent determinations. ??Contact the Clinical Chemistry Laboratory if there are any questions. Chloride 101 98 - 107 mmol/L [facility] Carbon Dioxide 24 22 - 31 mmol/L [facility] Anion Gap 11 5 - 15 mmol/L [facility] Calcium 9.9 8.5 - 10.5 mg/dL [facility] Est Glomerular Filtration Rate 85 >=60 mL/min/1. 73 m?? [facility] Comment: This patient? s estimated [...] Lab Ken Barbour MD CHEMISTRY ORDERABLE S [facility] [place] [address] * POCT Glucose (2021 8:04 PM EST) Glucose, POC 159 65 - 199 mg/dL [facility] Comment: Supplemental ranges: <140 mg/dL before meals <180 mg/dL all other times of the day Blood 2021 8:04 PM EST 2021 8:04 PM EST Ken Barbour MD POINT OF CARE TEST ORDERABLES Performing Organization Address [facility] de Phone Number [facility] [place] [address] * POCT Glucose (2021 4:25 PM EST) Glucose, POC 126 65 - 199 mg/dL [facility] Comment: Supplemental ranges: <140 mg/dL before meals <180 mg/dL all other times of the day Blood 2021 4:25 PM EST 2021 4:25 PM EST Ken Barbour MD POINT OF CARE TEST ORDERABLES Performing Organization Address [facility] de Phone Number [facility] [place] [address] * CT Lumbar Spine w Contrast (2021 [...] who have questions please contact the health hearing care practitioner that requested your imaging first. ? Narrative 2021 9:39 AM EST EXAMINATION: CT [...] patients who have questions please contactthe health hearing care practitioner that requested your imaging first. Ken Barbour [...] who have questions please contact the health hearing care practitioner that requested your imaging first. ? Narrative 2021 8:57 AM EST EXAMINATION: CT [...] patients who have questions please contactthe health hearing care practitioner that requested your imaging first. Ken Barbour MD IMG CT ORDERABLES * [...] who have questions please contact the health hearing care practitioner that requested your imaging first. ? Narrative 2021 9:30 AM EST EXAMINATION: CT [...] patients who have questions please contactthe health hearing care practitioner that requested your imaging first. Ken Barbour MD IMG CT ORDERABLES * COVID-19 PCR (2021 7:35 AM EST) SARS-CoV-2 RNA (Rapid) Not Detected Not Detected [facility] Comment: This result should be [...] using the Simplexa COVID-19 Direct Assay by [employer] as authorized by the FDA issued Emergency [...] Department of Pathology and Laboratory Medicine at [facility], certified under the Clinical Laboratory Improvement Amendments [...] fact sheets at the following FDA website: https://www.fda.gov/medical-devices/nwupljvhjhc-mtrlibs-5095-acabl-28-lqmxzcyfo- use-a bwxdwbnjzxofe-edsneig-xliwsqc/iycor-osvkjruydxq-lgui SARS-CoV-2 Source [employer] Swab MA R[facility] Nasopharyngeal Swab 05/28/19 7:35 AM EST 2021 7:57 AM EST Comment:Symptoms->Surveillan ce Narrative Resulting Agency Comment Spec In Lab Manuel Singh DO MICROBIOLOGY - GENER AL ORDERABLES Performing Organization Address City/State/[facility] Co de Phone Number [facility] [place] [phone] * XR Chest PA & Lateral (Generic) [...] who have questions please contact the health hearing care practitioner that requested your imaging first. ? Narrative 2021 8:09 AM EST EXAMINATION: XR [...] patients who have questions please contactthe health hearing care practitioner that requested your imaging first. Ken Barbour [...] who have questions please contact the health hearing care practitioner that requested your imaging first. ? Narrative 2021 5:52 AM EST EXAMINATION: CT [...] patients who have questions please contactthe health hearing care practitioner that requested your imaging first. Manuel Singh DO IMG CT ORDERABLES * Gold Tube HOLD (2021 5:10 AM EST) [facility] Gold Hold Sample in lab. [facility] Blood Venous Draw / Unknown 2021 5:10 AM EST 2021 5:17 AM EST Donna Graves MD CHEMISTRY ORDERABL ES [facility] [place] [address] * (ABNORMAL) Differential, Automated (2021 5:10 AM EST) [facility] Neutrophil % 70.8 % [facility] Neutrophil Absolute 6.35(H) 1.70 - 6.10 x10(3)/mc L [facility] Lymph % 15.1 % [facility] Lymphocytes Abs 1.4 0.9 - 3.2 x10(3)/mc L [facility] Monocyte % 11.4 % [facility] Monocyte Abs 1.0(H) 0.3 - 0.9 x10(3)/mc L [facility] Eos % 2.3 % [facility] Eosinophils Abs 0.2 0.0 - 0.4 x10(3)/mc L [facility] Basophil % 0.2 % [facility] Baso Absolute 0.0 0.0 - 0.1 x10(3)/mc L [facility] Immature Gran % 0.20 % [facility] Comment: Immature granulocytes(IG's)percentage and absolute count will include metamyelocytes, myelocytes, and promyelocytes. Blood smears from CBCs yielding IG's will be scanned manually for concordance. If this scan disagrees with the automated IG or if promyelocytes are noted, a manual differential will be performed. Immature Gran Absolute 0.02 0.00 - 0.04 x10(3)/mc L [facility] Blood 2021 5:10 AM EST 2021 5:16 AM EST Narrative Resulting Agency Comment Spec In Lab Donna Graves MD HEMATOLOGY ORDERAB LES Performing Organization Address City/State/[facility] Co de Phone Number [facility] [place] [address] * Hemogram (2021 5:10 AM EST) White Blood Cell 9.0 4.0 - 9.5 x10(3)/[facility] LABORATORY Red Blood Cell 4.26 4.00 - 5.21 x10(6)/[facility] LABORATORY Hemoglobin 12.8 11.7 - 15.5 g/dL [facility] Hematocrit 37.7 35.7 - 45.8 % [facility] Mean Cell Volume 88.5 82.6 - 94.4 fL [facility] Mean Cell Hemoglobin 30.0 27.1 - 32.0 pg [facility] Mean Cell Hemoglobin Concentration 34.0 31.7 - 35.0 g/dL [facility] Platelet 269 145 - 357 x10(3)/[facility] LABORATORY RDW Standard Deviation 40.9 37.0 - 46.0 fL [facility] RDW coefficient of variation 12.6 11.5 - 14.1 % [facility] Mean Platelet Volume 9.1 7.6 - 12.9 fL [facility] NRBC% auto 0.0 % [facility] NRBC Absolute 0.000 0.000 - 0.000 x10(3)/mcL [facility] Blood 2021 5:10 AM EST 2021 5:16 AM EST Narrative Resulting Agency Comment Spec In Lab Donna Graves MD HEMATOLOGY ORDERAB LES [facility] [place] [address] * (ABNORMAL) Comprehensive metabolic panel (non-fasting) (2021 5:10 AM EST) Glucose 145 65 - 199 mg/dL [facility] Comment:Diabetes: >=200 mg/d L plus symptoms Blood Urea Nitrogen 11 8 - 18 mg/dL [facility] Creatinine 0.59(L) 0.70 - 1.20 mg/dL [facility] Sodium 137 135 - 145 mmol/L [facility] Potassium 4.1 3.5 - 5.0 mmol/L [facility] Comment: Please note: ??Patients with WBC >100,000 may have falsely elevated Potassium levels. ??For accurate Potassium quantification in these patients send serum separator tube (gold top) for subsequent determinations. ??Contact the Clinical Chemistry Laboratory if there are any questions. Chloride 103 98 - 107 mmol/L [facility] Carbon Dioxide 25 22 - 31 mmol/L [facility] Anion Gap 9 5 - 15 mmol/L [facility] Calcium 9.8 8.5 - 10.5 mg/dL [facility] Protein, Total 5.9(L) 6.1 - 8.0 g/dL [facility] Albumin 3.9 3.2 - 5.2 g/dL [facility] Aspartate Aminotransferase 18 0 - 30 unit/L [facility] Alanine Aminotransferase 21 0 - 30 unit/L [facility] Alkaline Phosphatase 79 35 - 105 unit/L [facility] Bilirubin, Total 0.3 0.2 - 1.3 mg/dL [facility] Est Glomerular Filtration Rate 90 >=60 mL/min/1. 73 m?? [facility] Comment: This patient? s estimated [...] Singh DO CHEMISTRY ORDERABLES Performing Organization Address [facility] de Phone Number [facility] [place] [address] * APTT (2021 5:10 AM EST) Partial Thromboplastin Time 29 25 - 37 sec [facility] Comment: The PTT is NOT appropriate for heparin monitoring. Use the Anti-Xa level for heparin monitoring (HEP UFH) or LMWH monitoring (HEP LMW). A PTT less than 37 seconds generally indicates adequate hemostasis. Blood 2021 5:10 AM EST 2021 5:16 AM EST Narrative Resulting Agency Comment Spec In Lab Manuel Singh DO HEMATOLOGY ORDERABLE S Performing Organization Address [facility] Co de Phone Number [facility] [place] [address] * Prothrombin Time (2021 5:10 AM EST) Prothrombin Time 12.1 9.4 - 12.5 sec [facility] International Normalization Ratio 1.1 [facility] Comment: An INR <2.0 indicates [...] Lab Manuel Singh DO HEMATOLOGY ORDERABLE S [facility] [place] [address] * (ABNORMAL) Rapid Drug Screen w/o Confirmation, Urine (2021 4:00 AM EST) Barbiturates Screen, Urine None Detected None Detected [facility] Comment: The barbiturate screen detects [...] Benzodiazepines Screen, Urine None Detected None Detected [facility] Comment: The benzodiazepines screen detects [...] Cocaine Screen, Urine None Detected None Detected [facility] Comment: The cocaine metabolites screen detects benzoylecgonine (Cocaine Metabolite) at concentrations >150 ng/mL. A ? Presumptive Positive? result indicates that the screening result was positive but has not yet been confirmed by a highly-specific method. As with any screen, occasional false positive results from cross-reacting substances may occur. Not for Medico-Legal Purposes. Methadone Metabolites Screen, Urine None Detected None Detected [facility] Comment: The methadone metabolite screen detects EDDP (major methadone metabolite) at concentrations >100 ng/mL. A ? Presumptive Positive? result indicates that the screening result was positive but has not yet been confirmed by a highly-specific method. As with any screen, occasional false positive results from cross-reacting substances may occur. Not for Medico-Legal Purposes. Opiate Screen, Urine Presumptive Pos(A) None Detected [facility] Comment: The opiates screen detects [...] Cannabinoid Screen, Urine None Detected None Detected [facility] Comment: The marijuana metabolites screen detects the THC metabolite (10-uuo-3-carboxy-delta 9-THC) at concentrations >20 ng/mL. A ? Presumptive Positive? result indicates that the screening result was positive but has not yet been confirmed by a highly-specific method. As with any screen, occasional false positive results from cross-reacting substances may occur. Not for Medico-Legal Purposes. Oxycodone Screen, Urine None Detected None Detected [facility] Comment: The oxycodone screen detects oxycodone and oxymorphone at concentrations >100 ng/mL. A ? Presumptive Positive? result indicates that the screening result was positive but has not yet been confirmed by a highly-specific method. As with any screen, occasional false positive results from cross-reacting substances may occur. Not for Medico-Legal Purposes. Buprenorphine Screen, Urine None Detected None Detected [facility] Comment: The buprenorphine screen detects buprenorphine at concentrations >5 ng/mL. A ? Presumptive Positive? result indicates that the screening result was positive but has not yet been confirmed by a highly-specific method. As with any screen, occasional false positive results from cross-reacting substances may occur. Not for Medico-Legal Purposes. Fentanyl Screen, Urine None Detected None Detected [facility] Comment: The fentanyl screen detects fentanyl at concentrations >2 ng/mL. A ? Presumptive Positive? result indicates that the screening result was positive but has not yet been confirmed by a highly-specific method. As with any screen, occasional false positive results from cross-reacting substances may occur. Not for Medico-Legal Purposes. Tricyclics Screen, Urine None Detected None Detected [facility] Comment: The tricyclics screen detects [...] Ethanol Screen, Urine None Detected None Detected [facility] Comment:This urine ethanol a ssay detects ethanol at concentrations >/= 100 mg/L. Amphetamines Screen, Urine None Detected None Detected [facility] Comment: The amphetamine screen detects d-amphetamine and d-methamphetamine at concentrations >300 ng/mL. A ? Presumptive Positive? result indicates that the screening result was positive but has not yet been confirmed by a highly-specific method. As with any screen, occasional false positive results from cross-reacting substances may occur. Not for Medico-Legal Purposes. Adulterants Screen, Urine None Detected None Detected [facility] Comment: No adulteration or dilution of this urine sample was detected. All urine samples submitted for urine drugs of abuse analysis are tested for creatinine concentration, pH, and for the presence of oxidants, nitrites, and chromate. Urine 2021 4:00 AM EST 2021 4:30 AM EST Narrative Resulting Agency Comment Spec In Lab Chuyita Pak MD CHEMISTRY ORDERABLES Performing Organization Address City/[facility]/ZIP Co de Phone Number [facility] [place] [address] * Rapid Drug Screen, Urine (LEVI Request) (2021 4:00 AM EST) LEVI Conf Requested No [facility] Comment: Collection date/time has been modified to: 04:00:00. ??Previous collection date/time: 04:07:00. Corrected from No [NA] on 05/28/21 4:30:45 EST by Donavan Montoya. LEVI Requested See Comment [facility] Comment: Refer to Rapid Drug Screen w/o Confirmation, Urine for results. Collection date/time has been modified to: 04:00:00. ??Previous collection date/time: 04:07:00. Corrected from See Comment [NA] on 05/28/21 4:30:45 EST by Donavan Montoya. Urine 2021 4:00 AM EST 2021 4:30 AM EST Narrative Resulting Agency Comment Spec In Lab Manuel Singh DO URINE ORDERABLES Performing Organization Address [facility] Co de Phone Number [facility] [place] [address] * Urinalysis with reflex Culture (2021 4:00 AM EST) Glucose, Urine Dipstick Negative Negative mg/dL [facility] Protein, Urine Dipstick Negative Negative mg/dL [facility] Bilirubin, Urine Dipstick Negative Negative mg/dL [facility] Comment: Clinical correlation required for positive Urine Bilirubin results as false positive may occur with some drugs and drug related products. If a false positive is suspected a serum total bilirubin should be considered if clinically indicated. Urobilinogen, Urine Dipstick Normal Normal mg/dL [facility] pH, Urn (dipstick) 5.5 5.0 - 8.0 [facility] Blood, Urine Dipstick Negative Negative mg/dL [facility] Ketone, Urine Dipstick Negative Negative mg/dL [facility] Nitrite, Urine Dipstick Negative Negative [facility] Leukocytes, Urine Dipstick Negative Negative [facility] Appearance, Urine Dipstick Clear Clear [facility] Specific [place]der Urine Automated 1.015 1.005 - 1.030 [facility] Color, Urine Dipstick Yellow Yellow [facility] Reflex to Culture No [facility] Straight Catheter Urine 2021 4:00 AM EST 2021 4:30 AM EST Narrative Resulting Agency Comment Spec In Lab Manuel Singh DO URINE ORDERABLES Performing Organization Address City/State/[facility] Co de Phone Number [facility] [place] [address] * Request For 2nd Read CT Spine [...] who have questions please contact the health hearing care practitioner that requested your imaging first. ? Narrative 2021 4:08 AM EST EXAMINATION: REQUEST FOR 2ND READ CT SPINE CLINICAL HISTORY: 76F s/p fall over ledge. Severe tenderness in mid thoracic region.; Sending Institution [facility]; Date of exam [id number]; I believe a reinterpretation of this exam may alter care of Patient. Yes TECHNIQUE: Reinterpretation of CT of the thoracic spine performed without intravenous contrast. Study performed at [facility] at 1856 hours, May 27, 2021 [...] Severe tenderness in midthoracic region.; Sending Institution [facility]; Date of exam [id number]; Ibelieve a reinterpretation of this exam may alter care of Patient. Yes TECHNIQUE: Reinterpretation of CT of the thoracic spine performed withoutintravenous contrast. Study performed at [facility] at 1856 hours,May 27, 2021 COMPARISON: [...] patients who have questions please contactthe health hearing care practitioner that requested your imaging first. Manuel Francisco IMG OUTSIDE INTERPRE TATION ORDERABLES [...] who have questions please contact the health hearing care practitioner that requested your imaging first. ? Narrative 2021 3:04 AM EST EXAMINATION: REQUEST FOR 2ND READ CT HEAD AND SPINE CLINICAL HISTORY: 76F fall off a porch, SDH at [facility]; Sending Institution [facility]; Date of exam [id number]; I believe a reinterpretation of this exam may alter care of Patient. Yes TECHNIQUE: Reinterpretation of CT of the head and cervical spine performed without intravenous contrast. Study performed at [facility] at 1856 hours, May 27, 2021 [...] off a porch, [facility]; Date of exam [id number]; I believe a reinterpretation of this exammay alter care of Patient. Yes TECHNIQUE: Reinterpretation of CT of the head and cervical spine performed without intravenous contrast. Study performed at [facility] at 1856hours, May 27, 2021 COMPARISON: [...] patients who have questions please contactthe health hearing care practitioner that requested your imaging first. Manuel Singh DO IMG OUTSIDE INTERPRE TATION ORDERABLES * EKG 12 Lead (05/27/2021 11:29 PM EST) Ventricular rate 94 BPM MUSE SYSTEM Atrial Rate 94 BPM MUSE SYSTEM P-R Interval 186 ms MUSE SYSTEM QRS Duration 66 ms MUSE SYSTEM Q-T Interval 354 ms MUSE SYSTEM QTC Calculated (Bezet) 442 ms MUSE SYSTEM Calculated P [place] 48 degrees MUSE SYSTEM Calculated R [place] -22 degrees MUSE SYSTEM Calculated T [place] 17 degrees MUSE SYSTEM INTERPRETATION Normal sinus [...] is for storage only. Manuel Singh DO [facility] FILM LIBRARY ORD ERABLES documented in this [...] Gonzalez RN)1500 (Due - Provider: Dylan Villa [facility]) famotidine (Pepcid) tablet 20 mg(Linked Group 1) [...] Routine documented in this encounter Care Teams Supervisor Offset Plate Preparation Relationship Specialty Start Date End Date Steve Vann MD PCP - General Family Medicine 05/10/21 documented as of this encounter
--- OUTSIDE RECORDS SUMMARY | 2024-03-09 15:17 | XMS_ITS | Encounter Summary ---
Author Organization [facility] Address [address] [place] [address] Care Team Providers Care Night Manager Name Role Phone Steve Vann MD Primary Care Provider [phone] Reason for Referral * (Routine/Next Available) - Receiving Office to Obtain Authorization Specialty Diagnoses / Procedures Referred By Contac t Referred To Contact Procedures US OUTSIDE IMAGES BREAST Imaging, External Referral ID Status Reason Start Date Expiration Date Visits Requested Visits Authorized [id number] Receiving Office to Obtain Authorization 3 1 1 Reason for Visit * (Routine/Next Available) - Receiving Office to Obtain Authorization Specialty Diagnoses / Procedures Referred By Contac t Referred To Contact Procedures US OUTSIDE IMAGES BREAST Imaging, External Referral ID Status Reason Start Date Expiration Date Visits Requested Visits Authorized [id number] Receiving Office to Obtain Authorization 3 1 1 Encounter Details Date Type Department Care Team (Latest Contact Info) Description 01/24/2023 Hospital Encounter [facility] Secondary Reads [place] Discharge Disposition: Home [...] on filedocumented in this encounter Care Teams Night Manager Relationship Specialty Start Date End Date Steve Vann MD [facility] [place] [address] PCP - General 01/06/21 documented as of this encounter
--- OUTSIDE RECORDS SUMMARY | 2024-03-09 15:17 | XMS_ITS | Encounter Summary ---
Author Organization [facility] Address [facility] [place] [address] Care Team Providers Care Paver Operator Name Role Phone Unavailable Primary Care Provider Unavailabl e Reason for Visit * Reason Comments Post Op Pseudophakia Encounter Details Date Type Department Care Team (Late st Contact Info) Description 06/23/2020 8:45 AM EDT Office Visit Ophthalmology at [facility] [place] [address] Fantasma Preston MD [facility] [place] [address] Status post cataract extraction and insertion of [...]
--- OUTSIDE RECORDS SUMMARY | 2024-03-09 15:17 | XMS_ITS | Encounter Summary ---
Author Organization [facility] Address [address] [place] [address] Care Team Providers Care Parachute Supervisor Name Role Phone Steve Vann MD Primary Care Provider Reason for Visit * Reason Onset Date Comments Results 04/05/2023 Encounter Details Date Type Department Care Team (Late st Contact Info) Description 04/05/2023 Telephone [facility] Breast Imaging Mammography - Main [address] [phone] Iram Leslie Results Social History Tobacco Use [...] encounter Miscellaneous Notes * Telephone Encounter - Irma Leslie - 04/05/2023 1610 EST Left patient a message to call back breast imaging at [phone] to review results of her breast imaging second read. documented in this encounter Plan of Treatment Not on file documented as of this encounter Visit Diagnoses Not on filedocumented in this encounter Care Teams Parachute Supervisor Relationship Specialty Start Date End Date Steve Vann MD [address] [facility] [place] [address] PCP - General 01/06/21 documented as of this encounter
--- OUTSIDE RECORDS SUMMARY | 2024-03-09 15:18 | XMS_ITS | Encounter Summary ---
Author Organization [facility] Address [address] [place] [address] Care Team Providers Care Blood Bank Laboratory Professional Name Role Phone Carlyn Polo MD Primary Care Provider [phone] Encounter Details Date Type Department Care Team (Late st Contact Info) Description 07/02/2001 Results Only [facility] - Map conversion [address] [place] [address] Dorothea Bledsoe MD [address] [place] [address] Social History Tobacco Use Types Packs/Day Years Used Date Smoking Tobacco: Never Assessed Comments Unknown Sex and Gender Information Value [...] ? BRITNEY FITZGERALD ? Accession #: ? [id number] ? : ? 1945 (Age: 56) ??F [...] epithelium present. ??Clinical correlation is suggested. ?(Dr. Esparza)/[facility] Document reviewed and electronically signed by: KELSEA [...] is submitted intact in one cassette. ??(Aurea [place])/[facility] End of Report [facility] 07/02/2001 07/04/2001 8:0 7 EST us Dorothea Bledsoe MD PATHOLOGY ORDERABLES Final Res ult [facility] [address] [place] [address] documented in this encounter Visit Diagnoses Not on filedocumented in this encounter Care Teams Blood Bank Laboratory Professional Relationship Specialty Start Date End Date Carlyn Polo MD [address] [place] [phone] PCP - General 07/13/09 01/05/21 documented as of this encounter
--- OUTSIDE RECORDS SUMMARY | 2024-03-09 15:18 | XMS_ITS | Encounter Summary ---
Author Organization [facility] Address [address] [place] [address] Care Team Providers Care Curriculum Specialist Name Role Phone Carlyn Polo MD Primary Care Provider [phone] Reason for Referral * (Routine/Next Available) - Receiving Office to Obtain Authorization Specialty Diagnoses / Procedures Referred By Contac t Referred To Contact Procedures MA OUTSIDE IMAGES MAMMO SCREENING Imaging, External Referral ID Status Reason Start Date Expiration Date Visits Requested Visits Authorized [id number] Receiving Office to Obtain Authorization 3 1 1 Reason for Visit * (Routine/Next Available) - Receiving Office to Obtain Authorization Specialty Diagnoses / Procedures Referred By Contac t Referred To Contact Procedures MA OUTSIDE IMAGES MAMMO SCREENING Imaging, External Referral ID Status Reason Start Date Expiration Date Visits Requested Visits Authorized [id number] Receiving Office to Obtain Authorization 3 1 1 Encounter Details Date Type Department Care Team (Latest Contact Info) Description 12/07/2020 - 12/07/2020 23:59 EDT Hospital Encounter [facility] Secondary Reads [place] Discharge Disposition: Home [...] on filedocumented in this encounter Care Teams Curriculum Specialist Relationship Specialty Start Date End Date Carlyn Polo MD [address] [place] [phone] PCP - General 07/13/09 01/05/21 documented as of this encounter
--- OUTSIDE RECORDS SUMMARY | 2024-03-09 15:18 | XMS_ITS | Encounter Summary ---
Author Organization [facility] Address [address] [place] [address] Care Team Providers Care Filter Tip Inspector Name Role Phone Carlyn Polo MD Primary Care Provider [phone] Encounter Details Date Type Department Care Team (Late st Contact Info) Description 06/22/1999 Results Only [facility] - Maple conversion [address] [place] [address] Steve Bledsoe MD [address] [place] [address] Social History Tobacco Use Types Packs/Day Years [...] ? BRITNEY FITZGERALD ? Accession #: ? [id number] ? : ? 1945 (Age: 54) ??F [...] duct ? node is not grossly identified. ??Supervisor Shipping sections are ? submitted in one cassette. ??(Jhonny Victor)/[facility] End of Report [facility] 06/22/1999 15:3 4 EST 06/22/1999 15:35 EST us Steve Bledsoe MD PATHOLOGY ORDERABLES Final Res ult Performing Organization Address City/State/[facility] Co de Phone Number [facility] [address] [place] [address] documented in this encounter Visit Diagnoses Not on filedocumented in this encounter Care Teams Filter Tip Inspector Relationship Specialty Start Date End Date Carlyn Polo MD [address] [place] [phone] PCP - General 07/13/09 01/05/21 documented as of this encounter
--- OUTSIDE RECORDS SUMMARY | 2024-03-09 15:18 | XMS_ITS | Encounter Summary ---
Author Organization [facility] Address [address] [place] [address] Care Team Providers Care Senior Cost Estimator Name Role Phone Steve Vann MD Primary Care Provider [phone] Encounter Details Date Type Department Care Team (Late st Contact Info) Description 02/01/2021 Lab Requisition [facility] Pathology & Laboratory Medicine - [facility] [address] [place] [address] Yuan Bourgeois MD [address] [place] [address] Encounter for other general examination Social [...] management options, if applicable. 02/02/2021 12:05 EDT [facility] Final Diagnosis A. [...] for intestinal metaplasia and dysplasia. 02/02/2021 12:05 [facility] Attestation By the signature below, the attending physician certifies that they have 1) personally conducted a gross and/or microscopic examination of the described specimen(s), and/or personally interpreted the results of laboratory testing of the described specimen(s), and 2) personally rendered or confirmed the above diagnosis. 02/02/2021 12:05 [facility] at 1205 Clinical History Dysphagia, polyps 02/02/2021 12:05 [facility] Gross Description A. Received in [...] C1. BRITTANI MANN(ASCP) 02/01/2021 16:16 02/02/2021 12:05 [facility] Performing Lab [facility] 12:05 [facility] Scanned Images 02/02/2021 12:05 [facility] Tissue ENTIRE ESOPHAGUS / Unknown 02/01/2021 9:07 EDT 02/01/2021 16:07 EDT Tissue specimen (specimen) STOMACH STRUCTURE / Unknown 02/01/2021 9:07 EDT 02/01/2021 16:07 EDT Tissue specimen (specimen) ESOPHAGEAL STRUCTURE / Unknown 02/01/2021 9:07 EDT 02/01/2021 16:07 EDT us Yuan Bourgeois MD PATHOLOGY ORDERABLES Fin al Result [facility] [address] [place] [address] documented in this encounter Visit Diagnoses Diagnosis Encounter for other general examination documented in this encounter Care Teams Senior Cost Estimator Relationship Specialty Start Date End Date Steve Vann MD [address] [place] [address] PCP - General 01/06/21 documented as of this encounter
--- OUTSIDE RECORDS SUMMARY | 2024-03-09 15:18 | XMS_ITS | Encounter Summary ---
Author Organization [facility] Address [address] [place] [address] Care Team Providers Care Contractor General Engineering Name Role Phone Carlyn Polo MD Primary Care Provider [phone] Encounter Details Date Type Department Care Team (Latest Contact Info) Description 07/29/2017 10:09 EDT - 07/29/2017 23:59 EDT Hospital Encounter [address] [address] Unknown, Provider, MD Discharge Disposition: Home or Self Care Social [...] Code Departure Means Destination Home or Self Correction documented in this encounter Plan of Treatment Not on file documented as of this encounter Visit Diagnoses Not on filedocumented in this encounter Care Teams Contractor General Engineering Relationship Specialty Start Date End Date Carlyn Polo MD [address] [place] [phone] PCP - General 07/13/09 01/05/21 documented as of this encounter
--- OUTSIDE RECORDS SUMMARY | 2024-03-09 15:18 | XMS_ITS | Encounter Summary ---
Author Organization [facility] Address [address] [place] [address] Care Team Providers Care Curtain Cleaner Name Role Phone Carlyn Polo MD Primary Care Provider [phone] Steve Vann MD Primary Care Provider [phone] Encounter Details Date Type Department Care Team (Late st Contact Info) Description 04/22/2020 Lab Requisition [facility] Pathology & Laboratory Medicine - Main [address] [phone] Outr Resulting Lab, Provider Social History Tobacco [...] 19 - 88 pg/mL 04/25/2020 10:51 EST [facility] Blood VENOUS BLOOD / Unknown 04/21/2020 14:30 EST 04/22/2020 17:29 EST us Provider Outr Resulting Lab CHEMISTRY & BLOOD GA S ORDERABLES Final Result [facility] [address] [place] [address] documented in this encounter Visit Diagnoses Not on filedocumented in this encounter Care Teams Curtain Cleaner Relationship Specialty Start Date End Date Carlyn Polo MD [address] [place] [phone] PCP - General 07/13/09 01/05/21 Steve Vann MD [address] [place] [phone] PCP - General 01/06/21 documented as of this encounter
--- OUTSIDE RECORDS SUMMARY | 2024-03-09 15:18 | XMS_ITS | Encounter Summary ---
Author Organization [facility] Address [address] [place] [address] Care Team Providers Care Medicine Technologist Name Role Phone Carlyn Polo MD Primary Care Provider [phone] Encounter Details Date Type Department Care Team (Late st Contact Info) Description 07/29/2017 Results Only [facility] [phone] Jose Guadalupe Zavala MD [address] [place], [place] [phone] Social History Tobacco Use Types Packs/Day Years [...] ? BRITNEY FITZGERALD ? Accession #: ? [id number] ? : ? 1945 (Age: 72) ??F ? Collect Date: ? 07/29/2017 ? Location: ? [facility] ? Receive Date: ? 07/29/2017 ? Provider: JOSE GUADALUPE ZAVALA MD Copy to: MERRILL [facility]ZEL RAWHIDE TRIMMER ? Final Pathologic Diagnosis: A. ??COLON, CECUM [...] (ASCP) 07/29/2017 4:29 PM End of Report [facility] 07/29/2017 16:0 8 EDT 07/29/2017 16:08 EDT us Jose Guadalupe Zavala MD PATHOLOGY ORDERABLES Fin al Result [facility] [address] [place] [address] documented in this encounter Visit Diagnoses Not on filedocumented in this encounter Care Teams Medicine Technologist Relationship Specialty Start Date End Date Carlyn Polo MD [address] [place] [phone] PCP - General 07/13/09 01/05/21 documented as of this encounter
--- OUTSIDE RECORDS SUMMARY | 2024-03-09 15:18 | XMS_ITS | Encounter Summary ---
Author Organization [facility] Address [address] [place] [address] Care Team Providers Care Sheriff'S Sergeant Name Role Phone Carlyn Polo MD Primary Care Provider [phone] Encounter Details Date Type Department Care Team (Late st Contact Info) Description 02/16/2005 Results Only [facility] - Maple conversion [address] [place] [address] Kaylee Torres, PARMINDER [address] [place] [address] Social History Tobacco Use Types [...] ? BRITNEY FITZGERALD ? Accession #: ? [id number] : ? 1945 (Age: 59) ??F ?Collect Date: ? 02/16/2005 Location: ? [facility] ? Receive Date: ? 02/19/2005 Provider: ?KAYLEE TORRES FINANCIAL AID ADVISOR Copy to: ? Specimen/Source: ?ThinPrep Pap Test, Vagina, processed on [employer] ThinPrep Imaging System, with manual evaluation Last [...] Date: ??02/22/2005 09:21 End of Report [facility] 02/16/2005 02/19/2005 us Kaylee Torres FINANCIAL AID ADVISOR PATHOLOGY ORDERABLES Final R esult [facility] [address] [place] [address] documented in this encounter Visit Diagnoses Not on filedocumented in this encounter Care Teams Sheriff'S Sergeant Relationship Specialty Start Date End Date Carlyn Polo MD [address] [place] [phone] PCP - General 07/13/09 01/05/21 documented as of this encounter
--- OUTSIDE RECORDS SUMMARY | 2024-03-09 15:18 | XMS_ITS | Encounter Summary ---
Author Organization [facility] Address [address] [place] [address] Care Team Providers Care Hot Knife Cutter Name Role Phone Carlyn Polo MD Primary Care Provider [phone] Encounter Details Date Type Department Care Team (Latest Contact Info) Description 07/13/2009 8:02 EDT - 07/13/2009 23:59 EDT Hospital Encounter [facility] [address] [place] [address] Carlyn Polo MD [address] [place] [address] Discharge Disposition: Home or Self [...] Code Departure Means Destination Home or Self [facility] documented in this encounter Plan of Treatment Not on file documented as of this encounter Procedures Procedure Name Priority Date/Time Associated Diagnosis Comments URINE [id number]-[id number] E RATIO (ACR) Routine 07/13/2009 8:17 EDT AST Routine 07/13/2009 8:15 EDT HEMOGLOBIN A1C Routine 07/13/2009 8:15 EDT LIPID PROFILE (INCLUDES CHOLESTEROL, TRIGLYCERIDES, HDL, LDL) Routine 07/13/2009 8:15 EDT BASIC METABOLIC PANEL (BMP) Routine 07/13/2009 8:15 EDT documented in this encounter Results * MICROALBUMIN (07/13/2009 8:17 EDT) Creatinine, Urn [place] 53.6 mg/dl [facility] Ur Albumin mg/dl <0.2 <1.9 mg/dl [facility] Ur Alb ug/mg Crea Unable to calculate ug/mg Crea result. Normal: ??<30 ug/mg Creat Microalbuminu citlali: ??30-300 ug/mg Creat Clinical albuminuria: ??>300 ug/mg Creat ug/mg Crea [facility] 07/13/2009 8:17 EDT 07/13/2009 8:19 EDT Carlyn Polo MD CHEMISTRY & BLOOD GAS ORDERABLES Final Result Performing Organization Address [facility] de Phone Number [facility] [address] [place] [address] * (ABNORMAL) LIPID PROFILE (INCLUDES CHOLESTEROL, TRIGLYCERIDES, HDL, LDL) (07/13/2009 8:15 EDT) Cholesterol 202 mg/dl [facility] Comment: Desirable:<200 Borderline High:200-239 High:>jt=090 Triglycerides 164(H) 35 - 160 mg/dl [facility] HDL 51 mg/dl [facility] Comment: Low:<40 High(Desirable):>or=60 LDL, Calculated 118 mg/dl [facility] Comment: Optimal:<100 Above optimal:100-129 Borderline High:130-159 High:160-189 Very High:>tm=373 Chol/HDL Ratio 4.0 Performed at [facility], [facility], [place] [facility] Fasting? Yes [facility] 07/13/2009 8:15 EDT 07/13/2009 8:17 EDT Carlyn Polo MD CHEMISTRY & BLOOD GAS ORDERABLES Final Result Performing Organization Address [facility] de Phone Number [facility] [address] [place] [address] * HEMOGLOBIN A1C (07/13/2009 8:15 EDT) Hemoglobin [...] EDT Carlyn Polo MD CHEMISTRY & BLOOD GAS ORDERABLES Final Result [facility] [address] [place] [address] * BASIC METABOLIC PANEL (07/13/2009 8:15 EDT) Sodium 139 136 - 145 mEq/L [facility] [...] [facility] Comment:Performed at [facility], [place], [place] Fasting? Yes [facility] 07/13/2009 8:15 EDT 07/13/2009 8:17 EDT Carlyn Polo MD CHEMISTRY & BLOOD GAS ORDERABLES Final Result Performing Organization Address [facility] Co de Phone Number [facility] [address] [place] [address] * AST (07/13/2009 8:15 EDT) AST 28 15 - 46 U/L [facility] Comment:Performed at [facility], [place], [place] 07/13/2009 8:15 EDT 07/13/2009 8:17 EDT Carlyn Polo MD CHEMISTRY & BLOOD GAS ORDERABLES Final Result Performing Organization Address [facility] de Phone Number [facility] [address] [place] [address] documented in this encounter Visit Diagnoses Not on filedocumented in this encounter Care Teams Hot Knife Cutter Relationship Specialty Start Date End Date Carlyn Polo MD [address] [place] [phone] PCP - General 07/13/09 01/05/21 documented as of this encounter
[2024-03-09 15:56] LABS: ALT 39 U/L (14-59); AST 21 U/L (15-37); Albumin 3.8 g/dL (3.4-5.0); Alkaline Phosphatase 161 U/L (46-116); Anion Gap 9.4 mmol/L (3-11); BUN 14 mg/dL (7-18); CO2 26.6 mmol/L (21.0-32.0); CREATININE 0.8 mg/dL (0.55-1.02); Calcium 10.3 mg/dL (8.5-10.1); Chloride 104 mmol/L (98-107); Estimated GFR 76.31 (mL/min/1.73m2); Glucose 213 mg/dL (74-106); Potassium 4.5 mmol/L (3.5-5.1); Sodium 140 mmol/L (136-145)
== END 2024-03-09 15:16 | disposition home or self-care (01) ==
LOC: NCHCN 15:15
PROVIDERS: PCP Family Medicine; Visit Provider Student in an Organized Health Care Education/Training Program
DX: E83.52 Hypercalcemia (principal)
CPT/HCPCS: 80053

== ENCOUNTER 2024-06-01 15:39 | Outpatient (REF) | payer MEDICARE, SELFPAY ==
[2024-06-01 20:13] LABS: Abs Immature Grans 0.04 10^3/uL (0.0-0.06); Absolute Basophil Count 0.02 10^3/uL (0.0-0.2); Absolute Eosinophil Count 0.18 10^3/uL (0.0-0.7); Absolute Lymphocyte Count 1.28 10^3/uL (1.2-3.4); Absolute Monocyte Count 1.03 10^3/uL (0.1-0.8); Absolute Neutrophil Count 8.25 10^3/uL (1.2-6.7); Basophils % 0.2 %; Eosinophils % 1.7 %; HCT 42.8 % (36.0-46.0); HGB 14.3 g/dL (11.2-15.7); Immature Grans % 0.4 %; Lymphocytes % 11.9 %; MCH 29.2 pg (27.0-33.0); MCHC 33.4 % (32.0-36.0); MCV 88 fL (80-95); MPV 10.3 fL (8.0-11.0); Monocytes % 9.5 %; Neutrophils % 76.3 %; Platelet Count 375 10^3/uL (130-400); RBC 4.89 10^6/uL (3.93-5.22); RDW 12.4 % (11.7-14.6); RDW-SD 39.7 fL
[2024-06-01 20:22] LABS: BUN 14 mg/dL (7-18); CREATININE 0.6 mg/dL (0.55-1.02); Calcium 10.6 mg/dL (8.5-10.1); Chloride 105 mmol/L (98-107); Estimated GFR 92.39 (mL/min/1.73m2); Glucose 204 mg/dL (74-106); Potassium 4.9 mmol/L (3.5-5.1); Sodium 141 mmol/L (136-145)
== END 2024-06-01 15:40 | disposition home or self-care (01) ==
LOC: NCHCN 15:39
PROVIDERS: PCP Family Medicine; Visit Provider Student in an Organized Health Care Education/Training Program
DX: R05.9 Cough, unspecified (principal)
CPT/HCPCS: 80048; 85025

== ENCOUNTER 2024-06-01 16:46 | Outpatient (CLI) | payer MEDICARE, SELFPAY ==
--- NOTE | 2024-06-01 | DI.RAD_ITS ---
Exam(s) XR CHEST 2V PA LATERAL EXAM: XR CHEST 2V PA LATERAL CLINICAL HISTORY: Cough, R05.9 TECHNIQUE: 2D digital imaging was performed. Two views. COMPARISON: CR XR CHEST 2V PA LATERAL from 06/23/2021 FINDINGS: HEART: Normal size. Aorta: Not dilated. PULMONARY VASCULATURE: Normal. MEDIASTINUM: Unremarkable. LUNGS: Clear. PLEURAL SPACE: No pleural effusion or pneumothorax. BONE:Unremarkable for age. SOFT TISSUES: Unremarkable. IMPRESSION: No acute abnormality. DATA REPOSITORY: RADIATION DOSE DELIVERED:
== END 2024-06-01 17:06 ==
LOC: DI 17:00
PROVIDERS: PCP Family Medicine; Visit Provider Student in an Organized Health Care Education/Training Program
DX: R05.9 Cough, unspecified (principal)
CPT/HCPCS: 71046

== ENCOUNTER 2024-07-23 00:37 | Outpatient (CLI) | payer MEDICARE, SELFPAY ==
--- NOTE | 2024-07-23 | DI.DEXA_ITS ---
Exam(s) XR DEXA BONE DENSITY W/WO DEZ EXAM: XR DEXA BONE DENSITY W/WO DEZ CLINICAL HISTORY: Asymptomatic menopausal state, Z78.0 TECHNIQUE: [employer] Horizon C densitometer analysis of left hip, lumbar spine and left forearm. Lat eral survey image of the thoracic and lumbar spine. COMPARISON: DX DEXA BONE DENSITY WITH DEZ from 07/19/2011 DX DEXA BONE DENSITY WITH DEZ from 06/25/2017 FINDINGS: Lateral view of the thoracic and lumbar spine shows no evidence of compression fractures. Bone mineral density measurements of the lumbar spine correspond to a total T-score of -0.5, in the normal range. There represents a 6.8 percent decrease from 2018 and a 10.4 percent decrease compared to 2011. Bone mineral density measurements of the left hip correspond to a total T-score of -0.1, in the norm al range. This represents a 13.6 percent decrease from 2018 and 21.6 percent decrease from 2011. Th e femoral neck T-score is -0.3, in the normal range. Theleft forearm bone mineral density measurements correspond to a T-score of the distal 3rd of -3.5, in the osteoporotic range. This represents an 18.2 percent decrease from 2018 and a 23.3 percent de crease from 2011. IMPRESSION: Osteoporosis of the left forearm. Normal bone mineral density of the spine and hip.
== END 2024-07-23 00:57 ==
PROVIDERS: PCP Student in an Organized Health Care Education/Training Program; Visit Provider Student in an Organized Health Care Education/Training Program
DX: Z78.0 Asymptomatic menopausal state (principal); M85.89 Other specified disorders of bone density and structure, multiple sites
CPT/HCPCS: 77080

== ENCOUNTER → 2024-11-19 12:58 | Outpatient (BNVA) | payer MEDICARE, SELFPAY | PROVIDERS: PCP Student in an Organized Health Care Education/Training Program; Referring Provider Student in an Organized Health Care Education/Training Program; Visit Provider Surgery | DX: R13.10 Dysphagia, unspecified (principal) | CPT/HCPCS: 99213 ==

== ENCOUNTER 2024-12-04 10:35 | Day surgery (SDC) | payer MEDICARE, SELFPAY ==
--- NOTE | 2024-12-03 19:07 | W.ANESPRE ---
General Info Date of Service Date Performed: 12/04/24 Height: 5 ft 4 in Weight: 73.482 kg Body Mass Index (BMI): 27.8 Surgical Procedure: Operation Date: 12/04/24 12:20 Proposed Procedure Side Surgeon p Gastroscopy with Dilation Balta Cox MD Meds Allergies and Home Medications Allergies Allergy/AdvReac Type Severity Reaction Status Date / Time pollens AdvReac Other (See Uncoded 12/04/24 11:01 Comment) Home Medication ?Medication ?Instructions ?Recorded niacin 500 mg tablet 500 mg PO TID 10/31/18 5-hydroxytryptophan (5-HTP) 100 mg 100 mg PO BID 12/29/20 capsule (5-HTP) amitriptyline 10 mg tablet 10 mg PO QHS 06/29/22 famotidine 40 mg tablet 40 mg PO PRN 03/21/23 atorvastatin 10 mg tablet (Lipitor) 10 mg PO .COMPLEX 11/12/24 bilberry 100 mg capsule 100 mg PO DAILY 11/12/24 lisinopril 20 mg tablet 20 mg PO DAILY 11/12/24 loratadine 10 mg tablet 10 mg PO DAILY PRN 11/19/24 metformin 500 mg tablet 500 mg PO BID 11/19/24 Current Visit Medications: Current Medications Generic Name Dose Route Start Last Admin Trade Name Freq PRN Reason Stop Dose Admin Ringer's Solution 1,000 mls @ 80 mls/hr 12/04/24 06:00 IV 12/04/24 23:59 INFUSION DOUG IV Miscellaneous Supplies 1 each 12/04/24 06:00 Iv Access IV 12/04/24 23:59 DIRECTED DOUG Sodium Chloride 0 ml 12/04/24 06:00 Normal Saline Flush 10 Ml Syr IV 12/04/24 23:59 PRN PRN Sodium Chloride 0 ml 12/04/24 06:00 Normal Saline 10 Ml Vial IJ 12/04/24 23:59 DIRECTED PRN Sterile Water 0 ml 12/04/24 06:00 Water,Injection,Sterile 10 Ml Vial IJ 12/04/24 23:59 DIRECTED PRN PFSH Active Problems Active Problems: Problem Status Onset Code Bilateral sensorineural hearing loss Acute H90.3 Excessive cerumen in both ear canals Acute H61.23 Impacted cerumen, left ear Acute H61.22 Esophagitis Acute K20.90 Gastritis Acute K29.70 Screening for colon cancer Acute Z12.11 Sessile colonic polyp Acute K63.5 Dysphagia Acute R13.10 Chest pain Acute R07.9 Pelvic pain in female Acute R10.2 Urinary incontinence in female Acute R32 Medical History Medical History Systolic murmur Senile osteoporosis Senile hyperkeratosis Dyspepsia History of adenomatous polyp of colon Intracranial subdural hematoma Rib pain on right side Subarachnoid hemorrhage 05/2020 s/p fall off deck onto pile of frozen snow and ice. pt fell backwards Mild memory disturbance Easy fatigability Pelvic floor instability Chest discomfort per pt. full work up and negative Hypercalcemia Polycythemia History of pyelonephritis Asthma pt states this should be removed. no longer a current issue Irritable colon HTN (hypertension) Cataract Neck pain H/O menorrhagia Chronic back pain Schatzki's ring Fibrocystic breast Osteopenia Vaginal pain Hyperlipidemia Mild scoliosis Dysuria Depression Anxiety Low pressure urethral dysfunction Type 2 diabetes mellitus Incomplete bladder emptying Hematuria Onychomycosis Acute Lyme disease treated with doxy x 2 weeks. not an active problem at this time Surgical History Surgical History Normal colonoscopy (~01/2021) History of hysterectomy partial, ovaries remain History of tonsillectomy History of esophagogastroduodenoscopy (EGD) (~01/2021) Colonoscopy - MAC (07/29/17) Cholecystectomy Appendectomy Tobacco Smoking/Tobacco Use Status: Never Alcohol Alcohol Intake: never Substance Use Substance use: Never Substance use type: does not use Vital Signs and Lab Results Vital Signs Most Recent Vital Signs in EMR: Temp Pulse Resp BP Pulse Ox 36.4 C L 63 18 139/77 98 12/04/24 10:56 12/04/24 10:56 12/04/24 10:56 12/04/24 10:56 12/04/24 10:56 Imaging and Studies Imaging and Studies Study information below may be from another EMR and interpreted by another provider. Please see original notes in EMR for more complete details. EKG Summary: 2019: SR, Qs II, III, aVF. Stress Test Summary: 10/2020: 7 Mets, no symptoms suggestive of ischemia, no EKG changes suggestive of ischemia. Echocardiogram Summary: 09/2018: LVEF 60-65%, mild LVH, no WMA, normal RV Fxn. Anesthesia Assessment and Plan Anesthesia History Personal History: PONV Family History: No Family History of Anesthesia Complications Exercise Tolerance Exercise Tolerance: Metabolic Equivalents>4 Pertinent Negatives Pertinent Negatives: No Symptoms of GERD Cardiac & Pulmonary Exam Cardiac Exam: Heart Murmur Present Pulmonary Exam: Clear Bilateral Breath Sounds Implantable Cardiac Device Does patient have a Pacemaker or an ICD?: No Airway Exam Known Difficult Airway: No Mallampati Class: 2 Mouth Opening: Normal (> 3cm) Thyromental Distance: Less than 3 cm Neck Range of Motion: Full ROM Neck Circumference: Normal Teeth Condition: Normal Dentition ASA Classification ASA Score: ASA 3 Emergency Case?: No NPO Status NPO Status: NPO Clears >2 hours, Solids >8 hours Anesthesia Plan Resuscitation Status: Full Code Anesthesia Technique: General Anesthesia Airway Planned: Natural Airway Monitors Used: Standard Monitors Preoperative Comments:: 79 yo female with dysphagia for end/dilation Sig PMHx: HTN (lisinopril), DM2 (metformin) , GERD (Pepcid), never smoker, rare EtOH, muscle spasms, 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 ECHO: LVEF 60-65%. ECG: sinus. Stress: no ECG changes, 7 mets. Previous Anes: - egd/colo, prop, natural airway, no issues.
--- NOTE | 2024-12-03 20:05 | W.PM.ENDDOP ---
Date of service: 12/04/24 Time of Service: 12:55 Endoscopy Report DATE OF PROCEDURE: 12/04/24 PRE-OP DIAGNOSIS: dysphagia POST-OP DIAGNOSIS: same PROCEDURE: EGD with biopsies SURGEON: Balta Cox ANESTHESIA TYPE: General:No Airway ESTIMATED BLOOD LOSS: 5 PATHOLOGY: other (Nondirected gastric antrum and body biopsies to rule out Helicobacter pylori. Biopsies of esophagus rule out esophagitis) COMPLICATIONS: None DISPOSITION: same day INDICATIONS: Britney is a 79 year old woman with a history of an esophageal ring and recurrent dysphagia PROCEDURE START TIME: 12:41 PROCEDURE END TIME: 12:49 FINDINGS: Normal-appearing EGD PROCEDURE DESCRIPTION: After the initiation of anesthesia, and with the assistance of a bite block, I advanced a standard gastroscope through the mouth past the hypopharynx and into the esophagus.? Under the direct vision of the scope, I advanced down the esophagus towards the stomach.? The upper, mid, and lower esophagus were all normal in course and caliber. There is no signs of any diverticulum. There was no signs of any esophagitis. I did not see any evidence of webs or rings. The GE junction measures 36 cm beyond the incisors, and the Z-line is regular. Narrowband imaging was used to assist with the analysis. I am able to advance down across the GE junction with ease into the stomach. I insufflated and show the rugae were obliterated. Retroflexion was normal. Gastric mucosa appeared normal and healthy. I can advance across the pylorus into the duodenum with ease. The duodenum is all normal. I then brought the camera back up into the stomach and perform some nondirected biopsies of the gastric antrum and body to rule out Helicobacter pylori. Given the reported history of an esophageal ring or web, another thorough examination of the esophagus was performed. Again, I did not see any evidence of anything that is blocking the esophagus. I did perform some nondirected biopsies using cold forceps of the esophagus to rule out microscopic esophagitis. There were minimal bleeding from the sites. The camera was then passed back down into the stomach and it was completely emptied before removal
--- NOTE | 2024-12-03 20:06 | W.PM.DSUDISC ---
Date of service: 12/04/24 Discharge Plan Disposition Patient Disposition: Home Condition: Good Discharge Details Reason For Visit: EGD Attending Provider: Balta Cox Primary Care Provider: Jonny Rivera Home Meds and New Rx's Prescriptions: Continued loratadine 10 mg tablet 10 mg PO DAILY PRN niacin 500 mg tablet 500 mg PO TID 5-hydroxytryptophan (5-HTP) [5-HTP] 100 mg capsule 100 mg PO BID amitriptyline 10 mg tablet 10 mg PO QHS famotidine 40 mg tablet 40 mg PO PRN atorvastatin [Lipitor] 10 mg tablet 10 mg PO .COMPLEX Rx Instructions: 10 mg orally 3x a week lisinopril 20 mg tablet 20 mg PO DAILY bilberry 100 mg capsule 100 mg PO DAILY metformin 500 mg tablet 500 mg PO BID Discharge Instructions Additional Instructions: Sofya, it was good seeing you today, and I hope you feel well after the procedure. Things went very smoothly. I did not see any evidence of anything blocking the esophagus today. The connection between your esophagus and your stomach looks healthy. The camera passes all the way down into your stomach with ease. Similarly, the lining of your stomach looks normal, and I do not see anything that would explain your symptoms. In an effort to identify a diagnosis, I did do some biopsies of your stomach and your esophagus to see if that sheds any light on the cause. Those biopsies will take about a week or so to get back. Will see what those show before making any other changes. If they are normal, then my inclination is to send you for a swallowing test to see how things pass along the length of your esophagus to make sure that this is not a functional problem, that is that the esophagus contracts normally. If you need anything, or have any questions, please do not hesitate to ask, otherwise I will be in touch once the biopsy results are available. 1. If tolerated, consume a soft, low fiber diet for 1-2 days. [address] Do not drive, drink alcohol, operate machinery, make critical decisions, or do activities that require coordination or balance for 24 hours. 3. You may experience a sore throat for 24 to 48 hours. You may use throat lozenges or gargle with warm salt water to relieve the discomfort. 4. Because air was put into your stomach during the procedure, you may experience some belching. 5. Go directly to the emergency room if you notice any of the following: Develop chills (warm to touch), or if you have a thermometer and your temperature is above 101 Difficulty breathing or difficultly swallowing Persistent vomiting Severe abdominal pain, other than gas cramps Severe chest pain Black, tarry stools Any bleeding ? exceeding one tablespoon 6. Call your physician if the site where your intravenous was started becomes red, swollen, painful, and warm to touch. 7. Your physician has reviewed your pre-procedure medications. Please continue to take those medications as previously ordered. You will be given specific information/education regarding any changes to your medications before leaving. Stand Alone Forms: Anesthesia Discharge Inst., DSU Post EGD Instructions, Deborah Acosta (DSU) Activity:: Activity as Tolerated Diet:: As Tolerated Discharge Orders Discharge Orders: Discharge Order (Routine); Ordered 12/03/24 Ordered By: Blata Cox DS: Diagnosis Discharge Diagnosis (1) Dysphagia: Status: Acute Asessment and Plan: Follow-up on biopsy results
[2024-12-04 10:56] VITALS: BP 139/77; PULSE 63; RESP 18; TEMP 36.4; O2SAT 98
[2024-12-04] MEDS: Lactated Ringers 1,000 ML 80 ML IV (11:17)
[2024-12-04 12:04] VITALS: BMI 27.8
--- NOTE | 2024-12-04 12:42 | STOM_PTH ---
PATIENT: Britney Mcdnoald LOC: NADIA U#:[id number] AGE/SX: 79/F ROOM: RE12/04/[address]: Balta Cox MD : [id number] BED: DIS: 12/04/2024 SPEC #: [id number] RECD: 12/04/24 13:18 STATUS: JIMBO RE #: [id number] SHEILA: 12/04/24 12:[address]: Balta Cox DEPT: Surgical Specimen RECD BY: Grace Santos ENTERED: 12/04/24 13:20 SP TYPE: STOMACH OTHR DR: Jonny Rivera Tissues: 1 - STOMACH BIOPSY 2 - STOMACH BIOPSY 3 - ESOPHAGUS BIOPSY Procedures: GROSS AND MICRO LEVEL 4 IMMUNOPEROXIDASE STAIN Comments: [id number]
[2024-12-04 12:53] VITALS: BP 109/59; PULSE 67; RESP 18; TEMP 36.3; O2SAT 93
[2024-12-04 13:14] VITALS: BP 133/62; PULSE 62; RESP 14; TEMP 36.3; O2SAT 97
--- NOTE | 2024-12-04 13:19 | W.ANESPOSTOP ---
Postoperative Evaluation Date, Time and Location Date Performed: 12/04/24 Time Performed: 13:10 Patient Location: Day Surgery Unit Vital Signs Most Recent Imported Vital Signs: Most Recent Vital Signs Temp Pulse Resp BP Pulse Ox 36.3 C L 62 14 133/62 97 12/04/24 13:14 12/04/24 13:14 12/04/24 13:14 12/04/24 13:14 12/04/24 13:14 Pain Score Most Recent Pain Score: Most Recent Pain Score Pain Level 0 12/04/24 13:14 Assessment Mental Status: Awake (Alert & Oriented to Patient Baseline) Airway and Respiratory Function: Patent airway with normal (patient baseline) respiratory exam Cardiovascular Function: Hemodynamically Stable Hydration Status: Adequately Hydrated Nausea & Vomiting: No Nausea or Vomiting Pain: Pt. Denies Any Pain Peripheral Nerve Block: Patient did not receive a nerve block
== END 2024-12-04 13:33 | disposition home or self-care (01) ==
LOC: SUR 10:36
PROVIDERS: PCP Student in an Organized Health Care Education/Training Program; Visit Provider Surgery
PROC: 0D758ZZ Dilation of Esophagus, Via Natural or Artificial Opening Endoscopic (ICD-10-PCS; CPT 43239; principal; 2024-12-04 12:15)
DX: R13.10 Dysphagia, unspecified (principal); I10 Essential (primary) hypertension; E11.9 Type 2 diabetes mellitus without complications; K31.9 Disease of stomach and duodenum, unspecified
CPT/HCPCS: 43239; 88305; 88361; J2405; J2704

== ENCOUNTER 2025-02-17 15:44 | Outpatient (REF) | payer MEDICARE, SELFPAY ==
[2025-02-17 18:18] LABS: Microalb ug/mg Crea 78.3 ug/mg Cr
== END 2025-02-17 15:45 | disposition home or self-care (01) ==
LOC: NCHCN 15:44
PROVIDERS: PCP Student in an Organized Health Care Education/Training Program; Visit Provider Student in an Organized Health Care Education/Training Program
DX: E11.9 Type 2 diabetes mellitus without complications (principal)
CPT/HCPCS: 82043; 82570

== ENCOUNTER 2025-02-24 18:17 | Outpatient (REF) | payer MEDICARE, SELFPAY | END 2025-02-24 18:18 | disposition home or self-care (01) | LOC: LBN 18:17 | PROVIDERS: PCP Student in an Organized Health Care Education/Training Program; Visit Provider Nurse Practitioner Family | DX: R33.9 Retention of urine, unspecified (principal) | CPT/HCPCS: 87086 ==

== ENCOUNTER → 2025-03-01 02:10 | Outpatient (CLI) | payer MEDICARE, SELFPAY ==
--- NOTE | 2025-03-01 09:30 | DI.US_ITS ---
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 Ejection fraction is 59%. Wall motion is normal Normal right ventricular size and function Both atria are normal in size There is no structural or hemodynamically significant valvular disease Very mildly dilated ascending aorta measuring 3.47 cm Wall motion Left Ventricle The left ventricle is normal size. The left ventricular systolic function is normal. The left ventricular ejection fraction is within the normal range. There is normal left ventricular wall thickness. There is normal LV segmental wall motion. There is no ventricular septal defect visualized. LVEF is 59%. Right Ventricle The right ventricle is normal size. The right ventricular systolic function is normal. Atria The left atrium size is normal. The right atrium size is normal. The interatrial septum is intact with no evidence for an atrial septal defect. Aortic Valve The aortic valve is normal in structure. Aortic valve is trileaflet. There is no aortic valvular stenosis. No aortic regurgitation is present. Mitral Valve Mild mitral annular calcification. No evidence of mitral valve stenosis. Trace mitral regurgitation. Tricuspid Valve The tricuspid valve is normal in structure. There is no tricuspid valve stenosis. Trace to mild tricuspid regurgitation. Unable to assess PA pressure. Pulmonic Valve The pulmonary valve is normal in structure. There is no pulmonic valvular stenosis. There is no pulmonic valvular regurgitation. Great Vessels The aortic root is normal in size. The ascending aorta is mildly dilated. Aortic arch is normal in caliber. IVC is normal in size and collapses >50% with inspiration. Pericardium There is no pericardial effusion. 2D Dimensions IVSD d PLAX 0.93 cm F: 0.6-1.0 Ao Root d 2.63 cm F: 2.7 - 3.3 LVPW d PLAX 0.90 cm F: 0.6 - 1.0 Ao Asc Diam d 3.47 cm F: 2.3 - 3.1 LVID d PLAX 4.00 cm F: 3.8 - 5.2 LVDs 2.80 cm F: 2.2 - 3.5 LV EF Teichholz 59.1 % FS 30.92 % LV EDV (Teich) 69.3 mL LV ESV (Teich) 28.3 mL M-Mode TAPSE 1.95 cm (M/F) >1.7 Auto EF LV EDV A4C 80.6 mL LV EDV A2C 74.2 mL LV EDV BP 80.5 mL LV ESV A4C 33.6 mL LV ESV A2C 30.0 mL LV ESV BP 32.6 mL LVEF(%) A4C 58.3 % LVEF(%) A2C 59.5 % LVEF(%) BP 59.5 % LV SV A4C 47.0 ml LV SV A2C 44.1 ml LV SV BP 47.9 ml LV CO A4C 3.0 L/min LV CO A2C 2.7 L/min LV CO BP 2.8 L/min HR A4C 62.94 BPM HR A2C 61.44 BPM LV EDV Index (BP) LA Volume LA Length A4C 3.6 cm LA Length A2C 4.9 cm LA Area A4C s 10.83 cm2 LA Area A2C s 15.42 cm2 LA Vol A4C A-L 27.57 mL LA Vol A2C A-L 41.08 mL LA Vol Biplane A-L 39.3 mL LA Vol/BSA A4C A-L LA Vol/BSA A2C A-L LA Vol/BSA BP A-L 21.9 mL/m2 LA Vol A4C MOD 26.0 mL LA Vol A2C MOD 37.8 mL LA Vol BP MOD 36.4 mL RA Volume RA Area A4C 10.0 cm2 RA ESV A4C (A-L) 18.8mL RA Vol/BSA A4C A-L RA Length A4C 4.5 cm RA ESV A4C (MOD) 17.7mL LV Diastology MV E' medial 0.072 (>0.07 m/s) MV E Vmax 0.80 (0.4-1.3 m/s) MV E/E' MED 11.17 (<14) MV A Vmax 1.00 (0.4-1.3 m/s) MV E' lateral 0.061 (>0.1 m/s) E/A Ratio 0.8 MV E/E' LAT 13.13 (<14) MV E' Average 0.067 m/s MV E/E'(average) 12.07 Aortic Valve AoV Vmax 1.18 m/s LVOT Vmax 0.91 m/s AoV Peak Grad 5.6 mmHg LVOT Peak Grad 3.3 mmHg AoV Area (Vmax) 2.10 cm2 LVOT VTI 0.209 m AoV VTI 0.289 m LVOT Mean Grad 1.8 mmHg AoV Mean Rohit. 0.83 m/s LVOT SV 57.16 mL AoV Mean Grad 3.2 mmHg LVOT Diam s 1.85 cm AoV Area (VTI) 1.98 cm2 AV Regurg Peak Gr. 5.59 mmHg Velocity Ratio 0.77 Mitral Valve MV DT 278 (160-240 msec) MV Vmax TIPS 0.94 m/s MV Mean Grad 1.0 (<2mmHg) MV VTI 0.245 m Pulmonary Valve PV Vmax 0.90 (0.5-1.5 m/s) RVOT Vmax 0.61 m/s PV Peak Grad 3.3 mmHg RVOT Peak Gr. 1.5 mmHg PV Mean Rohit 0.64 m/s RVOT VTI 0.164 m PV Mean Grad 1.8 mmHg RVOT Mean Gr. 0.9 mmHg Tricuspid Valve RA Pressure 3.00 mmHg TV S' 0.12 m/s
--- NOTE | 2025-03-01 11:36 | DI.RAD_ITS ---
Exam(s) RF BARIUM SWALLOW EXAM: RF BARIUM SWALLOW CLINICAL HISTORY: R13.10 Dysphagia, unspecified TECHNIQUE: 2D and realtime digital imaging was performed. CONTRAST MATERIAL: Oral barium contrast was administered. COMPARISON: CR XR CHEST 2V PA LATERAL from 06/01/2024 FINDINGS: CHEST X-RAY: The heart and pulmonary vasculature are within normal limits. The lungs are clear. No pleural effusion or pneumothorax is present. The bones are within normal limits for the patient's age. ESOPHAGRAM: The esophagus is patent with no evidence for erosions, fold thickening, strictures, or masses. With regards to the motility, there is a normal primary stripping wave. No tertiary contractions were noted. There is no hiatal hernia or gastroesophageal reflux. IMPRESSION: Normal esophagram RADIATION DOSE DELIVERED: pearl Pandya=14 mGy
[2025-03-01] MEDS: Barium Sulfate 60% W/V 355 ML BTL PO (11:39)
[2025-03-01] MEDS: Barium Sulfate 98% W/W 140 ML BTL PO (11:41)
== END ==
PROVIDERS: PCP Student in an Organized Health Care Education/Training Program; Visit Provider Student in an Organized Health Care Education/Training Program
DX: R01.1 Cardiac murmur, unspecified (principal); R13.10 Dysphagia, unspecified
CPT/HCPCS: 93306; 74221; J3490